=== PATIENT | male | born 1980 | race Two or more races ===

== ENCOUNTER 2024-10-25 17:46 | Inpatient (IN) | payer MEDICAID, OTHER ==
[~2024-10-25] VITALS: Ht 162.6 cm; Wt 67.8 kg
--- NOTE | 2024-10-25 18:02 | ED.PDOC ---
History of Present Illness HPI Comments 44-year-old male who denies any significant past medical history brought in by EMS complaining of generalized weakness and fatigue for the past 2 weeks. Patient states that he has become so weak that he is unable to ambulate. He also notes shortness of breath and palpitations with very minimal exertion, nausea, vomiting and inability to tolerate any p.o. food or liquids, associated with upper abdominal pain. He denies fever, diarrhea, constipation, urinary symptoms, headache, vision changes or focal weakness. Chief Complaint: Body Pain Time Seen by MD: 18:00 Reviewed Notes: Nurses Notes, Portfolio Director Notes, Medications, Allergies Allergies: Coded Allergies: NO KNOWN ALLERGIES (Unverified , 10/25/24) Information Source: Patient Mode of Arrival: EMS Severity: Moderate Timing: Weeks Duration: Since onset Prehospital treatment: None Past Medical History PAST MEDICAL HISTORY: Denies Surgical History (Other): prior Left elbow fracture-needed Sx Family History Family History: Reviewed,noncontributory to illness, Unknown Social History Smoker: Non-Smoker Alcohol: Denies ETOH Use Drugs: Denies Drug Use Lives In: Home Constitutional: reports: fatigue, weakness; denies: chills, diaphoresis, fever, malaise, sweats, others EENTM: denies: blurred vision, double vision, ear bleeding, ear discharge, ear drainage, ear pain, ear ringing, eye pain, eye redness, hearing loss, mouth pain, mouth swelling, nasal discharge, nose bleeding, nose congestion, nose pain, photophobia, tearing, throat pain, throat swelling, voice changes, others Respiratory: reports: shortness of breath; denies: cough, hemoptysis, orthopnea, SOB at rest, SOB with excertion, stridor, wheezing, others Cardiovascular: reports: palpitations; denies: chest pain, dizzy spells, di aphoresis, Dyspnea on exertion, edema, irregular heart beat, left arm pain, lightheadedness, PND, syncope, others Gastrointestinal: reports: abdominal pain, nausea, vomiting; denies: abdomen distended, blood streaked bowels, constipated, diarrhea, dysphagia, difficulty swallowing, hematemesis, melena, poor appetite, poor fluid intake, rectal bleeding, rectal pain, others Genitourinary: denies: burning, dysuria, flank pain, frequency, hematuria, incontinence, penile discharge, penile sore, pain, testicle pain, testicle swelling, urgency, others Neurological: denies: dizziness, fainting, headache, left sided numbness, left sided weakness, numbness, paresthesia, pre-existing deficit, right sided numbness, right sided weakness, seizure, speech problems, tingling, tremors, weakness, others Musculoskeletal: denies: back pain, gout, joint pain, joint swelling, muscle pain, muscle stiffness, neck pain, others Integumetry: denies: bruises, change in color, change in hair/nails, dryness, laceration, lesions, lumps, rash, wounds, others Allergic/Immunocompromised: denies: Difficulty Healing, Frequent Infections, Hives, Itching, others Hematologic/Lymphatic: denies: anemia, blood clots, easy bleeding, easy bruising, swollen glands, others Endocrine: denies: excessive hunger, excessive sweating, excessive thirst, excessive urination, flushing, intolerance to cold, intolerance to heat, unexplained weight gain, unexplained weight loss, others Psychiatric: denies: anxiety, bipolar disorder, depression, hopeless, panic dis order, schizophrenia, sleepless, suicidal, others All Other Systems: Reviewed and Negative Physical Exam General Appearance: Cachectic, No Apparent Distress, Other (Chronically ill- appearing) HEENT: Pale Conjuntivae (L), Pale Conjuntivae (R), Other (Dry mucous membranes) Neck: Full Range of Motion, Normal Inspection Respiratory: Lungs Clear, No Accessory Muscle Use, No Respiratory Distress, Normal Breath Sounds Cardiovascular: No Edema, No JVD, Tachycardia Breast Exam: Deferred Gastrointestinal: Epigastric, LUQ, RUQ, Soft, Tenderness Genitalia: Deferred Pelvic: Deferred Rectal: Deferred Extremities: Normal inspection, Normal range of motion, Non-tender, No pedal edema Musculoskeletal : Apperance: Normal Neurologic: Alert (Oriented x4), Normal Affect, Normal Mood, Other (Moves all extremities with adequate strength and tone. No gross focal deficit.) Cerebellar Function: NOT DONE Reflexes: NOT DONE Skin: Dry, Jaundice, Pallor, Warm Lymphatic: NOT DONE Was a procedure done? Was a procedure done?: No EKG EKG : Comments Sinus tach, rate 109, normal intervals, normal axis, normal QRS, nonspecific T changes. Differential Dx Considerations may include: Anemia, arrhythmia, asthma/COPD, CHF, pneumonia, enteritis gastritis, pancreatitis, diverticular disease, colitis, ulcer disease, electrolyte imbalance, dehydration, sepsis, among others X-Ray, Labs, Meds, VS Vital Signs Date Time Temp Pulse Resp B/P (MAP) Pulse Ox O2 Delivery O2 Flow Rate FiO2 10/25/24 20:06 10/25/24 20:00 107 10/25/24 19:30 Room Air* 0 21 10/25/24 19:16 109 23 107/65 10/25/24 18:46 112 22 108/66 10/25/24 18:44 109 10/25/24 18:17 Room Air* 0 21 10/25/24 18:17 111 16 108/66 (80) 95 10/25/24 17:50 109 10/25/24 17:50 98.5 84 16 132/66 (88) 99 98.5 Lab Test 10/25/24 20:05 10/25/24 19:03 Range/Units Troponin I High Sensitivity 3 L 3 L </=54 ng/L White Blood Count 9.9 4.4-10.8 10^3/uL Red Blood Count 2.90 L 4.5-5.90 10^6/uL Hemoglobin 9.4 L 13.5-17.5 g/dL Hematocrit 27.4 L 41.0-53.0 % Mean Corpuscular Volume 94.6 80.0-100.0 fL Mean Corpuscular Hemoglobin 32.4 H 28.0-32.0 pg Mean Corpuscular Hemoglobin Concent 34.2 32.0-36.0 g/dL Red Cell Distribution Width 14.7 H 11.8-14.3 % Platelet Count 135 L 140-450 10^3/uL Mean Platelet Volume 10.5 6.9-10.8 fL Neutrophils (%) (Auto) 37.0-80.0 % Lymphocytes (%) (Auto) 10.0-50.0 % Monocytes (%) (Auto) 0.0-12.0 % Basophils (%) (Auto) 0.0-2.0 % Neutrophils # (Auto) 1.6-8.6 10 ^3/uL Lymphocytes # (Auto) 0.4-5.4 10 ^3/uL Monocytes # (Auto) 0-1.3 10 ^3/uL Differential Total Cells Counted 100.0 100 Neutrophils % (Manual) 65 37.0-80.0 Band Neutrophils % (Manual) 30 Lymphocytes % (Manual) 4 L 10.0-50.0 Monocytes % (Manual) 1 0-12 Eosinophils % (Manual) 0 0-7 Basophils % (Manual) 0 0.0-2.0 Metamyelocytes % (manual) 0 Myelocytes % (Manual) 0 Promyelocytes % (Manual) 0 Blast Cells % (Manual) 0 Reactive Lymphocytes 0 Platelet Estimate Decreased Sodium Level 131 L 136-145 mmol/L Potassium Level 3.7 3.5-5.1 mmol/L Chloride Level 97 L 98-107 mmol/L Carbon Dioxide Level 24 20-31 mmol/L Anion Gap 10 5-15 Blood Urea Nitrogen 55 H 9-23 mg/dL Creatinine 0.50 L 0.700-1.30 mg/dL Glomerular Filtration Rate Calc 127 >90 mL/min BUN/Creatinine Ratio 110.0 H 10.0-20.0 Serum Glucose 72 L 74-106 mg/dL Lactic Acid Level 1.8 0.4-2.0 mmol/L Calcium Level 7.6 L 8.7-10.4 mg/dL Total Bilirubin 0.8 0.2-1.0 mg/dL Aspartate Amino Transferase (AST) 78 H 13-40 U/L Alanine Aminotransferase (ALT) 72 H 7-40 U/L Alkaline Phosphatase 129 H 46-116 U/L B-Type Natriuretic Peptide 74.53 0-100 pg/mL Total Protein 5.3 L 5.7-8.2 g/dL Albumin 2.5 L 3.2-4.8 g/dL Lipase 50 12-53 U/L Current Medications Medications (Trade) Dose Ordered Sig/Neisha Route Start Time Stop Time Status Last Admin Sodium Chloride 2,000 ml @ 1,000 mls/hr Q2H ONCE IV 10/25/24 18:00 10/25/24 19:59 DC 10/25/24 18:20 Ondansetron HCl (Zofran) 4 mg ONCE ONCE IV 10/25/24 18:00 10/25/24 18:03 DC 10/25/24 18:46 Morphine Sulfate 2 mg ONCE ONCE IV 10/25/24 18:00 10/25/24 18:03 DC 10/25/24 18:46 Pantoprazole Sodium (Protonix) 40 mg ONCE ONCE IV 10/25/24 18:00 10/25/24 18:03 DC 10/25/24 18:47 Piperacillin Sod/ Tazobactam Sod 100 ml @ 100 mls/hr ONCE ONCE IV 10/25/24 19:30 10/25/24 20:29 DC 10/25/24 20:35 PROCEDURE(s): ABPL - CT AB PEL WO CON-NO ORAL OR IV REASON: upper abd pain, n/v ORDER NUMBER(s): [id number], ACCESSION NUMBER(s): [id number] Exam: CT CT AB PEL WO CON-NO ORAL OR IV History: upper abd pain, n/v Comparison Study: None available at time of dictation. TECHNIQUE: Multidetector CT of the abdomen was performed from lung bases to pubic symphysis. Imaging was performed without IV contrast. Axial, coronal and sagittal multiplanar reformats were obtained from the axial data set by the technologist. Radiation Dose Information: CT Dose: CTDI volume is 5.17 mGy. Dose-length product is 258.5 mGy*cm FINDINGS: Evaluation of solid organs is limited due to lack of intravenous contrast use. Findings: Lung Bases: No acute or significant lung base finding. Normal heart size. No pleural or pericardial effusion. Liver: The liver is normal in size. No focal lesions. Gallbladder and Biliary Tree: Unremarkable Spleen: Unremarkable Pancreas: The pancreas is grossly normal in appearance. Adrenal Glands: Unremarkable Kidneys: Kidneys are grossly normal without calculi or hydronephrosis. Bladder: Grossly unremarkable for degree of distention. Bowel: The stomach is grossly normal in appearance. Pneumoperitoneum consistent with perforated viscus. Dilated small bowel may represent small-bowel obstruction. The appendix is not visualized; however, no secondary findings of acute appendicitis identified. Ascites: Scattered ascites in the abdomen and pelvis. Lymphadenopathy: No mesenteric, retroperitoneal or periportal lymphadenopathy. Abdominal Wall and Mesentery: Unremarkable. Vasculature: The visualized abdominal aorta is normal in size and caliber. Evaluation of abdominal and pelvic vessels is limited due to lack of intravenous contrast. Pelvic Organs: Unremarkable Musculoskeletal: No aggressive focal bony lesions, acute fractures or dislocation. Soft tissues: Unremarkable IMPRESSION: 1. Pneumoperitoneum consistent with perforated viscus. And scattered ascites. 2. Dilated small bowel consistent with small-bowel obstruction. CRITICAL FINDINGS: Critical Result: PERFORATED VISCUS. Findings discussed with YVETTE Shen at 10/25/2024 07:12 PM, and acknowledged receipt and understanding of the findings. .. 1. Radiation optimization: All CT scans at this facility use at least one of these dose optimization techniques: automated exposure control mA and/or kV adjustment per patient size (includes targeted exams where dose is matched to clinical indication) or iterative reconstruction. X-Ray, Labs, Meds, VS Comment 44-year-old male who reports no significant past medical history brought in by EMS complaining of generalized weakness, fatigue, dyspnea and palpitations on exertion, nausea, vomiting, inability to tolerate p.o. food or fluids, and upper abdominal pain for the past 2 weeks Vitals remarkable for heart rate 109 Exam remarkable for cachexia, pallor, jaundice, general appearance of chronic illness and dehydration as well as upper abdominal tenderness to palpation Rhythm strip independently interpreted by me: Sinus tach, rate 109, no ectopy. Chest x-ray independently interpreted by me: Cardiac silhouette normal size, no definite infiltrate or effusion, normal mediastinal width, grossly normal bony thorax, + free air under the right hemidiaphragm, no pneumothorax. CT abdomen and pelvis IMPRESSION: 1. Pneumoperitoneum consistent with perforated viscus. And scattered ascites. 2. Dilated small bowel consistent with small-bowel obstruction. CBC remarkable for hemoglobin 9.4, hematocrit 27.4, platelets 135, CMP remarkable for sodium 131, BUN 55, glucose 72, AST 78, ALT 72, alkaline phos 129, troponin and BNP negative, lipase and lactate normal Patient treated with the following in the ED: 2 L 0.9 normal saline IV bolus, morphine 4 mg IV, Zofran 4 mg IV, Protonix 40 mg IV, D50 50 mL IV, Zosyn 4.5 g IV, NG-tube to low intermittent suction was ordered On re-evaluation, patient states pain has improved. Vitals are stable. Dr. Schilling was consulted. He agreed with the ED plan and will see the patient in the morning. Plan is to admit the patient for IV hydration, antibiotics and surgical evaluation. Time of 1ST Reevaluation: 18:30 Reevaluation 1ST: Unchanged Patient Education/Counseling: Diagnosis, Treatment, Prognosis Family Education/Counseling: No Family Present Departure 1 Departure Time of Disposition: 20:05 Impression: Primary Impression: Perforated abdominal viscus Additional Impressions: Bowel obstruction Qualified Codes: K56.609 - Unspecified intestinal obstruction, unspecified as to partial versus complete obstruction Acute kidney injury Dehydration with hyponatremia Disposition: ADMITTED INPATIENT Admit to: [facility] Condition: Serious Critical Care Note Critical Care Time?: Yes (45 min-critical care time only) Critical care comment: Critical care time including multiple bedside re-evaluations, review of lab and imaging studies, and discussion of the case with the admitting and consulting providers. Patient is high risk for hemodynamic and/or metabolic decompensation. Stability Stability form required: No Heart Score Heart Score: Heart Score Response (Comments) Value History N/A 0 EKG N/A 0 Age N/A 0 Risk Factors N/A 0 Troponin N/A 0 Total 0 I personally scribed for YVETTE MARTINEZ MD ([email or web address]) on 10/25/24 at 18:02. Electronically submitted by Kraig Sweet ([email or web address]). I personally scribed for YVETTE MARTINEZ MD ([email or web address]) on 10/25/24 at 18:44. Electronically submitted by Kraig Sweet ([email or web address]). YVETTE MARTINEZ MD Oct 25, 2024 18:02
[2024-10-25] MEDS: SODIUM CHLORIDE 0.9% 2,000 ML IV ONE (18:20)
[2024-10-25] MEDS: MORPHINE SULFATE INJ 2 MG/ml SYRG IV ONE (18:46)
[2024-10-25] MEDS: ONDANSETRON HCL 4 MG/2 ML VIAL IV ONE (18:46)
[2024-10-25] MEDS: PANTOPRAZOLE 40 MG/10 ML VIAL INJ IV ONE (18:47)
--- NOTE | 2024-10-25 19:01 | ECG ---
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
--- NOTE | 2024-10-25 19:06 | DVH ---
INDICATION: sob gen weak TECHNIQUE: Frontal view of the chest. COMPARISON: None FINDINGS: Endotracheal tube 1 cm from the alise. Retract by 3 cm.. The heart and mediastinal contours are shadi ssly unremarkable. There is no evidence of pleural disease. Multifocal opacities The bony structu res of the chest are intact without fracture. IMPRESSION: 1. Retract endotracheal tube by [address] abdomen pelvis examination for findings below the diaphragm. 3. Multifocal opacities.
--- NOTE | 2024-10-25 19:19 | DVH ---
Exam: CT CT AB PEL WO CON-NO ORAL OR IV History: upper abd pain, n/v Comparison Study: None available at time of dictation. TECHNIQUE: Multidetector CT of the abdomen was performed from lung bases to pubic symphysis. Imaging was performed without IV contrast. Axial, coronal and sagittal multiplanar reformats were obtained fr om the axial data set by the technologist. Radiation Dose Information: CT Dose: CTDI volume is 5.17 mGy. Dose-length product is 258.5 mGy*cm FINDINGS: Evaluation of solid organs is limited due to lack of intravenous contrast use. Findings: Lung Bases: No acute or significant lung base finding. Normal heart size. No pleural or pericardial effusion. Liver: The liver is normal in size. No focal lesions. Gallbladder and Biliary Tree: Unremarkable Spleen: Unremarkable Pancreas: The pancreas is grossly normal in appearance. Adrenal Glands: Unremarkable Kidneys: Kidneys are grossly normal without calculi or hydronephrosis. Bladder: Grossly unremarkable for degree of distention. Bowel: The stomach is grossly normal in appearance. Pneumoperitoneum consistent with perforated viscu s. Dilated small bowel may represent small-bowel obstruction. The appendix is not visualized; howeve r, no secondary findings of acute appendicitis identified. Ascites: Scattered ascites in the abdomen and pelvis. Lymphadenopathy: No mesenteric, retroperitoneal or periportal lymphadenopathy. Abdominal Wall and Mesentery: Unremarkable. Vasculature: The visualized abdominal aorta is normal in size and caliber. Evaluation of abdominal a nd pelvic vessels is limited due to lack of intravenous contrast. Pelvic Organs: Unremarkable Musculoskeletal: No aggressive focal bony lesions, acute fractures or dislocation. Soft tissues: Unremarkable IMPRESSION: 1. Pneumoperitoneum consistent with perforated viscus. And scattered ascites. 2. Dilated small bowel consistent with small-bowel obstruction. CRITICAL FINDINGS: Critical Result: PERFORATED VISCUS. Findings discussed with YVETTE Shen at 10/25/2024 07:12 PM, and acknowledged receipt a nd understanding of the findings. .. 1. Radiation optimization: All CT scans at this facility use at least one of these dose optimization te chniques: automated exposure control mA and/or kV adjustment per patient size (includes targeted exa ms where dose is matched to clinical indication) or iterative reconstruction.
[2024-10-25 19:32] LABS: Hematocrit 27.4 % (41.0-53.0); Hemoglobin 9.4 g/dL (13.5-17.5); Mean Corpuscular Hemoglobin 32.4 pg (28.0-32.0); Mean Corpuscular Hgb Conc. 34.2 g/dL (32.0-36.0); Mean Corpuscular Volume 94.6 fL (80.0-100.0); Platelet Count (auto) 135 10^3/uL (140-450); Red Cell Distribution Width 14.7 % (11.8-14.3); White Blood Cell 9.9 10^3/uL (4.4-10.8)
[2024-10-25 19:49] LABS: Anion Gap 10 (5-15); Basophils % (manual) 0 (0.0-2.0); Blast Cells 0; Carbon Dioxide 24 mmol/L (20-31); Eosinophils % (manual) 0 (0-7); Lipase 50 U/L (12-53); Metamyelocytes % 0; Myelocytes % 0; Potassium 3.7 mmol/L (3.5-5.1); Promyelocytes % 0; Reactive Lymphocytes 0
[2024-10-25 19:50] LABS: Bilirubin, Total 0.8 mg/dL (0.2-1.0)
[2024-10-25 19:53] LABS: Alanine Aminotransferase 72 U/L (7-40); Albumin 2.5 g/dL (3.2-4.8); Alkaline Phosphatase 129 U/L (46-116); Aspartate Aminotransferase 78 U/L (13-40); Blood Urea Nitrogen 55 mg/dL (9-23); Calcium 7.6 mg/dL (8.7-10.4); Chloride 97 mmol/L (98-107); Glucose 72 mg/dL (74-106); Sodium 131 mmol/L (136-145); Total Protein 5.3 g/dL (5.7-8.2)
[2024-10-25] MEDS: PIPERACILLIN-TAZO 4.5GM 100 ML IV ONE (20:35)
[2024-10-25 20:52] LABS: Band Neutrophils % (manual) 30; Lymphocytes % (manual) 4 (10.0-50.0); Monocytes % (manual) 1 (0-12); Platelet Estimate Decreased
--- NOTE | 2024-10-25 21:50 | DVH ---
CHEST RADIOGRAPH Indication: sob, palpitations Technique: Single frontal view of the chest was obtained Comparison: XY CHEST PORTABLE on DOS: 10/25/24 FINDINGS: Lines and Tubes: None Lungs: No focal consolidation. Pleura: No effusion. Probable bowel gas under the diaphragms if pneumoperitoneum is of clinical jeremias rn recommend CT of the abdomen and pelvis. No pneumothorax. Cardiomediastinal contours: Unremarkable Bones: No acute osseous abnormality. IMPRESSION: 1. Probable bowel gas below the diaphragms. If pneumoperitoneum is of clinical concern recommend CT a bdomen pelvis.
[2024-10-25] MEDS ORDERED: NITROGLYCERIN 0.4 MG SL TAB SL PRN (22:15)
[2024-10-25] MEDS ORDERED: ONDANSETRON HCL 4 MG/2 ML VIAL IV PRN (22:15)
[2024-10-25] MEDS ORDERED: MORPHINE SULFATE INJ 2 MG/ml SYRG IV PRN (22:15)
--- NOTE | 2024-10-25 22:26 | DVHHP2 ---
History of Present Illness Reason for Visit: Generalized weakness History of Present Illness 44-year-old male presents for evaluation of generalized weakness. Patient endorses a two week history of increasing fatigue with associated upper abdominal pain, nausea and vomiting. He states being unable to keep any food or liquids down. No fever or chills. No other acute complaints reported. Past Medical History Denies Past Surgical History Elbow surgery Family History Noncontributory Smoke: No ALCOHOL: none Drugs: None Lives: with Family Review of Systems Review of Systems Review of systems are currently negative otherwise addressed in HPI. Allergies: Coded Allergies: NO KNOWN ALLERGIES (Unverified , 10/25/24) Exam Vital Signs Vital Signs Date Time Temp Pulse Resp B/P (MAP) Pulse Ox O2 Delivery O2 Flow Rate FiO2 10/25/24 20:06 10/25/24 19:30 Room Air* 0 21 10/25/24 19:16 23 107/65 10/25/24 18:17 95 10/25/24 17:50 98.5 98.5 Exam Gen: 44-year-old male in mild distress, cachectic Skin: Warm, dry, normal color and texture, no rash. HEENT: Normocephalic atraumatic, mucous membranes moist and pink. Neck: Cervical and supraclavicular nodes normal without enlargement, trachea is midline, thyroid gland is normal without masses. Pulmonary: Clear to auscultation and percussion bilaterally. Cardiac: Regular rate and rhythm. No murmur Abdomen: Soft, diffuse tenderness, nondistended, bowel sounds present all 4 quadrants, no guarding, no rigidity, no organomegaly. Extremities: No cyanosis, clubbing, no edema Neuro: Cranial nerves II through XII grossly intact, normal affect and speech, no focal motor deficits. Labs/Xrays ORDERING PHYSICIAN: YVETTE MARTINEZ MD PROCEDURE(s): ABPL - CT AB PEL WO CON-NO ORAL OR IV REASON: upper abd pain, n/v ORDER NUMBER(s): [id number], ACCESSION NUMBER(s): [id number] Exam: CT CT AB PEL WO CON-NO ORAL OR IV History: upper abd pain, n/v Comparison Study: None available at time of dictation. TECHNIQUE: Multidetector CT of the abdomen was performed from lung bases to pubic symphysis. Imaging was performed without IV contrast. Axial, coronal and sagittal multiplanar reformats were obtained from the axial data set by the technologist. Radiation Dose Information: CT Dose: CTDI volume is 5.17 mGy. Dose-length product is 258.5 mGy*cm FINDINGS: Evaluation of solid organs is limited due to lack of intravenous contrast use. Findings: Lung Bases: No acute or significant lung base finding. Normal heart size. No pleural or pericardial effusion. Liver: The liver is normal in size. No focal lesions. Gallbladder and Biliary Tree: Unremarkable Spleen: Unremarkable Pancreas: The pancreas is grossly normal in appearance. Adrenal Glands: Unremarkable Kidneys: Kidneys are grossly normal without calculi or hydronephrosis. Bladder: Grossly unremarkable for degree of distention. Bowel: The stomach is grossly normal in appearance. Pneumoperitoneum consistent with perforated viscus. Dilated small bowel may represent small-bowel obstruction. The appendix is not visualized; however, no secondary findings of acute appendicitis identified. Ascites: Scattered ascites in the abdomen and pelvis. Lymphadenopathy: No mesenteric, retroperitoneal or periportal lymphadenopathy. Abdominal Wall and Mesentery: Unremarkable. Vasculature: The visualized abdominal aorta is normal in size and caliber. Evaluation of abdominal and pelvic vessels is limited due to lack of intravenous contrast. Pelvic Organs: Unremarkable Musculoskeletal: No aggressive focal bony lesions, acute fractures or dislocation. Soft tissues: Unremarkable IMPRESSION: 1. Pneumoperitoneum consistent with perforated viscus. And scattered ascites. 2. Dilated small bowel consistent with small-bowel obstruction. CRITICAL FINDINGS: Critical Result: PERFORATED VISCUS. Findings discussed with YVETTE Shen at 10/25/2024 07:12 PM, and acknowledged receipt and understanding of the findings. .. 1. Radiation optimization: All CT scans at this facility use at least one of these dose optimization techniques: automated exposure control mA and/or kV adjus tment per patient size (includes targeted exams where dose is matched to clinical indication) or iterative reconstruction. RING PHYSICIAN: YVETTE MARTINEZ MD PROCEDURE(s): CXRP - CHEST PORTABLE REASON: sob, palpitations ORDER NUMBER(s): [id number], ACCESSION NUMBER(s): [id number] CHEST RADIOGRAPH Indication: sob, palpitations Technique: Single frontal view of the chest was obtained Comparison: XY CHEST PORTABLE on DOS: 10/25/24 FINDINGS: Lines and Tubes: None Lungs: No focal consolidation. Pleura: No effusion. Probable bowel gas under the diaphragms if pneumoperitoneum is of clinical concern recommend CT of the abdomen and pelvis. No pneumothorax. Cardiomediastinal contours: Unremarkable Bones: No acute osseous abnormality. IMPRESSION: 1. Probable bowel gas below the diaphragms. If pneumoperitoneum is of clinical concern recommend CT abdomen pelvis. Labs Test 10/25/24 20:05 10/25/24 19:03 Range/Units Troponin I High Sensitivity 3 L </=54 ng/L White Blood Count 9.9 4.4-10.8 10^3/uL Red Blood Count 2.90 L 4.5-5.90 10^6/uL Hemoglobin 9.4 L 13.5-17.5 g/dL Hematocrit 27.4 L 41.0-53.0 % Mean Corpuscular Volume 94.6 80.0-100.0 fL Mean Corpuscular Hemoglobin 32.4 H 28.0-32.0 pg Mean Corpuscular Hemoglobin Concent 34.2 32.0-36.0 g/dL Red Cell Distribution Width 14.7 H 11.8-14.3 % Platelet Count 135 L 140-450 10^3/uL Mean Platelet Volume 10.5 6.9-10.8 fL Neutrophils (%) (Auto) 37.0-80.0 % Lymphocytes (%) (Auto) 10.0-50.0 % Monocytes (%) (Auto) 0.0-12.0 % Basophils (%) (Auto) 0.0-2.0 % Neutrophils # (Auto) 1.6-8.6 10 ^3/uL Lymphocytes # (Auto) 0.4-5.4 10 ^3/uL Monocytes # (Auto) 0-1.3 10 ^3/uL Differential Total Cells Counted 100.0 100 Neutrophils % (Manual) 65 37.0-80.0 Band Neutrophils % (Manual) 30 Lymphocytes % (Manual) 4 L 10.0-50.0 Monocytes % (Manual) 1 0-12 Eosinophils % (Manual) 0 0-7 Basophils % (Manual) 0 0.0-2.0 Metamyelocytes % (manual) 0 Myelocytes % (Manual) 0 Promyelocytes % (Manual) 0 Blast Cells % (Manual) 0 Reactive Lymphocytes 0 Platelet Estimate Decreased Sodium Level 131 L 136-145 mmol/L Potassium Level 3.7 3.5-5.1 mmol/L Chloride Level 97 L 98-107 mmol/L Carbon Dioxide Level 24 20-31 mmol/L Anion Gap 10 5-15 Blood Urea Nitrogen 55 H 9-23 mg/dL Creatinine 0.50 L 0.700-1.30 mg/dL Glomerular Filtration Rate Calc 127 >90 mL/min BUN/Creatinine Ratio 110.0 H 10.0-20.0 Serum Glucose 72 L 74-106 mg/dL Lactic Acid Level 1.8 0.4-2.0 mmol/L Calcium Level 7.6 L 8.7-10.4 mg/dL Total Bilirubin 0.8 0.2-1.0 mg/dL Aspartate Amino Transferase (AST) 78 H 13-40 U/L Alanine Aminotransferase (ALT) 72 H 7-40 U/L Alkaline Phosphatase 129 H 46-116 U/L B-Type Natriuretic Peptide 74.53 0-100 pg/mL Total Protein 5.3 L 5.7-8.2 g/dL Albumin 2.5 L 3.2-4.8 g/dL Lipase 50 12-53 U/L Assessment/Plan Assessment/Plan Assessment Perforated abdominal viscus Small-bowel obstruction Cachexia Severe protein malnutrition with associated hypoalbuminemia Plan Admit the patient to telemetry to the hospitalist Surgical team, Dr. Schilling contacted by ER provider and was advised to admit the patient and he would consult on the patient tomorrow morning. Zosyn Maintenance IV fluids Pain management NPO Continue treatment per orders. Plan discussed with: Patient Date of Service: Oct 25, 2024 Billing Provider: GUANAKITO GROSS Common Visit Codes: [id number] INP/OBS CARE (HIGH) GUANAKITO GROSS Oct 25, 2024 22:26
[2024-10-25] MEDS: DEXTROSE (50%) 50ML SYRG IV ONE (22:46)
[2024-10-25] MEDS: SODIUM CHLORIDE 0.9% 1,000 ML IV ONE (23:00)
[2024-10-25 23:01] LABS: INR 1.12 (0.9-1.15); Partial Thromboplastin Time 33.6 SEC (24.5-34.5); Prothrombin Time 11.7 sec (9.3-11.8)
[2024-10-26] VITALS (37 sets, daily range): BP systolic 99–146; BP diastolic 50–76; PULSE 70–133; RESP 14–25; TEMP 98.2–98.3; O2SAT 94–100
--- NOTE | 2024-10-26 02:33 | DVH ---
CHEST RADIOGRAPH Indication: NG TUBE PLACEMENT Technique: Single frontal view of the chest was obtained COMPARISON: XY CHEST PORTABLE on DOS: 10/25/24, XY CHEST PORTABLE on DOS: 10/25/24 FINDINGS: Lines and Tubes: Enteric catheter tip within the left upper quadrant inferior to the diaphragm, presu mably within the gastric lumen. Lungs: Clear Pleura: No effusion. No pneumothorax. Cardiomediastinal contours: Unremarkable Bones: Unremarkable IMPRESSION: 1. No acute disease. 2. Interval placement of enteric catheter.
[2024-10-26 04:31] LABS: Urine Bacteria None Seen /hpf (None Seen)
[2024-10-26 04:49] LABS: Urine Blood Negative /uL (Negative); Urine Clarity Clear (Clear); Urine Color Yellow (Yellow); Urine Protein, UAD TRACE (Negative); Urine Specific Gravity 1.027 (1.001-1.035); Urine Squamous Epithelial Cell None Seen /hpf (<5); Urine Urobilinogen Normal (Negative); Urine WBC 1 /HPF (0-3)
[2024-10-26] MEDS: PIPERACILLIN-TAZOB 3.375GM 100 ML IV SCH (05:00)
[2024-10-26 06:08] LABS: Alkaline Phosphatase 108 U/L (46-116); Anion Gap 10 (5-15); BUN/Creatinine Ratio 88.6 (10.0-20.0); Carbon Dioxide 20 mmol/L (20-31); Chloride 104 mmol/L (98-107); Glucose 78 mg/dL (74-106); Potassium 3.6 mmol/L (3.5-5.1)
[2024-10-26 06:09] LABS: Bilirubin, Total 0.8 mg/dL (0.2-1.0)
[2024-10-26 06:14] LABS: Alanine Aminotransferase 64 U/L (7-40); Albumin 2.6 g/dL (3.2-4.8); Aspartate Aminotransferase 60 U/L (13-40); Blood Urea Nitrogen 39 mg/dL (9-23); Calcium 7.5 mg/dL (8.7-10.4); Sodium 134 mmol/L (136-145); Total Protein 5.1 g/dL (5.7-8.2)
[2024-10-26] MEDS: MORPHINE SULFATE INJ 2 MG/ml SYRG IV PRN ×2 (06:36→17:37)
[2024-10-26] MEDS: PANTOPRAZOLE 40 MG/10 ML VIAL INJ IV SCH (08:33)
--- NOTE | 2024-10-26 09:27 | DVH ---
Exam: XY SMALL BOWEL SERIES-W GASTROGRA, XY UGI WITH GASTROGRAFIN History: R/O PERF Comparison: None Findings: The sack cleaner image of the abdomen shows uniform distribution of air throughout the bowel witho ut obstruction. Free intraperitoneal air. There is leakage of contrast upon injection into the stomac h into the right peritoneal space. Findings concerning for perforation. Surgical consultation recom mended. Impression: Free intraperitoneal air. There is leakage of contrast upon injection into the stomach into the right peritoneal space. Findings concerning for perforation. Surgical consultation recommended.
--- NOTE | 2024-10-26 09:27 | DVH ---
Exam: XY SMALL BOWEL SERIES-W GASTROGRA, XY UGI WITH GASTROGRAFIN History: R/O PERF Comparison: None Findings: The scouts image of the abdomen shows uniform distribution of air throughout the bowel witho ut obstruction. Free intraperitoneal air. There is leakage of contrast upon injection into the stomac h into the right peritoneal space. Findings concerning for perforation. Surgical consultation recom mended. Impression: Free intraperitoneal air. There is leakage of contrast upon injection into the stomach into the right peritoneal space. Findings concerning for perforation. Surgical consultation recommended.
--- NOTE | 2024-10-26 10:20 | DVHINCON2 ---
Date of service: Oct 26, 2024 Family History: Patient reports no known family medical history. Allergies: Coded Allergies: NO KNOWN ALLERGIES (Unverified , 10/25/24) Home Meds No Active Prescriptions or Reported Meds Current Medications Current Medications Medications (Trade) Dose Ordered Sig/Neisha Route PRN Reason Start Time Stop Time Status Last Admin Pantoprazole Sodium (Protonix) 40 mg DAILY IV 10/26/24 10:00 10/26/24 08:33 Piperacillin Sod/ Tazobactam Sod 100 ml @ 25 mls/hr Q8H IV 10/26/24 05:00 10/26/24 05:00 Ondansetron HCl (Zofran) 4 mg Q4HP PRN IV NAUSEA / VOMITING 10/25/24 22:15 Morphine Sulfate 2 mg Q4HPRN PRN IV SEVERE PAIN (7-10 PAIN SCALE) 10/25/24 22:15 10/26/24 06:36 Nitroglycerin (Ntrostat Sublingual) 0.4 mg Q5MINP PRN SL FOR CHEST PAIN 10/25/24 22:15 Morphine Sulfate 2 mg Q30M PRN IV FOR CHEST PAIN 10/25/24 22:15 Vital Signs Vital Signs Date Time Temp Pulse Resp B/P (MAP) Pulse Ox O2 Delivery O2 Flow Rate FiO2 10/26/24 08:31 98.2 116 18 146/73 (97) 96 98.2 10/26/24 02:37 Nasal Cannula* 2 28 Labs/Diagnostic Data Labs Test 10/26/24 05:19 10/26/24 04:00 10/26/24 02:52 10/25/24 22:27 Range/Units Sodium Level 134 L 136-145 mmol/L Potassium Level 3.6 3.5-5.1 mmol/L Chloride Level 104 98-107 mmol/L Carbon Dioxide Level 20 20-31 mmol/L Anion Gap 10 5-15 Blood Urea Nitrogen 39 #H 9-23 mg/dL Creatinine 0.44 L 0.700-1.30 mg/dL Glomerular Filtration Rate Calc 132 >90 mL/min BUN/Creatinine Ratio 88.6 H 10.0-20.0 Serum Glucose 78 74-106 mg/dL Calcium Level 7.5 L 8.7-10.4 mg/dL Total Bilirubin 0.8 0.2-1.0 mg/dL Aspartate Amino Transferase (AST) 60 H 13-40 U/L Alanine Aminotransferase (ALT) 64 H 7-40 U/L Alkaline Phosphatase 108 46-116 U/L Total Protein 5.1 L 5.7-8.2 g/dL Albumin 2.6 L 3.2-4.8 g/dL Urine Color Yellow Yellow Urine Clarity Clear Clear Urine pH 6.0 5.0-9.0 Urine Specific [place] 1.027 1.001-1.035 Urine Protein Trace H Negative Urine Ketones Negative Negative Urine Blood Negative Negative /uL Urine Nitrite Negative Negative Urine Bilirubin Negative Negative Urine Urobilinogen Normal Negative mg/dL Urine Leukocyte Esterase Negative Negative /uL Urine RBC 2 0 - 3 /hpf Urine Microscopic WBC 1 0-3 /HPF Urine Squamous Epithelial Cells None seen <5 /hpf Urine Bacteria None seen None Seen /hpf Urine Glucose Normal Normal mg/dL Troponin I High Sensitivity 3 L </=54 ng/L Prothrombin Time 11.7 9.3-11.8 sec Prothrombin Time INR 1.12 0.9-1.15 Activated Partial Thromboplast Time 33.6 24.5-34.5 SEC Test 10/25/24 19:03 Range/Units Differential Total Cells Counted 100.0 100 Neutrophils % (Manual) 65 37.0-80.0 Band Neutrophils % (Manual) 30 Lymphocytes % (Manual) 4 L 10.0-50.0 Monocytes % (Manual) 1 0-12 Eosinophils % (Manual) 0 0-7 Basophils % (Manual) 0 0.0-2.0 Metamyelocytes % (manual) 0 Myelocytes % (Manual) 0 Promyelocytes % (Manual) 0 Blast Cells % (Manual) 0 Reactive Lymphocytes 0 Platelet Estimate Decreased Lactic Acid Level 1.8 0.4-2.0 mmol/L B-Type Natriuretic Peptide 74.53 0-100 pg/mL Lipase 50 12-53 U/L Assessment 44 year old male lost 30 lbs of body weight in the last month, no abdominal pain, claims he has used no alcohol in 3 years, abdomen soft, non distended, non tender. X ray with free air,l due to absence of pain i wanted to r/o a sealed perforation which in the cachectic patient would possibly obviate a needless opration, UGI X ray with gastrografin shows a persistent leak from the stomach, will proceed with exploratory operation, risks and complications explained in detail.; Plan discussed with: Patient CHRIST HUDDLESTON MD Oct 26, 2024 10:20
[2024-10-26] MEDS ORDERED: PROPOFOL 10 MG/ML 20 ML IV ONE (12:15)
[2024-10-26] MEDS ORDERED: KETOROLAC TROMETH 30 MG/ML 1ML VIAL ONE (12:15)
[2024-10-26] MEDS ORDERED: ONDANSETRON HCL 4 MG/2 ML VIAL ONE (12:15)
[2024-10-26] MEDS ORDERED: DexAMETHasone SOD PHOS 10MG/1ML VIAL INJ ONE ×2 (12:15)
[2024-10-26] MEDS ORDERED: EPINEPHrine HCL 1 MG/1 ML AMP ONE (12:15)
[2024-10-26] MEDS ORDERED: SUGAMMADEX 200mg/2ml Vial (100MG/ML) IV ONE (12:15)
[2024-10-26] MEDS ORDERED: ROCURONIUM 10MG/ML 10ML VIAL IV ONE (12:15)
[2024-10-26] MEDS ORDERED: GLYCOPYRROLATE 0.2 MG/ML 1ML VIAL ONE (12:15)
[2024-10-26] MEDS ORDERED: KETAMINE 50mg/ML 1ml syringe ONE (12:18)
[2024-10-26] MEDS ORDERED: fentaNYL CITRATE 100 MCG/2 ML VL ONE (12:18)
[2024-10-26] MEDS ORDERED: ESMOLOL HCL 10 ML IV ONE (13:20)
--- NOTE | 2024-10-26 14:38 | DVHOP ---
DATE OF SURGERY: 10/26/2024 PREOPERATIVE DIAGNOSIS: Pneumoperitoneum. POSTOPERATIVE DIAGNOSES: * Pneumoperitoneum. * Obliteration of abdominal cavity by adhesions and inflammation. * Perforated gastric ulcer. SURGEON: Acosta Schilling MD MANGANESE WHEELER: Carmine Waller. ANESTHESIA: General endotracheal. ANESTHESIOLOGIST: Ran Winchester. PROCEDURES: Exploratory laparotomy, lysis of adhesions, repair of perforated ulcer. DESCRIPTION OF PROCEDURE: Under adequate anesthesia with the patient's skin was prepped and draped, the patient's abdominal incision was made in the midline of the upper abdomen. Entry into the peritoneal cavity revealed purulent material in several different locations. Cultures and sensitivities were submitted. The abdominal cavity was essentially obliterated by adhesions. It was impossible to find any cleavage points between loops of bowel, stomach, colon, mesentery, and the anterior abdominal wall. Eventually, we were able to free up enough of the viscera from the anterior abdominal wall to be able to irrigate the abdomen. Subsequently, we discovered a perforation in the proximal stomach just proximal to the pylorus. This was repaired with two layers of sutures, the inner layer 2-0 Monocryl and the outer layer 3-0 Prolene sutures. There was no omentum that was left in order to place a patch on to the repair. A 10 mm [place] drain was inserted and exteriorized through a separate incision, secured with a 3-0 nylon suture. Subsequently, the abdomen was thoroughly irrigated. Irrigant was aspirated. Hemostasis was meticulously assured and found to be complete. At the termination of the procedure, there was no evidence of ongoing bleeding. The abdomen was then closed using #1 double-stranded PDS suture and Monocryl sutures, Dermabond glue, and Steri-Strips for approximation of the skin and subcutaneous tissues. The patient remained hemodynamically stable throughout the procedure and left the operating room following an accurate needle and sponge counts. His brother, Erasmo, was thoroughly informed by phone. Acosta Schilling MD PF/JOAQUIN TID: [id number] RECEIPT: [id number]
[2024-10-26] MEDS ORDERED: hydrALAZINE HCL 20 MG/ML VL IV PRN (14:45)
[2024-10-26] MEDS ORDERED: ONDANSETRON HCL 4 MG/2 ML VIAL IV PRN (14:45)
[2024-10-26] MEDS ORDERED: ePHEDrine SULFATE 50 MG/ML AMP IV PRN (14:45)
[2024-10-26] MEDS ORDERED: HYDROmorphone HCL 2 MG/ML VL/or syr IV PRN (14:45)
[2024-10-26] MEDS ORDERED: FLUMAZENIL 0.1 MG/ML INJ 10ML MDV IV PRN (14:45)
[2024-10-26] MEDS ORDERED: fentaNYL CITRATE 100 MCG/2 ML VL IV PRN (14:45)
[2024-10-26] MEDS ORDERED: NALOXONE HCL 0.4 MG/ML VIAL IV PRN (14:45)
[2024-10-26] MEDS: metroNIDAZOLE 500MG/100ML 100 ML IV SCH (17:16)
[2024-10-26] MEDS: ceFAZolin 1GM/50ML 50 ML IV SCH (17:16)
[2024-10-26] MEDS: PANTOPRAZOLE 40mg/50ML NS AE 50 ML IV SCH (17:16)
[2024-10-26] MEDS: D5W/SOD CHL 0.45%/KCL 20MEQ 1,000 ML IV SCH (17:25)
[2024-10-26] MEDS: BUPIVACAINE 0.25% INJ 50ML VIAL ONE (17:55)
[2024-10-26] MEDS: LIDOCAINE HCL 2 %PF INJ 10ML AMP IJ ONE (17:55)
[2024-10-26] MEDS: ceFAZolin 2 GM/D5W50ml 50 ML IV ONE (17:55)
[2024-10-26] MEDS: GASTROGRAFIN 120 ML SOL ONE (17:55)
[2024-10-26] MEDS: ACETAMINOPHEN IV 100 ML IV ONE (17:56)
[2024-10-26] MEDS: ACETAMINOPHEN IV 1000 MG/100ML (10MG/ML) IV ONE (17:56)
[2024-10-26 19:03] LABS: White Blood Cell 8.9 10^3/uL (4.4-10.8)
[2024-10-26 19:06] LABS: Hematocrit 19.9 % (41.0-53.0); Mean Corpuscular Hemoglobin 32.3 pg (28.0-32.0); Mean Corpuscular Hgb Conc. 34.1 g/dL (32.0-36.0); Mean Corpuscular Volume 94.8 fL (80.0-100.0); Platelet Count (auto) 96 10^3/uL (140-450); Red Blood Cells 2.09 10^6/uL (4.5-5.90); Red Cell Distribution Width 14.7 % (11.8-14.3)
[2024-10-26 19:10] LABS: Hemoglobin 6.8 g/dL (13.5-17.5)
[2024-10-26 19:11] LABS: Basophils % (manual) 0 (0.0-2.0); Blast Cells 0; Eosinophils % (manual) 0 (0-7); Myelocytes % 0; Promyelocytes % 0; Reactive Lymphocytes 0
[2024-10-26 19:45] LABS: Anisocytosis Slight; Band Neutrophils % (manual) 12; Large Platelets FEW; Lymphocytes % (manual) 2 (10.0-50.0); Macrocytosis Slight; Metamyelocytes % 6; Monocytes % (manual) 2 (0-12); Platelet Estimate Decrea; Polychromasia Slight
--- NOTE | 2024-10-26 23:26 | DVHINCON2 ---
Date of service: Oct 26, 2024 Referring Physician Abel Jones NP Reason for Consultation Acute hypoxic respiratory failure History of Present Illness A 44-year-old male who denies any significant past medical history presented to ED via EMS on 10/25/24 for evaluation of generalized weakness and fatigue x2 weeks. He also notes shortness of breath and palpitations with very minimal exertion, nausea, vomiting and inability to tolerate any p.o. food or liquids, associated with upper abdominal pain. No fever or chills. He denies fever, diarrhea, constipation, urinary symptoms, headache or other acute complaints. Patient was admitted for further care and pulmonary consultation is requested for evaluation and management of acute hypoxic respiratory failure. Review of Systems: 14-point review of systems negative unless otherwise noted above. Past Medical History: Denies Past Surgical History: Left elbow fracture and surgery Medications: Reviewed. Allergies: No known drug allergies. Family History: No family history of premature CAD. No family history of lung disorders. Social History: Nonsmoker. No alcohol or illicit drug use. Family History: Patient reports no known family medical history. Allergies: Coded Allergies: NO KNOWN ALLERGIES (Unverified , 10/25/24) Home Meds No Active Prescriptions or Reported Meds Current Medications Current Medications Medications (Trade) Dose Ordered Sig/Neisha Route PRN Reason Start Time Stop Time Status Last Admin Pantoprazole Sodium (Protonix) 40 mg DAILY IV 10/26/24 10:00 10/26/24 14:53 DC 10/26/24 08:33 Piperacillin Sod/ Tazobactam Sod 100 ml @ 25 mls/hr Q8H IV 10/26/24 05:00 10/26/24 21:21 Potassium Chloride/Dextrose/ Sod Cl 1,000 ml @ 120 mls/hr Q8H20M IV 10/26/24 14:15 10/26/24 17:25 Cefazolin Sodium 50 ml @ 100 mls/hr Q8HR IV 10/26/24 14:57 10/26/24 22:00 Metronidazole 100 ml @ 100 mls/hr Q8HR IV 10/26/24 14:53 10/26/24 22:00 Pantoprazole Sodium 50 ml @ 10 mls/hr Q5H IV 10/26/24 14:15 10/26/24 21:14 Morphine Sulfate 1 mg Q3HP PRN IV SEVERE PAIN (7-10 PAIN SCALE) 10/26/24 14:15 10/26/24 21:11 Ondansetron HCl (Zofran) 4 mg Q4HPRN PRN IV NAUSEA / VOMITING 10/26/24 14:15 Ondansetron HCl (Zofran) 4 mg ONCE PRN IV NAUSEA / VOMITING 10/26/24 14:45 10/26/24 14:51 DC Naloxone HCl (Narcan) 0.4 mg Q10M PRN IV NARCOTIC REVERSAL 10/26/24 14:45 10/26/24 15:06 DC Flumazenil (Romazicon Injection) 0.2 mg ONCE PRN IV BENZODIAZEPINE REVERSAL 10/26/24 14:45 10/26/24 14:51 DC Hydralazine HCl (Apresoline Injection) 5 mg Q10M PRN IV SBP>160 10/26/24 14:45 10/26/24 15:36 DC Ephedrine Sulfate (ePHEDrine SULFATE) 10 mg Q10M PRN IV SBP LESS THAN 90 10/26/24 14:45 10/26/24 15:26 DC Fentanyl Citrate 25 mcg Q1HP PRN IV BREAKTHROUGH PAIN (7-10) 10/26/24 14:45 10/26/24 14:51 DC Hydromorphone HCl (Dilaudid Injection) 0.5 mg Q10M PRN IV SEVERE PAIN (7-10 PAIN SCALE) 10/26/24 14:45 10/26/24 15:26 DC Vital Signs Vital Signs Date Time Temp Pulse Resp B/P (MAP) Pulse Ox O2 Delivery O2 Flow Rate FiO2 10/26/24 22:30 116 16 106/65 (79) 99 10/26/24 22:00 98.3 98.3 10/26/24 20:00 Nasal Cannula* 2 28 Physical Exam Gen.: Patient lying in bed in no apparent distress. On supplemental oxygen. Head: Normocephalic, atraumatic. Eyes: EOMI/PERRLA. Ears: Normal hearing. Normal anatomy. Neck/trachea: Trachea midline, supple. Nose: Normal external anatomy. Mouth: Moist mucous membranes. Chest: Decreased air entry bilaterally. No wheezing or rhonchi. Cardiovascular: Positive S1, positive S2. Regular rate and rhythm. Abdomen: Positive bowel sounds in all 4 quadrants. Soft, non-tender, non- distended. : Deferred. Rectal: Deferred. Skin: Warm, dry. Intact. Extremities: 2+ radial pulses bilaterally. No lower extremity edema. Neuro: Awake, alert, oriented x3. No gross motor or sensory deficits. Cranial nerves II through XII intact. Gait not assessed. Labs/Diagnostic Data Labs Test 10/26/24 18:40 10/26/24 05:19 10/26/24 04:00 10/26/24 02:52 Range/Units White Blood Count 8.9 4.4-10.8 10^3/uL Red Blood Count 2.09 L 4.5-5.90 10^6/uL Hemoglobin 6.8 #*L 13.5-17.5 g/dL Hematocrit 19.9 #L 41.0-53.0 % Mean Corpuscular Volume 94.8 80.0-100.0 fL Mean Corpuscular Hemoglobin 32.3 H 28.0-32.0 pg Mean Corpuscular Hemoglobin Concent 34.1 32.0-36.0 g/dL Red Cell Distribution Width 14.7 H 11.8-14.3 % Platelet Count 96 L 140-450 10^3/uL Mean Platelet Volume 10.0 6.9-10.8 fL Neutrophils (%) (Auto) 37.0-80.0 % Lymphocytes (%) (Auto) 10.0-50.0 % Monocytes (%) (Auto) 0.0-12.0 % Basophils (%) (Auto) 0.0-2.0 % Neutrophils # (Auto) 1.6-8.6 10 ^3/uL Lymphocytes # (Auto) 0.4-5.4 10 ^3/uL Monocytes # (Auto) 0-1.3 10 ^3/uL Differential Total Cells Counted 100.0 100 Neutrophils % (Manual) 78 37.0-80.0 Band Neutrophils % (Manual) 12 Lymphocytes % (Manual) 2 L 10.0-50.0 Monocytes % (Manual) 2 0-12 Eosinophils % (Manual) 0 0-7 Basophils % (Manual) 0 0.0-2.0 Metamyelocytes % (manual) 6 Myelocytes % (Manual) 0 Promyelocytes % (Manual) 0 Blast Cells % (Manual) 0 Reactive Lymphocytes 0 Platelet Estimate Decrea Large Platelets Few Polychromasia Slight Anisocytosis (manual) Slight Microcytosis Slight Macrocytosis Slight Sodium Level 134 L 136-145 mmol/L Potassium Level 3.6 3.5-5.1 mmol/L Chloride Level 104 98-107 mmol/L Carbon Dioxide Level 20 20-31 mmol/L Anion Gap 10 5-15 Blood Urea Nitrogen 39 #H 9-23 mg/dL Creatinine 0.44 L 0.700-1.30 mg/dL Glomerular Filtration Rate Calc 132 >90 mL/min BUN/Creatinine Ratio 88.6 H 10.0-20.0 Serum Glucose 78 74-106 mg/dL Calcium Level 7.5 L 8.7-10.4 mg/dL Total Bilirubin 0.8 0.2-1.0 mg/dL Aspartate Amino Transferase (AST) 60 H 13-40 U/L Alanine Aminotransferase (ALT) 64 H 7-40 U/L Alkaline Phosphatase 108 46-116 U/L Total Protein 5.1 L 5.7-8.2 g/dL Albumin 2.6 L 3.2-4.8 g/dL Urine Color Yellow Yellow Urine Clarity Clear Clear Urine pH 6.0 5.0-9.0 Urine Specific [place] 1.027 1.001-1.035 Urine Protein Trace H Negative Urine Ketones Negative Negative Urine Blood Negative Negative /uL Urine Nitrite Negative Negative Urine Bilirubin Negative Negative Urine Urobilinogen Normal Negative mg/dL Urine Leukocyte Esterase Negative Negative /uL Urine RBC 2 0 - 3 /hpf Urine Microscopic WBC 1 0-3 /HPF Urine Squamous Epithelial Cells None seen <5 /hpf Urine Bacteria None seen None Seen /hpf Urine Glucose Normal Normal mg/dL Troponin I High Sensitivity 3 L </=54 ng/L Test 10/25/24 22:27 10/25/24 19:03 Range/Units Prothrombin Time 11.7 9.3-11.8 sec Prothrombin Time INR 1.12 0.9-1.15 Activated Partial Thromboplast Time 33.6 24.5-34.5 SEC Lactic Acid Level 1.8 0.4-2.0 mmol/L B-Type Natriuretic Peptide 74.53 0-100 pg/mL Lipase 50 12-53 U/L Microbiology Date/Time Source Procedure Growth Status 10/25/24 19:03 Blood Blood Culture - Preliminary NO GROWTH AFTER 24 HOURS OF INCUBATION. Resulted Assessment Impression: Acute hypoxic respiratory failure Dependence on supplemental oxygen GI hemorrhage/perforated abdominal viscus Small bowel obstructoin Cachexia, BMI 18.4 Plan: Supplemental oxygen 2 LPM NC Titrate to keep O2 sats above 92%. Taper O2 as tolerated. NGT S/p surgery Continue antibiotics Protonix drip Monitor hemoglobin GI recs appreciated. Monitor renal function. Monitor electrolytes. Supplement as necessary. Monitor ins and outs. GI/DVT prophylaxis. Prognosis: Poor given patient's multiple co-morbidities. Rest of plan per hospitalist and other consultants. Thank you, TRE Jones, for allowing me to participate in this patient's care. Further recommendations will depend on the patient's clinical course. Please do not hesitate to contact me if you have any questions or concerns. This medical document was created using an electronic medical record system with [employer] computerized dictation system. Although these documentations are being carefully reviewed, there may still be some phonetic and typographical changes. The errors are purely typographical, due to imperfection on the software program, and do not reflect any compromise in the patient's medical care. Plan discussed with: Patient, Other (VIVIAN Carroll/TRE Jones/) BJ ROONEY MD Oct 26, 2024 23:26
[2024-10-27] VITALS (107 sets, daily range): BP systolic 100–156; BP diastolic 52–76; PULSE 94–117; RESP 13–22; TEMP 97.6–98.3; O2SAT 97–100
[2024-10-27] MEDS: ONDANSETRON HCL 4 MG/2 ML VIAL IV PRN (08:05)
[2024-10-27] MEDS ORDERED: TPN PER PHARMACY 0 ML IV SCH (08:45)
[2024-10-27 09:12] LABS: Hematocrit 28.3 % (41.0-53.0); Hemoglobin 9.8 g/dL (13.5-17.5); Mean Corpuscular Hemoglobin 32.4 pg (28.0-32.0); Mean Corpuscular Hgb Conc. 34.6 g/dL (32.0-36.0); Mean Corpuscular Volume 93.7 fL (80.0-100.0); Platelet Count (auto) 75 10^3/uL (140-450); Red Blood Cells 3.02 10^6/uL (4.5-5.90); Red Cell Distribution Width 14.8 % (11.8-14.3); White Blood Cell 5.4 10^3/uL (4.4-10.8)
[2024-10-27 09:20] LABS: Basophils % (manual) 0 (0.0-2.0); Blast Cells 0; Eosinophils % (manual) 0 (0-7); Metamyelocytes % 0; Myelocytes % 0; Promyelocytes % 0; Reactive Lymphocytes 0
[2024-10-27 09:32] LABS: Alanine Aminotransferase 57 U/L (7-40); Albumin 2.1 g/dL (3.2-4.8); Alkaline Phosphatase 75 U/L (46-116); Anion Gap 11 (5-15); Aspartate Aminotransferase 73 U/L (13-40); BUN/Creatinine Ratio 45.8 (10.0-20.0); Bilirubin, Total 0.5 mg/dL (0.2-1.0); Blood Urea Nitrogen 65 mg/dL (9-23); Calcium 7.1 mg/dL (8.7-10.4); Carbon Dioxide 19 mmol/L (20-31); Chloride 107 mmol/L (98-107); Glucose 145 mg/dL (74-106); Potassium 4.6 mmol/L (3.5-5.1); Sodium 137 mmol/L (136-145); Total Protein 4.2 g/dL (5.7-8.2)
[2024-10-27] MEDS ORDERED: DEXTROSE (50%) 50ML SYRG IV SCH (09:45)
[2024-10-27 10:11] LABS: Phosphorus 5.9 mg/dL (2.4-5.1)
[2024-10-27 10:16] LABS: Anisocytosis Slight; Band Neutrophils % (manual) 13; Lymphocytes % (manual) 4 (10.0-50.0); Monocytes % (manual) 3 (0-12)
[2024-10-27 10:17] LABS: Platelet Estimate Decreased
--- NOTE | 2024-10-27 10:19 | DVHPN2 ---
Progress Note Date Seen: Oct 27, 2024 Medical Necessity Reason Pt with a Central, PICC or Fol: Yes Objective vital signs Vital Sign Date Time Temp Pulse Resp B/P (MAP) Pulse Ox O2 Delivery O2 Flow Rate FiO2 10/27/24 07:15 101 17 117/69 (85) 98 10/27/24 05:00 98.3 98.3 10/26/24 20:00 Nasal Cannula* 2 28 Total Intake and Output 10/26/24 10/26/24 10/27/24 15:00 23:00 07:00 Intake Total 50 ml 980 ml 1525 ml Output Total 315 ml 235 ml 265 ml Balance -265 ml 745 ml 1260 ml medications Current Medications Medications Dose Ordered Sig/Neisha Route Start Time Stop Time Status Last Admin Dose Admin Piperacillin Sod/ Tazobactam Sod 100 ml @ 25 mls/hr Q8H IV 10/26/24 05:00 10/27/24 05:12 25 MLS/HR Nitroglycerin 0.4 mg Q5MINP PRN SL 10/25/24 22:15 Potassium Chloride/Dextrose/ Sod Cl 1,000 ml @ 120 mls/hr Q8H20M IV 10/26/24 14:15 10/26/24 17:25 120 MLS/HR Cefazolin Sodium 50 ml @ 100 mls/hr Q8HR IV 10/26/24 14:57 10/27/24 05:39 100 MLS/HR Metronidazole 100 ml @ 100 mls/hr Q8HR IV 10/26/24 14:53 10/27/24 06:01 100 MLS/HR Pantoprazole Sodium 50 ml @ 10 mls/hr Q5H IV 10/26/24 14:15 10/27/24 05:47 10 MLS/HR Morphine Sulfate 1 mg Q3HP PRN IV 10/26/24 14:15 10/27/24 05:28 1 MG Ondansetron HCl 4 mg Q4HPRN PRN IV 10/26/24 14:15 10/27/24 08:05 4 MG Amino Acids 0 ml @ 0 mls/hr PER PHARMACY IV 10/27/24 08:45 Diagnostic Test (Pha) 1 strip Q6HR 10/27/24 12:00 Insulin Human Regular FOLLOW SLIDING SCALE Q6HR SC 10/27/24 12:00 Dextrose 50 ml UD IV 10/27/24 09:45 laboratory and microbiology Laboratory Tests 10/27/24 08:54 Test 10/27/24 08:54 Range/Units Serum Glucose 145 H 74-106 mg/dL Problem List/Assessment/Plan Problem List/Assessment/Plan 10/27/24 STATES THAT HE FEELS MUCH BETTER, ABDOMEN APPROPRIATELY TENDER, WOUND CLEAN AND WELL APPROXIMATED, DRAINAGE SERO SANGUINEOUS VIA ALLISON DRAIN, OK TO SEND TO TELEMETRY Plan discussed with: Patient, Other CHRIST HUDDLESTON MD Oct 27, 2024 10:19
--- NOTE | 2024-10-27 10:31 | DVHPN2 ---
Reviewed: Care Plan, H&P, Labs, Medications, Previous Orders Changes from previous H/P or p: No Changes General: Per HPI Objective Vitals Vital Signs Date Time Temp Pulse Resp B/P (MAP) Pulse Ox O2 Delivery O2 Flow Rate FiO2 10/27/24 07:15 101 17 117/69 (85) 98 10/27/24 05:00 98.3 98.3 10/26/24 20:00 Nasal Cannula* 2 28 Intake/Output Intake and Output 10/27/24 07:00 Intake Total 2555 ml Output Total 815 ml Balance 1740 ml IV Total 1755 ml Blood Product 650 ml Other 150 ml Output Urine Total 225 ml Gastric Drainage Total 250 ml Drainage Total 340 ml General Appearance: Alert, Oriented X3, Cooperative, No acute distress HEENT: Atraumatic Cardiovascular: Regular rate, Normal S1, Normal S2 Abdomen: Normal bowel sounds, Soft Medications Current Medications Medications Dose Ordered Sig/Neisha Route Start Time Stop Time Status Last Admin Dose Admin Piperacillin Sod/ Tazobactam Sod 100 ml @ 25 mls/hr Q8H IV 10/26/24 05:00 10/27/24 05:12 25 MLS/HR Nitroglycerin 0.4 mg Q5MINP PRN SL 10/25/24 22:15 Potassium Chloride/Dextrose/ Sod Cl 1,000 ml @ 120 mls/hr Q8H20M IV 10/26/24 14:15 10/26/24 17:25 120 MLS/HR Cefazolin Sodium 50 ml @ 100 mls/hr Q8HR IV 10/26/24 14:57 10/27/24 05:39 100 MLS/HR Metronidazole 100 ml @ 100 mls/hr Q8HR IV 10/26/24 14:53 10/27/24 06:01 100 MLS/HR Pantoprazole Sodium 50 ml @ 10 mls/hr Q5H IV 10/26/24 14:15 10/27/24 05:47 10 MLS/HR Morphine Sulfate 1 mg Q3HP PRN IV 10/26/24 14:15 10/27/24 05:28 1 MG Ondansetron HCl 4 mg Q4HPRN PRN IV 10/26/24 14:15 10/27/24 08:05 4 MG Amino Acids 0 ml @ 0 mls/hr PER PHARMACY IV 10/27/24 08:45 Diagnostic Test (Pha) 1 strip Q6HR 10/27/24 12:00 Insulin Human Regular FOLLOW SLIDING SCALE Q6HR SC 10/27/24 12:00 Dextrose 50 ml UD IV 10/27/24 09:45 Laboratory Results Laboratory Tests 10/27/24 08:54 Chemistry Test 10/27/24 08:54 Albumin 2.1 g/dL (3.2-4.8) L Calcium Level 7.1 mg/dL (8.7-10.4) L Magnesium Level 2.0 mg/dL (1.6-2.6) Phosphorus Level 5.9 mg/dL (2.4-5.1) H Total Protein 4.2 g/dL (5.7-8.2) L Lipid panel Test 10/27/24 08:54 Triglycerides Level 46 mg/dL (< 150) LFT Test 10/27/24 08:54 Alanine Aminotransferase (ALT) 57 U/L (7-40) H Alkaline Phosphatase 75 U/L (46-116) Aspartate Amino Transferase (AST) 73 U/L (13-40) H Total Bilirubin 0.5 mg/dL (0.2-1.0) Urinalysis Test 10/26/24 04:00 Urine Color Yellow (Yellow) Urine Clarity Clear (Clear) Urine pH 6.0 (5.0-9.0) Urine Specific [place] 1.027 (1.001-1.035) Urine Protein Trace (Negative) H Urine Ketones Negative (Negative) Urine Blood Negative /uL (Negative) Urine Nitrite Negative (Negative) Urine Bilirubin Negative (Negative) Urine Urobilinogen Normal mg/dL (Negative) Urine Leukocyte Esterase Negative /uL (Negative) Urine RBC 2 /hpf (0 - 3) Urine Microscopic WBC 1 /HPF (0-3) Urine Squamous Epithelial Cells None seen /hpf (<5) Urine Bacteria None seen /hpf (None Seen) Urine Glucose Normal mg/dL (Normal) Microbiology Microbiology Date/Time Source Procedure Growth Status 10/25/24 19:03 Blood Blood Culture - Preliminary NO GROWTH AFTER 24 HOURS OF INCUBATION. Resulted Labs and/or images reviewed: Labs reviewed by me, Image(s) reviewed by me Assessment/Plan Assessment/Plan Perforated abdominal viscus Small-bowel obstruction Cachexia Severe protein malnutrition with associated hypoalbuminemia 10/26/2024: pt to undergo surgery by Dr Laws today 10/27/2024: continue with current tx. supportive management. Gen Surg to make further recommendation per clinical course time: >35 minutes of critical care time Plan discussed with: Other ([place]) Date of Service: Oct 26, 2024 Billing Provider: RADHA FOLEY DO Common Visit Codes: [id number] CARE 30-74 MIN RADHA FOLEY DO Oct 27, 2024 10:31
[2024-10-27] MEDS: InsuLIN REG 1unit/0.01ml Soln (100units/ml) SC SCH (12:00)
[2024-10-27] MEDS: ACCU-CHEK COMFORT CURVE STRIP VI SCH (12:16)
--- NOTE | 2024-10-27 13:01 | DVH ---
CLINICAL INFORMATION: 44 years old, Male; coarse lung sounds. TECHNIQUE: Single AP portable chest radiograph was obtained. COMPARISON: XY CHEST XRAY 1 VIEW on DOS: 10/26/24, XY CHEST PORTABLE on DOS: 10/25/24, XY CHEST PORTABL E on DOS: 10/25/24 FINDINGS: Mild bilateral perihilar interstitial opacities, appear increased compared to the prior exam. No foca l consolidation. No pneumothorax or pleural effusion visualized. Small portions of the lung apices ar e excluded from the [id number] of the exam. Enteric tube reaches the stomach extending level of th e gastric antrum. Additional catheter tubing overlying the upper abdomen, partially visualized. IMPRESSION: Bilateral perihilar interstitial opacities are nonspecific, may be infectious or inflammatory in natu re. Appear increased compared to the prior exam. Correlate with clinical findings.
[2024-10-27] MEDS: LIDOCAINE 1% (LOCAL ANESTH.) PF 5ml SDV ID ONE (14:08)
[2024-10-27] MEDS: FUROSEMIDE 40 MG/4 ML VIAL IV ONE (15:14)
[2024-10-27] MEDS: TPN PER PHARMACY IV NR (20:51)
[2024-10-27] MEDS: MICAFUNGIN SODIUM 100 MG in SODIUM CHL 0.9% 100 ML IV ONE (21:30)
[2024-10-27] MEDS: SODIUM CHLOR 0.9% PF (SALINE LOCK) 10ML VIAL/SYR IV SCH (22:11)
--- NOTE | 2024-10-27 23:47 | DVHPN2 ---
Progress Note - Dictate Date Seen: Oct 27, 2024 Medical Necessity Reason Pt with a Central, PICC or Fol: Yes The following are medically ne: Persaud Catheter Reason for persaud catheter: Strict I&O Subjective Patient seen and examined at bedside. Remains on supplemental oxygen Overnight events reviewed. vital signs Vital Sign Date Time Temp Pulse Resp B/P (MAP) Pulse Ox O2 Delivery O2 Flow Rate FiO2 10/27/24 23:30 100 17 124/56 (78) 98 10/27/24 20:00 98.3 98.3 10/27/24 20:00 Nasal Cannula* 1 24 Total Intake and Output 10/26/24 10/26/24 10/27/24 14:59 22:59 06:59 Intake Total 50 ml 675 ml 1575 ml Output Total 315 ml 235 ml 265 ml Balance -265 ml 440 ml 1310 ml medications Current Medications Medications Dose Ordered Sig/Neisha Route Start Time Stop Time Status Last Admin Dose Admin Piperacillin Sod/ Tazobactam Sod 100 ml @ 25 mls/hr Q8H IV 10/26/24 05:00 10/27/24 21:00 25 MLS/HR Nitroglycerin 0.4 mg Q5MINP PRN SL 10/25/24 22:15 Cefazolin Sodium 50 ml @ 100 mls/hr Q8HR IV 10/26/24 14:57 10/27/24 22:11 100 MLS/HR Metronidazole 100 ml @ 100 mls/hr Q8HR IV 10/26/24 14:53 10/27/24 21:32 100 MLS/HR Pantoprazole Sodium 50 ml @ 10 mls/hr Q5H IV 10/26/24 14:15 10/27/24 20:15 10 MLS/HR Morphine Sulfate 1 mg Q3HP PRN IV 10/26/24 14:15 10/27/24 18:42 1 MG Ondansetron HCl 4 mg Q4HPRN PRN IV 10/26/24 14:15 10/27/24 20:03 4 MG Amino Acids 0 ml @ 0 mls/hr PER PHARMACY IV 10/27/24 08:45 Diagnostic Test (Pha) 1 strip Q6HR 10/27/24 12:00 10/27/24 18:00 1 STRIP Insulin Human Regular FOLLOW SLIDING SCALE Q6HR SC 10/27/24 12:00 Dextrose 50 ml UD IV 4/20/25 09:45 Fat Emulsion Intravenous 50 ml/ Sodium Acetate 60 meq/Calcium Gluconate 4.65 meq/Magnesium Sulfate 8 meq/ Multivitamins 10 ml/Chromium/ Copper/Manganese/ Zinc 1 ml/Amino Acids/Dextrose/ Purified Water 1,253 ml @ 52 mls/hr Q24H6M IV 10/27/24 22:00 10/28/24 21:59 10/27/24 20:51 52 MLS/HR Sodium Chloride 10 ml QSHIFT@10,22 IV 10/27/24 22:00 10/27/24 22:11 10 ML Micafungin Sodium 100 mg/Sodium Chloride 100 ml @ 100 mls/hr Q24H IV 10/28/24 21:00 objective Gen.: Patient lying in bed in no apparent distress. On supplemental oxygen. Head: Normocephalic, atraumatic. Eyes: EOMI/PERRLA. Ears: Normal hearing. Normal anatomy. Neck/trachea: Trachea midline, supple. Nose: Normal external anatomy. Mouth: Moist mucous membranes. Chest: Decreased air entry bilaterally. No wheezing or rhonchi. Cardiovascular: Positive S1, positive S2. Regular rate and rhythm. Abdomen: Positive bowel sounds in all 4 quadrants. Soft, non-tender, non- distended. : Deferred. Rectal: Deferred. Skin: Warm, dry. Intact. Extremities: 2+ radial pulses bilaterally. No lower extremity edema. Neuro: Awake, alert, oriented x3. No gross motor or sensory deficits. Cranial nerves II through XII intact. Gait not assessed. laboratory and microbiology Laboratory Tests 10/27/24 08:54 Test 10/27/24 08:54 Range/Units Serum Glucose 145 H 74-106 mg/dL Assessment/Plan Impression: Acute hypoxic respiratory failure Dependence on supplemental oxygen GI hemorrhage/perforated abdominal viscus Small bowel obstructoin Cachexia, BMI 18.4 Events: Remains on supplemental oxygen, 2 LPM NC Taper O2 as tolerated Continue bronchodilators Continue antibiotics Blood cultures grew yeast - started Micafungin Incentive spirometry Pain control Avoid oversedation s/p 2 units PRBC Monitor hemoglobin Monitor ALLISON output Patient is stable from the pulmonary standpoint for downgrade to tele. Labs and imaging reviewed. Rest of plan as noted below. Plan: Supplemental oxygen Titrate to keep O2 sats above 92%. NGT S/p surgery Continue antibiotics Protonix drip Monitor hemoglobin GI recs appreciated. Monitor renal function. Monitor electrolytes. Supplement as necessary. Monitor ins and outs. GI/DVT prophylaxis. Prognosis: Poor given patient's multiple co-morbidities. Rest of plan per hospitalist and other consultants. Thank you, TRE Jones, for allowing me to participate in this patient's care. Further recommendations will depend on the patient's clinical course. Please do not hesitate to contact me if you have any questions or concerns. This medical document was created using an electronic medical record system with [employer] dictation system. Although these documentations are being carefully reviewed, there may still be some phonetic and typographical changes. The errors are purely typographical, due to imperfection on the software program, and do not reflect any compromise in the patient's medical care. Plan discussed with: Patient, Other (VIVIAN Santos) BJ ROONEY MD Oct 27, 2024 23:46
[2024-10-28] VITALS (17 sets, daily range): BP systolic 123–157; BP diastolic 56–86; PULSE 93–111; RESP 12–21; TEMP 97.3–99.1; O2SAT 97–100
[2024-10-28 07:15] LABS: Alanine Aminotransferase 38 U/L (7-40); Alkaline Phosphatase 74 U/L (46-116); Anion Gap 10 (5-15); BUN/Creatinine Ratio 53.4 (10.0-20.0); Magnesium 2.2 mg/dL (1.6-2.6); Potassium 3.9 mmol/L (3.5-5.1); Sodium 139 mmol/L (136-145)
[2024-10-28 07:16] LABS: Bilirubin, Total 0.4 mg/dL (0.2-1.0)
[2024-10-28 07:31] LABS: Albumin 2.3 g/dL (3.2-4.8); Aspartate Aminotransferase 84 U/L (13-40); Blood Urea Nitrogen 87 mg/dL (9-23); Calcium 7.2 mg/dL (8.7-10.4); Carbon Dioxide 19 mmol/L (20-31); Chloride 110 mmol/L (98-107); Glucose 149 mg/dL (74-106); Phosphorus 5.2 mg/dL (2.4-5.1); Total Protein 4.7 g/dL (5.7-8.2)
--- NOTE | 2024-10-28 07:48 | DVHPN2 ---
Reviewed: Care Plan, H&P, Labs, Medications, Previous Orders Changes from previous H/P or p: No Changes General: Per HPI Objective Vitals Vital Signs Date Time Temp Pulse Resp B/P (MAP) Pulse Ox O2 Delivery O2 Flow Rate FiO2 10/28/24 05:00 97.3 97 18 148/62 (90) 99 97.3 10/27/24 20:00 Nasal Cannula* 1 24 Intake/Output Intake and Output 10/28/24 07:00 Intake Total 1302 ml Output Total 1155 ml Balance 147 ml Intake Oral 0 ml IV Total 1272 ml Other 30 ml Output Urine Total 755 ml Gastric Drainage Total 300 ml Drainage Total 100 ml General Appearance: Alert, Oriented X3, Cooperative, No acute distress HEENT: Atraumatic Cardiovascular: Regular rate, Normal S1, Normal S2 Abdomen: Normal bowel sounds, Soft Medications Current Medications Medications Dose Ordered Sig/Neisha Route Start Time Stop Time Status Last Admin Dose Admin Piperacillin Sod/ Tazobactam Sod 100 ml @ 25 mls/hr Q8H IV 10/26/24 05:00 10/28/24 04:31 25 MLS/HR Nitroglycerin 0.4 mg Q5MINP PRN SL 10/25/24 22:15 Cefazolin Sodium 50 ml @ 100 mls/hr Q8HR IV 10/26/24 14:57 10/28/24 06:18 100 MLS/HR Metronidazole 100 ml @ 100 mls/hr Q8HR IV 10/26/24 14:53 10/28/24 07:37 100 MLS/HR Pantoprazole Sodium 50 ml @ 10 mls/hr Q5H IV 10/26/24 14:15 10/28/24 06:26 10 MLS/HR Morphine Sulfate 1 mg Q3HP PRN IV 10/26/24 14:15 10/28/24 04:30 1 MG Ondansetron HCl 4 mg Q4HPRN PRN IV 10/26/24 14:15 10/27/24 20:03 4 MG Amino Acids 0 ml @ 0 mls/hr PER PHARMACY IV 10/27/24 08:45 Diagnostic Test (Pha) 1 strip Q6HR 10/27/24 12:00 10/28/24 06:15 1 STRIP Insulin Human Regular FOLLOW SLIDING SCALE Q6HR SC 10/27/24 12:00 10/28/24 06:15 2 UNITS Dextrose 50 ml UD IV 10/27/24 09:45 Fat Emulsion Intravenous 50 ml/ Sodium Acetate 60 meq/Calcium Gluconate 4.65 meq/Magnesium Sulfate 8 meq/ Multivitamins 10 ml/Chromium/ Copper/Manganese/ Zinc 1 ml/Amino Acids/Dextrose/ Purified Water 1,253 ml @ 52 mls/hr Q24H6M IV 10/27/24 22:00 10/28/24 21:59 10/27/24 20:51 52 MLS/HR Sodium Chloride 10 ml QSHIFT@10,22 IV 10/27/24 22:00 10/27/24 22:11 10 ML Micafungin Sodium 100 mg/Sodium Chloride 100 ml @ 100 mls/hr Q24H IV 10/28/24 21:00 Laboratory Results Laboratory Tests 10/27/24 08:54 10/28/24 06:33 Chemistry Test 10/27/24 08:54 10/28/24 06:33 Albumin 2.1 g/dL (3.2-4.8) L 2.3 g/dL (3.2-4.8) L Calcium Level 7.1 mg/dL (8.7-10.4) L 7.2 mg/dL (8.7-10.4) L Magnesium Level 2.0 mg/dL (1.6-2.6) 2.2 mg/dL (1.6-2.6) Phosphorus Level 5.9 mg/dL (2.4-5.1) H 5.2 mg/dL (2.4-5.1) H Total Protein 4.2 g/dL (5.7-8.2) L 4.7 g/dL (5.7-8.2) L Lipid panel Test 10/27/24 08:54 Triglycerides Level 46 mg/dL (< 150) LFT Test 10/27/24 08:54 10/28/24 06:33 Alanine Aminotransferase (ALT) 57 U/L (7-40) H 38 U/L (7-40) Alkaline Phosphatase 75 U/L (46-116) 74 U/L (46-116) Aspartate Amino Transferase (AST) 73 U/L (13-40) H 84 U/L (13-40) H Total Bilirubin 0.5 mg/dL (0.2-1.0) 0.4 mg/dL (0.2-1.0) Urinalysis Test 10/26/24 04:00 Urine Color Yellow (Yellow) Urine Clarity Clear (Clear) Urine pH 6.0 (5.0-9.0) Urine Specific [place] 1.027 (1.001-1.035) Urine Protein Trace (Negative) H Urine Ketones Negative (Negative) Urine Blood Negative /uL (Negative) Urine Nitrite Negative (Negative) Urine Bilirubin Negative (Negative) Urine Urobilinogen Normal mg/dL (Negative) Urine Leukocyte Esterase Negative /uL (Negative) Urine RBC 2 /hpf (0 - 3) Urine Microscopic WBC 1 /HPF (0-3) Urine Squamous Epithelial Cells None seen /hpf (<5) Urine Bacteria None seen /hpf (None Seen) Urine Glucose Normal mg/dL (Normal) Microbiology Microbiology Date/Time Source Procedure Growth Status 10/26/24 13:25 Peritoneal Fluid Gram Stain Pending Resulted 10/26/24 13:25 Peritoneal Fluid Anaerobic Culture Pending Resulted 10/26/24 13:25 Peritoneal Fluid Aerobic Culture - Preliminary Resulted 10/26/24 04:00 Voided Urine Urine Culture - Preliminary Resulted 10/25/24 19:03 Blood Blood Culture - Preliminary NO GROWTH AFTER 48 HOURS OF INCUBATION. Resulted Assessment/Plan Assessment/Plan Perforated abdominal viscus Small-bowel obstruction Cachexia Severe protein malnutrition with associated hypoalbuminemia 10/26/2024: pt to undergo surgery by Dr Laws today 10/27/2024: continue with current tx. supportive management. Gen Surg to make further recommendation per clinical course time: >35 minutes of critical care time Plan discussed with: Patient Date of Service: Oct 27, 2024 Billing Provider: RADHA FOLEY DO Common Visit Codes: [id number] INP/OBS CARE(HIGH) RADHA FOLEY DO Oct 28, 2024 07:48
--- NOTE | 2024-10-28 12:08 | DVHPN2 ---
Progress Note Date Seen: Oct 28, 2024 Medical Necessity Reason Pt with a Central, PICC or Fol: Yes The following are medically ne: Persaud Catheter Reason for persaud catheter: Strict I&O Objective vital signs Vital Sign Date Time Temp Pulse Resp B/P (MAP) Pulse Ox O2 Delivery O2 Flow Rate FiO2 10/28/24 09:00 98.6 104 19 123/72 (89) 100 98.6 10/28/24 08:00 Nasal Cannula* 2 28 Total Intake and Output 10/27/24 10/27/24 10/28/24 15:00 23:00 07:00 Intake Total 465 ml 596 ml 241 ml Output Total 700 ml 495 ml Balance 465 ml -104 ml -254 ml medications Current Medications Medications Dose Ordered Sig/Neisha Route Start Time Stop Time Status Last Admin Dose Admin Piperacillin Sod/ Tazobactam Sod 100 ml @ 25 mls/hr Q8H IV 10/26/24 05:00 10/28/24 04:31 25 MLS/HR Nitroglycerin 0.4 mg Q5MINP PRN SL 10/25/24 22:15 Cefazolin Sodium 50 ml @ 100 mls/hr Q8HR IV 10/26/24 14:57 10/28/24 06:18 100 MLS/HR Metronidazole 100 ml @ 100 mls/hr Q8HR IV 10/26/24 14:53 10/28/24 07:37 100 MLS/HR Pantoprazole Sodium 50 ml @ 10 mls/hr Q5H IV 10/26/24 14:15 10/28/24 10:49 10 MLS/HR Morphine Sulfate 1 mg Q3HP PRN IV 10/26/24 14:15 10/28/24 04:30 1 MG Ondansetron HCl 4 mg Q4HPRN PRN IV 10/26/24 14:15 10/27/24 20:03 4 MG Amino Acids 0 ml @ 0 mls/hr PER PHARMACY IV 10/27/24 08:45 Diagnostic Test (Pha) 1 strip Q6HR 10/27/24 12:00 10/28/24 06:15 1 STRIP Insulin Human Regular FOLLOW SLIDING SCALE Q6HR SC 10/27/24 12:00 10/28/24 06:15 2 UNITS Dextrose 50 ml UD IV 10/27/24 09:45 Fat Emulsion Intravenous 50 ml/ Sodium Acetate 60 meq/Calcium Gluconate 4.65 meq/Magnesium Sulfate 8 meq/ Multivitamins 10 ml/Chromium/ Copper/Manganese/ Zinc 1 ml/Amino Acids/Dextrose/ Purified Water 1,253 ml @ 52 mls/hr Q24H6M IV 10/27/24 22:00 10/28/24 21:59 10/27/24 20:51 52 MLS/HR Sodium Chloride 10 ml QSHIFT@10,22 IV 10/27/24 22:00 10/28/24 10:50 10 ML Micafungin Sodium 100 mg/Sodium Chloride 100 ml @ 100 mls/hr Q24H IV 10/28/24 21:00 Fat Emulsion Intravenous 100 ml/Sodium Acetate 20 meq/Potassium Acetate 60 meq/ Calcium Gluconate 4.65 meq/ Magnesium Sulfate 4 meq/ Multivitamins 10 ml/Chromium/ Copper/Manganese/ Zinc 1 ml/Amino Acids/Dextrose/ Purified Water 1,562 ml @ 65 mls/hr Q24H2M IV 10/28/24 22:00 10/29/24 21:59 laboratory and microbiology Laboratory Tests 10/28/24 06:33 10/27/24 08:54 Test 10/28/24 06:33 Range/Units Serum Glucose 149 H 74-106 mg/dL Problem List/Assessment/Plan Problem List/Assessment/Plan 10/27/24 STATES THAT HE FEELS MUCH BETTER, ABDOMEN APPROPRIATELY TENDER, WOUND CLEAN AND WELL APPROXIMATED, DRAINAGE SERO SANGUINEOUS VIA ALLISON DRAIN, OK TO SEND TO TELEMETRY 10/28/24 FEELS WEEK, ABDOMEN SOCT NON DISTENDED, APPROPRIATELY TENDER, WOUND CLEAN AND WELL APPROXIMATED,. NO CHANGES Plan discussed with: Patient CHRIST HUDDLESTON MD Oct 28, 2024 12:08
[2024-10-28 13:33] LABS: Creatinine, Urine 32.03 mg/dL (30.0-125.0)
[2024-10-28 13:45] LABS: Urine Amorphous Crystal FEW /hpf (None Seen); Urine Bacteria FEW /hpf (None Seen); Urine Blood 3+ /uL (Negative); Urine Color Yellow (Yellow); Urine Mucus FEW (None Seen); Urine Protein, UAD 1+ (Negative); Urine Specific Gravity 1.023 (1.001-1.035); Urine Squamous Epithelial Cell FEW /hpf (<5); Urine Urobilinogen Normal (Negative); Urine WBC 5 /HPF (0-3); Urine pH 5.5 (5.0-9.0)
[2024-10-28 13:46] LABS: Urine Clarity Cloudy (Clear)
--- NOTE | 2024-10-28 14:43 | DVHPN2 ---
Subjective Patient continues to report having severe abdominal pain Reviewed: Care Plan, H&P, Labs, Medications, Previous Orders Changes from previous H/P or p: No Changes General: Per HPI Objective Vitals Vital Signs Date Time Temp Pulse Resp B/P (MAP) Pulse Ox O2 Delivery O2 Flow Rate FiO2 10/28/24 13:00 97.5 104 16 135/80 (98) 99 97.5 10/28/24 08:00 Nasal Cannula* 2 28 Intake/Output Intake and Output 10/28/24 07:00 Intake Total 1302 ml Output Total 1195 ml Balance 107 ml Intake Oral 0 ml IV Total 1272 ml Other 30 ml Output Urine Total 755 ml Gastric Drainage Total 300 ml Drainage Total 140 ml General Appearance: Alert, Oriented X3, Cooperative, No acute distress HEENT: Atraumatic, PERRLA Cardiovascular: Regular rate, Normal S1, Normal S2 Abdomen: Other (Hypoactive bowel sounds. ALLISON with serosanguineous drainage) Neuro: Normal speech Skin: Dry, Intact, Wounds (See nurse notes and pictures) Psych/Mental Status: Mental status NL, Mood NL Medications Current Medications Medications Dose Ordered Sig/Neisha Route Start Time Stop Time Status Last Admin Dose Admin Piperacillin Sod/ Tazobactam Sod 100 ml @ 25 mls/hr Q8H IV 10/26/24 05:00 10/28/24 12:40 25 MLS/HR Nitroglycerin 0.4 mg Q5MINP PRN SL 10/25/24 22:15 Metronidazole 100 ml @ 100 mls/hr Q8HR IV 10/26/24 14:53 10/28/24 12:44 100 MLS/HR Morphine Sulfate 1 mg Q3HP PRN IV 10/26/24 14:15 10/28/24 04:30 1 MG Ondansetron HCl 4 mg Q4HPRN PRN IV 10/26/24 14:15 10/27/24 20:03 4 MG Amino Acids 0 ml @ 0 mls/hr PER PHARMACY IV 10/27/24 08:45 Diagnostic Test (Pha) 1 strip Q6HR 10/27/24 12:00 10/28/24 12:15 1 STRIP Insulin Human Regular FOLLOW SLIDING SCALE Q6HR SC 10/27/24 12:00 10/28/24 06:15 2 UNITS Dextrose 50 ml UD IV 10/27/24 09:45 Fat Emulsion Intravenous 50 ml/ Sodium Acetate 60 meq/Calcium Gluconate 4.65 meq/Magnesium Sulfate 8 meq/ Multivitamins 10 ml/Chromium/ Copper/Manganese/ Zinc 1 ml/Amino Acids/Dextrose/ Purified Water 1,253 ml @ 52 mls/hr Q24H6M IV 10/27/24 22:00 10/28/24 21:59 10/27/24 20:51 52 MLS/HR Sodium Chloride 10 ml QSHIFT@10,22 IV 10/27/24 22:00 10/28/24 10:50 10 ML Micafungin Sodium 100 mg/Sodium Chloride 100 ml @ 100 mls/hr Q24H IV 10/28/24 21:00 Fat Emulsion Intravenous 100 ml/Sodium Acetate 20 meq/Potassium Acetate 60 meq/ Calcium Gluconate 4.65 meq/ Magnesium Sulfate 4 meq/ Multivitamins 10 ml/Chromium/ Copper/Manganese/ Zinc 1 ml/Amino Acids/Dextrose/ Purified Water 1,562 ml @ 65 mls/hr Q24H2M IV 10/28/24 22:00 10/29/24 21:59 Laboratory Results Laboratory Tests 10/27/24 08:54 10/28/24 06:33 Chemistry Test 10/28/24 06:33 Albumin 2.3 g/dL (3.2-4.8) L Calcium Level 7.2 mg/dL (8.7-10.4) L Magnesium Level 2.2 mg/dL (1.6-2.6) Phosphorus Level 5.2 mg/dL (2.4-5.1) H Total Protein 4.7 g/dL (5.7-8.2) L LFT Test 10/28/24 06:33 Alanine Aminotransferase (ALT) 38 U/L (7-40) Alkaline Phosphatase 74 U/L (46-116) Aspartate Amino Transferase (AST) 84 U/L (13-40) H Total Bilirubin 0.4 mg/dL (0.2-1.0) Urinalysis Test 10/28/24 12:30 Urine Color Yellow (Yellow) Urine Clarity Cloudy (Clear) H Urine pH 5.5 (5.0-9.0) Urine Specific Nikolai 1.023 (1.001-1.035) Urine Protein 1+ (Negative) H Urine Ketones Negative (Negative) Urine Blood 3+ /uL (Negative) H Urine Nitrite Negative (Negative) Urine Bilirubin Negative (Negative) Urine Urobilinogen Normal mg/dL (Negative) Urine Leukocyte Esterase Negative /uL (Negative) Urine RBC 147 /hpf (0 - 3) Urine Microscopic WBC 5 /HPF (0-3) H Urine Squamous Epithelial Cells Few /hpf (<5) Urine Amorphous Crystals Few /hpf (None Seen) Urine Bacteria Few /hpf (None Seen) H Urine Mucus Few (None Seen) Urine Creatinine 32.03 mg/dL (30.0-125.0) Urine Sodium 13 mmol/L (40-220) L Urine Glucose Normal mg/dL (Normal) Microbiology Microbiology Date/Time Source Procedure Growth Status 10/26/24 13:25 Peritoneal Fluid Gram Stain - Final Resulted 10/26/24 13:25 Peritoneal Fluid Anaerobic Culture - Preliminary Resulted 10/26/24 13:25 Peritoneal Fluid Aerobic Culture - Preliminary Resulted 10/26/24 04:00 Voided Urine Urine Culture - Final Complete 10/25/24 19:03 Blood Blood Culture - Preliminary NO GROWTH AFTER 48 HOURS OF INCUBATION. Resulted Labs and/or images reviewed: Labs reviewed by me, Image(s) reviewed by me Assessment/Plan Assessment/Plan Impression: -sepsis , yeast in the blood -perforated gastric ulcer, status post exploratory laparotomy with repair of ulcer, lysis of adhesions -pneumoperitoneum with multiple gastric adhesions and abscess -acute kidney injury, vasomotor nephropathy -cachexia -postop anemia Plan: -continue TPN -stop Protonix drip, switched to Protonix 40 mg IV b.i.d. -stop Ancef given redundant coverage with Zosyn. Continue Flagyl. Continue micafungin -pain management -incentive spirometer q.1 hour while awake -SCDs -out of bed as tolerated -PT consultation -repeat labs in a.m. Total time spent with patient discussing and formulating plan of care: 35 minutes. This medical document was created using an electronic medical record system with [employer] dictation system. Although this document has been carefully reviewed, there may still be some phonetic and typographical errors. These areas are purely typographical due to imperfections of the software programs, and do not reflect any compromise in the patient's medical care. 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
[2024-10-28] MEDS: SOD CHL 0.45% 1,000 ML IV ONE (15:51)
[2024-10-28] MEDS: MICAFUNGIN SODIUM 100 MG in SODIUM CHL 0.9% 100 ML IV SCH (19:57)
[2024-10-28] MEDS: PANTOPRAZOLE 40 MG/10 ML VIAL INJ IV SCH (21:47)
[2024-10-28] MEDS: TPN PER PHARMACY IV NR (21:49)
[2024-10-29] VITALS (7 sets, daily range): BP systolic 120–143; BP diastolic 82–88; PULSE 110–125; RESP 18–21; TEMP 98.1–99.1; O2SAT 94–99
[2024-10-29 07:17] LABS: Hemoglobin 9.7 g/dL (13.5-17.5)
[2024-10-29 07:23] LABS: Hematocrit 27.4 % (41.0-53.0); Mean Corpuscular Hgb Conc. 35.5 g/dL (32.0-36.0); Mean Corpuscular Volume 93.2 fL (80.0-100.0); Platelet Count (auto) 45 10^3/uL (140-450); Red Blood Cells 2.94 10^6/uL (4.5-5.90); Red Cell Distribution Width 15.1 % (11.8-14.3); White Blood Cell 4.5 10^3/uL (4.4-10.8)
[2024-10-29 07:29] LABS: Basophils % (manual) 0 (0.0-2.0); Blast Cells 0; Eosinophils % (manual) 0 (0-7); Metamyelocytes % 0; Myelocytes % 0; Promyelocytes % 0; Reactive Lymphocytes 0
[2024-10-29 07:30] LABS: Alanine Aminotransferase 33 U/L (7-40); Alkaline Phosphatase 70 U/L (46-116); Anion Gap 11 (5-15); BUN/Creatinine Ratio 72.5 (10.0-20.0); Magnesium 2.1 mg/dL (1.6-2.6); Sodium 143 mmol/L (136-145)
[2024-10-29 07:32] LABS: Albumin 2.2 g/dL (3.2-4.8); Aspartate Aminotransferase 80 U/L (13-40); Bilirubin, Total 0.4 mg/dL (0.2-1.0); Blood Urea Nitrogen 74 mg/dL (9-23); Calcium 7.7 mg/dL (8.7-10.4); Carbon Dioxide 19 mmol/L (20-31); Chloride 113 mmol/L (98-107); Glucose 173 mg/dL (74-106); Total Protein 4.7 g/dL (5.7-8.2)
[2024-10-29 07:33] LABS: Phosphorus 2.3 mg/dL (2.4-5.1)
[2024-10-29 08:07] LABS: Band Neutrophils % (manual) 6; Lymphocytes % (manual) 6 (10.0-50.0); Monocytes % (manual) 4 (0-12); Platelet Estimate Decreased
[2024-10-29 08:08] LABS: Anisocytosis Slight
--- NOTE | 2024-10-29 08:36 | DVHPN2 ---
Progress Note Date Seen: Oct 29, 2024 Medical Necessity Reason Pt with a Central, PICC or Fol: Yes The following are medically ne: Persaud Catheter Reason for persaud catheter: Strict I&O Objective vital signs Vital Sign Date Time Temp Pulse Resp B/P (MAP) Pulse Ox O2 Delivery O2 Flow Rate FiO2 10/29/24 05:00 99.1 117 19 143/83 (103) 94 99.1 10/28/24 20:00 Room Air* 0 21 Total Intake and Output 10/28/24 10/28/24 10/29/24 15:00 23:00 07:00 Intake Total 250 ml 323 ml 1560 ml Output Total 1855 ml 1690 ml Balance 250 ml -1532 ml -130 ml medications Current Medications Medications Dose Ordered Sig/Neisha Route Start Time Stop Time Status Last Admin Dose Admin Piperacillin Sod/ Tazobactam Sod 100 ml @ 25 mls/hr Q8H IV 10/26/24 05:00 10/29/24 04:58 25 MLS/HR Nitroglycerin 0.4 mg Q5MINP PRN SL 10/25/24 22:15 Metronidazole 100 ml @ 100 mls/hr Q8HR IV 10/26/24 14:53 10/29/24 04:58 100 MLS/HR Morphine Sulfate 1 mg Q3HP PRN IV 10/26/24 14:15 10/28/24 23:55 1 MG Ondansetron HCl 4 mg Q4HPRN PRN IV 10/26/24 14:15 10/27/24 20:03 4 MG Amino Acids 0 ml @ 0 mls/hr PER PHARMACY IV 10/27/24 08:45 Diagnostic Test (Pha) 1 strip Q6HR 10/27/24 12:00 10/29/24 05:15 1 STRIP Insulin Human Regular FOLLOW SLIDING SCALE Q6HR SC 10/27/24 12:00 10/28/24 17:28 4 UNITS Dextrose 50 ml UD IV 10/27/24 09:45 Sodium Chloride 10 ml QSHIFT@10,22 IV 10/27/24 22:00 10/28/24 21:48 10 ML Micafungin Sodium 100 mg/Sodium Chloride 100 ml @ 100 mls/hr Q24H IV 10/28/24 21:00 10/28/24 19:57 100 MLS/HR Fat Emulsion Intravenous 100 ml/Sodium Acetate 20 meq/Potassium Acetate 60 meq/ Calcium Gluconate 4.65 meq/ Magnesium Sulfate 4 meq/ Multivitamins 10 ml/Chromium/ Copper/Manganese/ Zinc 1 ml/Amino Acids/Dextrose/ Purified Water 1,562 ml @ 65 mls/hr Q24H2M IV 10/28/24 22:00 10/29/24 21:59 10/28/24 21:49 65 MLS/HR Pantoprazole Sodium 40 mg BID IV 10/28/24 22:00 10/28/24 21:47 40 MG laboratory and microbiology Laboratory Tests 10/29/24 06:10 Test 10/29/24 06:10 Range/Units Serum Glucose 173 H 74-106 mg/dL Problem List/Assessment/Plan Problem List/Assessment/Plan 10/27/24 STATES THAT HE FEELS MUCH BETTER, ABDOMEN APPROPRIATELY TENDER, WOUND CLEAN AND WELL APPROXIMATED, DRAINAGE SERO SANGUINEOUS VIA ALLISON DRAIN, OK TO SEND TO TELEMETRY 10/28/24 FEELS WEEK, ABDOMEN SOCT NON DISTENDED, APPROPRIATELY TENDER, WOUND CLEAN AND WELL APPROXIMATED,. NO CHANGES 10/29/24 PASSING FLATUS, NO bm, WOUND CLEAN AND WELL APPROXIMATED, DRAINAGE SERO SANGUINEOUS, UGI PENDING Plan discussed with: Patient Dietary Evaluation Review Comments: 1) Conitnue TPN to provide at least 75% estimated needs 2) Advance diet as medically feasible 3) Continue current plan of care Expected Outcomes/Goals: GI symptoms to improve To meet >75% estimated needs Fu 2-3 days CHRIST HUDDLESTON MD Oct 29, 2024 08:36
[2024-10-29] MEDS: POTASSIUM PHOSPHATE 44 MEQ in D5W 5% 250 ML IV ONE (13:55)
--- NOTE | 2024-10-29 15:03 | DVHPN2 ---
Subjective Patient continues to report having severe abdominal pain Reviewed: Care Plan, H&P, Labs, Medications, Previous Orders Changes from previous H/P or p: No Changes General: Per HPI Objective Vitals Vital Signs Date Time Temp Pulse Resp B/P (MAP) Pulse Ox O2 Delivery O2 Flow Rate FiO2 10/29/24 13:00 98.1 117 21 121/87 (98) 98 98.1 10/29/24 08:00 Nasal Cannula* 2 28 Intake/Output Intake and Output 10/29/24 07:00 Intake Total 2133 ml Output Total 3545 ml Balance -1412 ml IV Total 2133 ml Output Urine Total 2450 ml Gastric Drainage Total 750 ml Drainage Total 345 ml General Appearance: Alert, Oriented X3, Cooperative, No acute distress HEENT: Atraumatic, PERRLA Cardiovascular: Regular rate, Normal S1, Normal S2 Abdomen: Other (Hypoactive bowel sounds. ALLISON with serosanguineous drainage) Neuro: Normal speech Skin: Dry, Intact, Wounds (See nurse notes and pictures) Psych/Mental Status: Mental status NL, Mood NL Medications Current Medications Medications Dose Ordered Sig/Neisha Route Start Time Stop Time Status Last Admin Dose Admin Piperacillin Sod/ Tazobactam Sod 100 ml @ 25 mls/hr Q8H IV 10/26/24 05:00 10/29/24 13:54 25 MLS/HR Nitroglycerin 0.4 mg Q5MINP PRN SL 10/25/24 22:15 Metronidazole 100 ml @ 100 mls/hr Q8HR IV 10/26/24 14:53 10/29/24 13:54 100 MLS/HR Morphine Sulfate 1 mg Q3HP PRN IV 10/26/24 14:15 10/28/24 23:55 1 MG Ondansetron HCl 4 mg Q4HPRN PRN IV 10/26/24 14:15 10/27/24 20:03 4 MG Amino Acids 0 ml @ 0 mls/hr PER PHARMACY IV 10/27/24 08:45 Diagnostic Test (Pha) 1 strip Q6HR 10/27/24 12:00 10/29/24 11:59 1 STRIP Insulin Human Regular FOLLOW SLIDING SCALE Q6HR SC 10/27/24 12:00 10/29/24 12:00 4 UNITS Dextrose 50 ml UD IV 10/27/24 09:45 Sodium Chloride 10 ml QSHIFT@10,22 IV 10/27/24 22:00 10/29/24 10:14 10 ML Micafungin Sodium 100 mg/Sodium Chloride 100 ml @ 100 mls/hr Q24H IV 10/28/24 21:00 10/28/24 19:57 100 MLS/HR Fat Emulsion Intravenous 100 ml/Sodium Acetate 20 meq/Potassium Acetate 60 meq/ Calcium Gluconate 4.65 meq/ Magnesium Sulfate 4 meq/ Multivitamins 10 ml/Chromium/ Copper/Manganese/ Zinc 1 ml/Amino Acids/Dextrose/ Purified Water 1,562 ml @ 65 mls/hr Q24H2M IV 10/28/24 22:00 10/29/24 21:59 10/28/24 21:49 65 MLS/HR Pantoprazole Sodium 40 mg BID IV 10/28/24 22:00 10/29/24 10:14 40 MG Fat Emulsion Intravenous 200 ml/Sodium Acetate 40 meq/Sodium Phosphate 20 meq/ Potassium Acetate 80 meq/Calcium Gluconate 2.3 meq/ Magnesium Sulfate 8 meq/ Multivitamins 10 ml/Chromium/ Copper/Manganese/ Zinc 1 ml/Amino Acids/Dextrose/ Purified Water 1,682.9462 ml @ 70 mls/hr Q24H3M IV 10/29/24 22:00 10/30/24 21:59 Laboratory Results Laboratory Tests 10/29/24 06:10 Chemistry Test 10/29/24 06:10 Albumin 2.2 g/dL (3.2-4.8) L Calcium Level 7.7 mg/dL (8.7-10.4) L Magnesium Level 2.1 mg/dL (1.6-2.6) Phosphorus Level 2.3 mg/dL (2.4-5.1) L Total Protein 4.7 g/dL (5.7-8.2) L LFT Test 10/29/24 06:10 Alanine Aminotransferase (ALT) 33 U/L (7-40) Alkaline Phosphatase 70 U/L (46-116) Aspartate Amino Transferase (AST) 80 U/L (13-40) H Total Bilirubin 0.4 mg/dL (0.2-1.0) Urinalysis Test 10/28/24 12:30 Urine Color Yellow (Yellow) Urine Clarity Cloudy (Clear) H Urine pH 5.5 (5.0-9.0) Urine Specific Tiona 1.023 (1.001-1.035) Urine Protein 1+ (Negative) H Urine Ketones Negative (Negative) Urine Blood 3+ /uL (Negative) H Urine Nitrite Negative (Negative) Urine Bilirubin Negative (Negative) Urine Urobilinogen Normal mg/dL (Negative) Urine Leukocyte Esterase Negative /uL (Negative) Urine RBC 147 /hpf (0 - 3) Urine Microscopic WBC 5 /HPF (0-3) H Urine Squamous Epithelial Cells Few /hpf (<5) Urine Amorphous Crystals Few /hpf (None Seen) Urine Bacteria Few /hpf (None Seen) H Urine Mucus Few (None Seen) Urine Creatinine 32.03 mg/dL (30.0-125.0) Urine Sodium 13 mmol/L (40-220) L Urine Glucose Normal mg/dL (Normal) Microbiology Microbiology Date/Time Source Procedure Growth Status 10/27/24 20:35 Nose MRSA Screen - Final Complete 10/26/24 13:25 Peritoneal Fluid Gram Stain - Final Resulted 10/26/24 13:25 Peritoneal Fluid Anaerobic Culture - Preliminary Resulted 10/26/24 13:25 Aerobic Culture - Preliminary Klebsiella pneumoniae Resulted 10/26/24 04:00 Voided Urine Urine Culture - Final Complete 10/25/24 19:03 Blood Blood Culture - Preliminary NO GROWTH AFTER 72 HOURS OF INCUBATION. Resulted Labs and/or images reviewed: Image(s) reviewed by me Assessment/Plan Assessment/Plan Impression: -sepsis , yeast in the blood -perforated gastric ulcer, status post exploratory laparotomy with repair of ulcer, lysis of adhesions -pneumoperitoneum with multiple gastric adhesions and abscess -acute kidney injury, vasomotor nephropathy -cachexia -postop anemia Plan: -continue TPN -instructed patient to attempt to get out of bed with physical therapy. Upper GI series with contrast is still pending. Continue current antibiotic therapy with Flagyl, micafungin, Zosyn -PPI -pain management -incentive spirometer q.1 hour while awake -SCDs -out of bed as tolerated -PT consultation -repeat labs in a.m. Total time spent with patient discussing and formulating plan of care: 35 minutes. This medical document was created using an electronic medical record system with [employer] dictation system. Although this document has been carefully reviewed, there may still be some phonetic and typographical errors. These areas are purely typographical due to imperfections of the software programs, and do not reflect any compromise in the patient's medical care. Plan discussed with: Patient, Other (RN) Date of Service: Oct 29, 2024 Billing Provider: IRMA WAITE NP Common Visit Codes: [id number] INP/OBS CARE(HIGH) IRMA WAITE NP Oct 29, 2024 15:03
[2024-10-29] MEDS: TPN PER PHARMACY IV NR (21:52)
[2024-10-30] VITALS (101 sets, daily range): BP systolic 82–124; BP diastolic 49–90; PULSE 68–153; RESP 15–31; TEMP 98–99.1; O2SAT 90–100
[2024-10-30] MEDS: MIDAZOLAM DRIP 50 mg/50mL 50 ML IV ONE (03:16)
[2024-10-30 03:42] LABS: Hemoglobin 9.1 g/dL (13.5-17.5); Mean Corpuscular Hgb Conc. 32.7 g/dL (32.0-36.0)
[2024-10-30 03:43] LABS: Hematocrit 27.8 % (41.0-53.0); Mean Corpuscular Hemoglobin 32.1 pg (28.0-32.0); Mean Corpuscular Volume 97.9 fL (80.0-100.0); Platelet Count (auto) 49 10^3/uL (140-450); Red Blood Cells 2.84 10^6/uL (4.5-5.90); Red Cell Distribution Width 15.9 % (11.8-14.3); White Blood Cell 6.7 10^3/uL (4.4-10.8)
[2024-10-30 03:54] LABS: Basophils % (manual) 0 (0.0-2.0); Blast Cells 0; Eosinophils % (manual) 0 (0-7); Promyelocytes % 0; Reactive Lymphocytes 0
[2024-10-30 03:59] LABS: INR 1.48 (0.9-1.15); Prothrombin Time 15.1 sec (9.3-11.8)
[2024-10-30] MEDS: NOREPINEPHRINE 8 MG/250ML KIT 250 ML IV ONE (04:02)
--- NOTE | 2024-10-30 04:03 | DVHNC2 ---
Intubation Indication: Respiratory Insufficiency, Altered Mental Status, Airway Protection Prep: Preoxygenation Intubation Approach: Orotracheal Informed consent obtained: No Risks/benefits/alt described: No UTO Consent code blue Date of Service: Oct 30, 2024 Billing Provider: GUANAKITO GROSS Common Visit Codes: PROCEDURE ONLY Procedure Codes: [id number] GUANAKITO GROSS Oct 30, 2024 04:03
--- NOTE | 2024-10-30 04:12 | DVH ---
INDICATION: intubation TECHNIQUE: Single AP portable chest radiograph was obtained. COMPARISON: XY CHEST PORTABLE on DOS: 10/27/24, XY CHEST XRAY 1 VIEW on DOS: 10/26/24, XY CHEST PORTABL E on DOS: 10/25/24, XY CHEST PORTABLE on DOS: 10/25/24, XY CHEST PORTABLE on DOS: 10/27/24 FINDINGS: Mild bilateral perihilar interstitial opacities, appear increased compared to the prior exam. No foca l consolidation. No pneumothorax or pleural effusion visualized. Endotracheal tube 5 cm of the alise . Right PICC tip in the SVC.. Enteric tube reaches the stomach extending level of the gastric antrum. Additional catheter tubing overlying the upper abdomen, partially visualized. IMPRESSION: Bilateral perihilar interstitial opacities are nonspecific, may be infectious or inflammatory in natu re. Appear increased compared to the prior exam. Correlate with clinical findings.
[2024-10-30 04:16] LABS: Alanine Aminotransferase 142 U/L (7-40); Albumin 1.9 g/dL (3.2-4.8); Alkaline Phosphatase 68 U/L (46-116); Anion Gap 19 (5-15); Aspartate Aminotransferase 547 U/L (13-40); Bilirubin, Total 0.4 mg/dL (0.2-1.0); Blood Urea Nitrogen 63 mg/dL (9-23); Calcium 7.6 mg/dL (8.7-10.4); Carbon Dioxide 16 mmol/L (20-31); Chloride 115 mmol/L (98-107); Glucose 211 mg/dL (74-106); Potassium 3.9 mmol/L (3.5-5.1); Sodium 150 mmol/L (136-145); Total Protein 4.1 g/dL (5.7-8.2)
[2024-10-30 04:17] LABS: Lactic Acid w/Reflex 11.9 mmol/L (0.4-2.0)
[2024-10-30 04:27] LABS: Base Excess -8.5 mmol/L (-2.0-3.0)
[2024-10-30] MEDS ORDERED: SODIUM CHLORIDE 0.9% 1,000 ML IV SCH (04:30)
[2024-10-30] MEDS: MIDAZOLAM DRIP 50 mg/50mL 50 ML IV SCH (04:33)
[2024-10-30] MEDS: NOREPINEPHRINE 8 MG/250ML KIT 250 ML IV SCH (04:33)
--- NOTE | 2024-10-30 04:37 | RESUS ---
FARIDA ZHAO ASSESSSMENT History of Events History of Events: 44-year-old male who denies any significant past medical history brought in by EMS on 10/25 complaining of generalized weakness and fatigue for the past 2 weeks. Patient states that he has become so weak that he is unable to ambulate. He also notes shortness of breath and palpitations with very minimal exertion, nausea, vomiting and inability to tolerate any p.o. food or liquids, associated with upper abdominal pain. He denies fever, diarrhea, constipation, urinary symptoms, headache, vision changes or focal weakness. Ct abdomen confirmed a ruptured viscus. pt underwent an exploratory laprascopy on 10/26, then transfered to ICU. pt was downgraded and transfered to telemetry on 10/28. Tonight pt pulled ngt a little it was readjusted by RN. At 0303 pt was noted asystole on monitor, he was found pulseless, farida zhao called. Initial Information Date: Oct 30, 2024 Time: 03:04 [place] of Arrest: [place] Witnessed: No CPR started initial time: 03:04 CPR started by whom: Hospital Staff Pre-Hospital Care: ACLS Type of arrest: Cardiac, Respiratory, Adult, Unwitnessed Spontaneous Respirations: No Pulse Present: No Monitoring: ECG, Pulse Oximetry, Apnea, Telemetry Crash Cart Opened and Supplies: Yes Airway Ventilation Breathing at Onset: Apneic O2 Sat by Pulse Oximetry: 0 Oxygen Delivery Method: Ambu-Bag Intubation Size: 7.5 cuffed Intubated by: RENATO TOLEDO Intubation Attempts: 1 Intubated orally: Yes Intubated Nasaly: No Tube secured at: 22 Cricoid pressure done: No CO2 indicator used: Yes Confirmation: Auscultation, Exhaled CO2, Chest X-ray Suctioning (Oral/Tracheal): Yes Circulation Circulation : Time: 03:04 Pulse Rate (adult): 0 Blood Pressure Systolic: 0 Blood Pressure Diastolic: 0 Temperature (Fahrenheit): 98 Procedure - IV Procedure - IV : IV Side: Right IV Location: Upper Arm Anterior IV Catheter Type: PICC Line Comment PREVIOUSLY PLACED Medications & Response Medications and Responses : Medication Time: 03:04 ADULT Medications Given ADULT: Epinephrine 1 mg, Sodium Bacarbinate 50 meq Route of Administration: IV Heart Rate: 0 EKG Rhythm: Asystole Blood Pressure Systolic: 0 Blood Pressure Diastolic: 0 O2 Sat by Pulse Oximetry: 0 EKG Rhythm: Asystole Comment PULSE CHECK AT 0307 ROSC Pacing Pacer Pads Applied and Pacing: Yes Procedure - NG/OG Tube Procedure - NG/OG Tube : Type of gastric tube placed: OG Gastric Tube Location: Oral Gastric Tube Suction Type/Desc: Low, Continuous Gastric Content Description: Dark Red NG Tube Patency/Placement: Patent NG/OG tube inserted by: RENATO TOLEDO Procedure - Echavarria Catheter Urinary Catheter Type/Location: Uretheral (Echavarria) Urinary Catheter Size: 16 Comment: PREVIOUSLY PLACED Nurses Notes [place] Coma Scale Eye Opening: None (1) [place] Coma Scale Verbal: None (1) Sofie Coma Scale Motor: None (1) Glascow Total: 3 Pupil Reaction: Non Reactive Bedside Blood Glucose: 170 EKG Rhythm: Sinus Tachycardia Time Code Ended Time Code Ended: 03:07 Post Arrest Status: Ventilated Outcome of code: Successful Code Team Present: RENATO TOLEDO, JESSY SPENCE RN HS, JAMAR JEWELSMITH, SYD RN, ANDIE RN, RAISA CIRCUIT DESIGN ENGINEER, VISHAL RN, MARIBEL RT, ZABRINA RT. Post Resuscitation Neurologica Pupil Size: 4 ROSC Time of ROSC: 03:07 Pt Meets Criteria for Therapeu: No Therapeutic Hyperthermia Start: No JESSY ALEGRIA Oct 30, 2024 04:37
[2024-10-30 05:02] LABS: Band Neutrophils % (manual) 6; Large Platelets FEW; Lymphocytes % (manual) 24 (10.0-50.0); Metamyelocytes % 1; Monocytes % (manual) 3 (0-12); Myelocytes % 1
[2024-10-30] MEDS: SODIUM CHLORIDE 0.9% 1,000 ML IV ONE ×2 (05:02→05:42)
[2024-10-30 05:03] LABS: Platelet Estimate Decreased
[2024-10-30] MEDS ORDERED: VANCOMYCIN PER PHARMACY 0 MG IV SCH (05:15)
[2024-10-30] MEDS: VANCOMYCIN 1GM/200ML PM 200 ML IV ONE (05:42)
[2024-10-30 05:50] LABS: Magnesium 2.4 mg/dL (1.6-2.6)
[2024-10-30 06:00] LABS: Phosphorus 8.3 mg/dL (2.4-5.1)
[2024-10-30] MEDS: ALBUTEROL SULF 2.5 MG/0.5ML(0.5%) NEB SOLN NEB SCH (06:23)
[2024-10-30] MEDS: VASOPRESSIN 20 UNITS in SODIUM CHL 0.9% 99 ML IV SCH (08:30)
[2024-10-30] MEDS: PHENYLEPHRINE IV 250 ML IV SCH (08:30)
--- NOTE | 2024-10-30 08:39 | DVHPN2 ---
Subjective Patient continues to report having severe abdominal pain Reviewed: Care Plan, H&P, Labs, Medications, Previous Orders Changes from previous H/P or p: No Changes General: Per HPI Objective Vitals Vital Signs Date Time Temp Pulse Resp B/P (MAP) Pulse Ox O2 Delivery O2 Flow Rate FiO2 10/30/24 08:07 97/68 10/30/24 06:45 127 28 100 10/30/24 06:39 Mechanical Ventilator+ 80 80 10/30/24 04:37 208.4 10/29/24 20:00 2 Intake/Output Intake and Output 10/30/24 06:59 Intake Total 1214.75 ml Output Total 1060 ml Balance 154.75 ml Intake Oral 0 ml IV Total 1214.75 ml Output Urine Total 750 ml Drainage Total 310 ml General Appearance: Alert, Oriented X3, Cooperative, No acute distress HEENT: Atraumatic, PERRLA Cardiovascular: Regular rate, Normal S1, Normal S2 Abdomen: Other (Hypoactive bowel sounds. ALLISON with serosanguineous drainage) Neuro: Normal speech Skin: Dry, Intact, Wounds (See nurse notes and pictures) Psych/Mental Status: Mental status NL, Mood NL Medications Current Medications Medications Dose Ordered Sig/Neisha Route Start Time Stop Time Status Last Admin Dose Admin Nitroglycerin 0.4 mg Q5MINP PRN SL 10/25/24 22:15 Morphine Sulfate 1 mg Q3HP PRN IV 10/26/24 14:15 10/28/24 23:55 1 MG Ondansetron HCl 4 mg Q4HPRN PRN IV 10/26/24 14:15 10/27/24 20:03 4 MG Amino Acids 0 ml @ 0 mls/hr PER PHARMACY IV 10/27/24 08:45 Diagnostic Test (Pha) 1 strip Q6HR 10/27/24 12:00 10/30/24 06:26 1 STRIP Insulin Human Regular FOLLOW SLIDING SCALE Q6HR SC 10/27/24 12:00 10/30/24 06:26 4 UNITS Dextrose 50 ml UD IV 10/27/24 09:45 Sodium Chloride 10 ml QSHIFT@10,22 IV 10/27/24 22:00 10/29/24 21:49 10 ML Micafungin Sodium 100 mg/Sodium Chloride 100 ml @ 100 mls/hr Q24H IV 10/28/24 21:00 10/29/24 20:21 100 MLS/HR Pantoprazole Sodium 40 mg BID IV 10/28/24 22:00 10/29/24 21:49 40 MG Fat Emulsion Intravenous 200 ml/Sodium Acetate 40 meq/Sodium Phosphate 20 meq/ Potassium Acetate 80 meq/Calcium Gluconate 2.3 meq/ Magnesium Sulfate 8 meq/ Multivitamins 10 ml/Chromium/ Copper/Manganese/ Zinc 1 ml/Amino Acids/Dextrose/ Purified Water 1,682.9462 ml @ 70 mls/hr Q24H3M IV 10/29/24 22:00 10/30/24 21:59 10/29/24 21:52 70 MLS/HR Norepinephrine Bitartrate 250 ml @ 3.75 mls/hr Q24H IV 10/30/24 04:15 10/30/24 04:33 3.75 MLS/HR Midazolam HCl 50 ml @ 1 mls/hr Q24H IV 10/30/24 04:15 10/30/24 08:07 10 MLS/HR Albuterol 2.5 mg Q6HR NEB 10/30/24 06:00 10/30/24 06:23 2.5 MG Vancomycin HCl 0 ml @ 0 mls/hr UD IV 10/30/24 05:15 UNV Fentanyl Citrate 250 ml @ 2.5 mls/hr Q24H IV 10/30/24 08:30 UNV Vasopressin 20 units/Sodium Chloride 100 ml @ 9 mls/hr Q11H7M IV 10/30/24 08:30 UNV Lactated Ringer's 1,000 ml @ 75 mls/hr [id number] IV 10/30/24 08:30 UNV Levalbuterol HCl 0.625 mg Q6HR NEB 10/30/24 12:00 UNV Ipratropium [place] 0.5 mg Q6HR NEB 10/30/24 12:00 UNV Acetylcysteine 100 mg Q6HR NEB 10/30/24 12:00 UNV Meropenem 50 ml @ 17 mls/hr Q8HR IV 10/30/24 14:00 UNV Phenylephrine HCl 250 ml @ 30 mls/hr Q8H20M IV 10/30/24 08:30 UNV Laboratory Results Laboratory Tests 10/30/24 03:12 Chemistry Test 10/30/24 03:12 Albumin 1.9 g/dL (3.2-4.8) L Calcium Level 7.6 mg/dL (8.7-10.4) L Magnesium Level 2.4 mg/dL (1.6-2.6) Phosphorus Level 8.3 mg/dL (2.4-5.1) H Total Protein 4.1 g/dL (5.7-8.2) L Coagulation Test 10/30/24 03:12 Prothrombin Time 15.1 sec (9.3-11.8) H Prothrombin Time INR 1.48 (0.9-1.15) H LFT Test 10/30/24 03:12 Alanine Aminotransferase (ALT) 142 U/L (7-40) H Alkaline Phosphatase 68 U/L (46-116) Aspartate Amino Transferase (AST) 547 U/L (13-40) H Total Bilirubin 0.4 mg/dL (0.2-1.0) Urinalysis Test 10/28/24 12:30 Urine Color Yellow (Yellow) Urine Clarity Cloudy (Clear) H Urine pH 5.5 (5.0-9.0) Urine Specific [place] 1.023 (1.001-1.035) Urine Protein 1+ (Negative) H Urine Ketones Negative (Negative) Urine Blood 3+ /uL (Negative) H Urine Nitrite Negative (Negative) Urine Bilirubin Negative (Negative) Urine Urobilinogen Normal mg/dL (Negative) Urine Leukocyte Esterase Negative /uL (Negative) Urine RBC 147 /hpf (0 - 3) Urine Microscopic WBC 5 /HPF (0-3) H Urine Squamous Epithelial Cells Few /hpf (<5) Urine Amorphous Crystals Few /hpf (None Seen) Urine Bacteria Few /hpf (None Seen) H Urine Mucus Few (None Seen) Urine Creatinine 32.03 mg/dL (30.0-125.0) Urine Sodium 13 mmol/L (40-220) L Urine Glucose Normal mg/dL (Normal) Blood Gas Results Test 10/30/24 04:16 Arterial Blood pH 7.297 (7.350-7.450) FiO2 % 100.0 Microbiology Microbiology Date/Time Source Procedure Growth Status 10/29/24 06:10 Blood Blood Culture - Preliminary NO GROWTH AFTER 24 HOURS OF INCUBATION. Resulted 10/27/24 20:35 Nose MRSA Screen - Final Complete 10/26/24 13:25 Peritoneal Fluid Gram Stain - Final Resulted 10/26/24 13:25 Peritoneal Fluid Anaerobic Culture - Preliminary Resulted 10/26/24 13:25 Aerobic Culture - Preliminary Klebsiella pneumoniae Resulted 10/26/24 04:00 Voided Urine Urine Culture - Final Complete Labs and/or images reviewed: Labs reviewed by me, Image(s) reviewed by me Assessment/Plan Assessment/Plan Impression: -sepsis , yeast in the blood -perforated gastric ulcer, status post exploratory laparotomy with repair of ulcer, lysis of adhesions -pneumoperitoneum with multiple gastric adhesions and abscess -acute kidney injury, vasomotor nephropathy -cachexia -postop anemia Plan: -Events: Patient had cardiac arrest, ? etiology being aspiration PNA. Severe Lactic acidosis. -Continue vent settings -LR bolus with continuous volume replete -CT abdomen and pelvis with IV and oral contrast -IV abx: Micafungin, Meropenem -PPI -Cont sedation: Versed, Fent -repeat labs, XRAY, ABG, in a.m. Critical Care time spent with patient discussing and formulating plan of care: 40 minutes. This medical document was created using an electronic medical record system with [email or web address] dictation system. Although this document has been carefully reviewed, there may still be some phonetic and typographical errors. These areas are purely typographical due to imperfections of the software programs, and do not reflect any compromise in the patient's medical care. Plan discussed with: Patient, Other (RN) My Orders Orders - IRMA WAITE LAYOUT DESIGNER Procedure Category Date Status Time Fentanyl Drip PHA 10/30/24 Logged 2500mcg/250mlns 08:30 Sodium Chl 0.9% PHA 10/30/24 Logged (So... W/Vasopressin 08:30 Lactated Ringer's PHA 10/30/24 Logged 08:30 Lactated Ringer's PHA 10/30/24 Logged 08:30 Basic Metabolic Panel LAB 10/31/24 Verified 04:00 Complete Blood Count LAB 10/31/24 Verified 04:00 Levalbuterol Hcl PHA 10/30/24 Logged (Xopenex Medneb) 12:00 Ipratropium Medneb PHA 10/30/24 Logged (Atrovent Medneb) 12:00 Acetylcysteine PHA 10/30/24 Logged Inhalation 10% 12:[address] Ct [address]vis W CT 10/30/24 Logged Con-Oral & Iv 08:20 Meropenem 1gm Ivpb PHA 10/30/24 Logged (Merrem 1gm/ Ns) 14:00 Phenylephrine Iv PHA 10/30/24 Logged (Phenylephrine/Ns) 08:30 Chest Portable XY 10/31/24 Transmitted 04:00 Abg W/ Co-Ox RT 10/31/24 Transmitted 04:00 Date of Service: Oct 30, 2024 Billing Provider: IRMA WAITE LAYOUT DESIGNER Common Visit Codes: [id number] CARE 30-74 MIN IRMA WAITE NP Oct 30, 2024 08:39
[2024-10-30] MEDS ORDERED: metroNIDAZOLE 500MG/100ML 100 ML IV SCH (09:00)
[2024-10-30] MEDS: GASTROGRAFIN 30 ML SOL ONE (09:07)
[2024-10-30] MEDS: fentaNYL Drip 2500mCg/250mlNS 250 ML IV SCH (09:15)
[2024-10-30] MEDS: LACTATED RINGER'S 1,000 ML IV ONE (09:15)
[2024-10-30] MEDS: SODIUM BICARB 8.4% 50Meq/50ml SYR INJ ONE (09:22)
[2024-10-30] MEDS: SODIUM BICARB 8.4% 50Meq/50ml SYR Vial IV ONE (09:35)
[2024-10-30] MEDS: LACTATED RINGER'S 1,000 ML IV SCH (09:48)
[2024-10-30] MEDS: IPRATROPIUM BROM 0.5 MG/2.5ML INH SOL NEB SCH (11:24)
[2024-10-30] MEDS: LEVALBUTEROL HCL 1.25 MG/3 ML NEB NEB SCH (11:24)
[2024-10-30] MEDS: ACETYLCYSTEINE 10 %(100MG/ML) SOL 4ML NEB SCH (11:24)
[2024-10-30 12:08] LABS: Base Excess -5.3 mmol/L (-2.0-3.0)
[2024-10-30 12:10] LABS: Base Excess -1.9 mmol/L (-2.0-3.0)
[2024-10-30] MEDS ORDERED: ATROPINE SULF 1 MG/10ml SYR IV ONE (13:28)
[2024-10-30] MEDS: MEROPENEM 1GM IVPB 50 ML IV SCH (13:47)
[2024-10-30] MEDS: IOHEXOL 300 MG/ML 100ML BOTTLE IJ ONE ×2 (15:09→15:12)
[2024-10-30] MEDS: VANCOMYCIN 750MG KIT 100 ML IV SCH (17:41)
--- NOTE | 2024-10-30 18:36 | DVH ---
CLINICAL HISTORY: S/p ex lap with gastric perf. s/p cpr TECHNIQUE: CT of the abdomen and pelvis was performed with intravenous contrast. Oral contrast admini stered, 100 mL Omnipaque 300 IV contrast used. This exam was performed according to our departmental dose optimization program. Up-to-date CT equipment and radiation dose reduction techniques are utiliz ed as appropriate. CTDIVol: 5.89 mGy DLP: 306.67 mGy-cm WID: COMPARISON: CT abdomen and pelvis from 10/25/2024 FINDINGS: Lower Thorax: Normal-sized heart. Small bilateral pleural effusions. Dependent consolidations of the bilateral lower lobes as well as patchy nodular and consolidative opacities in the in the right lower lobe Liver and Biliary system: Cholelithiasis. Tiny hypodensity in segment 2 of the liver which are too sm all to characterize. Major portal veins are patent. Normal size liver. Spleen: Unremarkable. 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 Pancreas and Retroperitoneum: Unremarkable. Aorta and Major Vessels: Aortoiliac vessels are patent and normal caliber containing mild calcified a therosclerotic plaque. Bowel, Mesentery and Peritoneal space: There is contrast within the small and large bowel. There is a gastric tube terminating in the 1st portion of the duodenum. There are mildly distended and normal c aliber small bowel loops. The large bowel is normal caliber. There is extraluminal contrast within t he abdomen as well as mild free intraperitoneal air. There is a midline approach drain which terminat es in the left anterior abdomen. There is a multiple multiloculated fluid collections in the abdomen and pelvis. A desk representative collection in the anterior left upper abdomen measures 2.1 x 6.6 cm on s eries 2, image 23. Multiple additional fluid collections are seen within the pelvis. Mild ascites. Pelvis: Echavarria catheter decompresses the urinary bladder. No grossly enlarged pelvic lymph nodes. Abdominal wall and Osseous Structures: There is body wall edema. There is no destructive osseous lesi on. IMPRESSION: 1. Development of moderate dependent consolidations in the bilateral lower lobes as well as patchy mi xed airspace opacities in the right lower lobe likely a combination of atelectasis and pneumonia, whi ch may be on the basis of aspiration. 2. Interval placement of midline abdominal drain with the tip terminating in the anterior left upper abdomen. 3. Persistent free intraperitoneal air as well as extraluminal oral contrast in the abdomen compatibl e with perforated viscus. 4. Multiple loculated fluid collections in the abdomen and pelvis which could reflect multifocal absc esses. 5. Mild ascites, body wall edema, and small bilateral pleural effusions. 6. Cholelithiasis. 7. Mildly dilated small bowel loops as well as intervening normal caliber small bowel loops which cou ld be related to ileus or multifocal small-bowel obstructions.
[2024-10-30] MEDS: TPN PER PHARMACY IV NR (22:17)
[2024-10-31] VITALS (105 sets, daily range): BP systolic 99–130; BP diastolic 60–82; PULSE 111–132; RESP 17–37; TEMP 98.2–99.1; O2SAT 97–100
--- NOTE | 2024-10-31 06:00 | DVH ---
EXAM: XR Chest, 1 View CLINICAL INDICATION: aspiration pna TECHNIQUE: Frontal view of the chest. COMPARISON: XY CHEST PORTABLE on DOS: 10/30/24, XY CHEST PORTABLE on DOS: 10/27/24, XY CHEST XRAY 1 V IEW on DOS: 10/26/24, XY CHEST PORTABLE on DOS: 10/25/24, XY CHEST PORTABLE on DOS: 10/25/24 FINDINGS: LUNGS AND PLEURAL SPACES: Increasing interstitial and patchy airspace disease of both lungs. No co nsolidation. No pneumothorax. HEART: Unremarkable. No cardiomegaly. MEDIASTINUM: Unremarkable. Normal mediastinal contour. BONES/JOINTS: Unremarkable. No acute fracture. TUBES, LINES AND DEVICES: Right peripherally inserted central catheter (PICC) tip in the superior v mele cava. The endotracheal tube (ETT) is in satisfactory position. Enteric tube tip cannot be seen but is below the diaphragm. OTHER FINDINGS: . . . IMPRESSION: Increasing interstitial and patchy airspace disease of both lungs.
[2024-10-31 07:05] LABS: Base Excess -1.5 mmol/L (-2.0-3.0)
[2024-10-31 07:18] LABS: Hemoglobin 9.5 g/dL (13.5-17.5)
[2024-10-31 07:22] LABS: Hematocrit 27.8 % (41.0-53.0); Mean Corpuscular Hemoglobin 32.5 pg (28.0-32.0); Mean Corpuscular Volume 95.6 fL (80.0-100.0); Platelet Count (auto) 54 10^3/uL (140-450); Red Blood Cells 2.91 10^6/uL (4.5-5.90); Red Cell Distribution Width 15.8 % (11.8-14.3); White Blood Cell 9.5 10^3/uL (4.4-10.8)
[2024-10-31 07:37] LABS: Alkaline Phosphatase 69 U/L (46-116); Anion Gap 7 (5-15); BUN/Creatinine Ratio 60.4 (10.0-20.0); Carbon Dioxide 26 mmol/L (20-31); Magnesium 1.9 mg/dL (1.6-2.6); Potassium 3.8 mmol/L (3.5-5.1)
[2024-10-31 07:38] LABS: Bilirubin, Total 0.3 mg/dL (0.2-1.0); Phosphorus 2.8 mg/dL (2.4-5.1)
[2024-10-31 07:39] LABS: Basophils % (manual) 0 (0.0-2.0); Blast Cells 0; Eosinophils % (manual) 0 (0-7); Metamyelocytes % 0; Myelocytes % 0; Promyelocytes % 0; Reactive Lymphocytes 0
[2024-10-31 07:43] LABS: Alanine Aminotransferase 77 U/L (7-40); Albumin 1.9 g/dL (3.2-4.8); Aspartate Aminotransferase 91 U/L (13-40); Blood Urea Nitrogen 64 mg/dL (9-23); Calcium 7.4 mg/dL (8.7-10.4); Chloride 114 mmol/L (98-107); Glucose 137 mg/dL (74-106); Sodium 147 mmol/L (136-145); Total Protein 4.1 g/dL (5.7-8.2)
--- NOTE | 2024-10-31 08:40 | ECG ---
[facility] Test Date: 2024-10-30 Test Time: 03:44:17 Pat Name: LUH KERN Department: icu Room: [address] [place] [address] A Gender: M [employer] Supervisor: jessica : 1980 Requested By: GUANAKITO GROSS Order Number: [id number] Reading MD: Frank Castaneda Measurements Intervals [place] Rate: 112 P: 75 IN: 106 QRS: 79 QRSD: 86 T: 259 QT: 317 QTc: 433 Interpretive Statements Sinus tachycardia Borderline repolarization abnormality Electronically Signed On 11-03-2024 19:57:31 PDT by Frank Castaneda Please click the below link to view image of tracing.
[2024-10-31 09:16] LABS: Band Neutrophils % (manual) 8; Lymphocytes % (manual) 5 (10.0-50.0); Monocytes % (manual) 3 (0-12); Platelet Estimate Decreased
--- NOTE | 2024-10-31 09:51 | DVHPN2 ---
Subjective Patient continues to report having severe abdominal pain Reviewed: Care Plan, H&P, Labs, Medications, Previous Orders Changes from previous H/P or p: No Changes General: Per HPI Objective Vitals Vital Signs Date Time Temp Pulse Resp B/P (MAP) Pulse Ox O2 Delivery O2 Flow Rate FiO2 10/31/24 09:00 132 18 124/72 (89) 98 30 10/31/24 04:00 98.4 98.4 10/30/24 20:00 Mechanical Ventilator+ 10/29/24 20:00 2 Intake/Output Intake and Output 10/31/24 07:00 Intake Total 4293.0 ml Output Total 1150 ml Balance 3143.0 ml Intake Oral 1300 ml IV Total 2993.0 ml Output Urine Total 800 ml Gastric Drainage Total 100 ml Other 250 ml General Appearance: Alert, Oriented X3, Cooperative, No acute distress HEENT: Atraumatic, PERRLA Cardiovascular: Regular rate, Normal S1, Normal S2 Abdomen: Other (Hypoactive bowel sounds. ALLISON with serosanguineous drainage) Neuro: Normal speech Skin: Dry, Intact, Wounds (See nurse notes and pictures) Psych/Mental Status: Mental status NL, Mood NL Medications Current Medications Medications Dose Ordered Sig/Neisha Route Start Time Stop Time Status Last Admin Dose Admin Nitroglycerin 0.4 mg Q5MINP PRN SL 10/25/24 22:15 Morphine Sulfate 1 mg Q3HP PRN IV 10/26/24 14:15 10/28/24 23:55 1 MG Ondansetron HCl 4 mg Q4HPRN PRN IV 10/26/24 14:15 10/27/24 20:03 4 MG Amino Acids 0 ml @ 0 mls/hr PER PHARMACY IV 10/27/24 08:45 Diagnostic Test (Pha) 1 strip Q6HR 10/27/24 12:00 10/31/24 06:07 1 STRIP Insulin Human Regular FOLLOW SLIDING SCALE Q6HR SC 10/27/24 12:00 10/31/24 06:09 2 UNITS Dextrose 50 ml UD IV 10/27/24 09:45 Sodium Chloride 10 ml QSHIFT@10,22 IV 10/27/24 22:00 10/31/24 08:30 10 ML Micafungin Sodium 100 mg/Sodium Chloride 100 ml @ 100 mls/hr Q24H IV 10/28/24 21:00 10/30/24 21:12 100 MLS/HR Pantoprazole Sodium 40 mg BID IV 10/28/24 22:00 10/31/24 08:29 40 MG Norepinephrine Bitartrate 250 ml @ 3.75 mls/hr Q24H IV 10/30/24 04:15 10/30/24 04:33 3.75 MLS/HR Midazolam HCl 50 ml @ 1 mls/hr Q24H IV 10/30/24 04:15 10/31/24 08:29 12 MLS/HR Vancomycin HCl 0 ml @ 0 mls/hr UD IV 10/30/24 05:15 Fentanyl Citrate 250 ml @ 2.5 mls/hr Q24H IV 10/30/24 08:30 10/31/24 00:46 15 MLS/HR Vasopressin 20 units/Sodium Chloride 100 ml @ 9 mls/hr Q11H7M IV 10/30/24 08:30 Lactated Ringer's 1,000 ml @ 75 mls/hr [id number] IV 10/30/24 08:30 10/30/24 22:15 75 MLS/HR Levalbuterol HCl 0.625 mg Q6HR NEB 10/30/24 12:00 10/31/24 05:53 0.625 MG Ipratropium [place] 0.5 mg Q6HR NEB 10/30/24 12:00 10/31/24 05:53 0.5 MG Acetylcysteine 100 mg Q6HR NEB 10/30/24 12:00 10/31/24 05:53 100 MG Meropenem 50 ml @ 17 mls/hr Q8HR IV 10/30/24 14:00 10/31/24 06:06 17 MLS/HR Phenylephrine HCl 250 ml @ 30 mls/hr Q8H20M IV 10/30/24 08:30 Fat Emulsion Intravenous 200 ml/Potassium Acetate 40 meq/ Calcium Gluconate 2.3 meq/Magnesium Sulfate 4 meq/ Multivitamins 10 ml/Chromium/ Copper/Manganese/ Zinc 1 ml/Amino Acids/Dextrose 1,236.9462 ml @ 52 mls/hr [id number] IV 10/30/24 22:00 10/31/24 21:59 10/30/24 22:17 52 MLS/HR Vancomycin HCl 100 ml @ 100 mls/hr Q8H IV 10/30/24 15:00 10/30/24 23:08 100 MLS/HR Micafungin Sodium 100 mg/Sodium Chloride 100 ml @ 100 mls/hr DAILY IV 10/31/24 10:00 Laboratory Results Laboratory Tests 10/31/24 07:00 Chemistry Test 10/31/24 07:00 Albumin 1.9 g/dL (3.2-4.8) L Calcium Level 7.4 mg/dL (8.7-10.4) L Magnesium Level 1.9 mg/dL (1.6-2.6) Phosphorus Level 2.8 mg/dL (2.4-5.1) Total Protein 4.1 g/dL (5.7-8.2) L LFT Test 10/31/24 07:00 Alanine Aminotransferase (ALT) 77 U/L (7-40) H Alkaline Phosphatase 69 U/L (46-116) Aspartate Amino Transferase (AST) 91 U/L (13-40) H Total Bilirubin 0.3 mg/dL (0.2-1.0) Urinalysis Test 10/28/24 12:30 Urine Color Yellow (Yellow) Urine Clarity Cloudy (Clear) H Urine pH 5.5 (5.0-9.0) Urine Specific [place] 1.023 (1.001-1.035) Urine Protein 1+ (Negative) H Urine Ketones Negative (Negative) Urine Blood 3+ /uL (Negative) H Urine Nitrite Negative (Negative) Urine Bilirubin Negative (Negative) Urine Urobilinogen Normal mg/dL (Negative) Urine Leukocyte Esterase Negative /uL (Negative) Urine RBC 147 /hpf (0 - 3) Urine Microscopic WBC 5 /HPF (0-3) H Urine Squamous Epithelial Cells Few /hpf (<5) Urine Amorphous Crystals Few /hpf (None Seen) Urine Bacteria Few /hpf (None Seen) H Urine Mucus Few (None Seen) Urine Creatinine 32.03 mg/dL (30.0-125.0) Urine Sodium 13 mmol/L (40-220) L Urine Glucose Normal mg/dL (Normal) Blood Gas Results Test 10/30/24 12:00 10/31/24 06:49 Arterial Blood pH 7.382 (7.350-7.450) 7.351 (7.350-7.450) FiO2 % 50.0 30.0 Microbiology Microbiology Date/Time Source Procedure Growth Status 10/30/24 03:25 Trachea Gram Stain - Final Resulted 10/30/24 03:25 Trachea Respiratory Culture Pending Resulted 10/29/24 06:10 Blood Blood Culture - Preliminary NO GROWTH AFTER 48 HOURS OF INCUBATION. Resulted 10/26/24 13:25 Peritoneal Fluid Gram Stain - Final Complete 10/26/24 13:25 Anaerobic Culture - Final Bacteroides fragilis Prevotella melaninogenica Complete 10/26/24 13:25 Aerobic Culture - Final Pseudomonas aeruginosa Klebsiella pneumoniae Streptococcus Group F Complete 10/26/24 04:00 Voided Urine Urine Culture - Final Complete Labs and/or images reviewed: Labs reviewed by me, Image(s) reviewed by me Assessment/Plan Assessment/Plan Impression: -sepsis , yeast in the blood -perforated gastric ulcer, status post exploratory laparotomy with repair of ulcer, lysis of adhesions -pneumoperitoneum with multiple gastric adhesions and abscess -acute kidney injury, vasomotor nephropathy -cachexia -postop anemia Plan: -Events: No events overnight. CT angiogram with IV and oral contrast reveals some extravasation, abscess noted in the abdominal cavity. Defer to surgical recommendations for this. Patient continues to be tachycardic. Repeat IV volume resuscitation. -Continue vent settings -Continue LR with LR bolus 1 L. -PUD, DVT prophylaxis -IV abx: Micafungin, Meropenem, vancomycin -PPI -Cont sedation: Versed, Fent -repeat labs, chest x-ray, ABG daily Critical Care time spent with patient discussing and formulating plan of care: 40 minutes. This medical document was created using an electronic medical record system with [employer] dictation system. Although this document has been carefully reviewed, there may still be some phonetic and typographical errors. These areas are purely typographical due to imperfections of the software programs, and do not reflect any compromise in the patient's medical care. Plan discussed with: Patient, Other (RN) My Orders Orders - IRMA WAITE NP Procedure Category Date Status Time Abg W/ Co-Ox RT 10/30/24 Logged 12:00 Micafungin Sodium PHA 10/31/24 In Process (Mycamine) 10:00 Comprehensive LAB 11/01/24 Verified Metabolic Panel 05:00 Comprehensive LAB 11/02/24 Verified Metabolic Panel 05:00 Comprehensive LAB 11/03/24 Verified Metabolic Panel 05:00 Complete Blood Count LAB 11/01/24 Verified 05:00 Complete Blood Count LAB 11/02/24 Verified 05:00 Complete Blood Count LAB 11/03/24 Verified 05:00 Chest Portable XY 11/01/24 Logged 05:00 Chest Portable XY 11/02/24 Logged 05:00 Chest Portable XY 11/03/24 Logged 05:00 Abg W/ Co-Ox RT 11/01/24 Logged 04:00 Date of Service: Oct 31, 2024 Billing Provider: IRMA WAITE NP Common Visit Codes: [id number] CARE 30-74 MIN IRMA WAITE NP Oct 31, 2024 09:51
[2024-10-31] MEDS: MICAFUNGIN SODIUM 100 MG in SODIUM CHL 0.9% 100 ML IV SCH (10:22)
--- NOTE | 2024-10-31 14:27 | DVHPN2 ---
Progress Note Date Seen: Oct 31, 2024 Medical Necessity Reason Pt with a Central, PICC or Fol: Yes The following are medically ne: Persaud Catheter Reason for persaud catheter: Strict I&O Objective vital signs Vital Sign Date Time Temp Pulse Resp B/P (MAP) Pulse Ox O2 Delivery O2 Flow Rate FiO2 10/31/24 13:31 111 18 116/67 (83) 100 30 10/31/24 11:00 99.0 99.0 10/31/24 08:00 Mechanical Ventilator+ 10/29/24 20:00 2 Total Intake and Output 10/30/24 10/30/24 10/31/24 15:00 23:00 07:00 Intake Total 1333.0 ml 2121 ml 839 ml Output Total 1000 ml 150 ml Balance 1333.0 ml 1121 ml 689 ml medications Current Medications Medications Dose Ordered Sig/Neisha Route Start Time Stop Time Status Last Admin Dose Admin Nitroglycerin 0.4 mg Q5MINP PRN SL 10/25/24 22:15 Morphine Sulfate 1 mg Q3HP PRN IV 10/26/24 14:15 10/28/24 23:55 1 MG Ondansetron HCl 4 mg Q4HPRN PRN IV 10/26/24 14:15 10/27/24 20:03 4 MG Amino Acids 0 ml @ 0 mls/hr PER PHARMACY IV 10/27/24 08:45 Diagnostic Test (Pha) 1 strip Q6HR 10/27/24 12:00 10/31/24 11:43 1 STRIP Insulin Human Regular FOLLOW SLIDING SCALE Q6HR SC 10/27/24 12:00 10/31/24 06:09 2 UNITS Dextrose 50 ml UD IV 10/27/24 09:45 Sodium Chloride 10 ml QSHIFT@10,22 IV 10/27/24 22:00 10/31/24 08:30 10 ML Pantoprazole Sodium 40 mg BID IV 10/28/24 22:00 10/31/24 08:29 40 MG Norepinephrine Bitartrate 250 ml @ 3.75 mls/hr Q24H IV 10/30/24 04:15 10/30/24 04:33 3.75 MLS/HR Midazolam HCl 50 ml @ 1 mls/hr Q24H IV 10/30/24 04:15 10/31/24 11:45 12 MLS/HR Vancomycin HCl 0 ml @ 0 mls/hr UD IV 10/30/24 05:15 Fentanyl Citrate 250 ml @ 2.5 mls/hr Q24H IV 10/30/24 08:30 10/31/24 00:46 15 MLS/HR Vasopressin 20 units/Sodium Chloride 100 ml @ 9 mls/hr Q11H7M IV 10/30/24 08:30 Lactated Ringer's 1,000 ml @ 75 mls/hr [id number] IV 10/30/24 08:30 10/31/24 13:14 75 MLS/HR Levalbuterol HCl 0.625 mg Q6HR NEB 10/30/24 12:00 10/31/24 11:30 0.625 MG Ipratropium [place] 0.5 mg Q6HR NEB 10/30/24 12:00 10/31/24 11:30 0.5 MG Acetylcysteine 100 mg Q6HR NEB 10/30/24 12:00 10/31/24 11:30 100 MG Meropenem 50 ml @ 17 mls/hr Q8HR IV 10/30/24 14:00 10/31/24 06:06 17 MLS/HR Phenylephrine HCl 250 ml @ 30 mls/hr Q8H20M IV 10/30/24 08:30 Fat Emulsion Intravenous 200 ml/Potassium Acetate 40 meq/ Calcium Gluconate 2.3 meq/Magnesium Sulfate 4 meq/ Multivitamins 10 ml/Chromium/ Copper/Manganese/ Zinc 1 ml/Amino Acids/Dextrose 1,236.9462 ml @ 52 mls/hr [id number] IV 10/30/24 22:00 10/31/24 21:59 10/30/24 22:17 52 MLS/HR Micafungin Sodium 100 mg/Sodium Chloride 100 ml @ 100 mls/hr DAILY IV 10/31/24 10:00 10/31/24 10:22 100 MLS/HR Fat Emulsion Intravenous 200 ml/Potassium Acetate 20 meq/ Potassium Phosphate 22 meq/ Calcium Gluconate 2.3 meq/Magnesium Sulfate 8 meq/ Multivitamins 10 ml/Chromium/ Copper/Manganese/ Zinc 1 ml/Amino Acids/Dextrose 1,232.9462 ml @ 51 mls/hr [id number] IV 10/31/24 22:00 11/01/24 21:59 laboratory and microbiology Laboratory Tests 10/31/24 07:00 Test 10/31/24 07:00 Range/Units Serum Glucose 137 H 74-106 mg/dL Problem List/Assessment/Plan Problem List/Assessment/Plan 10/27/24 STATES THAT HE FEELS MUCH BETTER, ABDOMEN APPROPRIATELY TENDER, WOUND CLEAN AND WELL APPROXIMATED, DRAINAGE SERO SANGUINEOUS VIA ALLISON DRAIN, OK TO SEND TO TELEMETRY 10/28/24 FEELS WEEK, ABDOMEN SOCT NON DISTENDED, APPROPRIATELY TENDER, WOUND CLEAN AND WELL APPROXIMATED,. NO CHANGES 10/29/24 PASSING FLATUS, NO bm, WOUND CLEAN AND WELL APPROXIMATED, DRAINAGE SERO SANGUINEOUS, UGI PENDING INTUBATED SEDATED, ABDOMEN NOT DISTENDED CT SCAN REVEALS FINDINGS PRESENT BEFORE HIS OPERQAWTION FRO PERFOATED GASTFRIC ULCER. HE WAS DOING VERY WELL TILL THE NIGHT HE WAS FOUND PULSELESS IN BED, DOES NOT NEED ANOTHER OPERATION Plan discussed with: Other Dietary Evaluation Review Comments: 1) Conitnue TPN to provide at least 75% estimated needs 2) Advance diet as medically feasible 3) Continue current plan of care Expected Outcomes/Goals: GI symptoms to improve To meet >75% estimated needs Fu 2-3 days CHRIST HUDDLESTON MD Oct 31, 2024 14:27
[2024-10-31] MEDS: LACTATED RINGER'S 1,000 ML IV ONE (16:39)
[2024-10-31] MEDS: TPN PER PHARMACY IV NR (21:37)
[2024-11-01] VITALS (107 sets, daily range): BP systolic 117–137; BP diastolic 67–78; PULSE 107–129; RESP 15–26; TEMP 97.8–98.2; O2SAT 97–100
[2024-11-01 03:57] LABS: Hematocrit 24.4 % (41.0-53.0); Hemoglobin 8.2 g/dL (13.5-17.5); Mean Corpuscular Hemoglobin 33.6 pg (28.0-32.0); Mean Corpuscular Hgb Conc. 33.7 g/dL (32.0-36.0); Mean Corpuscular Volume 99.5 fL (80.0-100.0); Platelet Count (auto) 70 10^3/uL (140-450); Red Blood Cells 2.45 10^6/uL (4.5-5.90); Red Cell Distribution Width 17.1 % (11.8-14.3)
[2024-11-01 04:01] LABS: Basophils % (manual) 0 (0.0-2.0); Blast Cells 0; Eosinophils % (manual) 0 (0-7); Myelocytes % 0; Promyelocytes % 0; Reactive Lymphocytes 0
[2024-11-01 05:29] LABS: Band Neutrophils % (manual) 4; Lymphocytes % (manual) 4 (10.0-50.0); Metamyelocytes % 2; Monocytes % (manual) 3 (0-12); Platelet Estimate Decreased
--- NOTE | 2024-11-01 05:49 | DVH ---
EXAM: XR Chest, 1 View CLINICAL INDICATION: pna TECHNIQUE: Frontal view of the chest. COMPARISON: XY CHEST PORTABLE on DOS: 10/31/24, XY CHEST PORTABLE on DOS: 10/30/24, XY CHEST PORTABLE on DOS: 10/27/24, XY CHEST XRAY 1 VIEW on DOS: 10/26/24, XY CHEST PORTABLE on DOS: 10/25/24 FINDINGS: LUNGS AND PLEURAL SPACES: Interstitial and patchy airspace disease. No consolidation. No pneumoth orax. HEART: Unremarkable. No cardiomegaly. MEDIASTINUM: Unremarkable. Normal mediastinal contour. BONES/JOINTS: Unremarkable. No acute fracture. TUBES, LINES AND DEVICES: The endotracheal tube (ETT) is in satisfactory position. Enteric tube ti p cannot be seen but is below the diaphragm. Right peripherally inserted central catheter (PICC) tip in the superior vena cava. OTHER FINDINGS: . . IMPRESSION: Interstitial and patchy airspace disease.
[2024-11-01 06:39] LABS: Alkaline Phosphatase 76 U/L (46-116); Anion Gap 6 (5-15); BUN/Creatinine Ratio 56.7 (10.0-20.0); Carbon Dioxide 26 mmol/L (20-31); Magnesium 1.9 mg/dL (1.6-2.6); Potassium 4.3 mmol/L (3.5-5.1); Sodium 145 mmol/L (136-145)
[2024-11-01 06:47] LABS: Base Excess -1.3 mmol/L (-2.0-3.0)
[2024-11-01 06:47] LABS: Alanine Aminotransferase 54 U/L (7-40); Aspartate Aminotransferase 61 U/L (13-40); Bilirubin, Total 0.3 mg/dL (0.2-1.0); Blood Urea Nitrogen 72 mg/dL (9-23); Calcium 7.4 mg/dL (8.7-10.4); Chloride 113 mmol/L (98-107); Glucose 175 mg/dL (74-106); Total Protein 4.1 g/dL (5.7-8.2)
[2024-11-01 06:48] LABS: Albumin 1.9 g/dL (3.2-4.8)
--- NOTE | 2024-11-01 09:02 | DVHPN2 ---
Subjective Patient was intubated and sedated Reviewed: Care Plan, H&P, Labs, Medications, Previous Orders Changes from previous H/P or p: No Changes General: Per HPI Objective Vitals Vital Signs Date Time Temp Pulse Resp B/P (MAP) Pulse Ox O2 Delivery O2 Flow Rate FiO2 11/01/24 08:07 119 18 137/74 (95) 99 30 11/01/24 04:00 98.2 98.2 10/31/24 20:00 Mechanical Ventilator+ Intake/Output Intake and Output 11/01/24 07:00 Intake Total 4802 ml Output Total 2320 ml Balance 2482 ml IV Total 4802 ml Output Urine Total 1250 ml Gastric Drainage Total 100 ml Other 970 ml General Appearance: moderate distress HEENT: Atraumatic, PERRLA Cardiovascular: Normal S1, Normal S2, Other (Patient was tachycardic) Abdomen: Other (ALLISON drain with copious amount of bilious green secretions. Absent bowel sounds) Neuro: Other (Unable to assess) Skin: Dry, Intact, Wounds (See nurse notes and pictures) Psych/Mental Status: Other (Unable to assess) Medications Current Medications Medications Dose Ordered Sig/Neisha Route Start Time Stop Time Status Last Admin Dose Admin Nitroglycerin 0.4 mg Q5MINP PRN SL 10/25/24 22:15 Morphine Sulfate 1 mg Q3HP PRN IV 10/26/24 14:15 10/28/24 23:55 1 MG Ondansetron HCl 4 mg Q4HPRN PRN IV 10/26/24 14:15 10/27/24 20:03 4 MG Amino Acids 0 ml @ 0 mls/hr PER PHARMACY IV 10/27/24 08:45 Diagnostic Test (Pha) 1 strip Q6HR 10/27/24 12:00 11/01/24 05:49 1 STRIP Insulin Human Regular FOLLOW SLIDING SCALE Q6HR SC 10/27/24 12:00 10/31/24 06:09 2 UNITS Dextrose 50 ml UD IV 10/27/24 09:45 Sodium Chloride 10 ml QSHIFT@10,22 IV 10/27/24 22:00 11/01/24 08:33 10 ML Pantoprazole Sodium 40 mg BID IV 10/28/24 22:00 11/01/24 08:32 40 MG Norepinephrine Bitartrate 250 ml @ 3.75 mls/hr Q24H IV 10/30/24 04:15 10/30/24 04:33 3.75 MLS/HR Midazolam HCl 50 ml @ 1 mls/hr Q24H IV 10/30/24 04:15 11/01/24 05:53 10 MLS/HR Vancomycin HCl 0 ml @ 0 mls/hr UD IV 10/30/24 05:15 Fentanyl Citrate 250 ml @ 2.5 mls/hr Q24H IV 10/30/24 08:30 11/01/24 08:32 15 MLS/HR Vasopressin 20 units/Sodium Chloride 100 ml @ 9 mls/hr Q11H7M IV 10/30/24 08:30 Lactated Ringer's 1,000 ml @ 75 mls/hr [id number] IV 10/30/24 08:30 10/31/24 13:14 75 MLS/HR Levalbuterol HCl 0.625 mg Q6HR NEB 10/30/24 12:00 11/01/24 06:25 0.625 MG Ipratropium [place] 0.5 mg Q6HR NEB 10/30/24 12:00 11/01/24 06:26 0.5 MG Acetylcysteine 100 mg Q6HR NEB 10/30/24 12:00 11/01/24 06:26 100 MG Meropenem 50 ml @ 17 mls/hr Q8HR IV 10/30/24 14:00 11/01/24 05:47 17 MLS/HR Phenylephrine HCl 250 ml @ 30 mls/hr Q8H20M IV 10/30/24 08:30 Micafungin Sodium 100 mg/Sodium Chloride 100 ml @ 100 mls/hr DAILY IV 10/31/24 10:00 11/01/24 08:32 100 MLS/HR Fat Emulsion Intravenous 200 ml/Potassium Acetate 20 meq/ Potassium Phosphate 22 meq/ Calcium Gluconate 2.3 meq/Magnesium Sulfate 8 meq/ Multivitamins 10 ml/Chromium/ Copper/Manganese/ Zinc 1 ml/Amino Acids/Dextrose 1,232.9462 ml @ 51 mls/hr [id number] IV 10/31/24 22:00 11/01/24 21:59 10/31/24 21:37 51 MLS/HR Laboratory Results Laboratory Tests 11/01/24 03:06 11/01/24 04:41 Chemistry Test 11/01/24 04:41 Albumin 1.9 g/dL (3.2-4.8) L Calcium Level 7.4 mg/dL (8.7-10.4) L Magnesium Level 1.9 mg/dL (1.6-2.6) Phosphorus Level 3.0 mg/dL (2.4-5.1) Total Protein 4.1 g/dL (5.7-8.2) L LFT Test 11/01/24 04:41 Alanine Aminotransferase (ALT) 54 U/L (7-40) H Alkaline Phosphatase 76 U/L (46-116) Aspartate Amino Transferase (AST) 61 U/L (13-40) H Total Bilirubin 0.3 mg/dL (0.2-1.0) Urinalysis Test 10/28/24 12:30 Urine Color Yellow (Yellow) Urine Clarity Cloudy (Clear) H Urine pH 5.5 (5.0-9.0) Urine Specific [place] 1.023 (1.001-1.035) Urine Protein 1+ (Negative) H Urine Ketones Negative (Negative) Urine Blood 3+ /uL (Negative) H Urine Nitrite Negative (Negative) Urine Bilirubin Negative (Negative) Urine Urobilinogen Normal mg/dL (Negative) Urine Leukocyte Esterase Negative /uL (Negative) Urine RBC 147 /hpf (0 - 3) Urine Microscopic WBC 5 /HPF (0-3) H Urine Squamous Epithelial Cells Few /hpf (<5) Urine Amorphous Crystals Few /hpf (None Seen) Urine Bacteria Few /hpf (None Seen) H Urine Mucus Few (None Seen) Urine Creatinine 32.03 mg/dL (30.0-125.0) Urine Sodium 13 mmol/L (40-220) L Urine Glucose Normal mg/dL (Normal) Blood Gas Results Test 11/01/24 06:42 Arterial Blood pH 7.305 (7.350-7.450) FiO2 % 30.0 Microbiology Microbiology Date/Time Source Procedure Growth Status 10/30/24 03:25 Trachea Gram Stain - Final Resulted 10/30/24 03:25 Trachea Respiratory Culture - Preliminary Resulted 10/29/24 06:10 Blood Blood Culture - Preliminary NO GROWTH AFTER 72 HOURS OF INCUBATION. Resulted 10/26/24 13:25 Peritoneal Fluid Gram Stain - Final Complete 10/26/24 13:25 Anaerobic Culture - Final Bacteroides fragilis Prevotella melaninogenica Complete 10/26/24 13:25 Aerobic Culture - Final Pseudomonas aeruginosa Klebsiella pneumoniae Streptococcus Group F Complete 10/26/24 04:00 Voided Urine Urine Culture - Final Complete Labs and/or images reviewed: Labs reviewed by me, Image(s) reviewed by me Assessment/Plan Assessment/Plan Impression: -sepsis , yeast in the blood -perforated gastric ulcer, status post exploratory laparotomy with repair of ulcer, lysis of adhesions -pneumoperitoneum with multiple gastric adhesions and abscess -acute kidney injury, vasomotor nephropathy -cachexia -postop anemia Plan: -Events: No events overnight. Continues to be tachycardic. Copious amounts of ALLISON drainage. NG drainage decreasing. Off vasopressors. -change vent settings: A.c., rate 20, tidal volume 450, peep of five, FiO2 continue at 30%. -continue volume replete with LR -PUD, DVT prophylaxis -IV abx: Micafungin, Meropenem, vancomycin -PPI -Cont sedation: Versed, Fent -repeat labs, chest x-ray, ABG daily -long discussion made with the patient's brother yesterday as well as patient was son. All questions answered. Critical Care time spent with patient discussing and formulating plan of care: 90 minutes. This medical document was created using an electronic medical record system with Calpian dictation system. Although this document has been carefully reviewed, there may still be some phonetic and typographical errors. These areas are purely typographical due to imperfections of the software programs, and do not reflect any compromise in the patient's medical care. Plan discussed with: Patient, Son, Other (RN, Brother) My Orders Orders - IRMA WAITE PAD [employer]ACH[employer]ER Procedure Category Date Status Time Micafungin Sodium PHA 10/31/24 In Process (Mycamine) 10:00 Comprehensive LAB 11/02/24 Verified Metabolic Panel 05:00 Comprehensive LAB 11/03/24 Verified Metabolic Panel 05:00 Complete Blood Count LAB 11/02/24 Verified 05:00 Complete Blood Count LAB 11/03/24 Verified 05:00 Chest Portable XY 11/01/24 Resulted 05:00 Chest Portable XY 11/02/24 Logged 05:00 Chest Portable XY 11/03/24 Logged 05:00 Abg W/ Co-Ox RT 11/01/24 Logged 04:00 Cover Wound With Foam EILEEN 10/31/24 In Process Dressing 14:03 Ventilator Orders RT 11/01/24 Transmitted 08:23 Date of Service: Nov 01, 2024 Billing Provider: IRMA WAITE NP Common Visit Codes: [id number] CARE 30-74 MIN, [id number] CARE-EACH +30MIN IRMA WAITE NP Nov 01, 2024 09:02
--- NOTE | 2024-11-01 11:08 | DVHPN2 ---
Progress Note Date Seen: Nov 01, 2024 Medical Necessity Reason Pt with a Central, PICC or Fol: Yes The following are medically ne: Persaud Catheter Reason for persaud catheter: Strict I&O Objective vital signs Vital Sign Date Time Temp Pulse Resp B/P (MAP) Pulse Ox O2 Delivery O2 Flow Rate FiO2 11/01/24 10:00 30 11/01/24 10:00 115 20 131/72 (91) 100 11/01/24 08:00 Mechanical Ventilator+ 11/01/24 04:00 98.2 98.2 Total Intake and Output 10/31/24 10/31/24 11/01/24 15:00 23:00 07:00 Intake Total 1922 ml 1790 ml 1258 ml Output Total 1120 ml 1200 ml Balance 1922 ml 670 ml 58 ml medications Current Medications Medications Dose Ordered Sig/Neisha Route Start Time Stop Time Status Last Admin Dose Admin Nitroglycerin 0.4 mg Q5MINP PRN SL 10/25/24 22:15 Morphine Sulfate 1 mg Q3HP PRN IV 10/26/24 14:15 10/28/24 23:55 1 MG Ondansetron HCl 4 mg Q4HPRN PRN IV 10/26/24 14:15 10/27/24 20:03 4 MG Amino Acids 0 ml @ 0 mls/hr PER PHARMACY IV 10/27/24 08:45 Diagnostic Test (Pha) 1 strip Q6HR 10/27/24 12:00 11/01/24 05:49 1 STRIP Insulin Human Regular FOLLOW SLIDING SCALE Q6HR SC 10/27/24 12:00 10/31/24 06:09 2 UNITS Dextrose 50 ml UD IV 10/27/24 09:45 Sodium Chloride 10 ml QSHIFT@10,22 IV 10/27/24 22:00 11/01/24 08:33 10 ML Pantoprazole Sodium 40 mg BID IV 10/28/24 22:00 11/01/24 08:32 40 MG Norepinephrine Bitartrate 250 ml @ 3.75 mls/hr Q24H IV 10/30/24 04:15 10/30/24 04:33 3.75 MLS/HR Midazolam HCl 50 ml @ 1 mls/hr Q24H IV 10/30/24 04:15 11/01/24 05:53 10 MLS/HR Vancomycin HCl 0 ml @ 0 mls/hr UD IV 10/30/24 05:15 Fentanyl Citrate 250 ml @ 2.5 mls/hr Q24H IV 10/30/24 08:30 11/01/24 08:32 15 MLS/HR Vasopressin 20 units/Sodium Chloride 100 ml @ 9 mls/hr Q11H7M IV 10/30/24 08:30 Lactated Ringer's 1,000 ml @ 75 mls/hr [id number] IV 10/30/24 08:30 10/31/24 13:14 75 MLS/HR Levalbuterol HCl 0.625 mg Q6HR NEB 10/30/24 12:00 11/01/24 06:25 0.625 MG Ipratropium [place] 0.5 mg Q6HR NEB 10/30/24 12:00 11/01/24 06:26 0.5 MG Acetylcysteine 100 mg Q6HR NEB 10/30/24 12:00 11/01/24 06:26 100 MG Meropenem 50 ml @ 17 mls/hr Q8HR IV 10/30/24 14:00 11/01/24 05:47 17 MLS/HR Phenylephrine HCl 250 ml @ 30 mls/hr Q8H20M IV 10/30/24 08:30 Micafungin Sodium 100 mg/Sodium Chloride 100 ml @ 100 mls/hr DAILY IV 10/31/24 10:00 11/01/24 08:32 100 MLS/HR Fat Emulsion Intravenous 200 ml/Potassium Acetate 20 meq/ Potassium Phosphate 22 meq/ Calcium Gluconate 2.3 meq/Magnesium Sulfate 8 meq/ Multivitamins 10 ml/Chromium/ Copper/Manganese/ Zinc 1 ml/Amino Acids/Dextrose 1,232.9462 ml @ 51 mls/hr [id number] IV 10/31/24 22:00 11/01/24 21:59 10/31/24 21:37 51 MLS/HR Fat Emulsion Intravenous 250 ml/Potassium Acetate 10 meq/ Calcium Gluconate 2.3 meq/Magnesium Sulfate 8 meq/ Multivitamins 10 ml/Chromium/ Copper/Manganese/ Zinc 1 ml/Amino Acids/Dextrose 1,272.9462 ml @ 53 mls/hr Q24H2M IV 11/01/24 22:00 11/02/24 21:59 laboratory and microbiology Laboratory Tests 11/01/24 04:41 11/01/24 03:06 Test 11/01/24 04:41 Range/Units Serum Glucose 175 H 74-106 mg/dL Problem List/Assessment/Plan Problem List/Assessment/Plan 10/27/24 STATES THAT HE FEELS MUCH BETTER, ABDOMEN APPROPRIATELY TENDER, WOUND CLEAN AND WELL APPROXIMATED, DRAINAGE SERO SANGUINEOUS VIA ALLISON DRAIN, OK TO SEND TO TELEMETRY 10/28/24 FEELS WEEK, ABDOMEN SOCT NON DISTENDED, APPROPRIATELY TENDER, WOUND CLEAN AND WELL APPROXIMATED,. NO CHANGES 10/29/24 PASSING FLATUS, NO bm, WOUND CLEAN AND WELL APPROXIMATED, DRAINAGE SERO SANGUINEOUS, UGI PENDING INTUBATED SEDATED, ABDOMEN NOT DISTENDED CT SCAN REVEALS FINDINGS PRESENT BEFORE HIS OPERQAWTION FRO PERFOATED GASTFRIC ULCER. HE WAS DOING VERY WELL TILL THE NIGHT HE WAS FOUND PULSELESS IN BED, DOES NOT NEED ANOTHER OPERATION 11/01/24 CONTINUES INTUBATED AND SEDATED, WOUND CLEAN AND WELL APPROXIMATED, DRAINAGE SERO SANGUINEOUS, LABS REVIEWED Plan discussed with: Other Dietary Evaluation Review Comments: 1) Conitnue TPN to provide at least 75% estimated needs 2) Advance diet as medically feasible 3) Continue current plan of care Expected Outcomes/Goals: GI symptoms to improve To meet >75% estimated needs Fu 2-3 days CHRIST HUDDLESTON MD Nov 01, 2024 11:08
[2024-11-01] MEDS: VANCOMYCIN 750MG KIT 100 ML IV SCH (17:30)
[2024-11-01] MEDS: FAT EMULSION IV NR (22:16)
[2024-11-01] MEDS: CALCIUM GLUC IV NR (22:16)
[2024-11-01] MEDS: [UNRECOGNIZED DRUG - OTHER] IV NR (22:16)
[2024-11-01] MEDS: POTASSIUM ACETATE IV NR (22:16)
[2024-11-02] VITALS (110 sets, daily range): BP systolic 99–148; BP diastolic 62–86; PULSE 61–128; RESP 17–22; TEMP 97.5–98.5; O2SAT 98–100
[2024-11-02 04:09] LABS: Hemoglobin 7.6 g/dL (13.5-17.5)
[2024-11-02 04:15] LABS: Hematocrit 22.4 % (41.0-53.0); Mean Corpuscular Hemoglobin 32.3 pg (28.0-32.0); Mean Corpuscular Hgb Conc. 33.8 g/dL (32.0-36.0); Mean Corpuscular Volume 95.7 fL (80.0-100.0); Platelet Count (auto) 90 10^3/uL (140-450); Red Blood Cells 2.34 10^6/uL (4.5-5.90); Red Cell Distribution Width 15.6 % (11.8-14.3); White Blood Cell 7.4 10^3/uL (4.4-10.8)
[2024-11-02 04:33] LABS: Alkaline Phosphatase 99 U/L (46-116); Anion Gap 7 (5-15); BUN/Creatinine Ratio 53.9 (10.0-20.0); Carbon Dioxide 25 mmol/L (20-31); Potassium 4.4 mmol/L (3.5-5.1); Sodium 143 mmol/L (136-145)
[2024-11-02 04:34] LABS: Bilirubin, Total 0.3 mg/dL (0.2-1.0); Phosphorus 2.7 mg/dL (2.4-5.1)
[2024-11-02 04:44] LABS: Basophils % (manual) 0 (0.0-2.0); Blast Cells 0; Eosinophils % (manual) 0 (0-7); Myelocytes % 0; Promyelocytes % 0; Reactive Lymphocytes 0
[2024-11-02 04:55] LABS: Alanine Aminotransferase 40 U/L (7-40); Albumin 1.9 g/dL (3.2-4.8); Aspartate Aminotransferase 57 U/L (13-40); Blood Urea Nitrogen 76 mg/dL (9-23); Calcium 7.6 mg/dL (8.7-10.4); Chloride 111 mmol/L (98-107); Glucose 134 mg/dL (74-106); Total Protein 4.3 g/dL (5.7-8.2)
--- NOTE | 2024-11-02 05:57 | DVH ---
CHEST RADIOGRAPH Indication: pna Technique: Single frontal view of the chest was obtained COMPARISON: XY CHEST PORTABLE on DOS: 11/01/24, XY CHEST PORTABLE on DOS: 10/31/24, XY CHEST PORTABLE o n DOS: 10/30/24, XY CHEST PORTABLE on DOS: 10/27/24, XY CHEST XRAY 1 VIEW on DOS: 10/26/24 FINDINGS: Lines and Tubes: Unchanged. Lungs: Stable appearing patchy multifocal bibasilar pulmonary airspace disease and small left pleural effusion. No pneumothorax. Cardiomediastinal contours: Unremarkable Bones: Unremarkable IMPRESSION: 1. Stable appearing patchy multifocal bibasilar pulmonary airspace disease and small left pleural eff usion. 2. Lines and tubes unchanged.
[2024-11-02 06:28] LABS: Band Neutrophils % (manual) 3; Lymphocytes % (manual) 4 (10.0-50.0); Metamyelocytes % 2; Monocytes % (manual) 4 (0-12); Platelet Estimate Decreased; Smudge Cells 3 /100 WBC
[2024-11-02 07:38] LABS: Base Excess -2.8 mmol/L (-2.0-3.0)
--- NOTE | 2024-11-02 10:04 | DVHPN2 ---
Progress Note - Dictate Date Seen: Nov 02, 2024 Medical Necessity Reason Pt with a Central, PICC or Fol: Yes The following are medically ne: Persaud Catheter Reason for persaud catheter: Strict I&O vital signs Vital Sign Date Time Temp Pulse Resp B/P (MAP) Pulse Ox O2 Delivery O2 Flow Rate FiO2 11/02/24 09:45 112 20 131/77 (95) 100 11/02/24 09:39 30 11/02/24 08:00 Mechanical Ventilator+ 11/02/24 04:00 98.5 98.5 Total Intake and Output 11/01/24 11/01/24 11/02/24 15:00 23:00 07:00 Intake Total 1327 ml 1293.8 ml 1241 ml Output Total 960 ml 1020 ml Balance 1327 ml 333.8 ml 221 ml medications Current Medications Medications Dose Ordered Sig/Neisha Route Start Time Stop Time Status Last Admin Dose Admin Nitroglycerin 0.4 mg Q5MINP PRN SL 10/25/24 22:15 Morphine Sulfate 1 mg Q3HP PRN IV 10/26/24 14:15 10/28/24 23:55 1 MG Ondansetron HCl 4 mg Q4HPRN PRN IV 10/26/24 14:15 10/27/24 20:03 4 MG Amino Acids 0 ml @ 0 mls/hr PER PHARMACY IV 10/27/24 08:45 Diagnostic Test (Pha) 1 strip Q6HR 10/27/24 12:00 11/02/24 05:46 1 STRIP Insulin Human Regular FOLLOW SLIDING SCALE Q6HR SC 10/27/24 12:00 10/31/24 06:09 2 UNITS Dextrose 50 ml UD IV 10/27/24 09:45 Sodium Chloride 10 ml QSHIFT@10,22 IV 10/27/24 22:00 11/02/24 09:13 10 ML Pantoprazole Sodium 40 mg BID IV 10/28/24 22:00 11/02/24 09:13 40 MG Norepinephrine Bitartrate 250 ml @ 3.75 mls/hr Q24H IV 10/30/24 04:15 10/30/24 04:33 3.75 MLS/HR Midazolam HCl 50 ml @ 1 mls/hr Q24H IV 10/30/24 04:15 11/02/24 06:43 10 MLS/HR Vancomycin HCl 0 ml @ 0 mls/hr UD IV 10/30/24 05:15 Fentanyl Citrate 250 ml @ 2.5 mls/hr Q24H IV 10/30/24 08:30 11/02/24 02:07 15 MLS/HR Vasopressin 20 units/Sodium Chloride 100 ml @ 9 mls/hr Q11H7M IV 10/30/24 08:30 Lactated Ringer's 1,000 ml @ 75 mls/hr [id number] IV 10/30/24 08:30 11/02/24 02:02 75 MLS/HR Levalbuterol HCl 0.625 mg Q6HR NEB 10/30/24 12:00 11/02/24 06:15 0.625 MG Ipratropium [place] 0.5 mg Q6HR NEB 10/30/24 12:00 11/02/24 06:15 0.5 MG Acetylcysteine 100 mg Q6HR NEB 10/30/24 12:00 11/02/24 06:16 100 MG Meropenem 50 ml @ 17 mls/hr Q8HR IV 10/30/24 14:00 11/02/24 05:47 17 MLS/HR Phenylephrine HCl 250 ml @ 30 mls/hr Q8H20M IV 10/30/24 08:30 Micafungin Sodium 100 mg/Sodium Chloride 100 ml @ 100 mls/hr DAILY IV 10/31/24 10:00 11/02/24 09:13 100 MLS/HR Fat Emulsion Intravenous 250 ml/Potassium Acetate 10 meq/ Calcium Gluconate 2.3 meq/Magnesium Sulfate 8 meq/ Multivitamins 10 ml/Chromium/ Copper/Manganese/ Zinc 1 ml/Amino Acids/Dextrose 1,272.9462 ml @ 53 mls/hr Q24H2M IV 11/01/24 22:00 11/02/24 21:59 11/01/24 22:16 53 MLS/HR Vancomycin HCl 100 ml @ 100 mls/hr Q24H IV 11/01/24 16:00 11/01/24 17:30 100 MLS/HR laboratory and microbiology Laboratory Tests 11/02/24 03:10 Test 11/02/24 03:10 Range/Units Serum Glucose 134 H 74-106 mg/dL Assessment/Plan automatic bandsaw tender rounds 44 yo male intubated for perforated bowel peritonitis s/p ex lap ALLISON-drains in place minimal sedation no responses on iv abx off pressors CXR and CTA reviewed labs reviewed plan continue supportive care can not be weaned off the vent at this point abx bronchodilators post-op care nutrition dvt proph prognosis very poor Dietary Evaluation Review Comments: 1) Conitnue TPN to provide at least 75% estimated needs 2) Advance diet as medically feasible 3) Continue current plan of care Expected Outcomes/Goals: GI symptoms to improve To meet >75% estimated needs Fu 2-3 days Plan discussed with: Other (rn) DREA BECERRIL MD Nov 02, 2024 10:04
--- NOTE | 2024-11-02 13:44 | DVHPN2 ---
Subjective Intubated and sedated Reviewed: Care Plan, H&P, Labs, Medications, Previous Orders, Radiology, Other (Consultations) Changes from previous H/P or p: No Changes Objective Vitals Vital Signs Date Time Temp Pulse Resp B/P (MAP) Pulse Ox O2 Delivery O2 Flow Rate FiO2 11/02/24 12:15 105 18 125/80 (95) 100 11/02/24 12:00 30 11/02/24 12:00 Mechanical Ventilator+ 11/02/24 04:00 98.5 98.5 Intake/Output Intake and Output 11/02/24 07:00 Intake Total 3861.8 ml Output Total 1980 ml Balance 1881.8 ml IV Total 3861.8 ml Output Urine Total 950 ml Gastric Drainage Total 20 ml Other 1010 ml General Appearance: Other (Intubated and sedated) HEENT: Atraumatic Lungs: Other (Mechanical ventilation sounds) Cardiovascular: Normal S1, Normal S2, Other (Tachycardia) Abdomen: Other (ALLISON drain with biliary green fluid; no bowel sounds) Genitourinary: Other (Echavarria's) Neuro: Other (Intubated and sedated) Skin: Wounds (See nurse notes and pictures) Psych/Mental Status: Other (Intubated and sedated) Medications Current Medications Medications Dose Ordered Sig/Neisha Route Start Time Stop Time Status Last Admin Dose Admin Nitroglycerin 0.4 mg Q5MINP PRN SL 10/25/24 22:15 Morphine Sulfate 1 mg Q3HP PRN IV 10/26/24 14:15 10/28/24 23:55 1 MG Ondansetron HCl 4 mg Q4HPRN PRN IV 10/26/24 14:15 10/27/24 20:03 4 MG Amino Acids 0 ml @ 0 mls/hr PER PHARMACY IV 10/27/24 08:45 Diagnostic Test (Pha) 1 strip Q6HR 10/27/24 12:00 11/02/24 11:12 1 STRIP Insulin Human Regular FOLLOW SLIDING SCALE Q6HR SC 10/27/24 12:00 10/31/24 06:09 2 UNITS Dextrose 50 ml UD IV 10/27/24 09:45 Sodium Chloride 10 ml QSHIFT@10,22 IV 10/27/24 22:00 11/02/24 09:13 10 ML Pantoprazole Sodium 40 mg BID IV 10/28/24 22:00 11/02/24 09:13 40 MG Norepinephrine Bitartrate 250 ml @ 3.75 mls/hr Q24H IV 10/30/24 04:15 10/30/24 04:33 3.75 MLS/HR Midazolam HCl 50 ml @ 1 mls/hr Q24H IV 10/30/24 04:15 11/02/24 11:09 10 MLS/HR Vancomycin HCl 0 ml @ 0 mls/hr UD IV 10/30/24 05:15 Fentanyl Citrate 250 ml @ 2.5 mls/hr Q24H IV 10/30/24 08:30 11/02/24 02:07 15 MLS/HR Vasopressin 20 units/Sodium Chloride 100 ml @ 9 mls/hr Q11H7M IV 10/30/24 08:30 Lactated Ringer's 1,000 ml @ 75 mls/hr [id number] IV 10/30/24 08:30 11/02/24 02:02 75 MLS/HR Levalbuterol HCl 0.625 mg Q6HR NEB 10/30/24 12:00 11/02/24 11:49 0.625 MG Ipratropium [place] 0.5 mg Q6HR NEB 10/30/24 12:00 11/02/24 11:49 0.5 MG Acetylcysteine 100 mg Q6HR NEB 10/30/24 12:00 11/02/24 11:50 100 MG Meropenem 50 ml @ 17 mls/hr Q8HR IV 10/30/24 14:00 11/02/24 13:04 17 MLS/HR Phenylephrine HCl 250 ml @ 30 mls/hr Q8H20M IV 10/30/24 08:30 Micafungin Sodium 100 mg/Sodium Chloride 100 ml @ 100 mls/hr DAILY IV 10/31/24 10:00 11/02/24 09:13 100 MLS/HR Fat Emulsion Intravenous 250 ml/Potassium Acetate 10 meq/ Calcium Gluconate 2.3 meq/Magnesium Sulfate 8 meq/ Multivitamins 10 ml/Chromium/ Copper/Manganese/ Zinc 1 ml/Amino Acids/Dextrose 1,272.9462 ml @ 53 mls/hr Q24H2M IV 11/01/24 22:00 11/02/24 21:59 11/01/24 22:16 53 MLS/HR Vancomycin HCl 100 ml @ 100 mls/hr Q24H IV 11/01/24 16:00 11/01/24 17:30 100 MLS/HR Fat Emulsion Intravenous 250 ml/Potassium Phosphate 8.8 meq/ Calcium Gluconate 2.3 meq/Magnesium Sulfate 8 meq/ Multivitamins 10 ml/Chromium/ Copper/Manganese/ Zinc 1 ml/Amino Acids/Dextrose 1,269.9462 ml @ 53 mls/hr [id number] IV 11/02/24 22:00 11/03/24 21:59 Laboratory Results Laboratory Tests 11/02/24 03:10 Chemistry Test 11/02/24 03:10 Albumin 1.9 g/dL (3.2-4.8) L Calcium Level 7.6 mg/dL (8.7-10.4) L Magnesium Level 2.0 mg/dL (1.6-2.6) Phosphorus Level 2.7 mg/dL (2.4-5.1) Total Protein 4.3 g/dL (5.7-8.2) L LFT Test 11/02/24 03:10 Alanine Aminotransferase (ALT) 40 U/L (7-40) Alkaline Phosphatase 99 U/L (46-116) Aspartate Amino Transferase (AST) 57 U/L (13-40) H Total Bilirubin 0.3 mg/dL (0.2-1.0) Urinalysis Test 10/28/24 12:30 Urine Color Yellow (Yellow) Urine Clarity Cloudy (Clear) H Urine pH 5.5 (5.0-9.0) Urine Specific [place] 1.023 (1.001-1.035) Urine Protein 1+ (Negative) H Urine Ketones Negative (Negative) Urine Blood 3+ /uL (Negative) H Urine Nitrite Negative (Negative) Urine Bilirubin Negative (Negative) Urine Urobilinogen Normal mg/dL (Negative) Urine Leukocyte Esterase Negative /uL (Negative) Urine RBC 147 /hpf (0 - 3) Urine Microscopic WBC 5 /HPF (0-3) H Urine Squamous Epithelial Cells Few /hpf (<5) Urine Amorphous Crystals Few /hpf (None Seen) Urine Bacteria Few /hpf (None Seen) H Urine Mucus Few (None Seen) Urine Creatinine 32.03 mg/dL (30.0-125.0) Urine Sodium 13 mmol/L (40-220) L Urine Glucose Normal mg/dL (Normal) Blood Gas Results Test 11/02/24 07:24 Arterial Blood pH 7.312 (7.350-7.450) FiO2 % 30.0 Microbiology Microbiology Date/Time Source Procedure Growth Status 10/30/24 03:25 Trachea Gram Stain - Final Resulted 10/30/24 03:25 Respiratory Culture - Preliminary Providencia rettgeri Escherichia coli Presumptive Blanca albicans Resulted 10/29/24 06:10 Blood Blood Culture - Preliminary NO GROWTH AFTER 72 HOURS OF INCUBATION. Resulted 10/26/24 13:25 Peritoneal Fluid Gram Stain - Final Complete 10/26/24 13:25 Anaerobic Culture - Final Bacteroides fragilis Prevotella melaninogenica Complete 10/26/24 13:25 Aerobic Culture - Final Pseudomonas aeruginosa Klebsiella pneumoniae Streptococcus Group F Complete 10/26/24 04:00 Voided Urine Urine Culture - Final Complete Labs and/or images reviewed: Labs reviewed by me, Image(s) reviewed by me Assessment/Plan Assessment/Plan Covering: Acute metabolic/toxic encephalopathy Acute hypoxic respiratory failure due to multi-organism pneumonia Septic shock due to multi-organism pneumonia/abdominal infection/abdominal abscesses Status post cardiac arrest; asystolic Pneumoperitoneum status post exploratory laparotomy with closure of perforated antral gastric perforation with concern for possible leak from repair site Acute blood loss anemia most likely due to intraoperative blood loss MARIA FERNANDA; most likely vasomotor nephropathy in the setting of septic shock Elevated LFTs in the setting of septic shock Thrombocytopenia in the setting of septic shock Severe malnutrition Reviewed lab work including ABGs Reviewed cultures including surgical as sputum cultures Continue mechanical ventilation for oxygen therapy Continue sedation as indicated Continue IV pressors as indicated Continue IV antibiotics Avoid hepatotoxic and nephrotoxic agents Continue TPN Pulmonology, and surgery are following Telemetry Continue close monitoring Critical care time of 110 minutes Late Entry. This medical document was created using an electronic medical record system with computerized dictation system. Although this document has been carefully reviewed, there might still be some phonetic and typographical errors. These areas are purely typographical due to imperfections of the software programs, and do not reflect any compromise in the patient's medical care. Plan discussed with: Other (Nurse) Date of Service: Nov 02, 2024 Billing Provider: JENN BUTLER MD Common Visit Codes: [id number] CARE 30-74 MIN (110 minutes), [id number] CARE-EACH +30MIN JENN BUTLER MD Nov 02, 2024 13:43
[2024-11-02] MEDS: TPN PER PHARMACY IV NR (22:13)
[2024-11-03] VITALS (107 sets, daily range): BP systolic 121–155; BP diastolic 73–85; PULSE 96–113; RESP 13–26; TEMP 97.6–98.6; O2SAT 98–100
[2024-11-03 04:13] LABS: Hemoglobin 7.1 g/dL (13.5-17.5); Red Blood Cells 2.21 10^6/uL (4.5-5.90)
[2024-11-03 04:15] LABS: Mean Corpuscular Hemoglobin 32.3 pg (28.0-32.0); Mean Corpuscular Volume 95.1 fL (80.0-100.0); Platelet Count (auto) 89 10^3/uL (140-450); Red Cell Distribution Width 15.4 % (11.8-14.3); White Blood Cell 6.8 10^3/uL (4.4-10.8)
[2024-11-03 04:21] LABS: Basophils % (manual) 0 (0.0-2.0); Blast Cells 0; Eosinophils % (manual) 0 (0-7); Myelocytes % 0; Promyelocytes % 0; Reactive Lymphocytes 0
[2024-11-03 04:32] LABS: Magnesium 2.1 mg/dL (1.6-2.6)
[2024-11-03 04:35] LABS: Phosphorus 2.3 mg/dL (2.4-5.1)
[2024-11-03 04:36] LABS: Alanine Aminotransferase 35 U/L (7-40); Alkaline Phosphatase 107 U/L (46-116); Anion Gap 5 (5-15); BUN/Creatinine Ratio 52.2 (10.0-20.0); Carbon Dioxide 25 mmol/L (20-31); Potassium 4.4 mmol/L (3.5-5.1); Sodium 141 mmol/L (136-145)
[2024-11-03 04:37] LABS: Bilirubin, Total 0.3 mg/dL (0.2-1.0)
[2024-11-03 04:42] LABS: Albumin 1.9 g/dL (3.2-4.8); Aspartate Aminotransferase 57 U/L (13-40); Calcium 7.5 mg/dL (8.7-10.4); Chloride 111 mmol/L (98-107); Glucose 110 mg/dL (74-106); Total Protein 4.3 g/dL (5.7-8.2)
[2024-11-03 04:44] LABS: Blood Urea Nitrogen 82 mg/dL (9-23)
[2024-11-03 05:14] LABS: Band Neutrophils % (manual) 6; Lymphocytes % (manual) 5 (10.0-50.0); Metamyelocytes % 1; Monocytes % (manual) 2 (0-12); Platelet Estimate Decreased; Smudge Cells 5 /100 WBC
--- NOTE | 2024-11-03 05:42 | DVH ---
CHEST RADIOGRAPH Indication: pna Technique: Single frontal view of the chest was obtained COMPARISON: XY CHEST PORTABLE on DOS: 11/02/24, XY CHEST PORTABLE on DOS: 11/01/24, XY CHEST PORTABLE o n DOS: 10/31/24, XY CHEST PORTABLE on DOS: 10/30/24, XY CHEST PORTABLE on DOS: 10/27/24 FINDINGS: Lines and Tubes: Unchanged. Lungs: Stable appearing patchy multifocal bilateral pulmonary airspace disease and left pleural effus ion. No pneumothorax. Cardiomediastinal contours: Unremarkable Bones: Unremarkable IMPRESSION: 1. Stable patchy multifocal bilateral pulmonary airspace disease and left pleural effusion. 2. Lines and tubes unchanged.
[2024-11-03 07:43] LABS: Base Excess -1.4 mmol/L (-2.0-3.0)
--- NOTE | 2024-11-03 09:21 | DVHPN2 ---
Progress Note - Dictate Date Seen: Nov 03, 2024 Medical Necessity Reason Pt with a Central, PICC or Fol: Yes The following are medically ne: Persaud Catheter Reason for persaud catheter: Strict I&O vital signs Vital Sign Date Time Temp Pulse Resp B/P (MAP) Pulse Ox O2 Delivery O2 Flow Rate FiO2 11/03/24 08:02 124/76 11/03/24 08:01 101 20 100 30 11/03/24 08:00 Mechanical Ventilator+ 11/03/24 04:00 98.5 98.5 Total Intake and Output 11/02/24 11/02/24 11/03/24 15:00 23:00 07:00 Intake Total 1391 ml 1403 ml 1121 ml Output Total 915 ml 1090 ml Balance 1391 ml 488 ml 31 ml medications Current Medications Medications Dose Ordered Sig/Neisha Route Start Time Stop Time Status Last Admin Dose Admin Nitroglycerin 0.4 mg Q5MINP PRN SL 10/25/24 22:15 Morphine Sulfate 1 mg Q3HP PRN IV 10/26/24 14:15 10/28/24 23:55 1 MG Ondansetron HCl 4 mg Q4HPRN PRN IV 10/26/24 14:15 10/27/24 20:03 4 MG Amino Acids 0 ml @ 0 mls/hr PER PHARMACY IV 10/27/24 08:45 Diagnostic Test (Pha) 1 strip Q6HR 10/27/24 12:00 11/03/24 05:58 1 STRIP Insulin Human Regular FOLLOW SLIDING SCALE Q6HR SC 10/27/24 12:00 10/31/24 06:09 2 UNITS Dextrose 50 ml UD IV 10/27/24 09:45 Sodium Chloride 10 ml QSHIFT@10,22 IV 10/27/24 22:00 11/02/24 22:13 10 ML Pantoprazole Sodium 40 mg BID IV 10/28/24 22:00 11/02/24 22:07 40 MG Norepinephrine Bitartrate 250 ml @ 3.75 mls/hr Q24H IV 10/30/24 04:15 10/30/24 04:33 3.75 MLS/HR Midazolam HCl 50 ml @ 1 mls/hr Q24H IV 10/30/24 04:15 11/03/24 08:00 17 MLS/HR Vancomycin HCl 0 ml @ 0 mls/hr UD IV 10/30/24 05:15 Fentanyl Citrate 250 ml @ 2.5 mls/hr Q24H IV 10/30/24 08:30 11/03/24 08:02 15 MLS/HR Vasopressin 20 units/Sodium Chloride 100 ml @ 9 mls/hr Q11H7M IV 10/30/24 08:30 Lactated Ringer's 1,000 ml @ 75 mls/hr [id number] IV 10/30/24 08:30 11/03/24 05:05 75 MLS/HR Levalbuterol HCl 0.625 mg Q6HR NEB 10/30/24 12:00 11/03/24 06:37 0.625 MG Ipratropium [place] 0.5 mg Q6HR NEB 10/30/24 12:00 11/03/24 06:37 0.5 MG Acetylcysteine 100 mg Q6HR NEB 10/30/24 12:00 11/03/24 06:37 100 MG Meropenem 50 ml @ 17 mls/hr Q8HR IV 10/30/24 14:00 11/03/24 06:04 17 MLS/HR Phenylephrine HCl 250 ml @ 30 mls/hr Q8H20M IV 10/30/24 08:30 Micafungin Sodium 100 mg/Sodium Chloride 100 ml @ 100 mls/hr DAILY IV 10/31/24 10:00 11/02/24 09:13 100 MLS/HR Vancomycin HCl 100 ml @ 100 mls/hr Q24H IV 11/01/24 16:00 11/02/24 15:46 100 MLS/HR Fat Emulsion Intravenous 250 ml/Potassium Phosphate 8.8 meq/ Calcium Gluconate 2.3 meq/Magnesium Sulfate 8 meq/ Multivitamins 10 ml/Chromium/ Copper/Manganese/ Zinc 1 ml/Amino Acids/Dextrose 1,269.9462 ml @ 53 mls/hr [id number] IV 11/02/24 22:00 11/03/24 21:59 11/02/24 22:13 53 MLS/HR laboratory and microbiology Laboratory Tests 11/03/24 03:00 Test 11/03/24 03:00 Range/Units Serum Glucose 110 H 74-106 mg/dL Assessment/Plan program management specialist rounds 44 yo male intubated for perforated bowel peritonitis events s/p ex lap ALLISON-drains in place minimal sedation no responses on iv abx off pressors imaging CXR and CTA reviewed labs reviewed plan continue supportive care can not be weaned off the vent at this point may require trache/LTAC placement abx bronchodilators post-op care nutrition dvt proph prognosis very poor Dietary Evaluation Review Comments: 1) Conitnue TPN to provide at least 75% estimated needs 2) Advance diet as medically feasible 3) Continue current plan of care Expected Outcomes/Goals: GI symptoms to improve To meet >75% estimated needs Fu 2-3 days Plan discussed with: Other (rn) DREA BECERRIL MD Nov 03, 2024 09:21
--- NOTE | 2024-11-03 11:24 | DVHPN2 ---
Progress Note - Dictate Date Seen: Nov 03, 2024 Medical Necessity Reason Pt with a Central, PICC or Fol: Yes The following are medically ne: Persaud Catheter Reason for persaud catheter: Strict I&O Subjective covering for Dr. Schilling. E: high output in ALLISON. per RN, over 200 mL bilious output from ALLISON vital signs Vital Sign Date Time Temp Pulse Resp B/P (MAP) Pulse Ox O2 Delivery O2 Flow Rate FiO2 11/03/24 10:00 20 100 Mechanical Ventilator+ 30 30 11/03/24 10:00 102 11/03/24 09:59 130/76 (94) 11/03/24 08:00 97.6 97.6 Total Intake and Output 11/02/24 11/02/24 11/03/24 15:00 23:00 07:00 Intake Total 1391 ml 1403 ml 1274 ml Output Total 915 ml 1090 ml Balance 1391 ml 488 ml 184 ml medications Current Medications Medications Dose Ordered Sig/Neisha Route Start Time Stop Time Status Last Admin Dose Admin Nitroglycerin 0.4 mg Q5MINP PRN SL 10/25/24 22:15 Morphine Sulfate 1 mg Q3HP PRN IV 10/26/24 14:15 10/28/24 23:55 1 MG Ondansetron HCl 4 mg Q4HPRN PRN IV 10/26/24 14:15 10/27/24 20:03 4 MG Amino Acids 0 ml @ 0 mls/hr PER PHARMACY IV 10/27/24 08:45 Diagnostic Test (Pha) 1 strip Q6HR 10/27/24 12:00 11/03/24 05:58 1 STRIP Insulin Human Regular FOLLOW SLIDING SCALE Q6HR SC 10/27/24 12:00 10/31/24 06:09 2 UNITS Dextrose 50 ml UD IV 10/27/24 09:45 Sodium Chloride 10 ml QSHIFT@10,22 IV 10/27/24 22:00 11/03/24 10:00 10 ML Pantoprazole Sodium 40 mg BID IV 10/28/24 22:00 11/03/24 10:44 40 MG Norepinephrine Bitartrate 250 ml @ 3.75 mls/hr Q24H IV 10/30/24 04:15 10/30/24 04:33 3.75 MLS/HR Midazolam HCl 50 ml @ 1 mls/hr Q24H IV 10/30/24 04:15 11/03/24 08:00 10 MLS/HR Vancomycin HCl 0 ml @ 0 mls/hr UD IV 10/30/24 05:15 Fentanyl Citrate 250 ml @ 2.5 mls/hr Q24H IV 10/30/24 08:30 11/03/24 08:02 15 MLS/HR Vasopressin 20 units/Sodium Chloride 100 ml @ 9 mls/hr Q11H7M IV 10/30/24 08:30 Lactated Ringer's 1,000 ml @ 75 mls/hr [id number] IV 10/30/24 08:30 11/03/24 05:05 75 MLS/HR Levalbuterol HCl 0.625 mg Q6HR NEB 10/30/24 12:00 11/03/24 06:37 0.625 MG Ipratropium [place] 0.5 mg Q6HR NEB 10/30/24 12:00 11/03/24 06:37 0.5 MG Acetylcysteine 100 mg Q6HR NEB 10/30/24 12:00 11/03/24 06:37 100 MG Meropenem 50 ml @ 17 mls/hr Q8HR IV 10/30/24 14:00 11/03/24 06:04 17 MLS/HR Phenylephrine HCl 250 ml @ 30 mls/hr Q8H20M IV 10/30/24 08:30 Micafungin Sodium 100 mg/Sodium Chloride 100 ml @ 100 mls/hr DAILY IV 10/31/24 10:00 11/03/24 10:44 100 MLS/HR Vancomycin HCl 100 ml @ 100 mls/hr Q24H IV 11/01/24 16:00 11/02/24 15:46 100 MLS/HR Fat Emulsion Intravenous 250 ml/Potassium Phosphate 8.8 meq/ Calcium Gluconate 2.3 meq/Magnesium Sulfate 8 meq/ Multivitamins 10 ml/Chromium/ Copper/Manganese/ Zinc 1 ml/Amino Acids/Dextrose 1,269.9462 ml @ 53 mls/hr [id number] IV 11/02/24 22:00 11/03/24 21:59 11/02/24 22:13 53 MLS/HR Fat Emulsion Intravenous 200 ml/Calcium Gluconate 2.3 meq/ Magnesium Sulfate 4 meq/ Multivitamins 10 ml/Chromium/ Copper/Manganese/ Zinc 1 ml/Amino Acids/Dextrose 1,216.9462 ml @ 50 mls/hr [id number] IV 11/03/24 22:00 11/04/24 21:59 objective GEN: intubated. obtunded. ABD: surgical dressing clean. ALLISON with >200 mL bilious output. NGT min. last CT abd/pelvis from 10/30 showed: 1. Development of moderate dependent consolidations in the bilateral lower lobes as well as patchy mixed airspace opacities in the right lower lobe likely a combination of atelectasis and pneumonia, which may be on the basis of aspiration. 2. Interval placement of midline abdominal drain with the tip terminating in the anterior left upper abdomen. 3. Persistent free intraperitoneal air as well as extraluminal oral contrast in the abdomen compatible with perforated viscus. 4. Multiple loculated fluid collections in the abdomen and pelvis which could reflect multifocal abscesses. 5. Mild ascites, body wall edema, and small bilateral pleural effusions. 6. Cholelithiasis. 7. Mildly dilated small bowel loops as well as intervening normal caliber small bowel loops which could be related to ileus or multifocal small-bowel obstructions. laboratory and microbiology Laboratory Tests 11/03/24 03:00 Test 11/03/24 03:00 Range/Units Serum Glucose 110 H 74-106 mg/dL Assessment/Plan A: 1. s/p ex lap with closure of perforated antral gastric perforation POD #8 with concern for possible leak from repair site 2. poss multiple abdominal abscesses 3. PNA 4. resp failure 5. thrombocytopenia P: 1. repeat CT abd/pelvis to confirm abscesses. if yes then get IR consult for possible percutaneous drainage. 2. also last CT still had contrast within abdomen so may make it difficult to see if there is a new leak if oral contrast is used here. if no more contrast is seen on CT, perform UGI with gastrografin to see if there is a persistent leak. Dietary Evaluation Review Comments: 1) Conitnue TPN to provide at least 75% estimated needs 2) Advance diet as medically feasible 3) Continue current plan of care Expected Outcomes/Goals: GI symptoms to improve To meet >75% estimated needs Fu 2-3 days Plan discussed with: Other SPENSER SAUCEDA MD Nov 03, 2024 11:24
[2024-11-03] MEDS: SODIUM PHOSPHATES 20 MEQ in SODIUM CHL 0.9% 100 ML IV ONE (11:54)
--- NOTE | 2024-11-03 14:37 | DVH ---
Exam: CT CT AB PEL WO CON-NO ORAL OR IV History: abdominal abscess. poss leak Comparison Study: CT CT AB PEL WO CON-NO ORAL OR IV on DOS: 10/30/24 Technique: Multidetector spiral CT of the abdomen was performed from lung bases to pubic symphysis. I maging was performed without IV contrast. Axial, coronal and sagittal multiplanar reformats were obta ined from the axial data set by the technologist. Radiation Dose : 1. Abdomen/Pelvis: CTDIvol 7.88 mGy, DLP 434.97 mGy*cm. Findings: Evaluation of solid organs is limited due to lack of intravenous contrast use. Lung Bases: Similar small myeb-whjeizi-ilvw-right pleural effusions with adjacent atelectasis / conso lidation. Worsening nodular consolidations in the zktqu-cwozgvw-mvjc-left lung bases. Liver: Unremarkable Gallbladder and Biliary Tree: Cholelithiasis. No biliary ductal dilatation. Spleen: Unremarkable Pancreas: Not well visualized. Adrenal Glands: Not visualized. Kidneys: No hydronephrosis. The ureters are not well visualized due to diffuse mesenteric edema. Bladder: Bladder is decompressed with a Echavarria catheter and cannot be adequately assessed. Bowel: Not well evaluated due to moderate ascites and diffuse mesenteric edema obscuring the bowel. Contrast is noted within multiple bowel loops. Decreased caliber of the small bowel when compared to prior. Enteric tube again seen terminating in the proximal duodenum. Peritoneum and Retroperitoneum: Moderate ascites and diffuse mesenteric edema. Redemonstration of a fluid collection along the right hemiabdomen that appears increased in size when compared to prior, m easuring approximately 4.9 x 3.2 by 17.9 cm. This fluid collection contains contrast material. There is a midline abdominal drain which traverses this collection and terminates in the left upper quadran t. Previously noted additional multiloculated fluid collections in the abdomen and pelvis are not wel l delineated due to lack of intravenous contrast. Resolution of pneumoperitoneum. Lymphadenopathy: No lymphadenopathy. Abdominal Wall: Diffuse anasarca. Vasculature: The visualized abdominal aorta is normal in size and caliber. There is atherosclerotic calcification of the aorta and its branches. Evaluation of abdominal and pelvic vessels is limited du e to lack of intravenous contrast. Pelvic Organs: Unremarkable Musculoskeletal: No acute osseous abnormality. IMPRESSION: 1. Limited evaluation due to lack of intravenous contrast and diffuse mesenteric edema / ascites. 2. Increased size of a fluid collection/abscess along the right hemiabdomen associated with a shaka ing midline abdominal drain, measuring up to 17.9 cm. This fluid collection contains contrast materia l, concerning for communication with bowel. No other definite evidence of extraluminal contrast. 3. Improved caliber of the small bowel when compared to prior. 4. Resolution of pneumoperitoneum. 5. Similar moderate ascites and diffuse mesenteric edema. 6. Similar small frly-cmepssy-wadh-right pleural effusions with adjacent atelectasis / consolidation. Worsening nodular consolidations in the sgmlb-snlqcav-fpwu-left lung bases concerning for pneumonia. Radiation optimization: All CT scans at this facility use at least one of these dose optimization candelaria hniques: automated exposure control mA and/or kV adjustment per patient size (includes targeted exam s where dose is matched to clinical indication) or iterative reconstruction.
[2024-11-03] MEDS: MEROPENEM 1GM IVPB 50 ML IV SCH (17:34)
--- NOTE | 2024-11-03 20:53 | DVHPN2 ---
Subjective Intubated and sedated Reviewed: Care Plan, H&P, Labs, Medications, Previous Orders, Radiology, Other (Consultations) Changes from previous H/P or p: No Changes Objective Vitals Vital Signs Date Time Temp Pulse Resp B/P (MAP) Pulse Ox O2 Delivery O2 Flow Rate FiO2 11/03/24 20:00 105 26 155/81 (105) 100 30 11/03/24 18:00 Mechanical Ventilator+ 11/03/24 16:00 97.8 97.8 Intake/Output Intake and Output 11/03/24 07:00 Intake Total 4068 ml Output Total 2005 ml Balance 2063 ml IV Total 4068 ml Output Urine Total 950 ml Gastric Drainage Total 80 ml Other 975 ml General Appearance: Other (Intubated and sedated) HEENT: Atraumatic Lungs: Other (Mechanical ventilation sounds) Cardiovascular: Normal S1, Normal S2, Other (Tachycardia) Abdomen: Other (ALLISON drain with biliary green fluid; no bowel sounds) Genitourinary: Other (Echavarria's) Neuro: Other (Intubated and sedated) Skin: Wounds (See nurse notes and pictures) Psych/Mental Status: Other (Intubated and sedated) Medications Current Medications Medications Dose Ordered Sig/Neisha Route Start Time Stop Time Status Last Admin Dose Admin Nitroglycerin 0.4 mg Q5MINP PRN SL 10/25/24 22:15 Morphine Sulfate 1 mg Q3HP PRN IV 10/26/24 14:15 10/28/24 23:55 1 MG Ondansetron HCl 4 mg Q4HPRN PRN IV 10/26/24 14:15 10/27/24 20:03 4 MG Amino Acids 0 ml @ 0 mls/hr PER PHARMACY IV 10/27/24 08:45 Diagnostic Test (Pha) 1 strip Q6HR 10/27/24 12:00 11/03/24 17:34 1 STRIP Insulin Human Regular FOLLOW SLIDING SCALE Q6HR SC 10/27/24 12:00 10/31/24 06:09 2 UNITS Dextrose 50 ml UD IV 10/27/24 09:45 Sodium Chloride 10 ml QSHIFT@10,22 IV 10/27/24 22:00 11/03/24 10:00 10 ML Pantoprazole Sodium 40 mg BID IV 10/28/24 22:00 11/03/24 10:44 40 MG Norepinephrine Bitartrate 250 ml @ 3.75 mls/hr Q24H IV 10/30/24 04:15 10/30/24 04:33 3.75 MLS/HR Midazolam HCl 50 ml @ 1 mls/hr Q24H IV 10/30/24 04:15 11/03/24 17:34 10 MLS/HR Vancomycin HCl 0 ml @ 0 mls/hr UD IV 10/30/24 05:15 Fentanyl Citrate 250 ml @ 2.5 mls/hr Q24H IV 10/30/24 08:30 11/03/24 08:02 15 MLS/HR Vasopressin 20 units/Sodium Chloride 100 ml @ 9 mls/hr Q11H7M IV 10/30/24 08:30 Lactated Ringer's 1,000 ml @ 75 mls/hr [id number] IV 10/30/24 08:30 11/03/24 05:05 75 MLS/HR Levalbuterol HCl 0.625 mg Q6HR NEB 10/30/24 12:00 11/03/24 18:23 0.625 MG Ipratropium [place] 0.5 mg Q6HR NEB 10/30/24 12:00 11/03/24 18:23 0.5 MG Acetylcysteine 100 mg Q6HR NEB 10/30/24 12:00 11/03/24 18:24 100 MG Phenylephrine HCl 250 ml @ 30 mls/hr Q8H20M IV 10/30/24 08:30 Micafungin Sodium 100 mg/Sodium Chloride 100 ml @ 100 mls/hr DAILY IV 10/31/24 10:00 11/03/24 10:44 100 MLS/HR Vancomycin HCl 100 ml @ 100 mls/hr Q24H IV 11/01/24 16:00 11/03/24 16:27 100 MLS/HR Fat Emulsion Intravenous 250 ml/Potassium Phosphate 8.8 meq/ Calcium Gluconate 2.3 meq/Magnesium Sulfate 8 meq/ Multivitamins 10 ml/Chromium/ Copper/Manganese/ Zinc 1 ml/Amino Acids/Dextrose 1,269.9462 ml @ 53 mls/hr [id number] IV 11/02/24 22:00 11/03/24 21:59 11/02/24 22:13 53 MLS/HR Fat Emulsion Intravenous 200 ml/Calcium Gluconate 2.3 meq/ Magnesium Sulfate 4 meq/ Multivitamins 10 ml/Chromium/ Copper/Manganese/ Zinc 1 ml/Amino Acids/Dextrose 1,216.9462 ml @ 50 mls/hr [id number] IV 11/03/24 22:00 11/04/24 21:59 Meropenem 50 ml @ 17 mls/hr Q12H IV 11/03/24 18:00 11/03/24 17:34 17 MLS/HR Laboratory Results Laboratory Tests 11/03/24 03:00 Chemistry Test 11/03/24 03:00 Albumin 1.9 g/dL (3.2-4.8) L Calcium Level 7.5 mg/dL (8.7-10.4) L Magnesium Level 2.1 mg/dL (1.6-2.6) Phosphorus Level 2.3 mg/dL (2.4-5.1) L Total Protein 4.3 g/dL (5.7-8.2) L Lipid panel Test 11/03/24 03:00 Triglycerides Level 119 mg/dL (< 150) LFT Test 11/03/24 03:00 Alanine Aminotransferase (ALT) 35 U/L (7-40) Alkaline Phosphatase 107 U/L (46-116) Aspartate Amino Transferase (AST) 57 U/L (13-40) H Total Bilirubin 0.3 mg/dL (0.2-1.0) Urinalysis Test 10/28/24 12:30 Urine Color Yellow (Yellow) Urine Clarity Cloudy (Clear) H Urine pH 5.5 (5.0-9.0) Urine Specific [place] 1.023 (1.001-1.035) Urine Protein 1+ (Negative) H Urine Ketones Negative (Negative) Urine Blood 3+ /uL (Negative) H Urine Nitrite Negative (Negative) Urine Bilirubin Negative (Negative) Urine Urobilinogen Normal mg/dL (Negative) Urine Leukocyte Esterase Negative /uL (Negative) Urine RBC 147 /hpf (0 - 3) Urine Microscopic WBC 5 /HPF (0-3) H Urine Squamous Epithelial Cells Few /hpf (<5) Urine Amorphous Crystals Few /hpf (None Seen) Urine Bacteria Few /hpf (None Seen) H Urine Mucus Few (None Seen) Urine Creatinine 32.03 mg/dL (30.0-125.0) Urine Sodium 13 mmol/L (40-220) L Urine Glucose Normal mg/dL (Normal) Blood Gas Results Test 11/03/24 07:25 Arterial Blood pH 7.428 (7.350-7.450) FiO2 % 30.0 Microbiology Microbiology Date/Time Source Procedure Growth Status 10/30/24 03:25 Trachea Gram Stain - Final Resulted 10/30/24 03:25 Respiratory Culture - Preliminary Providencia rettgeri Escherichia coli Presumptive [place] albicans Resulted 10/29/24 06:10 Blood Blood Culture - Final NO GROWTH AFTER 5 DAYS OF INCUBATION. Complete 10/26/24 13:25 Peritoneal Fluid Gram Stain - Final Complete 10/26/24 13:25 Anaerobic Culture - Final Bacteroides fragilis Prevotella melaninogenica Complete 10/26/24 13:25 Aerobic Culture - Final Pseudomonas aeruginosa Klebsiella pneumoniae Streptococcus Group F Complete 10/26/24 04:00 Voided Urine Urine Culture - Final Complete Labs and/or images reviewed: Labs reviewed by me, Image(s) reviewed by me Assessment/Plan Assessment/Plan Covering: Acute metabolic/toxic encephalopathy Acute hypoxic respiratory failure due to multi-organism pneumonia Septic shock due to multi-organism pneumonia/abdominal infection/abdominal abscesses Status post cardiac arrest; asystolic Pneumoperitoneum status post exploratory laparotomy with closure of perforated antral gastric perforation with concern for possible leak from repair site Acute blood loss anemia most likely due to intraoperative blood loss MARIA FERNANDA; most likely vasomotor nephropathy in the setting of septic shock Elevated LFTs in the setting of septic shock Thrombocytopenia in the setting of septic shock Severe malnutrition Reviewed lab work including ABGs Reviewed cultures including surgical as sputum cultures Continue mechanical ventilation for oxygen therapy Continue sedation as indicated Continue IV pressors as indicated Continue IV antibiotics Avoid hepatotoxic and nephrotoxic agents Continue TPN Pulmonology, and surgery are following Telemetry Continue close monitoring Critical care time of 50 minutes This medical document was created using an electronic medical record system with computerized dictation system. Although this document has been carefully reviewed, there might still be some phonetic and typographical errors. These areas are purely typographical due to imperfections of the software programs, and do not reflect any compromise in the patient's medical care. Plan discussed with: Other (Nurse) My Orders Orders - JENN BUTLER MD Procedure Category Date Status Time Chest Xray 1 View XY 11/04/24 Logged 04:00 Abg W/ Co-Ox RT 4/28/25 Logged 06:00 Date of Service: Nov 03, 2024 Billing Provider: JENN BUTLER MD Common Visit Codes: [id number] CARE 30-74 MIN (50 minutes) JENN BUTLER MD Nov 03, 2024 20:53
[2024-11-03] MEDS: TPN PER PHARMACY IV NR (22:12)
[2024-11-04] VITALS (108 sets, daily range): BP systolic 85–159; BP diastolic 74–94; PULSE 94–111; RESP 15–26; TEMP 97.6–98.7; O2SAT 99–100
--- NOTE | 2024-11-04 03:32 | DVH ---
CHEST RADIOGRAPH Indication: Intubated. Thank You! Technique: Single frontal view of the chest was obtained COMPARISON: XY CHEST PORTABLE on DOS: 11/03/24, XY CHEST PORTABLE on DOS: 11/02/24, XY CHEST PORTABLE o n DOS: 11/01/24, XY CHEST PORTABLE on DOS: 10/31/24, XY CHEST PORTABLE on DOS: 10/30/24 FINDINGS: Lines and Tubes: Unchanged. Lungs: Stable appearing patchy multifocal bilateral pulmonary airspace disease and left pleural effus ion. No pneumothorax. Cardiomediastinal contours: Unremarkable Bones: Unremarkable IMPRESSION: 1. Stable patchy multifocal bilateral pulmonary airspace disease and left pleural effusion. 2. Lines and tubes unchanged.
[2024-11-04 03:53] LABS: Lymphocytes # (auto) 0.2 10 ^3/uL (0.4-5.4); Neutrophils # (auto) 6.5 10 ^3/uL (1.6-8.6); Nucleated Red Blood Cells % 0.1 %; Platelet Count (auto) 89 10^3/uL (140-450)
[2024-11-04 03:57] LABS: Basophils # (auto) 0.1 10 ^3/uL (0-0.2); Basophils % (auto) 0.9 % (0.0-2.0); Eosinophils # (auto) 0.1 10 ^3/uL (0-0.8); Eosinophils % (auto) 0.9 % (0.0-7.0); Lymphocytes % (auto) 2.9 % (10.0-50.0); Mean Corpuscular Hemoglobin 32.3 pg (28.0-32.0); Mean Corpuscular Volume 94.9 fL (80.0-100.0); Monocytes # (auto) 0.2 10 ^3/uL (0-1.3); Monocytes % (auto) 3.1 % (0.0-12.0); Neutrophils % (auto) 92.2 % (37.0-80.0); Red Blood Cells 2.11 10^6/uL (4.5-5.90); Red Cell Distribution Width 15.4 % (11.8-14.3); White Blood Cell 7.1 10^3/uL (4.4-10.8)
[2024-11-04 04:03] LABS: Hemoglobin 6.8 g/dL (13.5-17.5)
[2024-11-04 04:13] LABS: Alanine Aminotransferase 34 U/L (7-40); Anion Gap 8 (5-15); BUN/Creatinine Ratio 52.7 (10.0-20.0); Carbon Dioxide 22 mmol/L (20-31); Magnesium 2.2 mg/dL (1.6-2.6); Phosphorus 3.2 mg/dL (2.4-5.1); Sodium 140 mmol/L (136-145)
[2024-11-04 04:14] LABS: Bilirubin, Total 0.4 mg/dL (0.2-1.0)
[2024-11-04 04:23] LABS: Chloride 110 mmol/L (98-107); Glucose 128 mg/dL (74-106)
[2024-11-04 04:24] LABS: Albumin 1.8 g/dL (3.2-4.8); Alkaline Phosphatase 121 U/L (46-116); Aspartate Aminotransferase 63 U/L (13-40); Blood Urea Nitrogen 87 mg/dL (9-23); Calcium 7.6 mg/dL (8.7-10.4); Total Protein 4.3 g/dL (5.7-8.2)
[2024-11-04 07:38] LABS: Base Excess -2.6 mmol/L (-2.0-3.0)
--- NOTE | 2024-11-04 10:14 | DVHPN2 ---
Subjective Date Seen: Nov 04, 2024 Post op day Post op day: 7 Objective Vitals Vital Sign Date Time Temp Pulse Resp B/P (MAP) Pulse Ox O2 Delivery O2 Flow Rate FiO2 11/04/24 09:56 97 22 128/81 (97) 100 30 11/04/24 08:35 97.6 97.6 11/04/24 08:00 Mechanical Ventilator+ Total Intake and Output 11/03/24 11/03/24 11/04/24 15:00 23:00 07:00 Intake Total 1309 ml 1225 ml 1144 ml Output Total 1460 ml 1255 ml Balance 1309 ml -235 ml -111 ml Medications Current Medications Medications Dose Ordered Sig/Neisha Route Start Time Stop Time Status Last Admin Dose Admin Nitroglycerin 0.4 mg Q5MINP PRN SL 10/25/24 22:15 Morphine Sulfate 1 mg Q3HP PRN IV 10/26/24 14:15 10/28/24 23:55 1 MG Ondansetron HCl 4 mg Q4HPRN PRN IV 10/26/24 14:15 10/27/24 20:03 4 MG Amino Acids 0 ml @ 0 mls/hr PER PHARMACY IV 10/27/24 08:45 Diagnostic Test (Pha) 1 strip Q6HR 10/27/24 12:00 11/04/24 05:55 1 STRIP Insulin Human Regular FOLLOW SLIDING SCALE Q6HR SC 10/27/24 12:00 10/31/24 06:09 2 UNITS Dextrose 50 ml UD IV 10/27/24 09:45 Sodium Chloride 10 ml QSHIFT@10,22 IV 10/27/24 22:00 11/03/24 22:00 10 ML Pantoprazole Sodium 40 mg BID IV 10/28/24 22:00 11/03/24 22:17 40 MG Norepinephrine Bitartrate 250 ml @ 3.75 mls/hr Q24H IV 10/30/24 04:15 10/30/24 04:33 3.75 MLS/HR Midazolam HCl 50 ml @ 1 mls/hr Q24H IV 10/30/24 04:15 11/04/24 08:27 9 MLS/HR Vancomycin HCl 0 ml @ 0 mls/hr UD IV 10/30/24 05:15 Fentanyl Citrate 250 ml @ 2.5 mls/hr Q24H IV 10/30/24 08:30 11/04/24 00:19 15 MLS/HR Vasopressin 20 units/Sodium Chloride 100 ml @ 9 mls/hr Q11H7M IV 10/30/24 08:30 Lactated Ringer's 1,000 ml @ 75 mls/hr [id number] IV 10/30/24 08:30 11/03/24 19:10 75 MLS/HR Levalbuterol HCl 0.625 mg Q6HR NEB 10/30/24 12:00 11/04/24 06:16 0.625 MG Ipratropium [place] 0.5 mg Q6HR NEB 10/30/24 12:00 11/04/24 06:16 0.5 MG Acetylcysteine 100 mg Q6HR NEB 10/30/24 12:00 11/04/24 06:16 100 MG Phenylephrine HCl 250 ml @ 30 mls/hr Q8H20M IV 10/30/24 08:30 Micafungin Sodium 100 mg/Sodium Chloride 100 ml @ 100 mls/hr DAILY IV 10/31/24 10:00 11/03/24 10:44 100 MLS/HR Vancomycin HCl 100 ml @ 100 mls/hr Q24H IV 11/01/24 16:00 11/03/24 16:27 100 MLS/HR Fat Emulsion Intravenous 200 ml/Calcium Gluconate 2.3 meq/ Magnesium Sulfate 4 meq/ Multivitamins 10 ml/Chromium/ Copper/Manganese/ Zinc 1 ml/Amino Acids/Dextrose 1,216.9462 ml @ 50 mls/hr [id number] IV 11/03/24 22:00 11/04/24 21:59 11/03/24 22:12 50 MLS/HR Meropenem 50 ml @ 17 mls/hr Q12H IV 11/03/24 18:00 11/04/24 05:49 17 MLS/HR General: Other (sedated , intubated) Labs and Microbiology Laboratory Tests 11/04/24 03:23 Test 11/04/24 03:23 Range/Units Serum Glucose 128 H 74-106 mg/dL Ass/Plan Labs and/or images reviewed: Labs reviewed by me, Image(s) reviewed by me Problem List 10/27/24 STATES THAT HE FEELS MUCH BETTER, ABDOMEN APPROPRIATELY TENDER, WOUND CLEAN AND WELL APPROXIMATED, DRAINAGE SERO SANGUINEOUS VIA JOSEPH DRAIN, OK TO SEND TO TELEMETRY 10/28/24 FEELS WEEK, ABDOMEN SOCT NON DISTENDED, APPROPRIATELY TENDER, WOUND CLEAN AND WELL APPROXIMATED,. NO CHANGES 10/29/24 PASSING FLATUS, NO bm, WOUND CLEAN AND WELL APPROXIMATED, DRAINAGE SERO SANGUINEOUS, UGI PENDING INTUBATED SEDATED, ABDOMEN NOT DISTENDED CT SCAN REVEALS FINDINGS PRESENT BEFORE HIS OPERQAWTION FRO PERFOATED GASTFRIC ULCER. HE WAS DOING VERY WELL TILL THE NIGHT HE WAS FOUND PULSELESS IN BED, DOES NOT NEED ANOTHER OPERATION 11/01/24 CONTINUES INTUBATED AND SEDATED, WOUND CLEAN AND WELL APPROXIMATED, DRAINAGE SERO SANGUINEOUS, LABS REVIEWED Assessment/Plan patient intubated , sedated, Joseph drain bilious output, abdomen slightly distended labs, notes reviewed Plan: empty JOSEPH drain every 2 hours continue current treatmetn Dr. Schilling agrees with plan Prognosis: Poor Plan discussed with Dr. Schilling Visit Coding Surgery Date of Service if different f: Nov 04, 2024 Billing Provider: CHRIST SCHILLING MD Surgery Visit Codes: [id number] INP/OBS CARE(HIGH) AZRA RUST NP Nov 04, 2024 10:14
[2024-11-04 13:15] LABS: Hematocrit 24.5 % (41.0-53.0); Hemoglobin 8.8 g/dL (13.5-17.5)
[2024-11-04 20:04] LABS: Hemoglobin 8.7 g/dL (13.5-17.5)
--- NOTE | 2024-11-04 20:34 | DVHPN2 ---
Assessment/Plan Assessment/Plan ICU note covering seen today during rounds, bloody secretion from oral cavity, scant mucus w/o blood in ETT. Tongue swollen. Received PRBC, abdomen soft. CT reviewed, contrast in bowel. On TPN. add gauze between molar, if no improvement in swelling, might exchange ETT over bougie to smaller size physical exam sedated intubated on mechanical vent PERRLA swlen tongue, bloody secretion from oral cavity mechanical breath sounds s1 s2 RRR abdomen soft no LE edema labs ekg imaging reviewed assessment and plan Acute metabolic/toxic encephalopathy Acute hypoxic respiratory failure due to multi-organism pneumonia Septic shock due to multi-organism pneumonia/abdominal infection/abdominal abscesses Status post cardiac arrest; asystolic Pneumoperitoneum status post exploratory laparotomy with closure of perforated antral gastric perforation with concern for possible leak from repair site Acute blood loss anemia most likely due to intraoperative blood loss MARIA FERNANDA; most likely vasomotor nephropathy in the setting of septic shock Elevated LFTs in the setting of septic shock Thrombocytopenia in the setting of septic shock Severe malnutrition c/w mechanical vent c/w sedation, RAAS goal -3 hold CPAP transfuse to Hb >7 bite block c/w TPN trend CBC, plt c/w abx surg rec appreciated diet tpn dvt ppx hold iso bleeding gi ppx protonix full code condition critical prognosis poor critical care time 60 minutes Plan discussed with: Other Date of Service: Nov 04, 2024 Billing Provider: GARY VIVAS MD Common Visit Codes: [id number] CARE 30-74 MIN GARY VIVAS MD Nov 04, 2024 20:34
[2024-11-04] MEDS: TPN PER PHARMACY IV NR (22:03)
[2024-11-05] VITALS (105 sets, daily range): BP systolic 125–149; BP diastolic 75–90; PULSE 94–119; RESP 16–24; TEMP 97.5–98.8; O2SAT 99–100
[2024-11-05 03:49] LABS: Basophils # (auto) 0 10 ^3/uL (0-0.2); Lymphocytes # (auto) 0.3 10 ^3/uL (0.4-5.4)
[2024-11-05 03:53] LABS: Basophils % (auto) 0.4 % (0.0-2.0); Eosinophils # (auto) 0.1 10 ^3/uL (0-0.8); Eosinophils % (auto) 0.8 % (0.0-7.0); Hematocrit 22.9 % (41.0-53.0); Hemoglobin 7.8 g/dL (13.5-17.5); Lymphocytes % (auto) 3.8 % (10.0-50.0); Mean Corpuscular Hemoglobin 32.3 pg (28.0-32.0); Mean Corpuscular Hgb Conc. 34.1 g/dL (32.0-36.0); Mean Corpuscular Volume 94.8 fL (80.0-100.0); Monocytes # (auto) 0.4 10 ^3/uL (0-1.3); Monocytes % (auto) 4.9 % (0.0-12.0); Neutrophils # (auto) 6.7 10 ^3/uL (1.6-8.6); Neutrophils % (auto) 90.1 % (37.0-80.0); Platelet Count (auto) 81 10^3/uL (140-450); Red Blood Cells 2.42 10^6/uL (4.5-5.90); Red Cell Distribution Width 14.6 % (11.8-14.3); White Blood Cell 7.4 10^3/uL (4.4-10.8)
[2024-11-05 04:01] LABS: Alanine Aminotransferase 32 U/L (7-40); Anion Gap 7 (5-15); BUN/Creatinine Ratio 53.8 (10.0-20.0); Carbon Dioxide 22 mmol/L (20-31); Magnesium 2.1 mg/dL (1.6-2.6); Potassium 3.8 mmol/L (3.5-5.1); Sodium 139 mmol/L (136-145)
[2024-11-05 04:02] LABS: Bilirubin, Total 0.5 mg/dL (0.2-1.0)
[2024-11-05 04:14] LABS: Chloride 110 mmol/L (98-107); Glucose 129 mg/dL (74-106)
[2024-11-05 04:15] LABS: Albumin 1.8 g/dL (3.2-4.8); Alkaline Phosphatase 134 U/L (46-116); Aspartate Aminotransferase 60 U/L (13-40); Blood Urea Nitrogen 91 mg/dL (9-23); Calcium 7.6 mg/dL (8.7-10.4); Total Protein 4.3 g/dL (5.7-8.2)
--- NOTE | 2024-11-05 04:45 | DVH ---
CHEST RADIOGRAPH Indication: INTUBATED Technique: Single frontal view of the chest was obtained Comparison: XY CHEST XRAY 1 VIEW on DOS: 11/04/24, XY CHEST PORTABLE on DOS: 11/03/24, XY CHEST PORTABL E on DOS: 11/02/24 FINDINGS: Lines and Tubes: Right PICC and right central venous catheter terminates in the superior vena cava. T he enteric tube courses below the left hemidiaphragm and the tip extends outside the field of view. T he endotracheal tube terminates 4.7 cm above the alise. Lungs: Patchy bilateral airspace disease, unchanged. Pleura: Left pleural effusion. No pneumothorax. Cardiomediastinal contours: Unremarkable Bones: No acute osseous abnormality. IMPRESSION: 1. Appropriate position of the support lines and tubes. 2. Multifocal airspace disease and left pleural effusion similar to prior study.
[2024-11-05 07:23] LABS: Base Excess -4.2 mmol/L (-2.0-3.0)
--- NOTE | 2024-11-05 11:20 | DVHPN2 ---
Progress Note Date Seen: Nov 05, 2024 Medical Necessity Reason Pt with a Central, PICC or Fol: Yes The following are medically ne: Persaud Catheter Reason for persaud catheter: Strict I&O Objective vital signs Vital Sign Date Time Temp Pulse Resp B/P (MAP) Pulse Ox O2 Delivery O2 Flow Rate FiO2 11/05/24 09:47 141/82 11/05/24 09:45 102 17 100 11/05/24 09:36 30 11/05/24 08:00 Mechanical Ventilator+ 11/05/24 08:00 98.3 98.3 Total Intake and Output 11/04/24 11/04/24 11/05/24 15:00 23:00 07:00 Intake Total 2382 ml 994 ml 1220 ml Output Total 940 ml 535 ml Balance 2382 ml 54 ml 685 ml medications Current Medications Medications Dose Ordered Sig/Neisha Route Start Time Stop Time Status Last Admin Dose Admin Nitroglycerin 0.4 mg Q5MINP PRN SL 10/25/24 22:15 Ondansetron HCl 4 mg Q4HPRN PRN IV 10/26/24 14:15 10/27/24 20:03 4 MG Amino Acids 0 ml @ 0 mls/hr PER PHARMACY IV 10/27/24 08:45 Diagnostic Test (Pha) 1 strip Q6HR 10/27/24 12:00 11/05/24 06:00 1 STRIP Insulin Human Regular FOLLOW SLIDING SCALE Q6HR SC 10/27/24 12:00 10/31/24 06:09 2 UNITS Dextrose 50 ml UD IV 10/27/24 09:45 Sodium Chloride 10 ml QSHIFT@10,22 IV 10/27/24 22:00 11/05/24 09:44 10 ML Pantoprazole Sodium 40 mg BID IV 10/28/24 22:00 11/05/24 09:29 40 MG Norepinephrine Bitartrate 250 ml @ 3.75 mls/hr Q24H IV 10/30/24 04:15 10/30/24 04:33 3.75 MLS/HR Midazolam HCl 50 ml @ 1 mls/hr Q24H IV 10/30/24 04:15 11/05/24 05:55 7 MLS/HR Vancomycin HCl 0 ml @ 0 mls/hr UD IV 10/30/24 05:15 Fentanyl Citrate 250 ml @ 2.5 mls/hr Q24H IV 10/30/24 08:30 11/05/24 09:47 20 MLS/HR Vasopressin 20 units/Sodium Chloride 100 ml @ 9 mls/hr Q11H7M IV 10/30/24 08:30 Lactated Ringer's 1,000 ml @ 75 mls/hr [id number] IV 10/30/24 08:30 11/05/24 07:29 75 MLS/HR Levalbuterol HCl 0.625 mg Q6HR NEB 10/30/24 12:00 11/05/24 11:12 0.625 MG Ipratropium [place] 0.5 mg Q6HR NEB 10/30/24 12:00 11/05/24 11:12 0.5 MG Acetylcysteine 100 mg Q6HR NEB 10/30/24 12:00 11/05/24 11:12 100 MG Phenylephrine HCl 250 ml @ 30 mls/hr Q8H20M IV 10/30/24 08:30 Micafungin Sodium 100 mg/Sodium Chloride 100 ml @ 100 mls/hr DAILY IV 10/31/24 10:00 11/05/24 09:29 100 MLS/HR Meropenem 50 ml @ 17 mls/hr Q12H IV 11/03/24 18:00 11/05/24 05:55 17 MLS/HR Fat Emulsion Intravenous 200 ml/Potassium Acetate 10 meq/ Calcium Gluconate 2.3 meq/Magnesium Sulfate 4 meq/ Multivitamins 10 ml/Chromium/ Copper/Manganese/ Zinc 1 ml/Amino Acids/Dextrose 1,271.9462 ml @ 53 mls/hr Q24H IV 11/04/24 22:00 11/05/24 21:59 11/04/24 22:03 53 MLS/HR laboratory and microbiology Laboratory Tests 11/05/24 03:10 Test 11/05/24 03:10 Range/Units Serum Glucose 129 H 74-106 mg/dL Problem List/Assessment/Plan Problem List/Assessment/Plan 10/27/24 STATES THAT HE FEELS MUCH BETTER, ABDOMEN APPROPRIATELY TENDER, WOUND CLEAN AND WELL APPROXIMATED, DRAINAGE SERO SANGUINEOUS VIA MOISES DRAIN, OK TO SEND TO TELEMETRY 10/28/24 FEELS WEEK, ABDOMEN SOCT NON DISTENDED, APPROPRIATELY TENDER, WOUND CLEAN AND WELL APPROXIMATED,. NO CHANGES 10/29/24 PASSING FLATUS, NO bm, WOUND CLEAN AND WELL APPROXIMATED, DRAINAGE SERO SANGUINEOUS, UGI PENDING INTUBATED SEDATED, ABDOMEN NOT DISTENDED CT SCAN REVEALS FINDINGS PRESENT BEFORE HIS OPERQAWTION FRO PERFOATED GASTFRIC ULCER. HE WAS DOING VERY WELL TILL THE NIGHT HE WAS FOUND PULSELESS IN BED, DOES NOT NEED ANOTHER OPERATION 11/01/24 CONTINUES INTUBATED AND SEDATED, WOUND CLEAN AND WELL APPROXIMATED, DRAINAGE SERO SANGUINEOUS, LABS REVIEWED 11/05/24 abdomen non distended, moises drainage bilious, needs to be emptied more frequently, wbc normal, anemia persists, remains intubated and sedated Plan discussed with: Other Dietary Evaluation Review Comments: 1) Conitnue TPN to provide at least 75% estimated needs 2) Advance diet as medically feasible 3) Continue current plan of care Expected Outcomes/Goals: GI symptoms to improve To meet >75% estimated needs Fu 2-3 days CHRIST HUDDLESTON MD Nov 05, 2024 11:20
[2024-11-05] MEDS: FUROSEMIDE 40 MG/4 ML VIAL IV ONE (11:30)
--- NOTE | 2024-11-05 11:32 | DVHPN2 ---
Assessment/Plan Assessment/Plan ICU note covering seen today during rounds, still have bloody secretion, improving. tongue swelling improved as well. ALLISON and NG bilous no blood, ETT line no blood. will hold ETT exchange. no BM physical exam sedated intubated on mechanical vent PERRLA swlen tongue, bloody secretion from oral cavity mechanical breath sounds s1 s2 RRR abdomen soft no LE edema labs ekg imaging reviewed assessment and plan Acute metabolic/toxic encephalopathy Acute hypoxic respiratory failure due to multi-organism pneumonia Septic shock due to multi-organism pneumonia/abdominal infection/abdominal abscesses Status post cardiac arrest; asystolic Pneumoperitoneum status post exploratory laparotomy with closure of perforated antral gastric perforation with concern for possible leak from repair site Acute blood loss anemia most likely due to intraoperative blood loss MARIA FERNANDA; most likely vasomotor nephropathy in the setting of septic shock Elevated LFTs in the setting of septic shock Thrombocytopenia in the setting of septic shock Severe malnutrition candidemia c/w mechanical vent c/w sedation, RAAS goal -3 hold CPAP transfuse to Hb >7 bite block c/w TPN trend CBC, plt c/w vanc jay and micafungin surg rec appreciated diet tpn dvt ppx hold iso bleeding gi ppx protonix full code condition critical prognosis poor critical care time 40 minutes Plan discussed with: Other My Orders Orders - GARY VIVAS MD Procedure Category Date Status Time Complete Blood Count LAB 11/06/24 Verified 04:00 Comprehensive LAB 11/06/24 Verified Metabolic Panel 04:00 Magnesium LAB 11/06/24 Verified 04:00 Phosphorus LAB 11/06/24 Verified 04:00 PTPTT LAB 11/06/24 Verified 04:00 Triglycerides LAB 11/06/24 Verified 04:00 Furosemide Injection PHA 11/05/24 Verified (Lasix Injection) 11:30 Date of Service: Nov 05, 2024 Billing Provider: GARY VIVAS MD Common Visit Codes: [id number] CARE 30-74 MIN GARY VIVAS MD Nov 05, 2024 11:32
[2024-11-05] MEDS: TPN PER PHARMACY IV NR (22:05)
[2024-11-06] VITALS (99 sets, daily range): BP systolic 127–157; BP diastolic 74–92; PULSE 102–122; RESP 15–23; TEMP 98.6–99.3; O2SAT 98–100
[2024-11-06 03:55] LABS: Eosinophils # (auto) 0.1 10 ^3/uL (0-0.8); Eosinophils % (auto) 0.9 % (0.0-7.0); Mean Corpuscular Volume 94.5 fL (80.0-100.0); Monocytes # (auto) 0.3 10 ^3/uL (0-1.3); Platelet Count (auto) 86 10^3/uL (140-450)
[2024-11-06 03:58] LABS: Basophils # (auto) 0 10 ^3/uL (0-0.2); Basophils % (auto) 0.3 % (0.0-2.0); Hematocrit 23.1 % (41.0-53.0); Hemoglobin 7.9 g/dL (13.5-17.5); Lymphocytes # (auto) 0.3 10 ^3/uL (0.4-5.4); Lymphocytes % (auto) 4.8 % (10.0-50.0); Mean Corpuscular Hemoglobin 32.2 pg (28.0-32.0); Mean Corpuscular Hgb Conc. 34.1 g/dL (32.0-36.0); Monocytes % (auto) 4.4 % (0.0-12.0); Neutrophils # (auto) 6.2 10 ^3/uL (1.6-8.6); Neutrophils % (auto) 89.6 % (37.0-80.0); Nucleated Red Blood Cells % 0.2 %; Red Blood Cells 2.45 10^6/uL (4.5-5.90); Red Cell Distribution Width 14.6 % (11.8-14.3); White Blood Cell 6.9 10^3/uL (4.4-10.8)
--- NOTE | 2024-11-06 04:01 | DVH ---
CHEST RADIOGRAPH Indication: intubated Technique: Single frontal view of the chest was obtained Comparison: XY CHEST PORTABLE on DOS: 11/05/24, XY CHEST XRAY 1 VIEW on DOS: 11/04/24, XY CHEST PORTABL E on DOS: 11/03/24 IMPRESSION: Heart appears normal in size. Endotracheal tube tip approximately 4 cm from the alise. Right PICC line tip in the region of the superior vena cava. Enteric tube tip in the region of the stomach. Bilateral patchy airspace opacities and small left pleural effusion appears stable. No pneumothorax.
[2024-11-06 04:09] LABS: Alanine Aminotransferase 34 U/L (7-40); Anion Gap 8 (5-15); BUN/Creatinine Ratio 54.2 (10.0-20.0); Carbon Dioxide 21 mmol/L (20-31); INR 1.09 (0.9-1.15); Magnesium 2.1 mg/dL (1.6-2.6); Potassium 3.6 mmol/L (3.5-5.1); Prothrombin Time 11.5 sec (9.3-11.8); Sodium 140 mmol/L (136-145)
[2024-11-06 04:10] LABS: Bilirubin, Total 0.6 mg/dL (0.2-1.0); Phosphorus 2.9 mg/dL (2.4-5.1)
[2024-11-06 04:18] LABS: Chloride 111 mmol/L (98-107); Glucose 134 mg/dL (74-106)
[2024-11-06 04:19] LABS: Albumin 1.9 g/dL (3.2-4.8); Alkaline Phosphatase 153 U/L (46-116); Aspartate Aminotransferase 61 U/L (13-40); Blood Urea Nitrogen 96 mg/dL (9-23); Calcium 7.7 mg/dL (8.7-10.4); Total Protein 4.6 g/dL (5.7-8.2)
[2024-11-06 05:01] LABS: Triglycerides 122 mg/dL (< 150)
[2024-11-06 07:56] LABS: Base Excess -4.6 mmol/L (-2.0-3.0)
--- NOTE | 2024-11-06 10:16 | DVHNC2 ---
Intubation Indication: Respiratory Insufficiency Prep: Preoxygenation Pretreated with: Sedation Intubation Approach: Orotracheal UTO Consent yes Notes Tube exchange done over a bougie under vision with glidescope ETT 6.5mm, fixed at 23cm at the lip tube passing through the vocal cords seen positive color change on calorimetric capnograph condensation in the tube seen B/L air entry positive Date of Service: Nov 06, 2024 Billing Provider: GARY VIVAS MD Common Visit Codes: PROCEDURE ONLY Procedure Codes: [id number] MARIA LUISA CH RESIDENT Nov 06, 2024 10:16 GARY VIVAS MD November 08, 2024 19:16
--- NOTE | 2024-11-06 10:30 | DVH ---
EXAM: XY CHEST XRAY 1 VIEW HISTORY: ET Tube Exchange COMPARISON: XY CHEST PORTABLE on DOS: 11/06/24, XY CHEST PORTABLE on DOS: 11/05/24, XY CHEST XRAY 1 VIE W on DOS: 11/04/24, XY CHEST PORTABLE on DOS: 11/03/24, XY CHEST PORTABLE on DOS: 11/02/24 TECHNIQUE: Portable AP view of the chest was performed. FINDINGS: Endotracheal tube is identified with its tip 4.3 cm above the alise. OG tube and right upper extremi ty PICC line are re-identified. There are infiltrates throughout both lungs, greatest in the lung bas es, stable. Probable small bilateral pleural effusions. No pneumothorax. The central pulmonary arter ies may be ectatic. The heart is not enlarged. IMPRESSSION: 1. Mechanical ventilation with tubes and lines as above. 2. Bilateral pulmonary infiltrates and small pleural effusions which may be due to CHF and/or pneumon ia.
--- NOTE | 2024-11-06 14:20 | DVHPN2 ---
Assessment/Plan Assessment/Plan ICU note covering seen today during rounds, s/p tube exchange under bougie and glidescope, seen source of oral bleeding, continues to bleed after suction, copious clots noticed. tongue swelling improved after exchange physical exam sedated intubated on mechanical vent PERRLA swlen tongue, bloody secretion from oral cavity mechanical breath sounds s1 s2 RRR abdomen soft no LE edema labs ekg imaging reviewed assessment and plan Acute metabolic/toxic encephalopathy Acute hypoxic respiratory failure due to multi-organism pneumonia Septic shock due to multi-organism pneumonia/abdominal infection/abdominal abscesses Status post cardiac arrest; asystolic Pneumoperitoneum status post exploratory laparotomy with closure of perforated antral gastric perforation with concern for possible leak from repair site Acute blood loss anemia most likely due to intraoperative blood loss MARIA FERNANDA; most likely vasomotor nephropathy in the setting of septic shock Elevated LFTs in the setting of septic shock Thrombocytopenia in the setting of septic shock Severe malnutrition candidemia and on TPN c/w mechanical vent c/w sedation, RAAS goal -3 hold CPAP transfuse to Hb >7 bite block c/w TPN trend CBC, plt c/w vanc jay and micafungin surg rec appreciated diet tpn dvt ppx hold iso bleeding gi ppx protonix full code condition critical prognosis poor critical care time 40 minutes Plan discussed with: Other My Orders Orders - GARY VIVAS MD Procedure Category Date Status Time Chest Xray 1 View XY 11/06/24 Resulted 09:52 Date of Service: Nov 06, 2024 Billing Provider: GARY VIVAS MD Common Visit Codes: [id number] CARE 30-74 MIN GARY VIVAS MD Nov 06, 2024 14:20
[2024-11-06] MEDS: SODIUM CHLORIDE 0.9% 1,000 ML IV ONE (16:55)
[2024-11-06] MEDS: METHYLNALTREXONE BROMIDE 12 MG/0.6 ML VIAL SC ONE (16:58)
[2024-11-06] MEDS: IOHEXOL 300 MG/ML 100ML BOTTLE IJ ONE (21:28)
[2024-11-06] MEDS: TPN PER PHARMACY IV NR (22:24)
--- NOTE | 2024-11-06 23:54 | DVH ---
CT NECK WITH CONTRAST SOFT INDICATION: swelling r/o abscess : 44 old Male swelling r/o abscess EXAM DATE: 11/06/2024 09:25 PM COMPARISON: None RADIATION DOSE: CTDIvol: 12.23 mGy, DLP: 354.6 mGy*cm PROCEDURE: Using the CT scanner, contiguous axial images were obtained from the great vessels to abov e the orbits following intravenous administration of 100 mL omnipaque 350 none wasted. Coronal and s agittal reformatted images were then generated. All CT scans at this medical facility are performed using dose modulation techniques as appropriate t o a performed exam including the following: Automated exposure control was utilized; adjustment of th e MA and/or KV according to patient size; and use of iterative reconstruction technique. FINDINGS: Patient has a nasogastric tube and endotracheal tubes in place. The spiculated nodule seen in the posterior right upper lobe measuring 2 cm in size. There is a left pleural effusion. Cervical spine is unremarkable. Bilateral carotids are unremarkable. See evidence for definite abscess. Subcutaneous soft tissues appear to be indurated IMPRESSION: 1. No focal fluid collections suggesting abscess.There is a left basilar Effusion and there is a spiculated nodule in the right upper lobe. Follow-up CT examination of the est in 3 months is suggested.
[2024-11-07] VITALS (107 sets, daily range): BP systolic 127–154; BP diastolic 72–87; PULSE 95–118; RESP 17–28; TEMP 97.3–98.8; O2SAT 99–100
[2024-11-07 04:12] LABS: Basophils # (auto) 0 10 ^3/uL (0-0.2); Eosinophils # (auto) 0.1 10 ^3/uL (0-0.8); Lymphocytes # (auto) 0.3 10 ^3/uL (0.4-5.4); Monocytes # (auto) 0.4 10 ^3/uL (0-1.3); White Blood Cell 6.5 10^3/uL (4.4-10.8)
[2024-11-07 04:15] LABS: Basophils % (auto) 0.3 % (0.0-2.0); Eosinophils % (auto) 1.7 % (0.0-7.0); Hematocrit 22.1 % (41.0-53.0); Hemoglobin 7.5 g/dL (13.5-17.5); Mean Corpuscular Hemoglobin 31.9 pg (28.0-32.0); Mean Corpuscular Hgb Conc. 34.1 g/dL (32.0-36.0); Mean Corpuscular Volume 93.7 fL (80.0-100.0); Monocytes % (auto) 6.9 % (0.0-12.0); Neutrophils # (auto) 5.6 10 ^3/uL (1.6-8.6); Neutrophils % (auto) 86.1 % (37.0-80.0); Nucleated Red Blood Cells % 0.1 %; Platelet Count (auto) 92 10^3/uL (140-450); Red Blood Cells 2.36 10^6/uL (4.5-5.90); Red Cell Distribution Width 14.8 % (11.8-14.3)
[2024-11-07 04:37] LABS: Alanine Aminotransferase 32 U/L (7-40); Anion Gap 9 (5-15); BUN/Creatinine Ratio 56.9 (10.0-20.0); Carbon Dioxide 21 mmol/L (20-31); Magnesium 2.2 mg/dL (1.6-2.6); Potassium 3.8 mmol/L (3.5-5.1); Sodium 141 mmol/L (136-145)
[2024-11-07 04:38] LABS: Phosphorus 2.7 mg/dL (2.4-5.1)
[2024-11-07 04:39] LABS: Bilirubin, Total 0.7 mg/dL (0.2-1.0)
[2024-11-07 04:53] LABS: Chloride 111 mmol/L (98-107); Glucose 125 mg/dL (74-106)
[2024-11-07 04:54] LABS: Alkaline Phosphatase 150 U/L (46-116); Aspartate Aminotransferase 52 U/L (13-40); Calcium 7.6 mg/dL (8.7-10.4); Total Protein 4.4 g/dL (5.7-8.2)
[2024-11-07 04:55] LABS: Albumin 1.8 g/dL (3.2-4.8); Blood Urea Nitrogen 99 mg/dL (9-23)
--- NOTE | 2024-11-07 05:54 | DVH ---
EXAM: XR Chest, 1 View CLINICAL INDICATION: etett position TECHNIQUE: Frontal view of the chest. COMPARISON: XY CHEST XRAY 1 VIEW on DOS: 11/06/24, XY CHEST PORTABLE on DOS: 11/06/24, XY CHEST AILYN BLE on DOS: 11/05/24, XY CHEST XRAY 1 VIEW on DOS: 11/04/24, XY CHEST PORTABLE on DOS: 11/03/24 FINDINGS: LUNGS AND PLEURAL SPACES: Bibasilar atelectasis or pneumonia. No pneumothorax. HEART: Unremarkable. No cardiomegaly. MEDIASTINUM: Unremarkable. Normal mediastinal contour. BONES/JOINTS: Unremarkable. No acute fracture. TUBES, LINES AND DEVICES: Right peripherally inserted central catheter (PICC) tip in the superior v mele cava. The endotracheal tube (ETT) is in satisfactory position. Enteric tube tip in the stomach. OTHER FINDINGS: . . . IMPRESSION: Bibasilar atelectasis or pneumonia.
[2024-11-07 07:01] LABS: Base Excess -3.9 mmol/L (-2.0-3.0)
--- NOTE | 2024-11-07 12:45 | DVHPN2 ---
Progress Note Date Seen: November 07, 2024 Medical Necessity Reason Pt with a Central, PICC or Fol: Yes The following are medically ne: Persaud Catheter Reason for persaud catheter: Strict I&O Objective vital signs Vital Sign Date Time Temp Pulse Resp B/P (MAP) Pulse Ox O2 Delivery O2 Flow Rate FiO2 11/07/24 11:51 108 20 138/80 (99) 100 30 11/07/24 06:00 Mechanical Ventilator+ 11/07/24 04:00 98.4 98.4 Total Intake and Output 11/06/24 11/06/24 11/07/24 15:00 23:00 07:00 Intake Total 712 ml 490 ml 663 ml Output Total 2620 ml 1445 ml Balance 712 ml -2130 ml -782 ml medications Current Medications Medications Dose Ordered Sig/Neisha Route Start Time Stop Time Status Last Admin Dose Admin Amino Acids 0 ml @ 0 mls/hr PER PHARMACY IV 10/27/24 08:45 Diagnostic Test (Pha) 1 strip Q6HR 10/27/24 12:00 11/07/24 12:37 1 STRIP Insulin Human Regular FOLLOW SLIDING SCALE Q6HR SC 10/27/24 12:00 11/06/24 18:59 2 UNITS Dextrose 50 ml UD IV 10/27/24 09:45 Sodium Chloride 10 ml QSHIFT@10,22 IV 10/27/24 22:00 11/07/24 09:30 10 ML Pantoprazole Sodium 40 mg BID IV 10/28/24 22:00 11/07/24 09:30 40 MG Norepinephrine Bitartrate 250 ml @ 3.75 mls/hr Q24H IV 10/30/24 04:15 10/30/24 04:33 3.75 MLS/HR Midazolam HCl 50 ml @ 1 mls/hr Q24H IV 10/30/24 04:15 11/07/24 07:36 6 MLS/HR Vancomycin HCl 0 ml @ 0 mls/hr UD IV 10/30/24 05:15 Fentanyl Citrate 250 ml @ 2.5 mls/hr Q24H IV 10/30/24 08:30 11/07/24 09:35 20 MLS/HR Levalbuterol HCl 0.625 mg Q6HR NEB 10/30/24 12:00 11/07/24 11:50 0.625 MG Ipratropium [place] 0.5 mg Q6HR NEB 10/30/24 12:00 11/07/24 11:50 0.5 MG Acetylcysteine 100 mg Q6HR NEB 10/30/24 12:00 11/07/24 11:50 100 MG Micafungin Sodium 100 mg/Sodium Chloride 100 ml @ 100 mls/hr DAILY IV 10/31/24 10:00 11/07/24 09:31 100 MLS/HR Meropenem 50 ml @ 17 mls/hr Q12H IV 11/03/24 18:00 11/07/24 06:24 17 MLS/HR Fat Emulsion Intravenous 200 ml/Sodium Acetate 40 meq/Potassium Acetate 80 meq/ Calcium Gluconate 1.65 meq/ Magnesium Sulfate 6 meq/ Multivitamins 10 ml/Chromium/ Copper/Manganese/ Zinc 1 ml/Amino Acids/Dextrose 1,526.0483 ml @ 63 mls/hr [id number] IV 11/06/24 22:00 11/07/24 21:59 11/06/24 22:24 63 MLS/HR Furosemide 40 mg DAILY IV 11/08/24 10:00 Fat Emulsion Intravenous 200 ml/Sodium Acetate 50 meq/Potassium Acetate 80 meq/ Calcium Gluconate 1.65 meq/ Magnesium Sulfate 4 meq/ Multivitamins 10 ml/Chromium/ Copper/Manganese/ Zinc 1 ml/Amino Acids/Dextrose 1,530.5483 ml @ 63 mls/hr [id number] IV 11/07/24 22:00 11/08/24 21:59 laboratory and microbiology Laboratory Tests 11/07/24 03:30 Test 11/07/24 03:30 Range/Units Serum Glucose 125 H 74-106 mg/dL Problem List/Assessment/Plan Problem List/Assessment/Plan 10/27/24 STATES THAT HE FEELS MUCH BETTER, ABDOMEN APPROPRIATELY TENDER, WOUND CLEAN AND WELL APPROXIMATED, DRAINAGE SERO SANGUINEOUS VIA MOISES DRAIN, OK TO SEND TO TELEMETRY 10/28/24 FEELS WEEK, ABDOMEN SOCT NON DISTENDED, APPROPRIATELY TENDER, WOUND CLEAN AND WELL APPROXIMATED,. NO CHANGES 10/29/24 PASSING FLATUS, NO bm, WOUND CLEAN AND WELL APPROXIMATED, DRAINAGE SERO SANGUINEOUS, UGI PENDING INTUBATED SEDATED, ABDOMEN NOT DISTENDED CT SCAN REVEALS FINDINGS PRESENT BEFORE HIS OPERQAWTION FRO PERFOATED GASTFRIC ULCER. HE WAS DOING VERY WELL TILL THE NIGHT HE WAS FOUND PULSELESS IN BED, DOES NOT NEED ANOTHER OPERATION 11/01/24 CONTINUES INTUBATED AND SEDATED, WOUND CLEAN AND WELL APPROXIMATED, DRAINAGE SERO SANGUINEOUS, LABS REVIEWED 11/05/24 abdomen non distended, moises drainage bilious, needs to be emptied more frequently, wbc normal, anemia persists, remains intubated and sedated 11/07/24 clinically essentially unchanged except the MOISES drain which now appears infected. Abdomen non distended, will have nurses irrigate the drain Plan discussed with: Other Dietary Evaluation Review Comments: 1) Conitnue TPN to provide at least 75% estimated needs 2) Advance diet as medically feasible 3) Continue current plan of care Expected Outcomes/Goals: GI symptoms to improve To meet >75% estimated needs Fu 2-3 days CHRIST HUDDLESTON MD November 07, 2024 12:45
--- NOTE | 2024-11-07 14:01 | DVHPN2 ---
Assessment/Plan Assessment/Plan ICU note covering seen today during rounds, purulent fluid from moises drain, given methylnaltrexone. id consult, considering delining and reculture. still on TPN, no pressors. diuresis. put on SCD. improvement on oral bleeding after tube exchange. h/h stable physical exam sedated intubated on mechanical vent PERRLA swlen tongue, bloody secretion from oral cavity imrpoved mechanical breath sounds s1 s2 RRR abdomen soft b/l LE edema UE edema labs ekg imaging reviewed assessment and plan Acute metabolic/toxic encephalopathy Acute hypoxic respiratory failure due to multi-organism pneumonia Septic shock due to multi-organism pneumonia/abdominal infection/abdominal abscesses Status post cardiac arrest; asystolic Pneumoperitoneum status post exploratory laparotomy with closure of perforated antral gastric perforation with concern for possible leak from repair site Acute blood loss anemia most likely due to intraoperative blood loss MARIA FERNANDA; most likely vasomotor nephropathy in the setting of septic shock Elevated LFTs in the setting of septic shock Thrombocytopenia in the setting of septic shock Severe malnutrition candidemia and on TPN c/w mechanical vent c/w sedation, RAAS goal -3 hold CPAP transfuse to Hb >7 bite block c/w TPN trend CBC, plt c/w jay and micafungin add dapto surg rec appreciated diuresis diet tpn dvt ppx hold iso bleeding gi ppx protonix full code condition critical prognosis poor critical care time 40 minutes Plan discussed with: Other My Orders Orders - GARY VIVAS MD Procedure Category Date Status Time Neck With Contrast CT 11/06/24 Resulted Soft 14:20 Communication Order ORDERS 11/06/24 Transmitted 20:59 Chest Portable XY 11/07/24 Resulted 04:00 Furosemide Injection PHA 11/08/24 In Process (Lasix Injection) 10:00 Date of Service: November 07, 2024 Billing Provider: GARY VIVAS MD Common Visit Codes: [id number] CARE 30-74 MIN GARY VIVAS MD November 07, 2024 14:01
[2024-11-07] MEDS: SODIUM CHL 0.9% IV SCH (16:28)
[2024-11-07] MEDS: DAPTOMYCIN IV SCH (16:28)
[2024-11-07] MEDS: TPN PER PHARMACY IV NR (21:35)
[2024-11-08] VITALS (111 sets, daily range): BP systolic 122–164; BP diastolic 71–90; PULSE 97–126; RESP 16–29; TEMP 98–99; O2SAT 99–100
[2024-11-08 04:09] LABS: Basophils # (auto) 0 10 ^3/uL (0-0.2); Eosinophils # (auto) 0.1 10 ^3/uL (0-0.8); Hematocrit 19.2 % (41.0-53.0); Lymphocytes # (auto) 0.3 10 ^3/uL (0.4-5.4); Mean Corpuscular Hgb Conc. 34.4 g/dL (32.0-36.0); Monocytes # (auto) 0.5 10 ^3/uL (0-1.3); Nucleated Red Blood Cells % 0.2 %; Platelet Count (auto) 113 10^3/uL (140-450)
[2024-11-08 04:11] LABS: Basophils % (auto) 0.4 % (0.0-2.0); Eosinophils % (auto) 2.1 % (0.0-7.0); Lymphocytes % (auto) 5.1 % (10.0-50.0); Mean Corpuscular Hemoglobin 32.2 pg (28.0-32.0); Mean Corpuscular Volume 93.4 fL (80.0-100.0); Monocytes % (auto) 8.3 % (0.0-12.0); Neutrophils # (auto) 4.8 10 ^3/uL (1.6-8.6); Neutrophils % (auto) 84.1 % (37.0-80.0); Red Blood Cells 2.05 10^6/uL (4.5-5.90); Red Cell Distribution Width 14.5 % (11.8-14.3); White Blood Cell 5.7 10^3/uL (4.4-10.8)
[2024-11-08 04:15] LABS: Hemoglobin 6.6 g/dL (13.5-17.5)
[2024-11-08 04:40] LABS: Alanine Aminotransferase 38 U/L (7-40); Anion Gap 8 (5-15); BUN/Creatinine Ratio 58.1 (10.0-20.0); Carbon Dioxide 24 mmol/L (20-31); Magnesium 2.2 mg/dL (1.6-2.6); Potassium 4.6 mmol/L (3.5-5.1); Sodium 141 mmol/L (136-145)
[2024-11-08 04:41] LABS: Bilirubin, Total 0.7 mg/dL (0.2-1.0)
[2024-11-08 04:43] LABS: Albumin 1.9 g/dL (3.2-4.8); Alkaline Phosphatase 170 U/L (46-116); Aspartate Aminotransferase 66 U/L (13-40); Calcium 7.7 mg/dL (8.7-10.4); Chloride 109 mmol/L (98-107); Glucose 142 mg/dL (74-106); Total Protein 4.6 g/dL (5.7-8.2)
[2024-11-08 04:44] LABS: Blood Urea Nitrogen 104 mg/dL (9-23)
--- NOTE | 2024-11-08 05:05 | DVH ---
CHEST RADIOGRAPH Indication: acute resp failure Technique: Single frontal view of the chest was obtained Comparison: XY CHEST PORTABLE on DOS: 11/07/24 FINDINGS: Lines and Tubes: Endotracheal tube terminates 6.3 cm above the alise. The enteric tube courses below the left hemidiaphragm and the tip extends outside the field of view. Right PICC terminates in the s uperior vena cava. Lungs: Bibasilar opacities. Pleura: No effusion. No pneumothorax. Cardiomediastinal contours: Unremarkable Bones: No acute osseous abnormality. IMPRESSION: 1. Support tubes in appropriate position. 2. Bibasilar opacities which may reflect atelectasis or pneumonia.
[2024-11-08 07:32] LABS: Base Excess -3.6 mmol/L (-2.0-3.0)
[2024-11-08] MEDS: FUROSEMIDE 40 MG/4 ML VIAL IV SCH (07:39)
--- NOTE | 2024-11-08 10:08 | DVHPN2 ---
Subjective Date Seen: November 08, 2024 Post op day Post op day: 10 Objective Vitals Vital Sign Date Time Temp Pulse Resp B/P (MAP) Pulse Ox O2 Delivery O2 Flow Rate FiO2 11/08/24 10:00 20 100 Mechanical Ventilator+ 30 30 11/08/24 10:00 104 11/08/24 10:00 148/79 (102) 11/08/24 08:47 98.5 98.5 Total Intake and Output 11/07/24 11/07/24 11/08/24 15:00 23:00 07:00 Intake Total 805 ml 944.5 ml 749.0 ml Output Total 700 ml 715 ml Balance 805 ml 244.5 ml 34.0 ml Medications Current Medications Medications Dose Ordered Sig/Neisha Route Start Time Stop Time Status Last Admin Dose Admin Amino Acids 0 ml @ 0 mls/hr PER PHARMACY IV 10/27/24 08:45 Diagnostic Test (Pha) 1 strip Q6HR 10/27/24 12:00 11/08/24 06:14 1 STRIP Insulin Human Regular FOLLOW SLIDING SCALE Q6HR SC 10/27/24 12:00 11/07/24 17:59 2 UNITS Dextrose 50 ml UD IV 10/27/24 09:45 Sodium Chloride 10 ml QSHIFT@10,22 IV 10/27/24 22:00 11/08/24 07:39 10 ML Pantoprazole Sodium 40 mg BID IV 10/28/24 22:00 11/08/24 07:39 40 MG Norepinephrine Bitartrate 250 ml @ 3.75 mls/hr Q24H IV 10/30/24 04:15 10/30/24 04:33 3.75 MLS/HR Midazolam HCl 50 ml @ 1 mls/hr Q24H IV 10/30/24 04:15 11/08/24 07:31 6 MLS/HR Fentanyl Citrate 250 ml @ 2.5 mls/hr Q24H IV 10/30/24 08:30 11/08/24 07:27 22.5 MLS/HR Levalbuterol HCl 0.625 mg Q6HR NEB 10/30/24 12:00 11/08/24 06:45 0.625 MG Ipratropium [place] 0.5 mg Q6HR NEB 10/30/24 12:00 11/08/24 06:45 0.5 MG Acetylcysteine 100 mg Q6HR NEB 10/30/24 12:00 11/08/24 06:45 100 MG Micafungin Sodium 100 mg/Sodium Chloride 100 ml @ 100 mls/hr DAILY IV 10/31/24 10:00 11/08/24 07:50 100 MLS/HR Meropenem 50 ml @ 17 mls/hr Q12H IV 11/03/24 18:00 11/08/24 06:05 17 MLS/HR Fat Emulsion Intravenous 200 ml/Sodium Acetate 50 meq/Potassium Acetate 80 meq/ Calcium Gluconate 1.65 meq/ Magnesium Sulfate 4 meq/ Multivitamins 10 ml/Chromium/ Copper/Manganese/ Zinc 1 ml/Amino Acids/Dextrose 1,530.5483 ml @ 63 mls/hr [id number] IV 11/07/24 22:00 11/08/24 21:59 11/07/24 21:35 63 MLS/HR Daptomycin 360 mg/ Sodium Chloride 50 ml @ 100 mls/hr DAILY IV 11/07/24 15:00 11/08/24 07:40 100 MLS/HR Furosemide 80 mg DAILY IV 11/08/24 10:00 UNV General: Other (sedated , intubated) Labs and Microbiology Laboratory Tests 11/08/24 03:38 Test 11/08/24 03:38 Range/Units Serum Glucose 142 H 74-106 mg/dL Ass/Plan Labs and/or images reviewed: Labs reviewed by me, Image(s) reviewed by me Problem List 10/27/24 STATES THAT HE FEELS MUCH BETTER, ABDOMEN APPROPRIATELY TENDER, WOUND CLEAN AND WELL APPROXIMATED, DRAINAGE SERO SANGUINEOUS VIA JOSEPH DRAIN, OK TO SEND TO TELEMETRY 10/28/24 FEELS WEEK, ABDOMEN SOCT NON DISTENDED, APPROPRIATELY TENDER, WOUND CLEAN AND WELL APPROXIMATED,. NO CHANGES 10/29/24 PASSING FLATUS, NO bm, WOUND CLEAN AND WELL APPROXIMATED, DRAINAGE SERO SANGUINEOUS, UGI PENDING INTUBATED SEDATED, ABDOMEN NOT DISTENDED CT SCAN REVEALS FINDINGS PRESENT BEFORE HIS OPERQAWTION FRO PERFOATED GASTFRIC ULCER. HE WAS DOING VERY WELL TILL THE NIGHT HE WAS FOUND PULSELESS IN BED, DOES NOT NEED ANOTHER OPERATION 11/01/24 CONTINUES INTUBATED AND SEDATED, WOUND CLEAN AND WELL APPROXIMATED, DRAINAGE SERO SANGUINEOUS, LABS REVIEWED 11/05/24 abdomen non distended, joseph drainage bilious, needs to be emptied more frequently, wbc normal, anemia persists, remains intubated and sedated 11/07/24 clinically essentially unchanged except the JOSEPH drain which now appears infected. Abdomen non distended, will have nurses irrigate the drain Assessment/Plan patient intubated , sedated, Joseph drain bilious output, abdomen slightly distended labs, notes reviewed Plan: empty JOSEPH drain every 2 hours continue current treatment Dr. Schilling agrees with plan 11/08/24 s/p cholecystectomy patient intubated , sedated JOSEPH drain more clear today , bilious output abdomen soft , non distended labs and notes reviewed , discussed with dr. Schilling Plan; continue current treatment Prognosis: Excellent, Poor Plan discussed with dr. Schilling Visit Coding Surgery Date of Service if different f: November 08, 2024 Billing Provider: CHRIST SCHILLING MD Surgery Visit Codes: [id number] INP/OBS CARE(HIGH) AZRA RUST NP November 08, 2024 10:08
--- NOTE | 2024-11-08 11:10 | DVH ---
Procedure: XY ABDOMEN 2 VIEW Exam Date: 11/08/2024 09:35 AM History: ileus Comparison Study: None Technique: AP of the chest AP upright of the abdomen AP supine of the abdomen FINDINGS: No focal evidence of airspace disease. The cardiomediastinal silhouette is within normal limits. No acute osseous lesions. Nasogastric tube tip in the stomach. Obi drain overlying the upper abdomen. Contrast seen in the colon. Nonobstructive bowel gas pattern noted. There is no evidence for pneumoperitoneum. No abnorma l calcifications noted. IMPRESSION: Non-specific gas-filled loops of bowel. END IMPRESSION:
[2024-11-08] MEDS: FUROSEMIDE 40 MG/4 ML VIAL IV ONE (11:35)
[2024-11-08 12:13] LABS: Hematocrit 22.3 % (41.0-53.0); Hemoglobin 7.7 g/dL (13.5-17.5)
[2024-11-08] MEDS: fentaNYL Drip 2500mCg/250mlNS 250 ML IV SCH (14:45)
--- NOTE | 2024-11-08 15:01 | DVHCONRES ---
Date Seen: November 08, 2024 Resident Creating Document: CHATO MCNULTY RESIDENT Referring Physician ab leger Reason for Consultation BUN elevation History of Present Illness 44-year-old male patient with no significant past medical history who was brought to the emergency department on October 25 with a chief complaint of generalized weakness and fatigue for the past 2 weeks. Per chart review, on admission patient reported progressively worsening weakness that made him unable to ambulate,, associated with upper abdominal pain, shortness of breaths and palpitations on minimal exertion, nausea vomiting and inability to tolerate food or liquids. CT abdomen confirmed pneumoperitoneum consistent with perforated viscus (gastric ulcer) and scattered ascites and dilated small bowel consistent with small-bowel obstruction. and patient underwent exploratory laparotomy on October 26 and then transferred to the ICU. Patient was downgraded to telemetry on October 28 and had an episode of asystole on October 30 at 3:03 a.m., time code ended at 3:07 a.m. patient was transferred to the ICU. Nephrology was consulted this morning due to BUN elevation. Patient was noted to have hemoglobin level 6.6 this morning for which the patient received 2 PRBC. Abdominal x-ray showed matias drain overlying the upper abdomen, contrast seen in the colon, nonobstructive bowel gas pattern noted, no evidence for pneumoperitoneum. We are going to follow-up on BMP tomorrow in the morning, as BUN elevation could be multifactorial due to current sepsis, TPN and possible acute blood loss. Family History: Patient reports no known family medical history. Allergies: Coded Allergies: NO KNOWN ALLERGIES (Unverified , 10/25/24) Home Meds No Active Prescriptions or Reported Meds Current Medications Current Medications Medications (Trade) Dose Ordered Sig/Neisha Route PRN Reason Start Time Stop Time Status Last Admin Furosemide (Lasix Injection) 40 mg DAILY IV 11/08/24 10:00 11/08/24 09:33 DC 11/08/24 07:39 Fat Emulsion Intravenous 200 ml/Sodium Acetate 50 meq/Potassium Acetate 80 meq/ Calcium Gluconate 1.65 meq/ Magnesium Sulfate 4 meq/ Multivitamins 10 ml/Chromium/ Copper/Manganese/ Zinc 1 ml/Amino Acids/Dextrose 1,530.5483 ml @ 63 mls/hr [id number] IV 11/07/24 22:00 11/08/24 21:59 11/07/24 21:35 Daptomycin 360 mg/ Sodium Chloride 50 ml @ 100 mls/hr DAILY IV 11/07/24 15:00 11/08/24 07:40 Furosemide (Lasix Injection) 80 mg DAILY IV 11/09/24 10:00 Fat Emulsion Intravenous 200 ml/Sodium Acetate 40 meq/Sodium Phosphate 10 meq/ Calcium Gluconate 1.65 meq/ Magnesium Sulfate 4 meq/ Multivitamins 10 ml/Chromium/ Copper/Manganese/ Zinc 1 ml/Amino Acids/Dextrose 1,388.0483 ml @ 58 mls/hr [id number] IV 11/08/24 22:00 11/09/24 21:59 Review of Systems Unable to obtain as patient is sedated under mechanical ventilation Vital Signs Vital Signs Date Time Temp Pulse Resp B/P (MAP) Pulse Ox O2 Delivery O2 Flow Rate FiO2 11/08/24 12:33 102 22 152/83 (106) 100 30 11/08/24 10:00 Mechanical Ventilator+ 11/08/24 08:47 98.5 98.5 Physical Exam Examination General Appearance: Patient is intubated and sedated, swollen tongue Respiratory: Mechanical breath sounds Cardiovascular: Regular rate, Normal S1, Normal S2 Abdominal: Abdomen is soft nondistended, wounds clean and well approximated, no changes Extremities: Bilateral lower extremity edema, bilateral upper extremity edema Labs/Diagnostic Data Labs Test 11/08/24 11:59 11/08/24 11:45 11/08/24 07:08 11/08/24 03:38 Range/Units Hemoglobin 7.7 #L 13.5-17.5 g/dL Hematocrit 22.3 #L 41.0-53.0 % POC Glucose 127 H 70-106 mg/dl Blood Gas Specimen Type Arterial Blood Gas Sample Site Right radial Blood Gas Patient Temperature 37.0 Arterial Blood Date Drawn [id number] Arterial Blood pH 7.384 7.350-7.450 Arterial Blood Partial Pressure CO2 36.1 35.0-48.0 mmHg Arterial Blood Partial Pressure O2 124.7 H 83.0-108.0 mmHg Arterial Blood HCO3 21.1 21.0-28.0 mmol/L Arterial Blood Oxygen Saturation 97.5 94.0-98.0 % Arterial Blood Base Excess -3.6 L -2.0-3.0 mmol/L Arterial Blood Oxyhemoglobin 97.1 94.0-98.0 % Arterial Blood Carboxyhemoglobin 0.3 L 0.5-1.5 % Arterial Blood Methemoglobin 0.1 0.0-1.5 % Yunior Test Modified Blood Gas Total Hemoglobin 6.80 *L 13.5-17.5 g/dL Blood Gas Set Respiration Rate 16.0 Blood Gas Modality Vent - ac FiO2 % 30.0 Blood Gas Tidal Volume 450.0 Blood Gas PEEP or CPAP 5.0 Blood Gas Critical Value Read Back yes Blood Gas Notified Whom harriet narayanan md Blood Gas Notified Time [id number] Blood Gas Notified By scarlet mo White Blood Count 5.7 4.4-10.8 10^3/uL Red Blood Count 2.05 L 4.5-5.90 10^6/uL Mean Corpuscular Volume 93.4 80.0-100.0 fL Mean Corpuscular Hemoglobin 32.2 H 28.0-32.0 pg Mean Corpuscular Hemoglobin Concent 34.4 32.0-36.0 g/dL Red Cell Distribution Width 14.5 H 11.8-14.3 % Platelet Count 113 L 140-450 10^3/uL Mean Platelet Volume 8.8 6.9-10.8 fL Neutrophils (%) (Auto) 84.1 H 37.0-80.0 % Lymphocytes (%) (Auto) 5.1 L 10.0-50.0 % Monocytes (%) (Auto) 8.3 0.0-12.0 % Eosinophils (%) (Auto) 2.1 0.0-7.0 % Basophils (%) (Auto) 0.4 0.0-2.0 % Neutrophils # (Auto) 4.8 1.6-8.6 10 ^3/uL Lymphocytes # (Auto) 0.3 L 0.4-5.4 10 ^3/uL Monocytes # (Auto) 0.5 0-1.3 10 ^3/uL Eosinophils # (Auto) 0.1 0-0.8 10 ^3/uL Basophils # (Auto) 0 0-0.2 10 ^3/uL Nucleated Red Blood Cells 0.2 % Sodium Level 141 136-145 mmol/L Potassium Level 4.6 3.5-5.1 mmol/L Chloride Level 109 H 98-107 mmol/L Carbon Dioxide Level 24 20-31 mmol/L Anion Gap 8 5-15 Blood Urea Nitrogen 104 *H 9-23 mg/dL Creatinine 1.79 H 0.700-1.30 mg/dL Glomerular Filtration Rate Calc 47 >90 mL/min BUN/Creatinine Ratio 58.1 H 10.0-20.0 Serum Glucose 142 H 74-106 mg/dL Calcium Level 7.7 L 8.7-10.4 mg/dL Phosphorus Level 2.0 L 2.4-5.1 mg/dL Magnesium Level 2.2 1.6-2.6 mg/dL Total Bilirubin 0.7 0.2-1.0 mg/dL Aspartate Amino Transferase (AST) 66 H 13-40 U/L Alanine Aminotransferase (ALT) 38 7-40 U/L Alkaline Phosphatase 170 H 46-116 U/L Total Protein 4.6 L 5.7-8.2 g/dL Albumin 1.9 L 3.2-4.8 g/dL Triglycerides Level 143 < 150 mg/dL Test 11/07/24 06:48 11/07/24 03:30 11/06/24 03:14 11/04/24 14:58 Range/Units Blood Gas Spontaneous Rate 24 Blood Gas Inspiratory Pressure 21.0 Bl Gas Inspiratory/Expiratory Ratio 1:2.7 Specimen Drawn By elianee rt Lactic Acid Level 0.9 0.4-2.0 mmol/L Random Vancomycin Level 16.9 H 5-10 ug/mL Prothrombin Time 11.5 9.3-11.8 sec Prothrombin Time INR 1.09 0.9-1.15 Activated Partial Thromboplast Time 38.0 H 24.5-34.5 SEC Vancomycin Level Trough 29.6 H 5-10 ug/mL Test 11/03/24 03:00 10/30/24 08:27 10/30/24 03:12 10/29/24 06:10 Range/Units Differential Total Cells Counted 100.0 100 Neutrophils % (Manual) 86 H 37.0-80.0 Band Neutrophils % (Manual) 6 Lymphocytes % (Manual) 5 L 10.0-50.0 Monocytes % (Manual) 2 0-12 Eosinophils % (Manual) 0 0-7 Basophils % (Manual) 0 0.0-2.0 Metamyelocytes % (manual) 1 Myelocytes % (Manual) 0 Promyelocytes % (Manual) 0 Blast Cells % (Manual) 0 Reactive Lymphocytes 0 Smudge Cells 5 /100 WBC Platelet Estimate Decreased Miscellaneous Referred Test (Rm Tmp Sent to [facility] Large Platelets Few Anisocytosis (manual) Slight Test 10/28/24 12:30 10/26/24 18:40 10/26/24 02:52 10/25/24 19:03 Range/Units Urine Color Yellow Yellow Urine Clarity Cloudy H Clear Urine pH 5.5 5.0-9.0 Urine Specific [place] 1.023 1.001-1.035 Urine Protein 1+ H Negative Urine Ketones Negative Negative Urine Blood 3+ H Negative /uL Urine Nitrite Negative Negative Urine Bilirubin Negative Negative Urine Urobilinogen Normal Negative mg/dL Urine Leukocyte Esterase Negative Negative /uL Urine RBC 147 0 - 3 /hpf Urine Microscopic WBC 5 H 0-3 /HPF Urine Squamous Epithelial Cells Few <5 /hpf Urine Amorphous Crystals Few None Seen /hpf Urine Bacteria Few H None Seen /hpf Urine Mucus Few None Seen Urine Creatinine 32.03 30.0-125.0 mg/dL Urine Sodium 13 L 40-220 mmol/L Urine Glucose Normal Normal mg/dL Polychromasia Slight Microcytosis Slight Macrocytosis Slight Troponin I High Sensitivity 3 L </=54 ng/L B-Type Natriuretic Peptide 74.53 0-100 pg/mL Lipase 50 12-53 U/L Microbiology Date/Time Source Procedure Growth Status 10/30/24 03:25 Trachea Gram Stain - Final Resulted 10/30/24 03:25 Respiratory Culture - Preliminary Providencia rettgeri Escherichia coli Presumptive Blanca albicans Resulted 10/29/24 06:10 Blood Blood Culture - Final NO GROWTH AFTER 5 DAYS OF INCUBATION. Complete 10/26/24 13:25 Peritoneal Fluid Gram Stain - Final Complete 10/26/24 13:25 Anaerobic Culture - Final Bacteroides fragilis Prevotella melaninogenica Complete 10/26/24 13:25 Aerobic Culture - Final Pseudomonas aeruginosa Klebsiella pneumoniae Streptococcus Group F Complete 10/26/24 04:00 Voided Urine Urine Culture - Final Complete Assessment Assessment: MARIA FERNANDA due to VMN secondary due to septic shock BUN elevation likely multifactorial due to sepsis/TPN/possible GI bleed/severe anemia status post transfusion Acute blood loss anemia most likely due to intraoperative blood loss Acute hypoxemic respiratory failure /pna Acute metabolic/toxic encephalopathy Transaminitis likely due to septic shock Candidemia Severe malnutrition Plan: ICU patient Treat underlying conditions and monitor CBC and CMP tomorrow in the morning Agree with the furosemide 80 mg daily , monitor potassium levels and replace as needed Strict I&Os Monitor electrolytes Daily weights H&H Case discussed with Dr. Kelley Code status: Full code Addendum Patient seen and examined, plan discussed with resident. Agree with above, we will follow closely Per hospitalist patient will need CT abdomen with IV contrast---we will closely monitor renal function after CT scan,, recommend adequate hydration before and after CT scan discussed with hospitalist Dr. Pierce Plan discussed with: Other (Primary care team) CHATO MCNULTY November 08, 2024 15:01 ISIDRO KELLEY MD November 08, 2024 16:09
--- NOTE | 2024-11-08 15:15 | DVHPN2 ---
Assessment/Plan Assessment/Plan ICU note covering seen today during rounds, moises drain slightly leaking, no blood. BUN likely frm blood loss + tpn. Hb drop s/p transfusion. abbasi scan tomorrow, hold fluid physical exam sedated intubated on mechanical vent PERRLA swlen tongue, bloody secretion from oral cavity imrpoved mechanical breath sounds s1 s2 RRR abdomen soft b/l LE edema UE edema labs ekg imaging reviewed assessment and plan Acute metabolic/toxic encephalopathy Acute hypoxic respiratory failure due to multi-organism pneumonia Septic shock due to multi-organism pneumonia/abdominal infection/abdominal abscesses Status post cardiac arrest; asystolic Pneumoperitoneum status post exploratory laparotomy with closure of perforated antral gastric perforation with concern for possible leak from repair site Acute blood loss anemia most likely due to intraoperative blood loss MARIA FERNANDA; most likely vasomotor nephropathy in the setting of septic shock Elevated LFTs in the setting of septic shock Thrombocytopenia in the setting of septic shock Severe malnutrition candidemia and on TPN c/w mechanical vent c/w sedation, RAAS goal -3 hold CPAP transfuse to Hb >7 bite block c/w TPN trend CBC, plt c/w jay and micafungin add dapto surg rec appreciated diuresis hold tomorrow abbasi scan diet tpn dvt ppx hold iso bleeding gi ppx protonix full code condition critical prognosis poor critical care time 40 minutes Plan discussed with: Other My Orders Orders - GARY VIVAS MD Procedure Category Date Status Time Chest Portable XY 11/08/24 Resulted 04:00 Type And Screen BBK 11/08/24 In Process 04:29 Abdomen 2 View XY 11/08/24 Resulted 09:34 Respiratory Misc. RT 11/08/24 Transmitted Order 10:30 Furosemide Injection PHA 11/09/24 In Process (Lasix Injection) 10:00 Fentanyl Drip PHA 11/08/24 Logged 2500mcg/250mlns 14:45 Date of Service: November 08, 2024 Billing Provider: GARY VIVAS MD Common Visit Codes: [id number] CARE 30-74 MIN GARY VIVAS MD November 08, 2024 15:15
[2024-11-08] MEDS: SODIUM PHOSPHATES 20 MEQ in SODIUM CHL 0.9% 100 ML IV ONE (15:18)
[2024-11-08] MEDS: TPN PER PHARMACY IV NR (22:22)
[2024-11-09] VITALS (114 sets, daily range): BP systolic 128–157; BP diastolic 72–90; PULSE 92–111; RESP 15–36; TEMP 97.6–99; O2SAT 96–100
[2024-11-09 03:59] LABS: Basophils # (auto) 0 10 ^3/uL (0-0.2); Eosinophils # (auto) 0.2 10 ^3/uL (0-0.8); Hemoglobin 7.5 g/dL (13.5-17.5); Lymphocytes # (auto) 0.4 10 ^3/uL (0.4-5.4); Mean Corpuscular Hemoglobin 31.9 pg (28.0-32.0); Neutrophils # (auto) 4.9 10 ^3/uL (1.6-8.6)
[2024-11-09 04:02] LABS: Basophils % (auto) 0.3 % (0.0-2.0); Eosinophils % (auto) 3.1 % (0.0-7.0); Hematocrit 21.8 % (41.0-53.0); Lymphocytes % (auto) 6.1 % (10.0-50.0); Mean Corpuscular Hgb Conc. 34.3 g/dL (32.0-36.0); Mean Corpuscular Volume 92.9 fL (80.0-100.0); Monocytes # (auto) 0.6 10 ^3/uL (0-1.3); Monocytes % (auto) 9.1 % (0.0-12.0); Neutrophils % (auto) 81.4 % (37.0-80.0); Platelet Count (auto) 133 10^3/uL (140-450); Red Blood Cells 2.35 10^6/uL (4.5-5.90); Red Cell Distribution Width 14.8 % (11.8-14.3)
[2024-11-09 04:26] LABS: Carbon Dioxide 24 mmol/L (20-31); Magnesium 2.1 mg/dL (1.6-2.6); Potassium 4.8 mmol/L (3.5-5.1)
[2024-11-09 04:27] LABS: Anion Gap 8 (5-15); BUN/Creatinine Ratio 55.9 (10.0-20.0); Bilirubin, Total 0.6 mg/dL (0.2-1.0); Phosphorus 2.9 mg/dL (2.4-5.1); Sodium 141 mmol/L (136-145)
[2024-11-09 04:28] LABS: Alanine Aminotransferase 42 U/L (7-40); Albumin 1.8 g/dL (3.2-4.8); Alkaline Phosphatase 174 U/L (46-116); Aspartate Aminotransferase 85 U/L (13-40); Calcium 7.6 mg/dL (8.7-10.4); Chloride 109 mmol/L (98-107); Glucose 161 mg/dL (74-106); Total Protein 4.5 g/dL (5.7-8.2)
[2024-11-09 04:31] LABS: Blood Urea Nitrogen 105 mg/dL (9-23)
--- NOTE | 2024-11-09 06:08 | DVH ---
CHEST RADIOGRAPH Indication: intubated Technique: Single frontal view of the chest was obtained COMPARISON: XY CHEST PORTABLE on DOS: 11/08/24, XY CHEST PORTABLE on DOS: 11/07/24, XY CHEST XRAY 1 VIEW on DOS: 11/06/24, XY CHEST PORTABLE on DOS: 11/06/24, XY CHEST PORTABLE on DOS: 11/05/24 FINDINGS: Lines and Tubes: Lines and tubes unchanged. Lungs: Grossly stable appearing multifocal bilateral pulmonary airspace disease and infiltrate. There are small bilateral pleural effusions. No pneumothorax. Cardiomediastinal contours: Unremarkable Bones: Unremarkable IMPRESSION: 1. Stable appearing multifocal bilateral pulmonary airspace disease. 2. Small bilateral pleural effusions. 3. Lines and tubes unchanged.
[2024-11-09] MEDS: DAPTOmycin 400 MG in SODIUM CHL 0.9% 50 ML IV SCH (08:16)
--- NOTE | 2024-11-09 09:28 | DVHPN2 ---
Progress Note Date Seen: November 09, 2024 Medical Necessity Reason Pt with a Central, PICC or Fol: Yes The following are medically ne: Persaud Catheter Reason for persaud catheter: Strict I&O Objective vital signs Vital Sign Date Time Temp Pulse Resp B/P (MAP) Pulse Ox O2 Delivery O2 Flow Rate FiO2 11/09/24 08:15 102 20 140/77 (98) 99 11/09/24 08:12 30 11/09/24 08:00 Mechanical Ventilator+ 11/09/24 08:00 99.0 99.0 Total Intake and Output 11/08/24 11/08/24 11/09/24 15:00 23:00 07:00 Intake Total 949.0 ml 851.25 ml 634.0 ml Output Total 1015 ml 780 ml Balance 949.0 ml -163.75 ml -146.0 ml medications Current Medications Medications Dose Ordered Sig/Neisha Route Start Time Stop Time Status Last Admin Dose Admin Amino Acids 0 ml @ 0 mls/hr PER PHARMACY IV 10/27/24 08:45 Diagnostic Test (Pha) 1 strip Q6HR 10/27/24 12:00 11/09/24 05:18 1 STRIP Insulin Human Regular FOLLOW SLIDING SCALE Q6HR SC 10/27/24 12:00 11/07/24 17:59 2 UNITS Dextrose 50 ml UD IV 10/27/24 09:45 Sodium Chloride 10 ml QSHIFT@10,22 IV 10/27/24 22:00 11/09/24 08:07 10 ML Pantoprazole Sodium 40 mg BID IV 10/28/24 22:00 11/09/24 08:07 40 MG Norepinephrine Bitartrate 250 ml @ 3.75 mls/hr Q24H IV 10/30/24 04:15 10/30/24 04:33 3.75 MLS/HR Midazolam HCl 50 ml @ 1 mls/hr Q24H IV 10/30/24 04:15 11/09/24 08:07 6 MLS/HR Levalbuterol HCl 0.625 mg Q6HR NEB 10/30/24 12:00 11/08/24 23:59 0.625 MG Ipratropium [place] 0.5 mg Q6HR NEB 10/30/24 12:00 11/09/24 06:26 0.5 MG Acetylcysteine 100 mg Q6HR NEB 10/30/24 12:00 11/09/24 06:26 100 MG Micafungin Sodium 100 mg/Sodium Chloride 100 ml @ 100 mls/hr DAILY IV 10/31/24 10:00 11/09/24 08:07 100 MLS/HR Meropenem 50 ml @ 17 mls/hr Q12H IV 11/03/24 18:00 11/09/24 05:19 17 MLS/HR Fat Emulsion Intravenous 200 ml/Sodium Acetate 40 meq/Sodium Phosphate 10 meq/ Calcium Gluconate 1.65 meq/ Magnesium Sulfate 4 meq/ Multivitamins 10 ml/Chromium/ Copper/Manganese/ Zinc 1 ml/Amino Acids/Dextrose 1,388.0483 ml @ 58 mls/hr [id number] IV 11/08/24 22:00 11/09/24 21:59 11/08/24 22:22 58 MLS/HR Fentanyl Citrate 250 ml @ 2.5 mls/hr Q24H IV 11/08/24 14:45 11/09/24 04:44 22.5 MLS/HR Daptomycin 400 mg/ Sodium Chloride 50 ml @ 100 mls/hr DAILY IV 11/09/24 10:00 11/09/24 08:16 100 MLS/HR laboratory and microbiology Laboratory Tests 11/09/24 03:25 Test 11/09/24 03:25 Range/Units Serum Glucose 161 H 74-106 mg/dL Problem List/Assessment/Plan Problem List/Assessment/Plan 10/27/24 STATES THAT HE FEELS MUCH BETTER, ABDOMEN APPROPRIATELY TENDER, WOUND CLEAN AND WELL APPROXIMATED, DRAINAGE SERO SANGUINEOUS VIA MOISES DRAIN, OK TO SEND TO TELEMETRY 10/28/24 FEELS WEEK, ABDOMEN SOCT NON DISTENDED, APPROPRIATELY TENDER, WOUND CLEAN AND WELL APPROXIMATED,. NO CHANGES 10/29/24 PASSING FLATUS, NO bm, WOUND CLEAN AND WELL APPROXIMATED, DRAINAGE SERO SANGUINEOUS, UGI PENDING INTUBATED SEDATED, ABDOMEN NOT DISTENDED CT SCAN REVEALS FINDINGS PRESENT BEFORE HIS OPERQAWTION FRO PERFOATED GASTFRIC ULCER. HE WAS DOING VERY WELL TILL THE NIGHT HE WAS FOUND PULSELESS IN BED, DOES NOT NEED ANOTHER OPERATION 11/01/24 CONTINUES INTUBATED AND SEDATED, WOUND CLEAN AND WELL APPROXIMATED, DRAINAGE SERO SANGUINEOUS, LABS REVIEWED 11/05/24 abdomen non distended, moises drainage bilious, needs to be emptied more frequently, wbc normal, anemia persists, remains intubated and sedated 11/07/24 clinically essentially unchanged except the MOISES drain which now appears infected. Abdomen non distended, will have nurses irrigate the drain 11/09/24 afebrile, normotensive, wbc nl, abdomen non distended, wound clean, MOISES drainage clearing, OK to try weaning off vent Plan discussed with: Other Dietary Evaluation Review Comments: 1) Conitnue TPN to provide at least 75% estimated needs 2) Advance diet as medically feasible 3) Continue current plan of care Expected Outcomes/Goals: GI symptoms to improve To meet >75% estimated needs Fu 2-3 days CHRIST HUDDLESTON MD November 09, 2024 09:28
[2024-11-09] MEDS ORDERED: FUROSEMIDE 100 MG/10ML VIAL IV SCH (10:00)
--- NOTE | 2024-11-09 12:31 | DVHPN2 ---
Reviewed: Care Plan, H&P, Labs, Medications, Previous Orders, Radiology, Other (Consultations) Changes from previous H/P or p: No Changes General: Per HPI Objective Vitals Vital Signs Date Time Temp Pulse Resp B/P (MAP) Pulse Ox O2 Delivery O2 Flow Rate FiO2 11/09/24 12:00 102 20 139/78 (98) 99 11/09/24 11:57 30 11/09/24 11:51 Mechanical Ventilator+ 11/09/24 11:45 98.5 98.5 Intake/Output Intake and Output 11/09/24 07:00 Intake Total 2434.25 ml Output Total 1795 ml Balance 639.25 ml Intake Oral 0 ml IV Total 2134.25 ml Blood Product 300 ml Output Urine Total 1250 ml Gastric Drainage Total 280 ml Drainage Total 140 ml Other 125 ml General Appearance: Other (Intubated and sedated) HEENT: Atraumatic Lungs: Other (Mechanical ventilation sounds) Cardiovascular: Normal S1, Normal S2, Other (Tachycardia) Abdomen: Other (ALLISON drain with biliary green fluid; no bowel sounds) Genitourinary: Other (Echavarria's) Neuro: Other (Intubated and sedated) Skin: Wounds (See nurse notes and pictures) Psych/Mental Status: Other (Intubated and sedated) Medications Current Medications Medications Dose Ordered Sig/Neisha Route Start Time Stop Time Status Last Admin Dose Admin Amino Acids 0 ml @ 0 mls/hr PER PHARMACY IV 10/27/24 08:45 Diagnostic Test (Pha) 1 strip Q6HR 10/27/24 12:00 11/09/24 11:44 1 STRIP Insulin Human Regular FOLLOW SLIDING SCALE Q6HR SC 10/27/24 12:00 11/07/24 17:59 2 UNITS Dextrose 50 ml UD IV 10/27/24 09:45 Sodium Chloride 10 ml QSHIFT@10,22 IV 10/27/24 22:00 11/09/24 08:07 10 ML Pantoprazole Sodium 40 mg BID IV 10/28/24 22:00 11/09/24 08:07 40 MG Norepinephrine Bitartrate 250 ml @ 3.75 mls/hr Q24H IV 10/30/24 04:15 10/30/24 04:33 3.75 MLS/HR Midazolam HCl 50 ml @ 1 mls/hr Q24H IV 10/30/24 04:15 11/09/24 08:07 6 MLS/HR Levalbuterol HCl 0.625 mg Q6HR NEB 10/30/24 12:00 11/09/24 11:56 0.625 MG Ipratropium [place] 0.5 mg Q6HR NEB 10/30/24 12:00 11/09/24 11:56 0.5 MG Acetylcysteine 100 mg Q6HR NEB 10/30/24 12:00 11/09/24 11:56 100 MG Micafungin Sodium 100 mg/Sodium Chloride 100 ml @ 100 mls/hr DAILY IV 10/31/24 10:00 11/09/24 08:07 100 MLS/HR Meropenem 50 ml @ 17 mls/hr Q12H IV 11/03/24 18:00 11/09/24 05:19 17 MLS/HR Fat Emulsion Intravenous 200 ml/Sodium Acetate 40 meq/Sodium Phosphate 10 meq/ Calcium Gluconate 1.65 meq/ Magnesium Sulfate 4 meq/ Multivitamins 10 ml/Chromium/ Copper/Manganese/ Zinc 1 ml/Amino Acids/Dextrose 1,388.0483 ml @ 58 mls/hr [id number] IV 11/08/24 22:00 11/09/24 21:59 11/08/24 22:22 58 MLS/HR Fentanyl Citrate 250 ml @ 2.5 mls/hr Q24H IV 11/08/24 14:45 11/09/24 04:44 22.5 MLS/HR Daptomycin 400 mg/ Sodium Chloride 50 ml @ 100 mls/hr DAILY IV 11/09/24 10:00 11/09/24 08:16 100 MLS/HR Laboratory Results Laboratory Tests 11/09/24 03:25 Chemistry Test 11/09/24 03:25 Albumin 1.8 g/dL (3.2-4.8) L Calcium Level 7.6 mg/dL (8.7-10.4) L Magnesium Level 2.1 mg/dL (1.6-2.6) Phosphorus Level 2.9 mg/dL (2.4-5.1) Total Protein 4.5 g/dL (5.7-8.2) L LFT Test 11/09/24 03:25 Alanine Aminotransferase (ALT) 42 U/L (7-40) H Alkaline Phosphatase 174 U/L (46-116) H Aspartate Amino Transferase (AST) 85 U/L (13-40) H Total Bilirubin 0.6 mg/dL (0.2-1.0) Urinalysis Test 10/28/24 12:30 Urine Color Yellow (Yellow) Urine Clarity Cloudy (Clear) H Urine pH 5.5 (5.0-9.0) Urine Specific [place] 1.023 (1.001-1.035) Urine Protein 1+ (Negative) H Urine Ketones Negative (Negative) Urine Blood 3+ /uL (Negative) H Urine Nitrite Negative (Negative) Urine Bilirubin Negative (Negative) Urine Urobilinogen Normal mg/dL (Negative) Urine Leukocyte Esterase Negative /uL (Negative) Urine RBC 147 /hpf (0 - 3) Urine Microscopic WBC 5 /HPF (0-3) H Urine Squamous Epithelial Cells Few /hpf (<5) Urine Amorphous Crystals Few /hpf (None Seen) Urine Bacteria Few /hpf (None Seen) H Urine Mucus Few (None Seen) Urine Creatinine 32.03 mg/dL (30.0-125.0) Urine Sodium 13 mmol/L (40-220) L Urine Glucose Normal mg/dL (Normal) Microbiology Microbiology Date/Time Source Procedure Growth Status 10/30/24 03:25 Trachea Gram Stain - Final Resulted 10/30/24 03:25 Respiratory Culture - Preliminary Providencia rettgeri Escherichia coli Presumptive Blanca albicans Resulted 10/29/24 06:10 Blood Blood Culture - Final NO GROWTH AFTER 5 DAYS OF INCUBATION. Complete 10/26/24 13:25 Peritoneal Fluid Gram Stain - Final Complete 10/26/24 13:25 Anaerobic Culture - Final Bacteroides fragilis Prevotella melaninogenica Complete 10/26/24 13:25 Aerobic Culture - Final Pseudomonas aeruginosa Klebsiella pneumoniae Streptococcus Group F Complete 10/26/24 04:00 Voided Urine Urine Culture - Final Complete Labs and/or images reviewed: Labs reviewed by me, Image(s) reviewed by me Assessment/Plan Assessment/Plan Perforated abdominal viscus Small-bowel obstruction Cachexia Severe protein malnutrition with associated hypoalbuminemia 10/26/2024: pt to undergo surgery by Dr Laws today 10/27/2024: continue with current tx. supportive management. Gen Surg to make further recommendation per clinical course time: >35 minutes of critical care time Plan discussed with: Other (nursing ) My Orders Orders - RADHA FOLEY DO Procedure Category Date Status Time Complete Blood Count LAB 11/10/24 Verified 04:00 Comprehensive LAB 11/10/24 Verified Metabolic Panel 04:00 Magnesium LAB 11/10/24 Verified 04:00 Chest Portable XY 11/10/24 Logged 04:00 Date of Service: November 09, 2024 Billing Provider: RADHA FOLEY DO Common Visit Codes: [id number] CARE 30-74 MIN RADHA FOLEY DO November 09, 2024 12:30
--- NOTE | 2024-11-09 13:05 | DVHPN2 ---
Progress Note - Dictate Date Seen: November 09, 2024 Medical Necessity Reason Pt with a Central, PICC or Fol: Yes The following are medically ne: Eprsaud Catheter Reason for persaud catheter: Strict I&O vital signs Vital Sign Date Time Temp Pulse Resp B/P (MAP) Pulse Ox O2 Delivery O2 Flow Rate FiO2 11/09/24 12:00 102 20 139/78 (98) 99 11/09/24 11:57 30 11/09/24 11:51 Mechanical Ventilator+ 11/09/24 11:45 98.5 98.5 Total Intake and Output 11/08/24 11/08/24 11/09/24 15:00 23:00 07:00 Intake Total 949.0 ml 851.25 ml 634.0 ml Output Total 1015 ml 780 ml Balance 949.0 ml -163.75 ml -146.0 ml medications Current Medications Medications Dose Ordered Sig/Neisha Route Start Time Stop Time Status Last Admin Dose Admin Amino Acids 0 ml @ 0 mls/hr PER PHARMACY IV 10/27/24 08:45 Diagnostic Test (Pha) 1 strip Q6HR 10/27/24 12:00 11/09/24 11:44 1 STRIP Insulin Human Regular FOLLOW SLIDING SCALE Q6HR SC 10/27/24 12:00 11/07/24 17:59 2 UNITS Dextrose 50 ml UD IV 10/27/24 09:45 Sodium Chloride 10 ml QSHIFT@10,22 IV 10/27/24 22:00 11/09/24 08:07 10 ML Pantoprazole Sodium 40 mg BID IV 10/28/24 22:00 11/09/24 08:07 40 MG Norepinephrine Bitartrate 250 ml @ 3.75 mls/hr Q24H IV 10/30/24 04:15 10/30/24 04:33 3.75 MLS/HR Midazolam HCl 50 ml @ 1 mls/hr Q24H IV 10/30/24 04:15 11/09/24 08:07 6 MLS/HR Levalbuterol HCl 0.625 mg Q6HR NEB 10/30/24 12:00 11/09/24 11:56 0.625 MG Ipratropium [place] 0.5 mg Q6HR NEB 10/30/24 12:00 11/09/24 11:56 0.5 MG Acetylcysteine 100 mg Q6HR NEB 10/30/24 12:00 11/09/24 11:56 100 MG Micafungin Sodium 100 mg/Sodium Chloride 100 ml @ 100 mls/hr DAILY IV 10/31/24 10:00 11/09/24 08:07 100 MLS/HR Meropenem 50 ml @ 17 mls/hr Q12H IV 11/03/24 18:00 11/09/24 05:19 17 MLS/HR Fat Emulsion Intravenous 200 ml/Sodium Acetate 40 meq/Sodium Phosphate 10 meq/ Calcium Gluconate 1.65 meq/ Magnesium Sulfate 4 meq/ Multivitamins 10 ml/Chromium/ Copper/Manganese/ Zinc 1 ml/Amino Acids/Dextrose 1,388.0483 ml @ 58 mls/hr [id number] IV 11/08/24 22:00 11/09/24 21:59 11/08/24 22:22 58 MLS/HR Fentanyl Citrate 250 ml @ 2.5 mls/hr Q24H IV 11/08/24 14:45 11/09/24 04:44 22.5 MLS/HR Daptomycin 400 mg/ Sodium Chloride 50 ml @ 100 mls/hr DAILY IV 11/09/24 10:00 11/09/24 08:16 100 MLS/HR Fat Emulsion Intravenous 200 ml/Sodium Acetate 50 meq/Calcium Gluconate 1.65 meq/Magnesium Sulfate 4 meq/ Multivitamins 10 ml/Chromium/ Copper/Manganese/ Zinc 1 ml/Amino Acids/Dextrose 1,340.5483 ml @ 56 mls/hr [id number] IV 11/09/24 22:00 11/10/24 21:59 laboratory and microbiology Laboratory Tests 11/09/24 03:25 Test 11/09/24 03:25 Range/Units Serum Glucose 161 H 74-106 mg/dL Assessment/Plan 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 intubated for perforated bowel peritonitis events on mechanical ventilation s/p intubation minimal secretions reported s/p ex lap ALLISON-drains in place abd non distended minimal sedation no responses on iv abx off pressors imaging CXR and CTA reviewed labs reviewed plan continue supportive care can not be weaned off the vent at this point may require trache/LTAC placement abx bronchodilators post-op care nutrition dvt proph prognosis very poor Dietary Evaluation Review Comments: 1) Conitnue TPN to provide at least 75% estimated needs 2) Advance diet as medically feasible 3) Continue current plan of care Expected Outcomes/Goals: GI symptoms to improve To meet >75% estimated needs Fu 2-3 days Plan discussed with: Other (Rn) DREA BECERRIL MD November 09, 2024 13:05
--- NOTE | 2024-11-09 15:32 | DVHPN2 ---
Progress Note Date Seen: November 09, 2024 Medical Necessity Reason Pt with a Central, PICC or Fol: Yes The following are medically ne: Persaud Catheter Reason for persaud catheter: Strict I&O Subjective Patient reports: Other (Remains intubated) Review of Systems: Deferred Objective vital signs Vital Sign Date Time Temp Pulse Resp B/P (MAP) Pulse Ox O2 Delivery O2 Flow Rate FiO2 11/09/24 15:15 104 18 137/78 (97) 100 11/09/24 14:28 Mechanical Ventilator+ 30 30 11/09/24 11:45 98.5 98.5 Total Intake and Output 11/08/24 11/08/24 11/09/24 15:00 23:00 07:00 Intake Total 949.0 ml 851.25 ml 634.0 ml Output Total 1015 ml 780 ml Balance 949.0 ml -163.75 ml -146.0 ml medications Current Medications Medications Dose Ordered Sig/Neisha Route Start Time Stop Time Status Last Admin Dose Admin Amino Acids 0 ml @ 0 mls/hr PER PHARMACY IV 10/27/24 08:45 Diagnostic Test (Pha) 1 strip Q6HR 10/27/24 12:00 11/09/24 11:44 1 STRIP Insulin Human Regular FOLLOW SLIDING SCALE Q6HR SC 10/27/24 12:00 11/07/24 17:59 2 UNITS Dextrose 50 ml UD IV 10/27/24 09:45 Sodium Chloride 10 ml QSHIFT@10,22 IV 10/27/24 22:00 11/09/24 08:07 10 ML Pantoprazole Sodium 40 mg BID IV 10/28/24 22:00 11/09/24 08:07 40 MG Norepinephrine Bitartrate 250 ml @ 3.75 mls/hr Q24H IV 10/30/24 04:15 10/30/24 04:33 3.75 MLS/HR Midazolam HCl 50 ml @ 1 mls/hr Q24H IV 10/30/24 04:15 11/09/24 08:07 6 MLS/HR Levalbuterol HCl 0.625 mg Q6HR NEB 10/30/24 12:00 11/09/24 11:56 0.625 MG Ipratropium [place] 0.5 mg Q6HR NEB 10/30/24 12:00 11/09/24 11:56 0.5 MG Acetylcysteine 100 mg Q6HR NEB 10/30/24 12:00 11/09/24 11:56 100 MG Micafungin Sodium 100 mg/Sodium Chloride 100 ml @ 100 mls/hr DAILY IV 10/31/24 10:00 11/09/24 08:07 100 MLS/HR Meropenem 50 ml @ 17 mls/hr Q12H IV 11/03/24 18:00 11/09/24 05:19 17 MLS/HR Fat Emulsion Intravenous 200 ml/Sodium Acetate 40 meq/Sodium Phosphate 10 meq/ Calcium Gluconate 1.65 meq/ Magnesium Sulfate 4 meq/ Multivitamins 10 ml/Chromium/ Copper/Manganese/ Zinc 1 ml/Amino Acids/Dextrose 1,388.0483 ml @ 58 mls/hr [id number] IV 11/08/24 22:00 11/09/24 21:59 11/08/24 22:22 58 MLS/HR Fentanyl Citrate 250 ml @ 2.5 mls/hr Q24H IV 11/08/24 14:45 11/09/24 14:07 25 MLS/HR Daptomycin 400 mg/ Sodium Chloride 50 ml @ 100 mls/hr DAILY IV 11/09/24 10:00 11/09/24 08:16 100 MLS/HR Fat Emulsion Intravenous 200 ml/Sodium Acetate 50 meq/Calcium Gluconate 1.65 meq/Magnesium Sulfate 4 meq/ Multivitamins 10 ml/Chromium/ Copper/Manganese/ Zinc 1 ml/Amino Acids/Dextrose 1,340.5483 ml @ 56 mls/hr [id number] IV 11/09/24 22:00 11/10/24 21:59 Examination: GENERAL:Abnormal, LUNGS:Abnormal, MSK:Abnormal (Positive edema all extremities), SKIN:Abnormal, NEURO:Abnormal laboratory and microbiology Laboratory Tests 11/09/24 03:25 Test 11/09/24 03:25 Range/Units Serum Glucose 161 H 74-106 mg/dL Microbiology Date/Time Source Procedure Growth Status 10/30/24 03:25 Trachea Gram Stain - Final Resulted 10/30/24 03:25 Respiratory Culture - Preliminary Providencia rettgeri Escherichia coli Presumptive [place] albicans Resulted 10/29/24 06:10 Blood Blood Culture - Final NO GROWTH AFTER 5 DAYS OF INCUBATION. Complete 10/26/24 13:25 Peritoneal Fluid Gram Stain - Final Complete 10/26/24 13:25 Anaerobic Culture - Final Bacteroides fragilis Prevotella melaninogenica Complete 10/26/24 13:25 Aerobic Culture - Final Pseudomonas aeruginosa Klebsiella pneumoniae Streptococcus Group F Complete 10/26/24 04:00 Voided Urine Urine Culture - Final Complete Problem List/Assessment/Plan Problem List/Assessment/Plan MARIA FERNANDA due to hemodynamic mediated etiology secondary due to septic shock BUN elevation likely multifactorial due to sepsis/TPN/possible GI bleed/severe anemia status post transfusion Acute blood loss anemia most likely due to intraoperative blood loss Acute hypoxemic respiratory failure /pna Acute metabolic/toxic encephalopathy Transaminitis likely due to septic shock Candidemia Severe malnutrition recs Continue diuretics We will follow closely Plan discussed with: Other Dietary Evaluation Review Comments: 1) Conitnue TPN to provide at least 75% estimated needs 2) Advance diet as medically feasible 3) Continue current plan of care Expected Outcomes/Goals: GI symptoms to improve To meet >75% estimated needs Fu 2-3 days ISIDRO KELLEY MD November 09, 2024 15:32
--- NOTE | 2024-11-09 17:26 | DVHINCON2 ---
Date of service: November 07, 2024 Family History: Patient reports no known family medical history. Allergies: Coded Allergies: NO KNOWN ALLERGIES (Unverified , 10/25/24) Home Meds No Active Prescriptions or Reported Meds Current Medications Current Medications Medications (Trade) Dose Ordered Sig/Neisha Route PRN Reason Start Time Stop Time Status Last Admin Furosemide (Lasix Injection) 80 mg DAILY IV 11/09/24 10:00 11/08/24 15:17 DC Fat Emulsion Intravenous 200 ml/Sodium Acetate 40 meq/Sodium Phosphate 10 meq/ Calcium Gluconate 1.65 meq/ Magnesium Sulfate 4 meq/ Multivitamins 10 ml/Chromium/ Copper/Manganese/ Zinc 1 ml/Amino Acids/Dextrose 1,388.0483 ml @ 58 mls/hr [id number] IV 11/08/24 22:00 11/09/24 21:59 11/08/24 22:22 Daptomycin 400 mg/ Sodium Chloride 50 ml @ 100 mls/hr DAILY IV 11/09/24 10:00 11/09/24 08:16 Fat Emulsion Intravenous 200 ml/Sodium Acetate 50 meq/Calcium Gluconate 1.65 meq/Magnesium Sulfate 4 meq/ Multivitamins 10 ml/Chromium/ Copper/Manganese/ Zinc 1 ml/Amino Acids/Dextrose 1,340.5483 ml @ 56 mls/hr [id number] IV 11/09/24 22:00 11/10/24 21:59 Vital Signs Vital Signs Date Time Temp Pulse Resp B/P (MAP) Pulse Ox O2 Delivery O2 Flow Rate FiO2 11/09/24 15:57 101 20 146/78 (100) 100 30 11/09/24 15:48 Mechanical Ventilator+ 11/09/24 11:45 98.5 98.5 Labs/Diagnostic Data Labs Test 11/09/24 16:11 11/09/24 03:25 11/08/24 07:08 11/08/24 03:38 Range/Units POC Glucose 118 H 70-106 mg/dl White Blood Count 6.0 4.4-10.8 10^3/uL Red Blood Count 2.35 L 4.5-5.90 10^6/uL Hemoglobin 7.5 L 13.5-17.5 g/dL Hematocrit 21.8 L 41.0-53.0 % Mean Corpuscular Volume 92.9 80.0-100.0 fL Mean Corpuscular Hemoglobin 31.9 28.0-32.0 pg Mean Corpuscular Hemoglobin Concent 34.3 32.0-36.0 g/dL Red Cell Distribution Width 14.8 H 11.8-14.3 % Platelet Count 133 L 140-450 10^3/uL Mean Platelet Volume 8.8 6.9-10.8 fL Neutrophils (%) (Auto) 81.4 H 37.0-80.0 % Lymphocytes (%) (Auto) 6.1 L 10.0-50.0 % Monocytes (%) (Auto) 9.1 0.0-12.0 % Eosinophils (%) (Auto) 3.1 0.0-7.0 % Basophils (%) (Auto) 0.3 0.0-2.0 % Neutrophils # (Auto) 4.9 1.6-8.6 10 ^3/uL Lymphocytes # (Auto) 0.4 0.4-5.4 10 ^3/uL Monocytes # (Auto) 0.6 0-1.3 10 ^3/uL Eosinophils # (Auto) 0.2 0-0.8 10 ^3/uL Basophils # (Auto) 0 0-0.2 10 ^3/uL Nucleated Red Blood Cells 0.0 % Sodium Level 141 136-145 mmol/L Potassium Level 4.8 3.5-5.1 mmol/L Chloride Level 109 H 98-107 mmol/L Carbon Dioxide Level 24 20-31 mmol/L Anion Gap 8 5-15 Blood Urea Nitrogen 105 *H 9-23 mg/dL Creatinine 1.88 H 0.700-1.30 mg/dL Glomerular Filtration Rate Calc 44 >90 mL/min BUN/Creatinine Ratio 55.9 H 10.0-20.0 Serum Glucose 161 H 74-106 mg/dL Calcium Level 7.6 L 8.7-10.4 mg/dL Phosphorus Level 2.9 2.4-5.1 mg/dL Magnesium Level 2.1 1.6-2.6 mg/dL Total Bilirubin 0.6 0.2-1.0 mg/dL Aspartate Amino Transferase (AST) 85 H 13-40 U/L Alanine Aminotransferase (ALT) 42 H 7-40 U/L Alkaline Phosphatase 174 H 46-116 U/L Total Protein 4.5 L 5.7-8.2 g/dL Albumin 1.8 L 3.2-4.8 g/dL Blood Gas Specimen Type Arterial Blood Gas Sample Site Right radial Blood Gas Patient Temperature 37.0 Arterial Blood Date Drawn [id number] Arterial Blood pH 7.384 7.350-7.450 Arterial Blood Partial Pressure CO2 36.1 35.0-48.0 mmHg Arterial Blood Partial Pressure O2 124.7 H 83.0-108.0 mmHg Arterial Blood HCO3 21.1 21.0-28.0 mmol/L Arterial Blood Oxygen Saturation 97.5 94.0-98.0 % Arterial Blood Base Excess -3.6 L -2.0-3.0 mmol/L Arterial Blood Oxyhemoglobin 97.1 94.0-98.0 % Arterial Blood Carboxyhemoglobin 0.3 L 0.5-1.5 % Arterial Blood Methemoglobin 0.1 0.0-1.5 % Yunior Test Modified Blood Gas Total Hemoglobin 6.80 *L 13.5-17.5 g/dL Blood Gas Set Respiration Rate 16.0 Blood Gas Modality Vent - ac FiO2 % 30.0 Blood Gas Tidal Volume 450.0 Blood Gas PEEP or CPAP 5.0 Blood Gas Critical Value Read Back yes Blood Gas Notified Whom harriet narayanan md Blood Gas Notified Time [id number] Blood Gas Notified By power generation turbine room operator don mo Triglycerides Level 143 < 150 mg/dL Test 11/07/24 06:48 11/07/24 03:30 11/06/24 03:14 11/04/24 14:58 Range/Units Blood Gas Spontaneous Rate 24 Blood Gas Inspiratory Pressure 21.0 Bl Gas Inspiratory/Expiratory Ratio 1:2.7 Specimen Drawn By lewis gonzalez Lactic Acid Level 0.9 0.4-2.0 mmol/L Random Vancomycin Level 16.9 H 5-10 ug/mL Prothrombin Time 11.5 9.3-11.8 sec Prothrombin Time INR 1.09 0.9-1.15 Activated Partial Thromboplast Time 38.0 H 24.5-34.5 SEC Vancomycin Level Trough 29.6 H 5-10 ug/mL Test 11/03/24 03:00 10/30/24 08:27 10/30/24 03:12 10/29/24 06:10 Range/Units Differential Total Cells Counted 100.0 100 Neutrophils % (Manual) 86 H 37.0-80.0 Band Neutrophils % (Manual) 6 Lymphocytes % (Manual) 5 L 10.0-50.0 Monocytes % (Manual) 2 0-12 Eosinophils % (Manual) 0 0-7 Basophils % (Manual) 0 0.0-2.0 Metamyelocytes % (manual) 1 Myelocytes % (Manual) 0 Promyelocytes % (Manual) 0 Blast Cells % (Manual) 0 Reactive Lymphocytes 0 Smudge Cells 5 /100 WBC Platelet Estimate Decreased Miscellaneous Referred Test (Rm Tmp Sent to [facility] Large Platelets Few Anisocytosis (manual) Slight Test 10/28/24 12:30 10/26/24 18:40 10/26/24 02:52 10/25/24 19:03 Range/Units Urine Color Yellow Yellow Urine Clarity Cloudy H Clear Urine pH 5.5 5.0-9.0 Urine Specific [place] 1.023 1.001-1.035 Urine Protein 1+ H Negative Urine Ketones Negative Negative Urine Blood 3+ H Negative /uL Urine Nitrite Negative Negative Urine Bilirubin Negative Negative Urine Urobilinogen Normal Negative mg/dL Urine Leukocyte Esterase Negative Negative /uL Urine RBC 147 0 - 3 /hpf Urine Microscopic WBC 5 H 0-3 /HPF Urine Squamous Epithelial Cells Few <5 /hpf Urine Amorphous Crystals Few None Seen /hpf Urine Bacteria Few H None Seen /hpf Urine Mucus Few None Seen Urine Creatinine 32.03 30.0-125.0 mg/dL Urine Sodium 13 L 40-220 mmol/L Urine Glucose Normal Normal mg/dL Polychromasia Slight Microcytosis Slight Macrocytosis Slight Troponin I High Sensitivity 3 L </=54 ng/L B-Type Natriuretic Peptide 74.53 0-100 pg/mL Lipase 50 12-53 U/L Microbiology Date/Time Source Procedure Growth Status 10/30/24 03:25 Trachea Gram Stain - Final Resulted 10/30/24 03:25 Respiratory Culture - Preliminary Providencia rettgeri Escherichia coli Presumptive Blanca albicans Resulted 10/29/24 06:10 Blood Blood Culture - Final NO GROWTH AFTER 5 DAYS OF INCUBATION. Complete 10/26/24 13:25 Peritoneal Fluid Gram Stain - Final Complete 10/26/24 13:25 Anaerobic Culture - Final Bacteroides fragilis Prevotella melaninogenica Complete 10/26/24 13:25 Aerobic Culture - Final Pseudomonas aeruginosa Klebsiella pneumoniae Streptococcus Group F Complete 10/26/24 04:00 Voided Urine Urine Culture - Final Complete Problems(with codes): (1) Abdominal abscess (2) Septic shock (3) Bowel obstruction (4) Dehydration with hyponatremia (5) Acute kidney injury (6) Perforated abdominal viscus Plan/Recommendation ID Problem List: -- Septic shock -- Cardiac arrest, post-resuscitation -- Perforated stomach, post-operative status -- Intra-abdominal abscess -- Fungemia (Blanca albicans) -- Pseudomonas infection -- Acute kidney injury -- Thrombocytopenia -- Anemia (likely secondary to blood loss) -- Pneumonia -- Small bowel obstruction Assessment This is a 44-year-old male with no significant past medical or family history who presented with increased fatigue, upper abdominal pain, nausea, vomiting, g eneralized weakness, and inability to tolerate oral intake. On admission, the patient was found to have a distended, tender abdomen and palpable cervical and supraclavicular lymphadenopathy. Vital signs revealed hypoxia and relative hypotension. CT abdomen/pelvis without contrast demonstrated pneumoperitoneum, scattered ascites, and dilated small bowel consistent with small bowel obstruction and visceral perforation. Emergent exploratory laparotomy on 10/26 revealed a perforated proximal stomach just proximal to the pylorus, extensive peritoneal contamination, and dense intra-abdominal adhesions. The perforation was repaired; multiple cultures were sent. Microbiology demonstrated bloodstream infection with Blanca albicans and intra- abdominal cultures positive for Bacteroides fragilis, Prevotella melaninogenica, Pseudomonas aeruginosa, Klebsiella species, Streptococcus Group F, Providencia species, and Escherichia coli; respiratory cultures also grew Blanca albicans following a code event with likely aspiration. Post-operatively, the patient has been treated with broad-spectrum antimicrobials. Hospital course has been notable for episodes of hypothermia (as low as 97.3F), initially requiring vasopressor support, and a code event with cardiac arrest and pulselessness for approximately three minutes on 10/30, after which the patient was resuscitated. The patient had an initial MARIA FERNANDA (peak creatinine 1.88 mg/dL), anemia (hemoglobin sarath 6.6-7.5 g/dL), thrombocytopenia (platelets as low as 113,000), and ongoing fluid overload with 3+ edema in the extremities. Repeat abdominal CT on 11/03 showed interval increase in size of right-sided int ra-abdominal abscess (measuring up to 17.9 cm), persistent moderate ascites, and evidence of bowel-abscess communication. There is also evidence of bilateral pleural effusions, right greater than left, and adjacent consolidations concerning for pneumonia; these findings have been improving on serial imaging. The patient is currently on meropenem, micafungin, and daptomycin with most recent blood cultures showing improvement. He remains on minimal ventilatory support, with an abdominal drain in place (noted green fluid output), and no new open wounds. Vancomycin therapy has been discontinued due to elevated troughs and absence of Gram-positive organisms on recent cultures. Plan: -- Discontinue daptomycin. Continue meropenem and micafungin for ongoing intra-abdominal and fungal infection coverage. -- Maintain a two-week course of micafungin from the resolution of intra- abdominal abscess. -- Monitor drain output and clinical signs of intra-abdominal infection. -- Serial CT abdomen/pelvis every 1-2 weeks to monitor abscess resolution. -- Continue pressure support only if mean arterial pressure <65 mmHg; currently minimal vasopressor support required. -- Maintain O? saturation above 94%; defer ventilator weaning to primary/pulmonology as tolerated. -- Monitor for ongoing bowel leak versus fistula development; consider surgical intervention if infection or abscess fails to resolve. -- Pneumonia: Covered by current antibiotics. If there is lack of radiographic improvement, may consider thoracentesis to evaluate pleural effusion for infection. -- Anemia: Monitor hemoglobin. Transfuse if clinically indicated. -- Thrombocytopenia: Monitor counts, transfuse if indicated for bleeding or procedures. -- MARIA FERNANDA: Monitor renal function. Adjust dosing as needed. -- Outpatient ophthalmology follow-up after discharge to assess for potential complications of fungemia. -- Blood cultures: Repeat as clinically indicated. Monitor for further clearance. -- Infectious Disease will continue to follow. -- Plan is subject to change pending new clinical information or diagnostic data. Updates may be added as an addendum. Isolation Precautions: Standard Assessment and plan was discussed with the patient as written above Plan is subject to change pending incorporation of new incoming informati on/diagnostics. Updates may be added as addendum at the bottom (OR TOP) of this note Thank you for interesting consult. ID will continue to follow. Please contact Infectious Disease for any questions or concerns. Sagar Ross M.D. [facility] Ph: ? History: The patient's chart and medications were reviewed in detail and the patient was seen and examined. History obtained from: patient Mr. Ziggy Martinez is a 44-year-old male with no known past medical or family history, who presented with several days of increased fatigue, upper abdominal pain, nausea, vomiting, generalized weakness, and inability to tolerate oral intake. He reportedly had no known chronic illnesses, was not taking any medications, and had no known allergies. On admission, he was noted to have a distended abdomen and palpable cervical and supraclavicular lymphadenopathy. Initial workup revealed small bowel obstruction and evidence of visceral perforation. Patient underwent emergent exploratory laparotomy (10/26), which demonstrated perforation of the proximal stomach with luis contamination and extensive intra-abdominal adhesions. Post-operatively, he developed bloodstream infection with Blanca albicans, as well as polymicrobial intra-abdominal infection (including Bacteroides, Prevotella, Pseudomonas, Klebsiella, Streptococcus Group F, Providencia, and E. coli). Hospital course complicated by cardiac arrest and subsequent resuscitation, persistent sepsis, pneumonia, MARIA FERNANDA, thrombocytopenia, and anemia. Review of Systems: A complete 10-system review of systems was completed and negative except as noted in the HPI or here. CONSTITUTIONAL: Endorses fatigue and generalized weakness. Denies fever or chills since surgery; previously hypothermic. HEENT: Not discussed. RESPIRATORY: Reports no shortness of breath at baseline. Chest imaging shows persistent pleural effusions and pneumonia. CARDIOVASCULAR: Denies chest pain or palpitations. Admitted for cardiac arrest event post-code. GASTROINTESTINAL: Endorses abdominal pain, nausea, vomiting, inability to tolerate oral intake. GENITOURINARY: Not discussed. MUSCULOSKELETAL: Reports generalized edema; 3+ in upper and lower extremities. SKIN: Denies open wounds. No rashes. NEUROLOGICAL: No focal neurological deficits since code event. PSYCHIATRIC: Not discussed. Past Medical History: No known significant past medical history. Past Surgical History: Exploratory laparotomy with primary repair of perforated proximal stomach (10/26). No other prior surgical history reported. Home Medications: No home medications. Allergies: No known drug allergies. Family History: No known family history. Social History: No history of tobacco, alcohol, or drug use discussed. No other social history detailed. Objective: Vital Signs on Arrival: Temp: 98.5 F (36.9 C) BP: 107/65 mmHg Pulse: Not specifically stated Respiratory Rate: 23 SpO?: 95% on room air Most Recent Vital Signs: Not specified in transcript. Admission Weight/BMI: Not provided. Physical Exam: General: NAD Neck: Supple. No masses. Palpable tender cervical and supraclavicular lymphadenopathy. HEENT: PERRL. Normal lids and conjunctiva. Moist mucous membranes. Oropharynx without lesions, exudates or excessive erythema. Normal appearance of the external aspects of the nose and ears. Heart: Regular rhythm, normal rate. No murmur. 3+ upper and lower extremity edema. Lungs: Normal respiratory effort. Clear to auscultation bilaterally. No wheezes. No crackles. Abdomen: Distended. Tender. Abdominal drain present with green fluid output. Msk: No digital cyanosis. Normal strength and tone in all 4 limbs Skin: Warm and dry, no rashes. No open wounds. 3+ edema in extremities. Neuro: Alert. No facial droop or slurred speech. Extra-ocular movements intact. Sensation intact to soft touch in all 4 limbs. Psych: Appropriate mood. Full affect. Oriented to person, place, time, and situation. Lines: Abdominal drain present. No other invasive lines specifically mentioned. Diagnostic Studies: Available diagnostic studies were reviewed personally. Significant relevant results and findings are outlined below or addressed in the Assessment and Plan above. Pertinent Imaging: CT Abdomen/Pelvis (on admission): Pneumoperitoneum consistent with visceral perforation Scattered ascites Dilated small bowel, small bowel obstruction CT Abdomen/Pelvis (11/03): Interval increase in right raji-abdominal abscess (up to 17.9 cm), associated with midline abdominal drain Fluid collection contains contrast, concerning for communication with bowel No definite extraluminal contrast Improved small bowel caliber compared to prior Resolution of previous pneumoperitoneum Moderate ascites Diffuse mesenteric edema Bilateral pleural effusions and adjacent consolidation (right > left), concerning for pneumonia Chest X-rays: Multiple bilateral pleural effusions Left basilar atelectasis and pneumonia Findings improving on serial imaging Microbiology: Initial blood cultures: Blanca albicans (fungemia) Intra-abdominal cultures: Bacteroides fragilis, Prevotella melaninogenica, Pseudomonas aeruginosa, Klebsiella species, Streptococcus Group F, Providencia species, Escherichia coli Respiratory cultures: Blanca albicans Repeat blood cultures: improving Laboratory Data: WBC: 6.5 x 10/?L Hemoglobin: 7.5 g/dL (sarath 6.6 g/dL) Platelets: 113,000/?L Sodium: 141 mmol/L BUN: 105 mg/dL Creatinine: 1.88 mg/dL (MARIA FERNANDA, peaked at 1.7 mg/dL) AST: 42 U/L ALT: 85 U/L Alk Phos: 174 U/L Total bilirubin: 0.6 mg/dL Glucose: 118 mg/dL Vancomycin trough: 29.6 (elevated, vancomycin discontinued) Plan discussed with: Patient SAGAR ROSS MD November 09, 2024 17:26
[2024-11-09] MEDS: TPN PER PHARMACY IV NR (22:34)
[2024-11-10] VITALS (111 sets, daily range): BP systolic 136–172; BP diastolic 72–88; PULSE 88–113; RESP 15–40; TEMP 98.1–98.9; O2SAT 99–100
[2024-11-10 03:40] LABS: Basophils # (auto) 0 10 ^3/uL (0-0.2); Basophils % (auto) 0.3 % (0.0-2.0); Eosinophils # (auto) 0.2 10 ^3/uL (0-0.8); Hemoglobin 7.5 g/dL (13.5-17.5); Lymphocytes # (auto) 0.4 10 ^3/uL (0.4-5.4); Mean Corpuscular Volume 93.6 fL (80.0-100.0); Monocytes # (auto) 0.5 10 ^3/uL (0-1.3); Platelet Count (auto) 157 10^3/uL (140-450)
[2024-11-10 03:42] LABS: Eosinophils % (auto) 2.9 % (0.0-7.0); Hematocrit 22.1 % (41.0-53.0); Lymphocytes % (auto) 6.9 % (10.0-50.0); Mean Corpuscular Hemoglobin 31.7 pg (28.0-32.0); Mean Corpuscular Hgb Conc. 33.9 g/dL (32.0-36.0); Monocytes % (auto) 8.1 % (0.0-12.0); Neutrophils # (auto) 5.2 10 ^3/uL (1.6-8.6); Neutrophils % (auto) 81.8 % (37.0-80.0); Red Blood Cells 2.36 10^6/uL (4.5-5.90); Red Cell Distribution Width 14.4 % (11.8-14.3); White Blood Cell 6.4 10^3/uL (4.4-10.8)
[2024-11-10 03:53] LABS: Alanine Aminotransferase 45 U/L (7-40); Albumin 1.9 g/dL (3.2-4.8); Alkaline Phosphatase 180 U/L (46-116); Anion Gap 8 (5-15); Aspartate Aminotransferase 90 U/L (13-40); BUN/Creatinine Ratio 55.7 (10.0-20.0); Bilirubin, Total 0.4 mg/dL (0.2-1.0); Calcium 7.9 mg/dL (8.7-10.4); Carbon Dioxide 24 mmol/L (20-31); Chloride 110 mmol/L (98-107); Glucose 150 mg/dL (74-106); Magnesium 2.1 mg/dL (1.6-2.6); Phosphorus 3.1 mg/dL (2.4-5.1); Potassium 4.3 mmol/L (3.5-5.1); Sodium 142 mmol/L (136-145); Total Protein 4.8 g/dL (5.7-8.2)
[2024-11-10 04:08] LABS: Blood Urea Nitrogen 103 mg/dL (9-23)
--- NOTE | 2024-11-10 05:27 | DVH ---
CHEST RADIOGRAPH Indication: RESP FAILURE Technique: Single frontal view of the chest was obtained COMPARISON: XY CHEST PORTABLE on DOS: 11/09/24, XY CHEST PORTABLE on DOS: 11/08/24, XY CHEST PORTABLE on DOS: 11/07/24, XY CHEST XRAY 1 VIEW on DOS: 11/06/24, XY CHEST PORTABLE on DOS: 11/06/24 FINDINGS: Lines and Tubes: Unchanged. Lungs: Progressive mild interval decrease in multifocal parenchymal opacity with progressive clearing of the lung bases. Pleura: No effusion. No pneumothorax. Cardiomediastinal contours: Unremarkable Bones: Unremarkable IMPRESSION: 1. Progressive mild interval decrease in multifocal parenchymal opacity, most notably within the lung bases. 2. Lines and tubes unchanged.
--- NOTE | 2024-11-10 07:31 | DVHPN2 ---
Subjective Date Seen: November 10, 2024 Post op day Post op day: 16 Patient reports: Other (Remains intubated) Objective Vitals Vital Sign Date Time Temp Pulse Resp B/P (MAP) Pulse Ox O2 Delivery O2 Flow Rate FiO2 11/10/24 07:00 92 20 156/86 (109) 100 11/10/24 06:20 30 11/10/24 06:00 Mechanical Ventilator+ 11/10/24 04:00 98.4 98.4 Total Intake and Output 11/09/24 11/09/24 11/10/24 15:00 23:00 07:00 Intake Total 897.5 ml 740.0 ml 727 ml Output Total 550 ml 845 ml Balance 897.5 ml 190.0 ml -118 ml Medications Current Medications Medications Dose Ordered Sig/Neisha Route Start Time Stop Time Status Last Admin Dose Admin Amino Acids 0 ml @ 0 mls/hr PER PHARMACY IV 10/27/24 08:45 Diagnostic Test (Pha) 1 strip Q6HR 10/27/24 12:00 11/10/24 05:49 1 STRIP Insulin Human Regular FOLLOW SLIDING SCALE Q6HR SC 10/27/24 12:00 11/07/24 17:59 2 UNITS Dextrose 50 ml UD IV 10/27/24 09:45 Sodium Chloride 10 ml QSHIFT@10,22 IV 10/27/24 22:00 11/09/24 22:32 10 ML Pantoprazole Sodium 40 mg BID IV 10/28/24 22:00 11/09/24 22:32 40 MG Norepinephrine Bitartrate 250 ml @ 3.75 mls/hr Q24H IV 10/30/24 04:15 10/30/24 04:33 3.75 MLS/HR Midazolam HCl 50 ml @ 1 mls/hr Q24H IV 10/30/24 04:15 11/09/24 08:07 6 MLS/HR Levalbuterol HCl 0.625 mg Q6HR NEB 10/30/24 12:00 11/10/24 06:20 0.625 MG Ipratropium Steger 0.5 mg Q6HR NEB 10/30/24 12:00 11/10/24 06:20 0.5 MG Acetylcysteine 100 mg Q6HR NEB 10/30/24 12:00 11/10/24 06:20 100 MG Micafungin Sodium 100 mg/Sodium Chloride 100 ml @ 100 mls/hr DAILY IV 10/31/24 10:00 11/09/24 08:07 100 MLS/HR Meropenem 50 ml @ 17 mls/hr Q12H IV 11/03/24 18:00 11/10/24 05:49 17 MLS/HR Fentanyl Citrate 250 ml @ 2.5 mls/hr Q24H IV 11/08/24 14:45 11/10/24 05:55 30 MLS/HR Fat Emulsion Intravenous 200 ml/Sodium Acetate 50 meq/Calcium Gluconate 1.65 meq/Magnesium Sulfate 4 meq/ Multivitamins 10 ml/Chromium/ Copper/Manganese/ Zinc 1 ml/Amino Acids/Dextrose 1,340.5483 ml @ 56 mls/hr [id number] IV 11/09/24 22:00 11/10/24 21:59 11/09/24 22:34 56 MLS/HR General: Other (sedated , intubated) Labs and Microbiology Laboratory Tests 11/10/24 03:08 Test 11/10/24 03:08 Range/Units Serum Glucose 150 H 74-106 mg/dL Ass/Plan Labs and/or images reviewed: Labs reviewed by me, Image(s) reviewed by me Problem List MARIA FERNANDA due to hemodynamic mediated etiology secondary due to septic shock BUN elevation likely multifactorial due to sepsis/TPN/possible GI bleed/severe anemia status post transfusion Acute blood loss anemia most likely due to intraoperative blood loss Acute hypoxemic respiratory failure /pna Acute metabolic/toxic encephalopathy Transaminitis likely due to septic shock Candidemia Severe malnutrition recs Continue diuretics We will follow closely Assessment/Plan patient intubated , sedated, Joseph drain bilious output, abdomen slightly distended labs, notes reviewed Plan: empty JOSEPH drain every 2 hours continue current treatment Dr. Schilling agrees with plan 11/08/24 s/p cholecystectomy patient intubated , sedated JOSEPH drain more clear today , bilious output abdomen soft , non distended labs and notes reviewed , discussed with dr. Schilling Plan: continue current treatment 11/10/24 s/p cholecystectomy patient intubated , sedated JOSEPH drain bilious output abdomen soft , non distended labs and notes reviewed , discussed with dr. Schilling Plan; continue current treatment Prognosis: Excellent, Poor Plan discussed with Dr. Schilling, Nurse Visit Coding Surgery Date of Service if different f: November 10, 2024 Billing Provider: CHRIST SCHILLING MD Surgery Visit Codes: [id number] INP/OBS CARE(HIGH) AZRA RUST NP November 10, 2024 07:31
[2024-11-10 08:10] LABS: Base Excess -1.6 mmol/L (-2.0-3.0)
[2024-11-10] MEDS: PROPOFOL 100 ML IV SCH (10:45)
[2024-11-10] MEDS: FUROSEMIDE 20 MG/2 ML VIAL IV ONE (12:07)
--- NOTE | 2024-11-10 12:53 | DVHPN2 ---
Progress Note - Dictate Date Seen: November 10, 2024 Medical Necessity Reason Pt with a Central, PICC or Fol: Yes The following are medically ne: Persaud Catheter Reason for persaud catheter: Strict I&O vital signs Vital Sign Date Time Temp Pulse Resp B/P (MAP) Pulse Ox O2 Delivery O2 Flow Rate FiO2 11/10/24 12:12 30 11/10/24 12:12 20 100 Mechanical Ventilator+ 11/10/24 12:07 149/83 11/10/24 12:00 98.9 94 98.9 Total Intake and Output 11/09/24 11/09/24 11/10/24 15:00 23:00 07:00 Intake Total 897.5 ml 740.0 ml 727 ml Output Total 550 ml 845 ml Balance 897.5 ml 190.0 ml -118 ml medications Current Medications Medications Dose Ordered Sig/Neisha Route Start Time Stop Time Status Last Admin Dose Admin Amino Acids 0 ml @ 0 mls/hr PER PHARMACY IV 10/27/24 08:45 Diagnostic Test (Pha) 1 strip Q6HR 10/27/24 12:00 11/10/24 12:07 1 STRIP Insulin Human Regular FOLLOW SLIDING SCALE Q6HR SC 10/27/24 12:00 11/10/24 12:07 2 UNITS Dextrose 50 ml UD IV 10/27/24 09:45 Sodium Chloride 10 ml QSHIFT@10,22 IV 10/27/24 22:00 11/10/24 07:55 10 ML Pantoprazole Sodium 40 mg BID IV 10/28/24 22:00 11/10/24 07:55 40 MG Norepinephrine Bitartrate 250 ml @ 3.75 mls/hr Q24H IV 10/30/24 04:15 10/30/24 04:33 3.75 MLS/HR Levalbuterol HCl 0.625 mg Q6HR NEB 10/30/24 12:00 11/10/24 11:47 0.625 MG Ipratropium [place] 0.5 mg Q6HR NEB 10/30/24 12:00 11/10/24 11:47 0.5 MG Acetylcysteine 100 mg Q6HR NEB 10/30/24 12:00 11/10/24 11:47 100 MG Micafungin Sodium 100 mg/Sodium Chloride 100 ml @ 100 mls/hr DAILY IV 10/31/24 10:00 11/10/24 07:56 100 MLS/HR Meropenem 50 ml @ 17 mls/hr Q12H IV 11/03/24 18:00 11/10/24 05:49 17 MLS/HR Fentanyl Citrate 250 ml @ 2.5 mls/hr Q24H IV 11/08/24 14:45 11/10/24 05:55 30 MLS/HR Fat Emulsion Intravenous 200 ml/Sodium Acetate 50 meq/Calcium Gluconate 1.65 meq/Magnesium Sulfate 4 meq/ Multivitamins 10 ml/Chromium/ Copper/Manganese/ Zinc 1 ml/Amino Acids/Dextrose 1,340.5483 ml @ 56 mls/hr [id number] IV 11/09/24 22:00 11/10/24 21:59 11/09/24 22:34 56 MLS/HR Fat Emulsion Intravenous 100 ml/Sodium Acetate 30 meq/Magnesium Sulfate 4 meq/ Multivitamins 10 ml/Chromium/ Copper/Manganese/ Zinc 1 ml/Amino Acids/Dextrose 1,227 ml @ 51 mls/hr Q24H4M IV 11/10/24 22:00 11/11/24 21:59 Hydralazine HCl 10 mg Q4HP PRN IV 11/10/24 10:45 Propofol 100 ml @ 1.818 mls/ hr Q24H IV 11/10/24 10:45 laboratory and microbiology Laboratory Tests 11/10/24 03:08 Test 11/10/24 03:08 Range/Units Serum Glucose 150 H 74-106 mg/dL Assessment/Plan 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 44 yo male intubated for perforated bowel peritonitis events on mechanical ventilation s/p intubation peep 5, FiO2 30% chronic sepsis s/p ex lap ALLISON-drains in place abd non distended on iv abx off pressors imaging CXR and CTA reviewed labs reviewed plan continue supportive care can not be weaned off the vent at this point may require trache/LTAC placement abx bronchodilators post-op care nutrition dvt proph prognosis very poor Dietary Evaluation Review Comments: 1) Conitnue TPN to provide at least 75% estimated needs 2) Advance diet as medically feasible 3) Continue current plan of care Expected Outcomes/Goals: GI symptoms to improve To meet >75% estimated needs Fu 2-3 days Plan discussed with: Other (Rn) DREA BECERRIL MD November 10, 2024 12:53
--- NOTE | 2024-11-10 16:31 | DVHPN2 ---
Progress Note Date Seen: November 10, 2024 Medical Necessity Reason Pt with a Central, PICC or Fol: Yes The following are medically ne: Persaud Catheter Reason for persaud catheter: Strict I&O Subjective Patient reports: Other (intubated) Review of Systems: Deferred Objective vital signs Vital Sign Date Time Temp Pulse Resp B/P (MAP) Pulse Ox O2 Delivery O2 Flow Rate FiO2 11/10/24 16:22 30 11/10/24 16:22 20 100 Mechanical Ventilator+ 11/10/24 16:15 105 160/80 (106) 11/10/24 16:00 98.2 98.2 Total Intake and Output 11/09/24 11/09/24 11/10/24 15:00 23:00 07:00 Intake Total 897.5 ml 740.0 ml 727 ml Output Total 550 ml 845 ml Balance 897.5 ml 190.0 ml -118 ml medications Current Medications Medications Dose Ordered Sig/Neisha Route Start Time Stop Time Status Last Admin Dose Admin Amino Acids 0 ml @ 0 mls/hr PER PHARMACY IV 10/27/24 08:45 Diagnostic Test (Pha) 1 strip Q6HR 10/27/24 12:00 11/10/24 12:07 1 STRIP Insulin Human Regular FOLLOW SLIDING SCALE Q6HR SC 10/27/24 12:00 11/10/24 12:07 2 UNITS Dextrose 50 ml UD IV 10/27/24 09:45 Sodium Chloride 10 ml QSHIFT@10,22 IV 10/27/24 22:00 11/10/24 07:55 10 ML Pantoprazole Sodium 40 mg BID IV 10/28/24 22:00 11/10/24 07:55 40 MG Norepinephrine Bitartrate 250 ml @ 3.75 mls/hr Q24H IV 10/30/24 04:15 10/30/24 04:33 3.75 MLS/HR Levalbuterol HCl 0.625 mg Q6HR NEB 10/30/24 12:00 11/10/24 11:47 0.625 MG Ipratropium [place] 0.5 mg Q6HR NEB 10/30/24 12:00 11/10/24 11:47 0.5 MG Acetylcysteine 100 mg Q6HR NEB 10/30/24 12:00 11/10/24 11:47 100 MG Micafungin Sodium 100 mg/Sodium Chloride 100 ml @ 100 mls/hr DAILY IV 10/31/24 10:00 11/10/24 07:56 100 MLS/HR Meropenem 50 ml @ 17 mls/hr Q12H IV 11/03/24 18:00 11/10/24 05:49 17 MLS/HR Fentanyl Citrate 250 ml @ 2.5 mls/hr Q24H IV 11/08/24 14:45 11/10/24 13:18 32.5 MLS/HR Fat Emulsion Intravenous 200 ml/Sodium Acetate 50 meq/Calcium Gluconate 1.65 meq/Magnesium Sulfate 4 meq/ Multivitamins 10 ml/Chromium/ Copper/Manganese/ Zinc 1 ml/Amino Acids/Dextrose 1,340.5483 ml @ 56 mls/hr [id number] IV 11/09/24 22:00 11/10/24 21:59 11/09/24 22:34 56 MLS/HR Fat Emulsion Intravenous 100 ml/Sodium Acetate 30 meq/Magnesium Sulfate 4 meq/ Multivitamins 10 ml/Chromium/ Copper/Manganese/ Zinc 1 ml/Amino Acids/Dextrose 1,227 ml @ 51 mls/hr Q24H4M IV 11/10/24 22:00 11/11/24 21:59 Hydralazine HCl 10 mg Q4HP PRN IV 11/10/24 10:45 Propofol 100 ml @ 1.818 mls/ hr Q24H IV 11/10/24 10:45 Examination: MSK:Abnormal (edema) laboratory and microbiology Laboratory Tests 11/10/24 03:08 Test 11/10/24 03:08 Range/Units Serum Glucose 150 H 74-106 mg/dL Microbiology Date/Time Source Procedure Growth Status 10/30/24 03:25 Trachea Gram Stain - Final Resulted 10/30/24 03:25 Respiratory Culture - Preliminary Providencia rettgeri Escherichia coli Presumptive Blanca albicans Resulted 10/29/24 06:10 Blood Blood Culture - Final NO GROWTH AFTER 5 DAYS OF INCUBATION. Complete 10/26/24 13:25 Peritoneal Fluid Gram Stain - Final Complete 10/26/24 13:25 Anaerobic Culture - Final Bacteroides fragilis Prevotella melaninogenica Complete 10/26/24 13:25 Aerobic Culture - Final Pseudomonas aeruginosa Klebsiella pneumoniae Streptococcus Group F Complete 10/26/24 04:00 Voided Urine Urine Culture - Final Complete Problem List/Assessment/Plan Problem List/Assessment/Plan MARIA FERNANDA due to hemodynamic mediated etiology secondary due to septic shock BUN elevation likely multifactorial due to sepsis/TPN/possible GI bleed/severe anemia status post transfusion Acute blood loss anemia most likely due to intraoperative blood loss Acute hypoxemic respiratory failure /pna Acute metabolic/toxic encephalopathy Transaminitis likely due to septic shock Candidemia Severe malnutrition recs Continue diuretics given edema We will follow closely Plan discussed with: Other Dietary Evaluation Review Comments: 1) Conitnue TPN to provide at least 75% estimated needs 2) Advance diet as medically feasible 3) Continue current plan of care Expected Outcomes/Goals: GI symptoms to improve To meet >75% estimated needs Fu 2-3 days ISIDRO KELLEY MD November 10, 2024 16:31
[2024-11-10] MEDS: FUROSEMIDE 40 MG/4 ML VIAL IV SCH (18:01)
[2024-11-10] MEDS: TPN PER PHARMACY IV NR (22:57)
[2024-11-11] VITALS (105 sets, daily range): BP systolic 135–239; BP diastolic 68–140; PULSE 87–125; RESP 8–30; TEMP 98.4–98.8; O2SAT 99–100
[2024-11-11 01:58] LABS: Basophils # (auto) 0.1 10 ^3/uL (0-0.2); Eosinophils # (auto) 0.2 10 ^3/uL (0-0.8); Hemoglobin 7.2 g/dL (13.5-17.5); Monocytes # (auto) 0.5 10 ^3/uL (0-1.3); Neutrophils # (auto) 5.1 10 ^3/uL (1.6-8.6); Nucleated Red Blood Cells % 0.1 %; Red Cell Distribution Width 16.8 % (11.8-14.3); White Blood Cell 6.3 10^3/uL (4.4-10.8)
[2024-11-11 02:00] LABS: Basophils % (auto) 1.4 % (0.0-2.0); Eosinophils % (auto) 3.4 % (0.0-7.0); Hematocrit 23.5 % (41.0-53.0); Lymphocytes # (auto) 0.4 10 ^3/uL (0.4-5.4); Mean Corpuscular Hemoglobin 33.6 pg (28.0-32.0); Mean Corpuscular Hgb Conc. 30.7 g/dL (32.0-36.0); Mean Corpuscular Volume 109.6 fL (80.0-100.0); Monocytes % (auto) 7.3 % (0.0-12.0); Neutrophils % (auto) 80.9 % (37.0-80.0); Platelet Count (auto) 163 10^3/uL (140-450); Red Blood Cells 2.15 10^6/uL (4.5-5.90)
[2024-11-11 04:18] LABS: Alanine Aminotransferase 59 U/L (7-40); Albumin 1.9 g/dL (3.2-4.8); Alkaline Phosphatase 195 U/L (46-116); Anion Gap 8 (5-15); Aspartate Aminotransferase 89 U/L (13-40); BUN/Creatinine Ratio 58.7 (10.0-20.0); Bilirubin, Total 0.4 mg/dL (0.2-1.0); Calcium 7.9 mg/dL (8.7-10.4); Carbon Dioxide 25 mmol/L (20-31); Chloride 109 mmol/L (98-107); Glucose 137 mg/dL (74-106); Phosphorus 3.1 mg/dL (2.4-5.1); Potassium 3.7 mmol/L (3.5-5.1); Sodium 142 mmol/L (136-145); Total Protein 4.9 g/dL (5.7-8.2)
[2024-11-11 04:19] LABS: Blood Urea Nitrogen 101 mg/dL (9-23)
--- NOTE | 2024-11-11 05:26 | DVH ---
EXAM: XR Chest, 1 View CLINICAL INDICATION: resp failure TECHNIQUE: Frontal view of the chest. COMPARISON: XY CHEST PORTABLE on DOS: 11/10/24, XY CHEST PORTABLE on DOS: 11/09/24, XY CHEST PORTABLE o n DOS: 11/08/24, XY CHEST PORTABLE on DOS: 11/07/24, XY CHEST XRAY 1 VIEW on DOS: 11/06/24 FINDINGS: LUNGS AND PLEURAL SPACES: Pulmonary congestion and edema. Pneumonia cannot be excluded. Bilateral pleural effusions. No pneumothorax. HEART: Unremarkable. No cardiomegaly. MEDIASTINUM: Unremarkable. Normal mediastinal contour. BONES/JOINTS: Unremarkable. No acute fracture. TUBES, LINES AND DEVICES: The endotracheal tube (ETT) is in satisfactory position. Enteric tube ti p cannot be seen but is below the diaphragm. OTHER FINDINGS: . . . . IMPRESSION: 1. Pulmonary congestion and edema. Pneumonia cannot be excluded. 2. Bilateral pleural effusions.
[2024-11-11] MEDS: hydrALAZINE HCL 20 MG/ML VL IV PRN (06:56)
[2024-11-11 07:38] LABS: Base Excess -1.3 mmol/L (-2.0-3.0)
--- NOTE | 2024-11-11 10:39 | DVHPN2 ---
Subjective Patient was intubated and sedated Reviewed: Care Plan, H&P, Labs, Medications, Previous Orders, Radiology, Other (Consultations) Changes from previous H/P or p: No Changes General: Per HPI Objective Vitals Vital Signs Date Time Temp Pulse Resp B/P (MAP) Pulse Ox O2 Delivery O2 Flow Rate FiO2 11/11/24 09:49 125 22 182/93 (122) 100 30 11/11/24 08:00 Mechanical Ventilator+ 11/11/24 04:00 98.4 98.4 Intake/Output Intake and Output 11/11/24 07:00 Intake Total 2269.317 ml Output Total 2025 ml Balance 244.317 ml Intake Oral 0 ml IV Total 2269.317 ml Output Urine Total 1800 ml Stool Total 0 ml Gastric Drainage Total 25 ml Drainage Total 200 ml General Appearance: Other (Intubated and sedated) HEENT: Atraumatic Lungs: Other (Mechanical ventilation sounds) Cardiovascular: Normal S1, Normal S2, Other (Tachycardia) Abdomen: Other (ALLISON drain with biliary green fluid; no bowel sounds) Genitourinary: Other (Echavarria's) Neuro: Other (Intubated and sedated) Skin: Wounds (See nurse notes and pictures) Psych/Mental Status: Other (Intubated and sedated) Medications Current Medications Medications Dose Ordered Sig/Neisha Route Start Time Stop Time Status Last Admin Dose Admin Amino Acids 0 ml @ 0 mls/hr PER PHARMACY IV 10/27/24 08:45 Diagnostic Test (Pha) 1 strip Q6HR 10/27/24 12:00 11/11/24 06:56 1 STRIP Insulin Human Regular FOLLOW SLIDING SCALE Q6HR SC 10/27/24 12:00 11/10/24 12:07 2 UNITS Dextrose 50 ml UD IV 10/27/24 09:45 Sodium Chloride 10 ml QSHIFT@10,22 IV 10/27/24 22:00 11/10/24 23:00 10 ML Pantoprazole Sodium 40 mg BID IV 10/28/24 22:00 11/10/24 22:55 40 MG Norepinephrine Bitartrate 250 ml @ 3.75 mls/hr Q24H IV 10/30/24 04:15 10/30/24 04:33 3.75 MLS/HR Levalbuterol HCl 0.625 mg Q6HR NEB 10/30/24 12:00 11/11/24 06:36 0.625 MG Ipratropium [place] 0.5 mg Q6HR NEB 10/30/24 12:00 11/11/24 06:36 0.5 MG Acetylcysteine 100 mg Q6HR NEB 10/30/24 12:00 11/11/24 06:37 100 MG Micafungin Sodium 100 mg/Sodium Chloride 100 ml @ 100 mls/hr DAILY IV 10/31/24 10:00 11/10/24 07:56 100 MLS/HR Meropenem 50 ml @ 17 mls/hr Q12H IV 11/03/24 18:00 11/11/24 06:56 17 MLS/HR Fentanyl Citrate 250 ml @ 2.5 mls/hr Q24H IV 11/08/24 14:45 11/11/24 03:16 22.5 MLS/HR Fat Emulsion Intravenous 100 ml/Sodium Acetate 30 meq/Magnesium Sulfate 4 meq/ Multivitamins 10 ml/Chromium/ Copper/Manganese/ Zinc 1 ml/Amino Acids/Dextrose 1,227 ml @ 51 mls/hr Q24H4M IV 11/10/24 22:00 11/11/24 21:59 11/10/24 22:57 51 MLS/HR Hydralazine HCl 10 mg Q4HP PRN IV 11/10/24 10:45 11/11/24 06:56 10 MG Propofol 100 ml @ 1.818 mls/ hr Q24H IV 11/10/24 10:45 11/10/24 16:47 1.818 MLS/HR Furosemide 40 mg BIDD IV 11/10/24 18:00 11/11/24 06:55 40 MG Laboratory Results Laboratory Tests 11/11/24 01:50 11/11/24 03:26 Chemistry Test 11/11/24 03:26 Albumin 1.9 g/dL (3.2-4.8) L Calcium Level 7.9 mg/dL (8.7-10.4) L Magnesium Level 2.0 mg/dL (1.6-2.6) Phosphorus Level 3.1 mg/dL (2.4-5.1) Total Protein 4.9 g/dL (5.7-8.2) L LFT Test 11/11/24 03:26 Alanine Aminotransferase (ALT) 59 U/L (7-40) H Alkaline Phosphatase 195 U/L (46-116) H Aspartate Amino Transferase (AST) 89 U/L (13-40) H Total Bilirubin 0.4 mg/dL (0.2-1.0) Urinalysis Test 10/28/24 12:30 Urine Color Yellow (Yellow) Urine Clarity Cloudy (Clear) H Urine pH 5.5 (5.0-9.0) Urine Specific [place] 1.023 (1.001-1.035) Urine Protein 1+ (Negative) H Urine Ketones Negative (Negative) Urine Blood 3+ /uL (Negative) H Urine Nitrite Negative (Negative) Urine Bilirubin Negative (Negative) Urine Urobilinogen Normal mg/dL (Negative) Urine Leukocyte Esterase Negative /uL (Negative) Urine RBC 147 /hpf (0 - 3) Urine Microscopic WBC 5 /HPF (0-3) H Urine Squamous Epithelial Cells Few /hpf (<5) Urine Amorphous Crystals Few /hpf (None Seen) Urine Bacteria Few /hpf (None Seen) H Urine Mucus Few (None Seen) Urine Creatinine 32.03 mg/dL (30.0-125.0) Urine Sodium 13 mmol/L (40-220) L Urine Glucose Normal mg/dL (Normal) Blood Gas Results Test 11/11/24 07:28 Arterial Blood pH 7.439 (7.350-7.450) FiO2 % 30.0 Microbiology Microbiology Date/Time Source Procedure Growth Status 10/30/24 03:25 Trachea Gram Stain - Final Resulted 10/30/24 03:25 Respiratory Culture - Preliminary Providencia rettgeri Escherichia coli Presumptive Blanca albicans Resulted 10/29/24 06:10 Blood Blood Culture - Final NO GROWTH AFTER 5 DAYS OF INCUBATION. Complete 10/26/24 13:25 Peritoneal Fluid Gram Stain - Final Complete 10/26/24 13:25 Anaerobic Culture - Final Bacteroides fragilis Prevotella melaninogenica Complete 10/26/24 13:25 Aerobic Culture - Final Pseudomonas aeruginosa Klebsiella pneumoniae Streptococcus Group F Complete 10/26/24 04:00 Voided Urine Urine Culture - Final Complete Labs and/or images reviewed: Labs reviewed by me, Image(s) reviewed by me Assessment/Plan Assessment/Plan Impression: -sepsis , yeast in the blood -perforated gastric ulcer, status post exploratory laparotomy with repair of ulcer, lysis of adhesions -pneumoperitoneum with multiple gastric adhesions and abscess -acute kidney injury, vasomotor nephropathy -cachexia -postop anemia Plan: -Events: No events overnight. Continues to be tachycardic. NG tube with bilious secretions. ALLISON drain to left lower quadrant with leakage around drain, noted to have thick bilious secretions. -continue current ventilator settings per pulmonology. Spontaneous breathing trial per their recommendations -continue TPN -PUD, DVT prophylaxis -IV antibiotics per Infectious Disease -PPI -Cont sedation: Versed, Fent -repeat labs, chest x-ray, ABG daily Critical Care time spent with patient discussing and formulating plan of care: 40 minutes. This medical document was created using an electronic medical record system with [employer] dictation system. Although this document has been carefully reviewed, there may still be some phonetic and typographical errors. These areas are purely typographical due to imperfections of the software programs, and do not reflect any compromise in the patient's medical care. Plan discussed with: Patient, Other (RN) My Orders Orders - IRMA WAITE NP Procedure Category Date Status Time Complete Blood Count LAB 11/12/24 Verified 04:00 Date of Service: November 11, 2024 Billing Provider: IRMA WAITE NP Common Visit Codes: 82057-[id number] 30-74 MIN IRMA WAITE NP November 11, 2024 10:39
--- NOTE | 2024-11-11 14:28 | DVHPN2 ---
Progress Note Date Seen: November 11, 2024 Resident Creating Document: LUANN PLUNKETT RESIDENT Medical Necessity Reason Pt with a Central, PICC or Fol: Yes The following are medically ne: Persaud Catheter Reason for persaud catheter: Strict I&O Subjective Review of Systems Patient seen and examined at bedside. Patient is currently intubated on mechanical ventilation on the following ventilatory parameters: VT 450, if 20, FiO2 30%, PEEP 5.0. From nephrology stand point we will increase furosemide to 60mg IV BID and IV albumin 25% q.8, since the patient is still having significant bilateral 2+pitting edema extending up to bilateral thighs and upper extremities. ALLISON drainage is draining approximately 90 cc in the last 24 hours which is bile colored greenish/blackish color. Patient was having sinus tachycardia but saturating 100% on minimal ventilatory settings and bilateral lung sounds grossly clear. ROS unable to obtain due to patient's current status intubated. Objective vital signs Vital Sign Date Time Temp Pulse Resp B/P (MAP) Pulse Ox O2 Delivery O2 Flow Rate FiO2 11/11/24 14:01 113 25 135/68 (90) 100 30 11/11/24 12:00 98.7 98.7 11/11/24 12:00 Mechanical Ventilator+ Total Intake and Output 11/10/24 11/10/24 11/11/24 15:00 23:00 07:00 Intake Total 821.5 ml 797.817 ml 650.0 ml Output Total 825 ml 1200 ml Balance 821.5 ml -27.183 ml -550.0 ml medications Current Medications Medications Dose Ordered Sig/Neisha Route Start Time Stop Time Status Last Admin Dose Admin Amino Acids 0 ml @ 0 mls/hr PER PHARMACY IV 10/27/24 08:45 Diagnostic Test (Pha) 1 strip Q6HR 10/27/24 12:00 11/11/24 12:26 1 STRIP Insulin Human Regular FOLLOW SLIDING SCALE Q6HR SC 10/27/24 12:00 11/11/24 12:27 2 UNITS Dextrose 50 ml UD IV 10/27/24 09:45 Sodium Chloride 10 ml QSHIFT@10,22 IV 10/27/24 22:00 11/11/24 10:00 10 ML Pantoprazole Sodium 40 mg BID IV 10/28/24 22:00 11/11/24 11:52 40 MG Norepinephrine Bitartrate 250 ml @ 3.75 mls/hr Q24H IV 10/30/24 04:15 10/30/24 04:33 3.75 MLS/HR Levalbuterol HCl 0.625 mg Q6HR NEB 10/30/24 12:00 11/11/24 11:51 0.625 MG Ipratropium [place] 0.5 mg Q6HR NEB 10/30/24 12:00 11/11/24 11:51 0.5 MG Acetylcysteine 100 mg Q6HR NEB 10/30/24 12:00 11/11/24 11:51 100 MG Micafungin Sodium 100 mg/Sodium Chloride 100 ml @ 100 mls/hr DAILY IV 10/31/24 10:00 11/11/24 11:52 100 MLS/HR Meropenem 50 ml @ 17 mls/hr Q12H IV 11/03/24 18:00 11/11/24 06:56 17 MLS/HR Fentanyl Citrate 250 ml @ 2.5 mls/hr Q24H IV 11/08/24 14:45 11/11/24 03:16 22.5 MLS/HR Fat Emulsion Intravenous 100 ml/Sodium Acetate 30 meq/Magnesium Sulfate 4 meq/ Multivitamins 10 ml/Chromium/ Copper/Manganese/ Zinc 1 ml/Amino Acids/Dextrose 1,227 ml @ 51 mls/hr Q24H4M IV 11/10/24 22:00 11/11/24 21:59 11/10/24 22:57 51 MLS/HR Propofol 100 ml @ 1.818 mls/ hr Q24H IV 11/10/24 10:45 11/10/24 16:47 1.818 MLS/HR Fat Emulsion Intravenous 200 ml/Potassium Acetate 30 meq/ Magnesium Sulfate 6 meq/ Multivitamins 10 ml/Chromium/ Copper/Manganese/ Zinc 1 ml/Amino Acids/Dextrose 1,327.5 ml @ 55 mls/hr Q24H9M IV 11/11/24 22:00 11/12/24 21:59 Labetalol HCl 10 mg Q2HPRN PRN IV 11/11/24 12:15 Albumin Human 100 ml @ 100 mls/hr Q8H IV 11/11/24 12:30 11/12/24 05:29 Furosemide 60 mg BIDD IV 11/11/24 18:00 Examination Physical Examination General: Patient currently intubated on the following mechanical ventilatory settings: VT 450, if 20, FiO2 30%, PEEP 5.0 sat 100% HEENT: Normocephalic, atraumatic, moist mucous membranes Respiratory/pulmonary: Clear lungs bilaterally, no associated crackles or wheezes. Cardiovascular: Normal heart sounds S1 and S2 with no associated murmurs Abdomen: Abdomen nondistended, there is no pain to palpation in any of the abdominal quadrants, no palpable masses. ALLISON drainage is draining 90 cc in the last 24 hours greenish/blackish in color Extremities: There is significant 2+ pitting edema on bilateral lower extremities from both foots all the way up to bilateral thighs. Peripheral Pulses: 3+ Radial (R). 3+ Radial (L). 3+ Dorsalis pedis (R). 3+ Dorsalis pedis(L) Skin: No rashes or pruritus, there is no sacral edema present at this time. Neurological: RASS -1, pupils reactive to light. laboratory and microbiology Laboratory Tests 11/11/24 03:26 11/11/24 01:50 Test 11/11/24 03:26 Range/Units Serum Glucose 137 H 74-106 mg/dL Microbiology Date/Time Source Procedure Growth Status 10/30/24 03:25 Trachea Gram Stain - Final Resulted 10/30/24 03:25 Respiratory Culture - Preliminary Providencia rettgeri Escherichia coli Presumptive Blanca albicans Resulted 10/29/24 06:10 Blood Blood Culture - Final NO GROWTH AFTER 5 DAYS OF INCUBATION. Complete 10/26/24 13:25 Peritoneal Fluid Gram Stain - Final Complete 10/26/24 13:25 Anaerobic Culture - Final Bacteroides fragilis Prevotella melaninogenica Complete 10/26/24 13:25 Aerobic Culture - Final Pseudomonas aeruginosa Klebsiella pneumoniae Streptococcus Group F Complete 10/26/24 04:00 Voided Urine Urine Culture - Final Complete Problem List/Assessment/Plan Problem List/Assessment/Plan Assessment/plan MARIA FERNANDA likely hemodynamic mediated in the setting of septic shock Uremia likely multifactorial due to sepsis/TPN/possible GI bleed/severe anemia status post transfusion Acute blood loss anemia most likely due to intraoperative blood loss/ gastric ulcer perforation Acute hypoxemic respiratory failure, possible bacterial pneumonia Acute metabolic/toxic encephalopathy Transaminitis likely due to septic shock Candidemia Severe malnutrition Plan -Will increase furosemide from 40 to 60mg IV BID -Will add albumin 25% IV Q8 to help with oncotic preassure and furosemide action -Eval possibility of starting prophylactic lovenox, risks and benefits depending on HB which is low but patient is in hypercoagulable state -avoid nephrotoxic drugs -creatinine slightly improving 1.88-1.85 and now 1.72, BUN 101 -continue monitoring kidney function -follow close recommendations by surgery team regarding possible fluid collection drainage Goals of care discussed with nurse, academic coordinator. Plan discussed with Addendum Patient seen and examined, plan discussed with resident. Agree with above, we will follow closely Plan discussed with: Other Dietary Evaluation Review Comments: 1) Conitnue TPN to provide at least 75% estimated needs 2) Advance diet as medically feasible 3) Continue current plan of care Expected Outcomes/Goals: GI symptoms to improve To meet >75% estimated needs Fu 2-3 days LUANN PLUNKETT November 11, 2024 14:28 ISIDRO KELLEY MD November 11, 2024 15:37
[2024-11-11] MEDS: ALBUMIN 25% 100 ML IV SCH (16:30)
--- NOTE | 2024-11-11 16:30 | DVHPN2 ---
Reviewed: Care Plan, H&P, Labs, Medications, Previous Orders, Radiology, Other (Consultations) Changes from previous H/P or p: No Changes General: Per HPI Objective Vitals Vital Signs Date Time Temp Pulse Resp B/P (MAP) Pulse Ox O2 Delivery O2 Flow Rate FiO2 11/11/24 16:00 30 11/11/24 16:00 20 100 Mechanical Ventilator+ 11/11/24 15:56 115 140/69 (92) 11/11/24 12:00 98.7 98.7 Intake/Output Intake and Output 11/11/24 07:00 Intake Total 2269.317 ml Output Total 2025 ml Balance 244.317 ml Intake Oral 0 ml IV Total 2269.317 ml Output Urine Total 1800 ml Stool Total 0 ml Gastric Drainage Total 25 ml Drainage Total 200 ml General Appearance: Other (Intubated and sedated) HEENT: Atraumatic Lungs: Other (Mechanical ventilation sounds) Cardiovascular: Normal S1, Normal S2, Other (Tachycardia) Abdomen: Other (ALLISON drain with biliary green fluid; no bowel sounds) Genitourinary: Other (Echavarria's) Neuro: Other (Intubated and sedated) Skin: Wounds (See nurse notes and pictures) Psych/Mental Status: Other (Intubated and sedated) Medications Current Medications Medications Dose Ordered Sig/Neisha Route Start Time Stop Time Status Last Admin Dose Admin Amino Acids 0 ml @ 0 mls/hr PER PHARMACY IV 10/27/24 08:45 Diagnostic Test (Pha) 1 strip Q6HR 10/27/24 12:00 11/11/24 12:26 1 STRIP Insulin Human Regular FOLLOW SLIDING SCALE Q6HR SC 10/27/24 12:00 11/11/24 12:27 2 UNITS Dextrose 50 ml UD IV 10/27/24 09:45 Sodium Chloride 10 ml QSHIFT@10,22 IV 10/27/24 22:00 11/11/24 10:00 10 ML Pantoprazole Sodium 40 mg BID IV 10/28/24 22:00 11/11/24 11:52 40 MG Norepinephrine Bitartrate 250 ml @ 3.75 mls/hr Q24H IV 10/30/24 04:15 10/30/24 04:33 3.75 MLS/HR Levalbuterol HCl 0.625 mg Q6HR NEB 10/30/24 12:00 11/11/24 11:51 0.625 MG Ipratropium [place] 0.5 mg Q6HR NEB 10/30/24 12:00 11/11/24 11:51 0.5 MG Acetylcysteine 100 mg Q6HR NEB 10/30/24 12:00 11/11/24 11:51 100 MG Micafungin Sodium 100 mg/Sodium Chloride 100 ml @ 100 mls/hr DAILY IV 10/31/24 10:00 11/11/24 11:52 100 MLS/HR Meropenem 50 ml @ 17 mls/hr Q12H IV 11/03/24 18:00 11/11/24 06:56 17 MLS/HR Fentanyl Citrate 250 ml @ 2.5 mls/hr Q24H IV 11/08/24 14:45 11/11/24 03:16 22.5 MLS/HR Fat Emulsion Intravenous 100 ml/Sodium Acetate 30 meq/Magnesium Sulfate 4 meq/ Multivitamins 10 ml/Chromium/ Copper/Manganese/ Zinc 1 ml/Amino Acids/Dextrose 1,227 ml @ 51 mls/hr Q24H4M IV 11/10/24 22:00 11/11/24 21:59 11/10/24 22:57 51 MLS/HR Propofol 100 ml @ 1.818 mls/ hr Q24H IV 11/10/24 10:45 11/10/24 16:47 1.818 MLS/HR Potassium Acetate 30 meq/Magnesium Sulfate 6 meq/ Multivitamins 10 ml/Chromium/ Copper/Manganese/ Zinc 1 ml/Amino Acids/Dextrose 1,127.5 ml @ 47 mls/hr Q24H IV 11/11/24 22:00 11/12/24 21:59 Labetalol HCl 10 mg Q2HPRN PRN IV 11/11/24 12:15 Albumin Human 100 ml @ 100 mls/hr Q8H IV 11/11/24 12:30 11/12/24 05:29 Furosemide 60 mg BIDD IV 11/11/24 18:00 Laboratory Results Laboratory Tests 11/11/24 01:50 11/11/24 03:26 Chemistry Test 11/11/24 03:26 Albumin 1.9 g/dL (3.2-4.8) L Calcium Level 7.9 mg/dL (8.7-10.4) L Magnesium Level 2.0 mg/dL (1.6-2.6) Phosphorus Level 3.1 mg/dL (2.4-5.1) Total Protein 4.9 g/dL (5.7-8.2) L LFT Test 11/11/24 03:26 Alanine Aminotransferase (ALT) 59 U/L (7-40) H Alkaline Phosphatase 195 U/L (46-116) H Aspartate Amino Transferase (AST) 89 U/L (13-40) H Total Bilirubin 0.4 mg/dL (0.2-1.0) Urinalysis Test 10/28/24 12:30 Urine Color Yellow (Yellow) Urine Clarity Cloudy (Clear) H Urine pH 5.5 (5.0-9.0) Urine Specific [place] 1.023 (1.001-1.035) Urine Protein 1+ (Negative) H Urine Ketones Negative (Negative) Urine Blood 3+ /uL (Negative) H Urine Nitrite Negative (Negative) Urine Bilirubin Negative (Negative) Urine Urobilinogen Normal mg/dL (Negative) Urine Leukocyte Esterase Negative /uL (Negative) Urine RBC 147 /hpf (0 - 3) Urine Microscopic WBC 5 /HPF (0-3) H Urine Squamous Epithelial Cells Few /hpf (<5) Urine Amorphous Crystals Few /hpf (None Seen) Urine Bacteria Few /hpf (None Seen) H Urine Mucus Few (None Seen) Urine Creatinine 32.03 mg/dL (30.0-125.0) Urine Sodium 13 mmol/L (40-220) L Urine Glucose Normal mg/dL (Normal) Blood Gas Results Test 11/11/24 07:28 Arterial Blood pH 7.439 (7.350-7.450) FiO2 % 30.0 Microbiology Microbiology Date/Time Source Procedure Growth Status 10/30/24 03:25 Trachea Gram Stain - Final Resulted 10/30/24 03:25 Respiratory Culture - Preliminary Providencia rettgeri Escherichia coli Presumptive Blanca albicans Resulted 10/29/24 06:10 Blood Blood Culture - Final NO GROWTH AFTER 5 DAYS OF INCUBATION. Complete 10/26/24 13:25 Peritoneal Fluid Gram Stain - Final Complete 10/26/24 13:25 Anaerobic Culture - Final Bacteroides fragilis Prevotella melaninogenica Complete 10/26/24 13:25 Aerobic Culture - Final Pseudomonas aeruginosa Klebsiella pneumoniae Streptococcus Group F Complete 10/26/24 04:00 Voided Urine Urine Culture - Final Complete Labs and/or images reviewed: Labs reviewed by me, Image(s) reviewed by me Assessment/Plan Assessment/Plan Perforated abdominal viscus Small-bowel obstruction Cachexia Severe protein malnutrition with associated hypoalbuminemia acute hypoxic respiratory failure, intubated s/p urgent surgery time: >35 minutes of critical care time Plan discussed with: Other (nursing staff) Date of Service: November 10, 2024 Billing Provider: RADHA FOLEY DO Common Visit Codes: [id number] CARE 30-74 MIN RADHA FOLEY DO November 11, 2024 16:30
--- NOTE | 2024-11-11 17:18 | DVHPN2 ---
Consult Progress Note Date Seen: November 08, 2024 Subjective Patient reports: Other (doing well off presser , green biieous output from catheter and draining about 300ccs of fluid ) Objective vital signs Vital Sign Date Time Temp Pulse Resp B/P (MAP) Pulse Ox O2 Delivery O2 Flow Rate FiO2 11/11/24 16:00 30 11/11/24 16:00 105 11/11/24 16:00 20 100 Mechanical Ventilator+ 11/11/24 15:56 140/69 (92) 11/11/24 12:00 98.7 98.7 Total Intake and Output 11/10/24 11/10/24 11/11/24 15:00 23:00 07:00 Intake Total 821.5 ml 797.817 ml 650.0 ml Output Total 825 ml 1200 ml Balance 821.5 ml -27.183 ml -550.0 ml medications Current Medications Medications Dose Ordered Sig/Neisha Route Start Time Stop Time Status Last Admin Dose Admin Amino Acids 0 ml @ 0 mls/hr PER PHARMACY IV 10/27/24 08:45 Diagnostic Test (Pha) 1 strip Q6HR 10/27/24 12:00 11/11/24 12:26 1 STRIP Insulin Human Regular FOLLOW SLIDING SCALE Q6HR SC 10/27/24 12:00 11/11/24 12:27 2 UNITS Dextrose 50 ml UD IV 10/27/24 09:45 Sodium Chloride 10 ml QSHIFT@10,22 IV 10/27/24 22:00 11/11/24 10:00 10 ML Pantoprazole Sodium 40 mg BID IV 10/28/24 22:00 11/11/24 11:52 40 MG Norepinephrine Bitartrate 250 ml @ 3.75 mls/hr Q24H IV 10/30/24 04:15 10/30/24 04:33 3.75 MLS/HR Levalbuterol HCl 0.625 mg Q6HR NEB 10/30/24 12:00 11/11/24 11:51 0.625 MG Ipratropium [place] 0.5 mg Q6HR NEB 10/30/24 12:00 11/11/24 11:51 0.5 MG Acetylcysteine 100 mg Q6HR NEB 10/30/24 12:00 11/11/24 11:51 100 MG Micafungin Sodium 100 mg/Sodium Chloride 100 ml @ 100 mls/hr DAILY IV 10/31/24 10:00 11/11/24 11:52 100 MLS/HR Meropenem 50 ml @ 17 mls/hr Q12H IV 11/03/24 18:00 11/11/24 06:56 17 MLS/HR Fentanyl Citrate 250 ml @ 2.5 mls/hr Q24H IV 11/08/24 14:45 11/11/24 03:16 22.5 MLS/HR Fat Emulsion Intravenous 100 ml/Sodium Acetate 30 meq/Magnesium Sulfate 4 meq/ Multivitamins 10 ml/Chromium/ Copper/Manganese/ Zinc 1 ml/Amino Acids/Dextrose 1,227 ml @ 51 mls/hr Q24H4M IV 11/10/24 22:00 11/11/24 21:59 11/10/24 22:57 51 MLS/HR Propofol 100 ml @ 1.818 mls/ hr Q24H IV 11/10/24 10:45 11/11/24 13:00 18.18 MLS/HR Potassium Acetate 30 meq/Magnesium Sulfate 6 meq/ Multivitamins 10 ml/Chromium/ Copper/Manganese/ Zinc 1 ml/Amino Acids/Dextrose 1,127.5 ml @ 47 mls/hr Q24H IV 11/11/24 22:00 11/12/24 21:59 Labetalol HCl 10 mg Q2HPRN PRN IV 11/11/24 12:15 Albumin Human 100 ml @ 100 mls/hr Q8H IV 11/11/24 12:30 11/12/24 05:29 11/11/24 16:30 100 MLS/HR Furosemide 60 mg BIDD IV 11/11/24 18:00 Physical Exam: General: NAD Neck: Supple. No masses. Palpable tender cervical and supraclavicular lymphadenopathy. HEENT: PERRL. Normal lids and conjunctiva. Moist mucous membranes. Oropharynx without lesions, exudates or excessive erythema. Normal appearance of the external aspects of the nose and ears. Heart: Regular rhythm, normal rate. No murmur. 3+ upper and lower extremity edema. Lungs: Normal respiratory effort. Clear to auscultation bilaterally. No wheezes. No crackles. Abdomen: Distended. Tender. Abdominal drain present with green fluid output. Msk: No digital cyanosis. Normal strength and tone in all 4 limbs Skin: Warm and dry, no rashes. No open wounds. 3+ edema in extremities. Neuro: Alert. No facial droop or slurred speech. Extra-ocular movements intact. Sensation intact to soft touch in all 4 limbs. Psych: Appropriate mood. Full affect. Oriented to person, place, time, and situation. laboratory and microbiology Laboratory Tests 11/11/24 03:26 11/11/24 01:50 Test 11/11/24 03:26 Range/Units Serum Glucose 137 H 74-106 mg/dL Problem List/Assessment/Plan Problems(with codes): (1) Bowel obstruction (2) Dehydration with hyponatremia (3) Acute kidney injury (4) Perforated abdominal viscus (5) Septic shock (6) Abdominal abscess Problem List/Assessment/Plan ID Problem List: -- Septic shock -- Cardiac arrest, post-resuscitation -- Perforated stomach, post-operative status -- Intra-abdominal abscess -- Fungemia (Blanca albicans) -- Pseudomonas infection -- Acute kidney injury -- Thrombocytopenia -- Anemia (likely secondary to blood loss) -- Pneumonia -- Small bowel obstruction Assessment This is a 44-year-old male with no significant past medical or family history who presented with increased fatigue, upper abdominal pain, nausea, vomiting, generalized weakness, and inability to tolerate oral intake. On admission, the patient was found to have a distended, tender abdomen and palpable cervical and supraclavicular lymphadenopathy. Vital signs revealed hypoxia and relative hypotension. CT abdomen/pelvis without contrast demonstrated pneumoperitoneum, scattered ascites, and dilated small bowel consistent with small bowel obstruction and visceral perforation. Emergent exploratory laparotomy on 10/26 revealed a perforated proximal stomach just proximal to the pylorus, extensive peritoneal contamination, and dense intra-abdominal adhesions. The perforation was repaired; multiple cultures were sent. Microbiology demonstrated bloodstream infection with Blanca albicans and intra- abdominal cultures positive for Bacteroides fragilis, Prevotella melaninogenica, Pseudomonas aeruginosa, Klebsiella species, Streptococcus Group F, Providencia species, and Escherichia coli; respiratory cultures also grew Blanca albicans following a code event with likely aspiration. Post-operatively, the patient has been treated with broad-spectrum antimicrobials. Hospital course has been notable for episodes of hypothermia (as low as 97.3F), initially requiring vasopressor support, and a code event with cardiac arrest and pulselessness for approximately three minutes on 10/30, after which the patient was resuscitated. The patient had an initial MARIA FERNANDA (peak creatinine 1.88 mg/dL), anemia (hemoglobin sarath 6.6-7.5 g/dL), thrombocytopenia (platelets as low as 113,000), and ongoing fluid overload with 3+ edema in the extremities. Repeat abdominal CT on 11/03 showed interval increase in size of right-sided intra-abdominal abscess (measuring up to 17.9 cm), persistent moderate ascites, and evidence of bowel-abscess communication. There is also evidence of bilateral pleural effusions, right greater than left, and adjacent consolidations concerning for pneumonia; these findings have been improving on serial imaging. The patient is currently on meropenem, micafungin, and daptomycin with most recent blood cultures showing improvement. He remains on minimal ventilatory support, with an abdominal drain in place (noted green fluid output), and no new open wounds. Vancomycin therapy has been discontinued due to elevated troughs and absence of Gram-positive organisms on recent cultures. 11/08: whitecount is 6.4 , hemoglobin is 6.6 and required blood transfusion . tachycardia appears to be improving . clinically appears to be improving however at times get tachycardic and has some ongoing blood loss likely post surgically related Plan: -- Discontinue daptomycin. Continue meropenem and micafungin for ongoing intra-abdominal and fungal infection coverage. -- Maintain a two-week course of micafungin from the resolution of intra- abdominal abscess. -- Monitor drain output and clinical signs of intra-abdominal infection. -- Serial CT abdomen/pelvis every 1-2 weeks to monitor abscess resolution. -- Continue pressure support only if mean arterial pressure <65 mmHg; currently minimal vasopressor support required. -- Maintain O? saturation above 94%; defer ventilator weaning to primary/pulmonology as tolerated. -- Monitor for ongoing bowel leak versus fistula development; consider surgical intervention if infection or abscess fails to resolve. -- Pneumonia: Covered by current antibiotics. If there is lack of radiographic improvement, may consider thoracentesis to evaluate pleural effusion for infection. -- Anemia: Monitor hemoglobin. Transfuse if clinically indicated. -- Thrombocytopenia: Monitor counts, transfuse if indicated for bleeding or procedures. -- MARIA FERNANDA: Monitor renal function. Adjust dosing as needed. -- Outpatient ophthalmology follow-up after discharge to assess for potential complications of fungemia. -- Blood cultures: Repeat as clinically indicated. Monitor for further clearance. -- Infectious Disease will continue to follow. -- Plan is subject to change pending new clinical information or diagnostic data. Updates may be added as an addendum. Authorized and Performed by: Sagar Ross MD Total critical care time: Approximately 76 minutes Due to a high probability of clinically significant, life threatening deterioration, the patient required my highest level of preparedness to intervene emergently and I personally spent this critical care time directly and personally managing the patient. This critical care time included obtaining a history; examining the patient; pulse oximetry; ordering and review of studies; arranging urgent treatment with development of a management plan; evaluation of patient's response to treatment; frequent reassessment; and, discussions with other providers. This critical care time was performed to assess and manage the high probability of imminent, life-threatening deterioration that could result in multi-organ failure. It was exclusive of separately billable procedures and treating other patients and teaching time. Isolation Precautions: Standard Plan discussed with: Other Dietary Evaluation Review Comments: 1) Conitnue TPN to provide at least 75% estimated needs 2) Advance diet as medically feasible 3) Continue current plan of care Expected Outcomes/Goals: GI symptoms to improve To meet >75% estimated needs Fu 2-3 days SAGAR ROSS MD November 11, 2024 17:18
--- NOTE | 2024-11-11 17:24 | DVHPN2 ---
Consult Progress Note Date Seen: November 09, 2024 Subjective Patient reports: Other (tachycardia is improving , green billeous output is ongoing ) Objective vital signs Vital Sign Date Time Temp Pulse Resp B/P (MAP) Pulse Ox O2 Delivery O2 Flow Rate FiO2 11/11/24 16:00 30 11/11/24 16:00 105 11/11/24 16:00 20 100 Mechanical Ventilator+ 11/11/24 15:56 140/69 (92) 11/11/24 12:00 98.7 98.7 Total Intake and Output 11/10/24 11/10/24 11/11/24 15:00 23:00 07:00 Intake Total 821.5 ml 797.817 ml 650.0 ml Output Total 825 ml 1200 ml Balance 821.5 ml -27.183 ml -550.0 ml medications Current Medications Medications Dose Ordered Sig/Neisha Route Start Time Stop Time Status Last Admin Dose Admin Amino Acids 0 ml @ 0 mls/hr PER PHARMACY IV 10/27/24 08:45 Diagnostic Test (Pha) 1 strip Q6HR 10/27/24 12:00 11/11/24 12:26 1 STRIP Insulin Human Regular FOLLOW SLIDING SCALE Q6HR SC 10/27/24 12:00 11/11/24 12:27 2 UNITS Dextrose 50 ml UD IV 10/27/24 09:45 Sodium Chloride 10 ml QSHIFT@10,22 IV 10/27/24 22:00 11/11/24 10:00 10 ML Pantoprazole Sodium 40 mg BID IV 10/28/24 22:00 11/11/24 11:52 40 MG Norepinephrine Bitartrate 250 ml @ 3.75 mls/hr Q24H IV 10/30/24 04:15 10/30/24 04:33 3.75 MLS/HR Levalbuterol HCl 0.625 mg Q6HR NEB 10/30/24 12:00 11/11/24 11:51 0.625 MG Ipratropium [place] 0.5 mg Q6HR NEB 10/30/24 12:00 11/11/24 11:51 0.5 MG Acetylcysteine 100 mg Q6HR NEB 10/30/24 12:00 11/11/24 11:51 100 MG Micafungin Sodium 100 mg/Sodium Chloride 100 ml @ 100 mls/hr DAILY IV 10/31/24 10:00 11/11/24 11:52 100 MLS/HR Meropenem 50 ml @ 17 mls/hr Q12H IV 11/03/24 18:00 11/11/24 06:56 17 MLS/HR Fentanyl Citrate 250 ml @ 2.5 mls/hr Q24H IV 11/08/24 14:45 11/11/24 03:16 22.5 MLS/HR Fat Emulsion Intravenous 100 ml/Sodium Acetate 30 meq/Magnesium Sulfate 4 meq/ Multivitamins 10 ml/Chromium/ Copper/Manganese/ Zinc 1 ml/Amino Acids/Dextrose 1,227 ml @ 51 mls/hr Q24H4M IV 11/10/24 22:00 11/11/24 21:59 11/10/24 22:57 51 MLS/HR Propofol 100 ml @ 1.818 mls/ hr Q24H IV 11/10/24 10:45 11/11/24 13:00 18.18 MLS/HR Potassium Acetate 30 meq/Magnesium Sulfate 6 meq/ Multivitamins 10 ml/Chromium/ Copper/Manganese/ Zinc 1 ml/Amino Acids/Dextrose 1,127.5 ml @ 47 mls/hr Q24H IV 11/11/24 22:00 11/12/24 21:59 Labetalol HCl 10 mg Q2HPRN PRN IV 11/11/24 12:15 Albumin Human 100 ml @ 100 mls/hr Q8H IV 11/11/24 12:30 11/12/24 05:29 11/11/24 16:30 100 MLS/HR Furosemide 60 mg BIDD IV 11/11/24 18:00 Physical Exam: General: NAD Neck: Supple. No masses. Palpable tender cervical and supraclavicular lymphadenopathy. HEENT: PERRL. Normal lids and conjunctiva. Moist mucous membranes. Oropharynx without lesions, exudates or excessive erythema. Normal appearance of the external aspects of the nose and ears. Heart: Regular rhythm, normal rate. No murmur. 3+ upper and lower extremity edema. Lungs: Normal respiratory effort. Clear to auscultation bilaterally. No wheezes. No crackles. Abdomen: Distended. Tender. Abdominal drain present with green fluid output. Msk: No digital cyanosis. Normal strength and tone in all 4 limbs Skin: Warm and dry, no rashes. No open wounds. 3+ edema in extremities. Neuro: Alert. No facial droop or slurred speech. Extra-ocular movements intact. Sensation intact to soft touch in all 4 limbs. Psych: Appropriate mood. Full affect. Oriented to person, place, time, and situation. laboratory and microbiology Laboratory Tests 11/11/24 03:26 11/11/24 01:50 Test 11/11/24 03:26 Range/Units Serum Glucose 137 H 74-106 mg/dL Problem List/Assessment/Plan Problems(with codes): (1) Bowel obstruction (2) Dehydration with hyponatremia (3) Acute kidney injury (4) Perforated abdominal viscus (5) Septic shock (6) Abdominal abscess Problem List/Assessment/Plan ID Problem List: -- Septic shock -- Cardiac arrest, post-resuscitation -- Perforated stomach, post-operative status -- Intra-abdominal abscess -- Fungemia (Blanca albicans) -- Pseudomonas infection -- Acute kidney injury -- Thrombocytopenia -- Anemia (likely secondary to blood loss) -- Pneumonia -- Small bowel obstruction Assessment This is a 44-year-old male with no significant past medical or family history who presented with increased fatigue, upper abdominal pain, nausea, vomiting, generalized weakness, and inability to tolerate oral intake. On admission, the patient was found to have a distended, tender abdomen and palpable cervical and supraclavicular lymphadenopathy. Vital signs revealed hypoxia and relative hypotension. CT abdomen/pelvis without contrast demonstrated pneumoperitoneum, scattered ascites, and dilated small bowel consistent with small bowel obstruction and visceral perforation. Emergent exploratory laparotomy on 10/26 revealed a perforated proximal stomach just proximal to the pylorus, extensive peritoneal contamination, and dense intra-abdominal adhesions. The perforation was repaired; multiple cultures were sent. Microbiology demonstrated bloodstream infection with Blanca albicans and intra- abdominal cultures positive for Bacteroides fragilis, Prevotella melaninogenica, Pseudomonas aeruginosa, Klebsiella species, Streptococcus Group F, Providencia species, and Escherichia coli; respiratory cultures also grew Blanca albicans following a code event with likely aspiration. Post-operatively, the patient has been treated with broad-spectrum antimicrobials. Hospital course has been notable for episodes of hypothermia (as low as 97.3F), initially requiring vasopressor support, and a code event with cardiac arrest and pulselessness for approximately three minutes on 10/30, after which the patient was resuscitated. The patient had an initial MARIA FERNANDA (peak creatinine 1.88 mg/dL), anemia (hemoglobin sarath 6.6-7.5 g/dL), thrombocytopenia (platelets as low as 113,000), and ongoing fluid overload with 3+ edema in the extremities. Repeat abdominal CT on 11/03 showed interval increase in size of right-sided intra-abdominal abscess (measuring up to 17.9 cm), persistent moderate ascites, and evidence of bowel-abscess communication. There is also evidence of bilateral pleural effusions, right greater than left, and adjacent consolidations concerning for pneumonia; these findings have been improving on serial imaging. The patient is currently on meropenem, micafungin, and daptomycin with most recent blood cultures showing improvement. He remains on minimal ventilatory support, with an abdominal drain in place (noted green fluid output), and no new open wounds. Vancomycin therapy has been discontinued due to elevated troughs and absence of Gram-positive organisms on recent cultures. 5/2: whitecount is 6.4 , hemoglobin is 6.6 and required blood transfusion . tachycardia appears to be improving . clinically appears to be improving however at times get tachycardic and has some ongoing blood loss likely post surgically related 5/: ALLISON drain is continuing to have significant amount of output in the setting of ongoing abscess appears to be suggestive of clearage of infection source Plan: --Continue meropenem and micafungin for ongoing intra-abdominal and fungal infection coverage. -- Maintain a two-week course of micafungin from the resolution of intra- abdominal abscess. -- Monitor drain output and clinical signs of intra-abdominal infection. -- Serial CT abdomen/pelvis every 1-2 weeks to monitor abscess resolution. -- Continue pressure support only if mean arterial pressure <65 mmHg; currently minimal vasopressor support required. -- Maintain O? saturation above 94%; defer ventilator weaning to primary/pulmonology as tolerated. -- Monitor for ongoing bowel leak versus fistula development; consider surgical intervention if infection or abscess fails to resolve. -- Pneumonia: Covered by current antibiotics. If there is lack of radiographic improvement, may consider thoracentesis to evaluate pleural effusion for infection. -- Anemia: Monitor hemoglobin. Transfuse if clinically indicated. -- Thrombocytopenia: Monitor counts, transfuse if indicated for bleeding or procedures. -- MARIA FERNANDA: Monitor renal function. Adjust dosing as needed. -- Outpatient ophthalmology follow-up after discharge to assess for potential complications of fungemia. -- Blood cultures: Repeat as clinically indicated. Monitor for further clearance. -- Infectious Disease will continue to follow. -- Plan is subject to change pending new clinical information or diagnostic data. Updates may be added as an addendum. Authorized and Performed by: Sagar Ross MD Total critical care time: Approximately 76 minutes Due to a high probability of clinically significant, life threatening deterioration, the patient required my highest level of preparedness to intervene emergently and I personally spent this critical care time directly and personally managing the patient. This critical care time included obtaining a history; examining the patient; pulse oximetry; ordering and review of studies; arranging urgent treatment with development of a management plan; evaluation of patient's response to treatment; frequent reassessment; and, discussions with other providers. This critical care time was performed to assess and manage the high probability of imminent, life-threatening deterioration that could result in multi-organ failure. It was exclusive of separately billable procedures and treating other patients and teaching time. Isolation Precautions: Standard Plan discussed with: Other Dietary Evaluation Review Comments: 1) Conitnue TPN to provide at least 75% estimated needs 2) Advance diet as medically feasible 3) Continue current plan of care Expected Outcomes/Goals: GI symptoms to improve To meet >75% estimated needs Fu 2-3 days SAGAR ROSS MD November 11, 2024 17:24
--- NOTE | 2024-11-11 17:27 | DVHPN2 ---
Consult Progress Note Date Seen: November 10, 2024 Subjective Patient reports: Other (continues to have improved tachycardia . on 50ccs of drain output . hemoglobin appears stable ) Objective vital signs Vital Sign Date Time Temp Pulse Resp B/P (MAP) Pulse Ox O2 Delivery O2 Flow Rate FiO2 11/11/24 16:00 30 11/11/24 16:00 105 11/11/24 16:00 20 100 Mechanical Ventilator+ 11/11/24 15:56 140/69 (92) 11/11/24 12:00 98.7 98.7 Total Intake and Output 11/10/24 11/10/24 11/11/24 15:00 23:00 07:00 Intake Total 821.5 ml 797.817 ml 650.0 ml Output Total 825 ml 1200 ml Balance 821.5 ml -27.183 ml -550.0 ml medications Current Medications Medications Dose Ordered Sig/Neisha Route Start Time Stop Time Status Last Admin Dose Admin Amino Acids 0 ml @ 0 mls/hr PER PHARMACY IV 10/27/24 08:45 Diagnostic Test (Pha) 1 strip Q6HR 10/27/24 12:00 11/11/24 12:26 1 STRIP Insulin Human Regular FOLLOW SLIDING SCALE Q6HR SC 10/27/24 12:00 11/11/24 12:27 2 UNITS Dextrose 50 ml UD IV 10/27/24 09:45 Sodium Chloride 10 ml QSHIFT@10,22 IV 10/27/24 22:00 11/11/24 10:00 10 ML Pantoprazole Sodium 40 mg BID IV 10/28/24 22:00 11/11/24 11:52 40 MG Norepinephrine Bitartrate 250 ml @ 3.75 mls/hr Q24H IV 10/30/24 04:15 10/30/24 04:33 3.75 MLS/HR Levalbuterol HCl 0.625 mg Q6HR NEB 10/30/24 12:00 11/11/24 11:51 0.625 MG Ipratropium [place] 0.5 mg Q6HR NEB 10/30/24 12:00 11/11/24 11:51 0.5 MG Acetylcysteine 100 mg Q6HR NEB 10/30/24 12:00 11/11/24 11:51 100 MG Micafungin Sodium 100 mg/Sodium Chloride 100 ml @ 100 mls/hr DAILY IV 10/31/24 10:00 11/11/24 11:52 100 MLS/HR Meropenem 50 ml @ 17 mls/hr Q12H IV 11/03/24 18:00 11/11/24 06:56 17 MLS/HR Fentanyl Citrate 250 ml @ 2.5 mls/hr Q24H IV 11/08/24 14:45 11/11/24 03:16 22.5 MLS/HR Fat Emulsion Intravenous 100 ml/Sodium Acetate 30 meq/Magnesium Sulfate 4 meq/ Multivitamins 10 ml/Chromium/ Copper/Manganese/ Zinc 1 ml/Amino Acids/Dextrose 1,227 ml @ 51 mls/hr Q24H4M IV 11/10/24 22:00 11/11/24 21:59 11/10/24 22:57 51 MLS/HR Propofol 100 ml @ 1.818 mls/ hr Q24H IV 11/10/24 10:45 11/11/24 13:00 18.18 MLS/HR Potassium Acetate 30 meq/Magnesium Sulfate 6 meq/ Multivitamins 10 ml/Chromium/ Copper/Manganese/ Zinc 1 ml/Amino Acids/Dextrose 1,127.5 ml @ 47 mls/hr Q24H IV 11/11/24 22:00 11/12/24 21:59 Labetalol HCl 10 mg Q2HPRN PRN IV 11/11/24 12:15 Albumin Human 100 ml @ 100 mls/hr Q8H IV 11/11/24 12:30 11/12/24 05:29 11/11/24 16:30 100 MLS/HR Furosemide 60 mg BIDD IV 11/11/24 18:00 Physical Exam: General: NAD Neck: Supple. No masses. Palpable tender cervical and supraclavicular lymphadenopathy. HEENT: PERRL. Normal lids and conjunctiva. Moist mucous membranes. Oropharynx without lesions, exudates or excessive erythema. Normal appearance of the external aspects of the nose and ears. Heart: Regular rhythm, normal rate. No murmur. 3+ upper and lower extremity edema. Lungs: Normal respiratory effort. Clear to auscultation bilaterally. No wheezes. No crackles. Abdomen: Distended. Tender. Abdominal drain present with green fluid output. Msk: No digital cyanosis. Normal strength and tone in all 4 limbs Skin: Warm and dry, no rashes. No open wounds. 3+ edema in extremities. Neuro: Alert. No facial droop or slurred speech. Extra-ocular movements intact. Sensation intact to soft touch in all 4 limbs. Psych: Appropriate mood. Full affect. Oriented to person, place, time, and situation. laboratory and microbiology Laboratory Tests 11/11/24 03:26 11/11/24 01:50 Test 11/11/24 03:26 Range/Units Serum Glucose 137 H 74-106 mg/dL Problem List/Assessment/Plan Problems(with codes): (1) Abdominal abscess (2) Septic shock (3) Perforated abdominal viscus (4) Acute kidney injury (5) Dehydration with hyponatremia (6) Bowel obstruction Problem List/Assessment/Plan ID Problem List: -- Septic shock -- Cardiac arrest, post-resuscitation -- Perforated stomach, post-operative status -- Intra-abdominal abscess -- Fungemia (Blanca albicans) -- Pseudomonas infection -- Acute kidney injury -- Thrombocytopenia -- Anemia (likely secondary to blood loss) -- Pneumonia -- Small bowel obstruction Assessment This is a 44-year-old male with no significant past medical or family history who presented with increased fatigue, upper abdominal pain, nausea, vomiting, generalized weakness, and inability to tolerate oral intake. On admission, the patient was found to have a distended, tender abdomen and palpable cervical and supraclavicular lymphadenopathy. Vital signs revealed hypoxia and relative hypotension. CT abdomen/pelvis without contrast demonstrated pneumoperitoneum, scattered ascites, and dilated small bowel consistent with small bowel obstruction and visceral perforation. Emergent exploratory laparotomy on 10/26 revealed a perforated proximal stomach just proximal to the pylorus, extensive peritoneal contamination, and dense intra-abdominal adhesions. The perforation was repaired; multiple cultures were sent. Microbiology demonstrated bloodstream infection with Blanca albicans and intra- abdominal cultures positive for Bacteroides fragilis, Prevotella melaninogenica, Pseudomonas aeruginosa, Klebsiella species, Streptococcus Group F, Providencia species, and Escherichia coli; respiratory cultures also grew Blanca albicans following a code event with likely aspiration. Post-operatively, the patient has been treated with broad-spectrum antimicrobials. Hospital course has been notable for episodes of hypothermia (as low as 97.3F), initially requiring vasopressor support, and a code event with cardiac arrest and pulselessness for approximately three minutes on 10/30, after which the patient was resuscitated. The patient had an initial MARIA FERNANDA (peak creatinine 1.88 mg/dL), anemia (hemoglobin sarath 6.6-7.5 g/dL), thrombocytopenia (platelets as low as 113,000), and ongoing fluid overload with 3+ edema in the extremities. Repeat abdominal CT on 11/03 showed interval increase in size of right-sided intra-abdominal abscess (measuring up to 17.9 cm), persistent moderate ascites, and evidence of bowel-abscess communication. There is also evidence of bilateral pleural effusions, right greater than left, and adjacent consolidations concerning for pneumonia; these findings have been improving on serial imaging. The patient is currently on meropenem, micafungin, and daptomycin with most recent blood cultures showing improvement. He remains on minimal ventilatory support, with an abdominal drain in place (noted green fluid output), and no new open wounds. Vancomycin therapy has been discontinued due to elevated troughs and absence of Gram-positive organisms on recent cultures. 5/2: whitecount is 6.4 , hemoglobin is 6.6 and required blood transfusion . tachycardia appears to be improving . clinically appears to be improving however at times get tachycardic and has some ongoing blood loss likely post surgically related 5/3: ALLISON drain is continuing to have significant amount of output in the setting of ongoing abscess appears to be suggestive of clearage of infection source 5/4: Tolerating CPAP , appears to be overall clinically improving. getting diuretic therapy for edema in upper and lower extremities . whitecount is improving after stopping daptomycin , LFTs are mildly elevated Plan: --Continue meropenem and micafungin for ongoing intra-abdominal and fungal infection coverage. -- Maintain a two-week course of micafungin from the resolution of intra- abdominal abscess. -- Monitor drain output and clinical signs of intra-abdominal infection. -- Serial CT abdomen/pelvis every 1-2 weeks to monitor abscess resolution. -- Continue pressure support only if mean arterial pressure <65 mmHg; currently minimal vasopressor support required. -- Maintain O? saturation above 94%; defer ventilator weaning to primary/pulmonology as tolerated. -- Monitor for ongoing bowel leak versus fistula development; consider surgical intervention if infection or abscess fails to resolve. -- Pneumonia: Covered by current antibiotics. If there is lack of radiographic improvement, may consider thoracentesis to evaluate pleural effusion for infection. -- Anemia: Monitor hemoglobin. Transfuse if clinically indicated. -- Thrombocytopenia: Monitor counts, transfuse if indicated for bleeding or procedures. -- MARIA FERNANDA: Monitor renal function. Adjust dosing as needed. -- Outpatient ophthalmology follow-up after discharge to assess for potential complications of fungemia. -- Blood cultures: Repeat as clinically indicated. Monitor for further clearance. -- Infectious Disease will continue to follow. -- Plan is subject to change pending new clinical information or diagnostic data. Updates may be added as an addendum. Authorized and Performed by: Sagar Ross MD Total critical care time: Approximately 76 minutes Due to a high probability of clinically significant, life threatening deterioration, the patient required my highest level of preparedness to intervene emergently and I personally spent this critical care time directly and personally managing the patient. This critical care time included obtaining a history; examining the patient; pulse oximetry; ordering and review of studies; arranging urgent treatment with development of a management plan; evaluation of patient's response to treatment; frequent reassessment; and, discussions with other providers. This critical care time was performed to assess and manage the high probability of imminent, life-threatening deterioration that could result in multi-organ failure. It was exclusive of separately billable procedures and treating other patients and teaching time. Isolation Precautions: Standard Plan discussed with: Other Dietary Evaluation Review Comments: 1) Conitnue TPN to provide at least 75% estimated needs 2) Advance diet as medically feasible 3) Continue current plan of care Expected Outcomes/Goals: GI symptoms to improve To meet >75% estimated needs Fu 2-3 days SAGAR ROSS MD November 11, 2024 17:27
[2024-11-11] MEDS: FUROSEMIDE 100 MG/10ML VIAL IV SCH (17:45)
[2024-11-11] MEDS: TPN PER PHARMACY IV NR (21:51)
[2024-11-11] MEDS: PIPERACILLIN-TAZOB 3.375GM 100 ML IV SCH (21:53)
[2024-11-12] VITALS (145 sets, daily range): BP systolic 123–176; BP diastolic 66–152; PULSE 66–131; RESP 17–27; TEMP 97.5–98.7; O2SAT 99–100
[2024-11-12] MEDS: LABETALOL HCL 20 MG/4 ML VL IV PRN (00:22)
[2024-11-12 04:08] LABS: Basophils # (auto) 0 10 ^3/uL (0-0.2); Basophils % (auto) 0.4 % (0.0-2.0); Eosinophils # (auto) 0.3 10 ^3/uL (0-0.8); Eosinophils % (auto) 4.4 % (0.0-7.0); Lymphocytes # (auto) 0.5 10 ^3/uL (0.4-5.4); Red Blood Cells 2.19 10^6/uL (4.5-5.90)
[2024-11-12 04:15] LABS: Hematocrit 20.4 % (41.0-53.0); Lymphocytes % (auto) 6.6 % (10.0-50.0); Mean Corpuscular Hemoglobin 31.6 pg (28.0-32.0); Mean Corpuscular Hgb Conc. 33.8 g/dL (32.0-36.0); Mean Corpuscular Volume 93.3 fL (80.0-100.0); Monocytes # (auto) 0.6 10 ^3/uL (0-1.3); Monocytes % (auto) 8.5 % (0.0-12.0); Neutrophils # (auto) 6.1 10 ^3/uL (1.6-8.6); Neutrophils % (auto) 80.1 % (37.0-80.0); Nucleated Red Blood Cells % 0.1 %; Platelet Count (auto) 181 10^3/uL (140-450); Red Cell Distribution Width 14.5 % (11.8-14.3); White Blood Cell 7.6 10^3/uL (4.4-10.8)
[2024-11-12 04:21] LABS: Hemoglobin 6.9 g/dL (13.5-17.5)
[2024-11-12 04:30] LABS: Anion Gap 9 (5-15); BUN/Creatinine Ratio 54.8 (10.0-20.0); Carbon Dioxide 26 mmol/L (20-31); Phosphorus 2.6 mg/dL (2.4-5.1); Sodium 143 mmol/L (136-145)
[2024-11-12 04:31] LABS: Bilirubin, Total 0.5 mg/dL (0.2-1.0)
[2024-11-12 04:40] LABS: Chloride 108 mmol/L (98-107); Glucose 131 mg/dL (74-106); Potassium 3.1 mmol/L (3.5-5.1)
[2024-11-12 04:41] LABS: Alanine Aminotransferase 48 U/L (7-40); Albumin 2.4 g/dL (3.2-4.8); Alkaline Phosphatase 170 U/L (46-116); Aspartate Aminotransferase 61 U/L (13-40); Blood Urea Nitrogen 91 mg/dL (9-23); Calcium 8.3 mg/dL (8.7-10.4)
--- NOTE | 2024-11-12 05:15 | DVH ---
EXAM: XR Chest, 1 View CLINICAL INDICATION: Intubated TECHNIQUE: Frontal view of the chest. COMPARISON: XY CHEST PORTABLE on DOS: 11/11/24, XY CHEST PORTABLE on DOS: 11/10/24, XY CHEST PORTABLE o n DOS: 11/09/24, XY CHEST PORTABLE on DOS: 11/08/24, XY CHEST PORTABLE on DOS: 11/07/24 FINDINGS: LUNGS AND PLEURAL SPACES: Bibasilar atelectasis or pneumonia. No pneumothorax. HEART: Unremarkable. No cardiomegaly. MEDIASTINUM: Unremarkable. Normal mediastinal contour. BONES/JOINTS: Unremarkable. No acute fracture. TUBES, LINES AND DEVICES: The endotracheal tube (ETT) is in satisfactory position. Right periphera lly inserted central catheter (PICC) tip in the superior vena cava. Enteric tube tip cannot be seen but is below the diaphragm. OTHER FINDINGS: . . . IMPRESSION: Bibasilar atelectasis or pneumonia.
[2024-11-12] MEDS ORDERED: POTASSIUM CHL 20MEQ/100ML 100 ML IV SCH (05:30)
[2024-11-12] MEDS: POTASSIUM CHL 20MEQ/50ML 50 ML IV SCH (06:29)
[2024-11-12 06:35] LABS: Base Excess 0.7 mmol/L (-2.0-3.0)
--- NOTE | 2024-11-12 09:48 | DVHPN2 ---
Subjective Patient was intubated and sedated Reviewed: Care Plan, H&P, Labs, Medications, Previous Orders, Radiology, Other (Consultations) Changes from previous H/P or p: No Changes General: Per HPI Objective Vitals Vital Signs Date Time Temp Pulse Resp B/P (MAP) Pulse Ox O2 Delivery O2 Flow Rate FiO2 11/12/24 08:20 82 21 129/75 (93) 100 30 11/12/24 08:00 Mechanical Ventilator+ 11/12/24 07:22 97.5 97.5 Intake/Output Intake and Output 11/12/24 07:00 Intake Total 1642.964 ml Output Total 2815 ml Balance -1172.036 ml Intake Oral 0 ml IV Total 1642.964 ml Output Urine Total 2675 ml Other 140 ml General Appearance: Other (Intubated and sedated) HEENT: Atraumatic Lungs: Other (Mechanical ventilation sounds) Cardiovascular: Normal S1, Normal S2, Other (Tachycardia) Abdomen: Other (ALLISON drain with biliary green fluid; no bowel sounds) Genitourinary: Other (Echavarria's) Neuro: Other (Intubated and sedated) Skin: Dry, Intact, Wounds (See nurse notes and pictures) Psych/Mental Status: Other (Intubated and sedated) Medications Current Medications Medications Dose Ordered Sig/Neisha Route Start Time Stop Time Status Last Admin Dose Admin Amino Acids 0 ml @ 0 mls/hr PER PHARMACY IV 10/27/24 08:45 Diagnostic Test (Pha) 1 strip Q6HR 10/27/24 12:00 11/12/24 06:27 1 STRIP Insulin Human Regular FOLLOW SLIDING SCALE Q6HR SC 10/27/24 12:00 11/11/24 12:27 2 UNITS Dextrose 50 ml UD IV 10/27/24 09:45 Sodium Chloride 10 ml QSHIFT@10,22 IV 10/27/24 22:00 11/11/24 21:48 10 ML Pantoprazole Sodium 40 mg BID IV 10/28/24 22:00 11/11/24 21:48 40 MG Norepinephrine Bitartrate 250 ml @ 3.75 mls/hr Q24H IV 10/30/24 04:15 10/30/24 04:33 3.75 MLS/HR Levalbuterol HCl 0.625 mg Q6HR NEB 10/30/24 12:00 11/12/24 06:51 0.625 MG Ipratropium [place] 0.5 mg Q6HR NEB 10/30/24 12:00 11/12/24 06:51 0.5 MG Acetylcysteine 100 mg Q6HR NEB 10/30/24 12:00 11/12/24 06:52 100 MG Micafungin Sodium 100 mg/Sodium Chloride 100 ml @ 100 mls/hr DAILY IV 10/31/24 10:00 11/11/24 11:52 100 MLS/HR Fentanyl Citrate 250 ml @ 2.5 mls/hr Q24H IV 11/08/24 14:45 11/12/24 06:27 7.5 MLS/HR Propofol 100 ml @ 1.818 mls/ hr Q24H IV 11/10/24 10:45 11/12/24 06:25 18.18 MLS/HR Potassium Acetate 30 meq/Magnesium Sulfate 6 meq/ Multivitamins 10 ml/Chromium/ Copper/Manganese/ Zinc 1 ml/Amino Acids/Dextrose 1,127.5 ml @ 47 mls/hr Q24H IV 11/11/24 22:00 11/12/24 21:59 11/11/24 21:51 47 MLS/HR Labetalol HCl 10 mg Q2HPRN PRN IV 11/11/24 12:15 11/12/24 00:22 10 MG Furosemide 60 mg BIDD IV 11/11/24 18:00 11/11/24 17:45 60 MG Piperacillin Sod/ Tazobactam Sod 100 ml @ 25 mls/hr Q8HR IV 11/11/24 22:00 11/11/24 21:53 25 MLS/HR Potassium Chloride 100 ml @ 50 mls/hr Q2H IV 11/12/24 05:30 11/12/24 09:29 UNV Laboratory Results Laboratory Tests 11/12/24 03:20 Chemistry Test 11/12/24 03:20 Albumin 2.4 g/dL (3.2-4.8) L Calcium Level 8.3 mg/dL (8.7-10.4) L Magnesium Level 2.0 mg/dL (1.6-2.6) Phosphorus Level 2.6 mg/dL (2.4-5.1) Total Protein 5.0 g/dL (5.7-8.2) L LFT Test 11/12/24 03:20 Alanine Aminotransferase (ALT) 48 U/L (7-40) H Alkaline Phosphatase 170 U/L (46-116) H Aspartate Amino Transferase (AST) 61 U/L (13-40) H Total Bilirubin 0.5 mg/dL (0.2-1.0) Urinalysis Test 10/28/24 12:30 Urine Color Yellow (Yellow) Urine Clarity Cloudy (Clear) H Urine pH 5.5 (5.0-9.0) Urine Specific [place] 1.023 (1.001-1.035) Urine Protein 1+ (Negative) H Urine Ketones Negative (Negative) Urine Blood 3+ /uL (Negative) H Urine Nitrite Negative (Negative) Urine Bilirubin Negative (Negative) Urine Urobilinogen Normal mg/dL (Negative) Urine Leukocyte Esterase Negative /uL (Negative) Urine RBC 147 /hpf (0 - 3) Urine Microscopic WBC 5 /HPF (0-3) H Urine Squamous Epithelial Cells Few /hpf (<5) Urine Amorphous Crystals Few /hpf (None Seen) Urine Bacteria Few /hpf (None Seen) H Urine Mucus Few (None Seen) Urine Creatinine 32.03 mg/dL (30.0-125.0) Urine Sodium 13 mmol/L (40-220) L Urine Glucose Normal mg/dL (Normal) Blood Gas Results Test 11/12/24 06:30 Arterial Blood pH 7.501 (7.350-7.450) FiO2 % 30.0 Microbiology Microbiology Date/Time Source Procedure Growth Status 11/11/24 15:48 Abdomen Gram Stain Pending Resulted 11/11/24 15:48 Abdomen Wound Culture - Preliminary Resulted 10/29/24 06:10 Blood Blood Culture - Final NO GROWTH AFTER 5 DAYS OF INCUBATION. Complete 10/26/24 13:25 Peritoneal Fluid Gram Stain - Final Complete 10/26/24 13:25 Anaerobic Culture - Final Bacteroides fragilis Prevotella melaninogenica Complete 10/26/24 13:25 Aerobic Culture - Final Pseudomonas aeruginosa Klebsiella pneumoniae Streptococcus Group F Complete 10/26/24 04:00 Voided Urine Urine Culture - Final Complete Labs and/or images reviewed: Labs reviewed by me, Image(s) reviewed by me Assessment/Plan Assessment/Plan Impression: -sepsis , yeast in the blood, repeat blood culture negative for yeast -perforated gastric ulcer, status post exploratory laparotomy with repair of ulcer, lysis of adhesions -pneumoperitoneum with multiple gastric adhesions and abscess -acute kidney injury, vasomotor nephropathy -cachexia -postop anemia -acute hypoxic respiratory failure mechanical ventilation - Plan: -Events: No events overnight. Anemic, hypokalemic. Continues to have bowel green drainage from ALLISON and around insertion site. Failed CPAP trial yesterday. Neurologically not waking up while off of sedation. Plans to discuss with surgeon regarding possible repeat CT scan with oral contrast to be performed concurrently with CT scan of the head. -continue current ventilator settings per pulmonology. Spontaneous breathing trial per their recommendations -continue TPN -potassium replacement -PUD, DVT prophylaxis -IV antibiotics per Infectious Disease -PPI -Cont sedation: Versed, Fent -repeat labs, chest x-ray, ABG daily Critical Care time spent with patient discussing and formulating plan of care: 40 minutes. This medical document was created using an electronic medical record system with [employer] dictation system. Although this document has been carefully reviewed, there may still be some phonetic and typographical errors. These areas are purely typographical due to imperfections of the software programs, and do not reflect any compromise in the patient's medical care. Plan discussed with: Patient, Other (RN) My Orders Orders - IRMA WAITE NP Procedure Category Date Status Time Labetalol Hcl PHA 11/11/24 In Process (Labetalol Hcl) 12:15 Wound Culture W/ Gs VAISHALI 11/11/24 In Process 15:52 Chest Portable XY 11/12/24 Resulted 04:17 Basic Metabolic Panel LAB 11/13/24 Verified 04:00 Chest Portable XY 11/13/24 Verified 04:00 Complete Blood Count LAB 11/13/24 Verified 04:00 Hemoglobin & LAB 11/12/24 Verified Hematocrit 14:00 Potassium LAB 11/12/24 Verified 14:00 Date of Service: November 12, 2024 Billing Provider: IRMA WAITE NP Common Visit Codes: [id number] CARE 30-74 MIN IRMA WAITE NP November 12, 2024 09:48
--- NOTE | 2024-11-12 10:18 | DVHPN2 ---
Progress Note Date Seen: November 12, 2024 Resident Creating Document: LUANN PLUNKETT RESIDENT Has the PT tested + for MRSA If YES, has PT been informed?: No Medical Necessity Reason Pt with a Central, PICC or Fol: Yes The following are medically ne: Persaud Catheter Reason for persaud catheter: Strict I&O Subjective Review of Systems Patient seen and examined at bedside. Patient still sedated on mechanical ventilation on the following ventilatory settings: VT 450, if 20, FiO2 30%, PEEP 5.0% saturating 100%. Patient is currently off vasopressors. Primary team de-escalated meropenem to IV Zosyn and we will continue micafungin. Yesterday we increase furosemide to 60 mg IV b.i.d.. Today, creatinine is slightly improving went down and BUN is 91. Will give IV albumin 25% Q8 x3 doses. Upon my examination the patient still having lower extremity 2+ pitting edema on bilateral foods extending up to bilateral thighs. We will continue current dosage of furosemide at this time. Single dose of albumin was given this morning. ALLISON drainage is draining approximately 55 cc in the last 12 hours which is greenish/blackish in color. ROS unable to obtain due to patient's current status sedated and intubated. Objective vital signs Vital Sign Date Time Temp Pulse Resp B/P (MAP) Pulse Ox O2 Delivery O2 Flow Rate FiO2 11/12/24 10:01 137/77 11/12/24 08:20 82 21 100 30 11/12/24 08:00 Mechanical Ventilator+ 11/12/24 07:22 97.5 97.5 Total Intake and Output 11/11/24 11/11/24 11/12/24 15:00 23:00 07:00 Intake Total 681.764 ml 452.44 ml 508.76 ml Output Total 1575 ml 1240 ml Balance 681.764 ml -1122.56 ml -731.24 ml medications Current Medications Medications Dose Ordered Sig/Neisha Route Start Time Stop Time Status Last Admin Dose Admin Amino Acids 0 ml @ 0 mls/hr PER PHARMACY IV 10/27/24 08:45 Diagnostic Test (Pha) 1 strip Q6HR 10/27/24 12:00 11/12/24 06:27 1 STRIP Insulin Human Regular FOLLOW SLIDING SCALE Q6HR SC 10/27/24 12:00 11/11/24 12:27 2 UNITS Dextrose 50 ml UD IV 10/27/24 09:45 Sodium Chloride 10 ml QSHIFT@10,22 IV 10/27/24 22:00 11/12/24 10:01 10 ML Pantoprazole Sodium 40 mg BID IV 10/28/24 22:00 11/11/24 21:48 40 MG Norepinephrine Bitartrate 250 ml @ 3.75 mls/hr Q24H IV 10/30/24 04:15 10/30/24 04:33 3.75 MLS/HR Levalbuterol HCl 0.625 mg Q6HR NEB 10/30/24 12:00 11/12/24 06:51 0.625 MG Ipratropium [place] 0.5 mg Q6HR NEB 10/30/24 12:00 11/12/24 06:51 0.5 MG Acetylcysteine 100 mg Q6HR NEB 10/30/24 12:00 11/12/24 06:52 100 MG Micafungin Sodium 100 mg/Sodium Chloride 100 ml @ 100 mls/hr DAILY IV 10/31/24 10:00 11/11/24 11:52 100 MLS/HR Fentanyl Citrate 250 ml @ 2.5 mls/hr Q24H IV 11/08/24 14:45 11/12/24 06:27 7.5 MLS/HR Propofol 100 ml @ 1.818 mls/ hr Q24H IV 11/10/24 10:45 11/12/24 06:25 18.18 MLS/HR Potassium Acetate 30 meq/Magnesium Sulfate 6 meq/ Multivitamins 10 ml/Chromium/ Copper/Manganese/ Zinc 1 ml/Amino Acids/Dextrose 1,127.5 ml @ 47 mls/hr Q24H IV 11/11/24 22:00 11/12/24 21:59 11/11/24 21:51 47 MLS/HR Labetalol HCl 10 mg Q2HPRN PRN IV 11/11/24 12:15 11/12/24 00:22 10 MG Furosemide 60 mg BIDD IV 11/11/24 18:00 11/12/24 10:01 60 MG Piperacillin Sod/ Tazobactam Sod 100 ml @ 25 mls/hr Q8HR IV 11/11/24 22:00 11/12/24 10:01 25 MLS/HR Potassium Chloride 100 ml @ 50 mls/hr Q2H IV 11/12/24 05:30 11/12/24 09:29 UNV Examination Physical Examination General: Patient currently intubated on the following mechanical ventilatory settings: VT 450, if 20, FiO2 30%, PEEP 5.0 sat 100% HEENT: Normocephalic, atraumatic, moist mucous membranes Respiratory/pulmonary: Clear lungs bilaterally, no associated crackles or wheezes. Cardiovascular: Normal heart sounds S1 and S2 with no associated murmurs Abdomen: Abdomen nondistended, there is no pain to palpation in any of the abdominal quadrants, no palpable masses. ALLISON drainage is draining 55 cc in the last 24 hours greenish/blackish in color Extremities: There is significant 2+ pitting edema on bilateral lower extremities from both foots all the way up to bilateral thighs. Peripheral Pulses: 3+ Radial (R). 3+ Radial (L). 3+ Dorsalis pedis (R). 3+ Dorsalis pedis(L) Skin: No rashes or pruritus, there is no sacral edema present at this time. Neurological: RASS -1, pupils reactive to light. laboratory and microbiology Laboratory Tests 11/12/24 03:20 Test 11/12/24 03:20 Range/Units Serum Glucose 131 H 74-106 mg/dL Microbiology Date/Time Source Procedure Growth Status 11/11/24 15:48 Abdomen Gram Stain Pending Resulted 11/11/24 15:48 Abdomen Wound Culture - Preliminary Resulted 10/29/24 06:10 Blood Blood Culture - Final NO GROWTH AFTER 5 DAYS OF INCUBATION. Complete 10/26/24 13:25 Peritoneal Fluid Gram Stain - Final Complete 10/26/24 13:25 Anaerobic Culture - Final Bacteroides fragilis Prevotella melaninogenica Complete 10/26/24 13:25 Aerobic Culture - Final Pseudomonas aeruginosa Klebsiella pneumoniae Streptococcus Group F Complete 10/26/24 04:00 Voided Urine Urine Culture - Final Complete Problem List/Assessment/Plan Problem List/Assessment/Plan Assessment/plan MARIA FERNANDA likely hemodynamic mediated in the setting of septic shock Uremia likely multifactorial due to sepsis/TPN/possible GI bleed/severe anemia status post transfusion Acute blood loss anemia most likely due to intraoperative blood loss/ gastric ulcer perforation Acute hypoxemic respiratory failure, possible bacterial pneumonia Acute metabolic/toxic encephalopathy Transaminitis likely due to septic shock Candidemia Severe malnutrition Plan -continue IV furosemide at 60 mg b.i.d. -continue albumin 25% IV Q8 to help with oncotic preassure and furosemide action -continue IV antibiotics per hospitalist recommend to start prophylactic lovenox, risks and benefits do to hypercoagulable state -avoid nephrotoxic drugs -kidney function slightly improving. Today creatinine was 1.66 -continue monitoring kidney function -follow close recommendations by surgery team regarding possible fluid collection drainage Goals of care discussed with nurse, foreign language instructor. Critical time spent 40min Plan discussed with Addendum Patient seen and examined, plan discussed with resident. Agree with above, we will follow closely Plan discussed with: Other My Orders My Orders Orders - LUANN PLUNKETT Procedure Category Date Status Time Potassium LAB 11/12/24 Logged 08:06 Dietary Evaluation Review Comments: 1) Conitnue TPN to provide at least 75% estimated needs 2) Advance diet as medically feasible 3) Continue current plan of care Expected Outcomes/Goals: GI symptoms to improve To meet >75% estimated needs Fu 2-3 days LUANN PLUNKETT November 12, 2024 10:18 ISIDRO KELLEY MD November 12, 2024 17:12
--- NOTE | 2024-11-12 12:30 | DVH ---
EXAM: CT HEAD WITHOUT CONTRAST INDICATION: anoxic damage TECHNIQUE: CT of the head without intravenous contrast. Radiation Dose Information: CT Dose: CTDI volume is 55.46 mGy. Dose-length product is 982.13 mGy*cm The dose indicators for CT are the volume Computed Tomography (CT) Dose Index (CTDIvol) and the Dose Length Product (DLP), and are measured in units of mGy and mGy-cm, respectively. These indicators are not patient dose, but values generated from the CT scanner acquisition factors. The report includes radiation exposure data for exposures received during this examination. COMPARISON: None FINDINGS: Possible hypodensity in the bilateral cerebellum, cerebellar infarct can not be excluded. There is a punctate hypodensity within the right frontal lobe, which could represent age indeterminate infarct. MRI recommended for further evaluation. There is a large cystic posterior fossa hypodensity, which co uld represent an arachnoid cyst versus a epidermoid cyst. IMPRESSION: Possible hypodensity in the bilateral cerebellum, cerebellar infarct can not be excluded. There is a punctate hypodensity within the right frontal lobe, which could represent age indeterminate infarct. MRI recommended for further evaluation.
--- NOTE | 2024-11-12 12:40 | DVHPN2 ---
Progress Note Date Seen: November 12, 2024 Has the PT tested + for MRSA If YES, has PT been informed?: No Medical Necessity Reason Pt with a Central, PICC or Fol: Yes The following are medically ne: Persaud Catheter Reason for persaud catheter: Strict I&O Objective vital signs Vital Sign Date Time Temp Pulse Resp B/P (MAP) Pulse Ox O2 Delivery O2 Flow Rate FiO2 11/12/24 12:03 73 22 139/76 (97) 100 30 11/12/24 12:00 Mechanical Ventilator+ 11/12/24 08:45 98.7 98.7 Total Intake and Output 11/11/24 11/11/24 11/12/24 15:00 23:00 07:00 Intake Total 681.764 ml 452.44 ml 581.44 ml Output Total 1575 ml 1240 ml Balance 681.764 ml -1122.56 ml -658.56 ml medications Current Medications Medications Dose Ordered Sig/Neisha Route Start Time Stop Time Status Last Admin Dose Admin Amino Acids 0 ml @ 0 mls/hr PER PHARMACY IV 10/27/24 08:45 Diagnostic Test (Pha) 1 strip Q6HR 10/27/24 12:00 11/12/24 12:09 1 STRIP Insulin Human Regular FOLLOW SLIDING SCALE Q6HR SC 10/27/24 12:00 11/11/24 12:27 2 UNITS Dextrose 50 ml UD IV 10/27/24 09:45 Sodium Chloride 10 ml QSHIFT@10,22 IV 10/27/24 22:00 11/12/24 10:01 10 ML Pantoprazole Sodium 40 mg BID IV 10/28/24 22:00 11/11/24 21:48 40 MG Norepinephrine Bitartrate 250 ml @ 3.75 mls/hr Q24H IV 10/30/24 04:15 10/30/24 04:33 3.75 MLS/HR Levalbuterol HCl 0.625 mg Q6HR NEB 10/30/24 12:00 11/12/24 12:07 0.625 MG Ipratropium [place] 0.5 mg Q6HR NEB 10/30/24 12:00 11/12/24 12:07 0.5 MG Acetylcysteine 100 mg Q6HR NEB 10/30/24 12:00 11/12/24 12:07 100 MG Micafungin Sodium 100 mg/Sodium Chloride 100 ml @ 100 mls/hr DAILY IV 10/31/24 10:00 11/11/24 11:52 100 MLS/HR Fentanyl Citrate 250 ml @ 2.5 mls/hr Q24H IV 11/08/24 14:45 11/12/24 06:27 7.5 MLS/HR Propofol 100 ml @ 1.818 mls/ hr Q24H IV 11/10/24 10:45 11/12/24 06:25 18.18 MLS/HR Potassium Acetate 30 meq/Magnesium Sulfate 6 meq/ Multivitamins 10 ml/Chromium/ Copper/Manganese/ Zinc 1 ml/Amino Acids/Dextrose 1,127.5 ml @ 47 mls/hr Q24H IV 11/11/24 22:00 11/12/24 21:59 11/11/24 21:51 47 MLS/HR Labetalol HCl 10 mg Q2HPRN PRN IV 11/11/24 12:15 11/12/24 00:22 10 MG Furosemide 60 mg BIDD IV 11/11/24 18:00 11/12/24 10:01 60 MG Piperacillin Sod/ Tazobactam Sod 100 ml @ 25 mls/hr Q8HR IV 11/11/24 22:00 11/12/24 10:01 25 MLS/HR Potassium Chloride 100 ml @ 50 mls/hr Q2H IV 11/12/24 05:30 11/12/24 09:29 UNV Potassium Phosphate 44 meq/ Magnesium Sulfate 6 meq/ Multivitamins 10 ml/Chromium/ Copper/Manganese/ Zinc 1 ml/Amino Acids/Dextrose/ Purified Water 1,522.5 ml @ 63 mls/hr [id number] IV 11/12/24 22:00 11/13/24 21:59 laboratory and microbiology Laboratory Tests 11/12/24 03:20 Test 11/12/24 03:20 Range/Units Serum Glucose 131 H 74-106 mg/dL Problem List/Assessment/Plan Problem List/Assessment/Plan 10/27/24 STATES THAT HE FEELS MUCH BETTER, ABDOMEN APPROPRIATELY TENDER, WOUND CLEAN AND WELL APPROXIMATED, DRAINAGE SERO SANGUINEOUS VIA MOISES DRAIN, OK TO SEND TO TELEMETRY 10/28/24 FEELS WEEK, ABDOMEN SOCT NON DISTENDED, APPROPRIATELY TENDER, WOUND CLEAN AND WELL APPROXIMATED,. NO CHANGES 10/29/24 PASSING FLATUS, NO bm, WOUND CLEAN AND WELL APPROXIMATED, DRAINAGE SERO SANGUINEOUS, UGI PENDING INTUBATED SEDATED, ABDOMEN NOT DISTENDED CT SCAN REVEALS FINDINGS PRESENT BEFORE HIS OPERQAWTION FRO PERFOATED GASTFRIC ULCER. HE WAS DOING VERY WELL TILL THE NIGHT HE WAS FOUND PULSELESS IN BED, DOES NOT NEED ANOTHER OPERATION 11/01/24 CONTINUES INTUBATED AND SEDATED, WOUND CLEAN AND WELL APPROXIMATED, DRAINAGE SERO SANGUINEOUS, LABS REVIEWED 11/05/24 abdomen non distended, moises drainage bilious, needs to be emptied more frequently, wbc normal, anemia persists, remains intubated and sedated 11/07/24 clinically essentially unchanged except the MOISES drain which now appears infected. Abdomen non distended, will have nurses irrigate the drain 11/09/24 afebrile, normotensive, wbc nl, abdomen non distended, wound clean, MOISES drainage clearing, OK to try weaning off vent 11/12/24 afebrile, normotensive without pharmacologic support, urine output ok, wound with an area of bile stained drainage outside opf MOISES drain insertion site( suspect abdominal wound dehiscence). will get neurology consult( CT shows areas of infarct). Plan discussed with: Other Dietary Evaluation Review Comments: 1) Conitnue TPN to provide at least 75% estimated needs 2) Advance diet as medically feasible 3) Continue current plan of care Expected Outcomes/Goals: GI symptoms to improve To meet >75% estimated needs Fu 2-3 days CHRIST HUDDLESTON MD November 12, 2024 12:40
[2024-11-12 13:32] LABS: Hemoglobin 8.6 g/dL (13.5-17.5)
--- NOTE | 2024-11-12 15:36 | DVH ---
EXAM: XY L ELBOW 2 VIEW XRAY CLINICAL INDICATION: VERIFY METAL IN LEFT ELBOW TECHNIQUE: XY L ELBOW 2 VIEW XRAY Comparison: None FINDINGS/IMPRESSION: There is a linear radiopaque foreign body overlying the distal humeral shaft. 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
[2024-11-12] MEDS: PROPOFOL 100 ML IV SCH (16:45)
[2024-11-12] MEDS: fentaNYL Drip 2500mCg/250mlNS 250 ML IV SCH (16:45)
[2024-11-12] MEDS: ALBUMIN 25% 50 ML IV SCH (17:17)
[2024-11-12] MEDS: NICARDIPINE HCL IN SODIUM CHLO 200 ML IV SCH (17:34)
[2024-11-12] MEDS: TPN PER PHARMACY IV NR (21:28)
--- NOTE | 2024-11-12 22:55 | DVHPN2 ---
Consult Progress Note Date Seen: November 11, 2024 Subjective Patient reports: Other (less hypothermic overnight , output 50ccs of green billious and mildly distended abdomen , abdominal binder is on ) Objective vital signs Vital Sign Date Time Temp Pulse Resp B/P (MAP) Pulse Ox O2 Delivery O2 Flow Rate FiO2 11/12/24 22:05 124 23 152/83 (106) 99 30 11/12/24 20:00 Mechanical Ventilator+ 11/12/24 08:45 98.7 98.7 Total Intake and Output 11/11/24 11/11/24 11/12/24 15:00 23:00 07:00 Intake Total 681.764 ml 452.44 ml 581.44 ml Output Total 1575 ml 1240 ml Balance 681.764 ml -1122.56 ml -658.56 ml medications Current Medications Medications Dose Ordered Sig/Neisha Route Start Time Stop Time Status Last Admin Dose Admin Amino Acids 0 ml @ 0 mls/hr PER PHARMACY IV 10/27/24 08:45 Diagnostic Test (Pha) 1 strip Q6HR 10/27/24 12:00 11/12/24 18:10 1 STRIP Insulin Human Regular FOLLOW SLIDING SCALE Q6HR SC 10/27/24 12:00 11/11/24 12:27 2 UNITS Dextrose 50 ml UD IV 10/27/24 09:45 Sodium Chloride 10 ml QSHIFT@10,22 IV 10/27/24 22:00 11/12/24 21:26 10 ML Pantoprazole Sodium 40 mg BID IV 10/28/24 22:00 11/12/24 21:26 40 MG Norepinephrine Bitartrate 250 ml @ 3.75 mls/hr Q24H IV 10/30/24 04:15 10/30/24 04:33 3.75 MLS/HR Levalbuterol HCl 0.625 mg Q6HR NEB 10/30/24 12:00 11/12/24 18:11 0.625 MG Ipratropium [place] 0.5 mg Q6HR NEB 10/30/24 12:00 11/12/24 18:11 0.5 MG Acetylcysteine 100 mg Q6HR NEB 10/30/24 12:00 11/12/24 18:11 100 MG Micafungin Sodium 100 mg/Sodium Chloride 100 ml @ 100 mls/hr DAILY IV 10/31/24 10:00 11/12/24 12:38 100 MLS/HR Labetalol HCl 10 mg Q2HPRN PRN IV 11/11/24 12:15 11/12/24 15:18 10 MG Furosemide 60 mg BIDD IV 11/11/24 18:00 11/12/24 18:15 60 MG Piperacillin Sod/ Tazobactam Sod 100 ml @ 25 mls/hr Q8HR IV 11/11/24 22:00 11/12/24 21:26 25 MLS/HR Potassium Chloride 100 ml @ 50 mls/hr Q2H IV 11/12/24 05:30 11/12/24 09:29 UNV Potassium Phosphate 44 meq/ Magnesium Sulfate 6 meq/ Multivitamins 10 ml/Chromium/ Copper/Manganese/ Zinc 1 ml/Amino Acids/Dextrose/ Purified Water 1,522.5 ml @ 63 mls/hr [id number] IV 11/12/24 22:00 11/13/24 21:59 11/12/24 21:28 63 MLS/HR Albumin Human 50 ml @ 100 mls/hr Q8H IV 11/12/24 15:00 11/13/24 07:29 11/12/24 17:17 100 MLS/HR Fentanyl Citrate 250 ml @ 2.5 mls/hr Q24H IV 11/12/24 16:45 Propofol 100 ml @ 1.818 mls/ hr Q24H IV 11/12/24 16:45 11/12/24 21:53 7.272 MLS/HR Nicardipine/ Sodium Chloride 200 ml @ 50 mls/hr Q4H IV 11/12/24 16:45 11/12/24 21:26 75 MLS/HR Physical Exam: General: NAD Neck: Supple. No masses. Palpable tender cervical and supraclavicular lymphadenopathy. HEENT: PERRL. Normal lids and conjunctiva. Moist mucous membranes. Oropharynx without lesions, exudates or excessive erythema. Normal appearance of the external aspects of the nose and ears. Heart: Regular rhythm, normal rate. No murmur. 3+ upper and lower extremity edema. Lungs: Normal respiratory effort. Clear to auscultation bilaterally. No wheezes. No crackles. Abdomen: Distended. Tender. Abdominal drain present with green fluid output. Msk: No digital cyanosis. Normal strength and tone in all 4 limbs Skin: Warm and dry, no rashes. No open wounds. 3+ edema in extremities. Neuro: Alert. No facial droop or slurred speech. Extra-ocular movements intact. Sensation intact to soft touch in all 4 limbs. Psych: Appropriate mood. Full affect. Oriented to person, place, time, and situation. laboratory and microbiology Laboratory Tests 11/12/24 17:00 11/12/24 12:57 11/12/24 03:20 Test 11/12/24 03:20 Range/Units Serum Glucose 131 H 74-106 mg/dL Problem List/Assessment/Plan Problems(with codes): (1) Perforated abdominal viscus (2) Septic shock (3) Abdominal abscess (4) Acute kidney injury (5) Bowel obstruction (6) Dehydration with hyponatremia Problem List/Assessment/Plan ID Problem List: -- Septic shock -- Cardiac arrest, post-resuscitation -- Perforated stomach, post-operative status -- Intra-abdominal abscess -- Fungemia (Blanca albicans) -- Pseudomonas infection -- Acute kidney injury -- Thrombocytopenia -- Anemia (likely secondary to blood loss) -- Pneumonia -- Small bowel obstruction Assessment This is a 44-year-old male with no significant past medical or family history who presented with increased fatigue, upper abdominal pain, nausea, vomiting, generalized weakness, and inability to tolerate oral intake. On admission, the patient was found to have a distended, tender abdomen and palpable cervical and supraclavicular lymphadenopathy. Vital signs revealed hypoxia and relative hypotension. CT abdomen/pelvis without contrast demonstrated pneumoperitoneum, scattered ascites, and dilated small bowel consistent with small bowel obstruction and visceral perforation. Emergent exploratory laparotomy on 10/26 revealed a perforated proximal stomach just proximal to the pylorus, extensive peritoneal contamination, and dense intra-abdominal adhesions. The perforation was repaired; multiple cultures were sent. Microbiology demonstrated bloodstream infection with Blanca albicans and intra- abdominal cultures positive for Bacteroides fragilis, Prevotella melaninogenica, Pseudomonas aeruginosa, Klebsiella species, Streptococcus Group F, Providencia species, and Escherichia coli; respiratory cultures also grew Blanca albicans following a code event with likely aspiration. Post-operatively, the patient has been treated with broad-spectrum antimicrobials. Hospital course has been notable for episodes of hypothermia (as low as 97.3F), initially requiring vasopressor support, and a code event with cardiac arrest and pulselessness for approximately three minutes on 10/30, after which the patient was resuscitated. The patient had an initial MARIA FERNANDA (peak creatinine 1.88 mg/dL), anemia (hemoglobin sarath 6.6-7.5 g/dL), thrombocytopenia (platelets as low as 113,000), and ongoing fluid overload with 3+ edema in the extremities. Repeat abdominal CT on 11/03 showed interval increase in size of right-sided intra-abdominal abscess (measuring up to 17.9 cm), persistent moderate ascites, and evidence of bowel-abscess communication. There is also evidence of bilateral pleural effusions, right greater than left, and adjacent consolidations concerning for pneumonia; these findings have been improving on serial imaging. The patient is currently on meropenem, micafungin, and daptomycin with most recent blood cultures showing improvement. He remains on minimal ventilatory support, with an abdominal drain in place (noted green fluid output), and no new open wounds. Vancomycin therapy has been discontinued due to elevated troughs and absence of Gram-positive organisms on recent cultures. 5/2: whitecount is 6.4 , hemoglobin is 6.6 and required blood transfusion . tachycardia appears to be improving . clinically appears to be improving however at times get tachycardic and has some ongoing blood loss likely post surgically related 5/3: ALLISON drain is continuing to have significant amount of output in the setting of ongoing abscess appears to be suggestive of clearage of infection source 5/4: Tolerating CPAP , appears to be overall clinically improving. getting diuretic therapy for edema in upper and lower extremities . whitecount is improving after stopping daptomycin , LFTs are mildly elevated 5/5: elevated BUN , concerning for ongoing GI bloodloss , hemoglobin is stable at 7.2 Plan: -Stop meropenem and transition to Zosyn - repeat abdominal pelvis Ct in 7 days --Continue micafungin for ongoing intra-abdominal and fungal infection coverage. -- Maintain a two-week course of micafungin from the resolution of intra- abdominal abscess. -- Monitor drain output and clinical signs of intra-abdominal infection. -- Serial CT abdomen/pelvis every 1-2 weeks to monitor abscess resolution. -- Continue pressure support only if mean arterial pressure <65 mmHg; currently minimal vasopressor support required. -- Maintain O? saturation above 94%; defer ventilator weaning to primary/pulmonology as tolerated. -- Monitor for ongoing bowel leak versus fistula development; consider surgical intervention if infection or abscess fails to resolve. -- Pneumonia: Covered by current antibiotics. If there is lack of radiographic improvement, may consider thoracentesis to evaluate pleural effusion for infection. -- Anemia: Monitor hemoglobin. Transfuse if clinically indicated. -- Thrombocytopenia: Monitor counts, transfuse if indicated for bleeding or procedures. -- MARIA FERNANDA: Monitor renal function. Adjust dosing as needed. -- Outpatient ophthalmology follow-up after discharge to assess for potential complications of fungemia. -- Blood cultures: Repeat as clinically indicated. Monitor for further clearance. -- Infectious Disease will continue to follow. -- Plan is subject to change pending new clinical information or diagnostic data. Updates may be added as an addendum. Authorized and Performed by: Sagar Ross MD Total critical care time: Approximately 76 minutes Due to a high probability of clinically significant, life threatening deterioration, the patient required my highest level of preparedness to intervene emergently and I personally spent this critical care time directly and personally managing the patient. This critical care time included obtaining a history; examining the patient; pulse oximetry; ordering and review of studies; arranging urgent treatment with development of a management plan; evaluation of patient's response to treatment; frequent reassessment; and, discussions with other providers. This critical care time was performed to assess and manage the high probability of imminent, life-threatening deterioration that could result in multi-organ failure. It was exclusive of separately billable procedures and treating other patients and teaching time. Isolation Precautions: Standard Plan discussed with: Other Dietary Evaluation Review Comments: 1) Conitnue TPN to provide at least 75% estimated needs 2) Advance diet as medically feasible 3) Continue current plan of care Expected Outcomes/Goals: GI symptoms to improve To meet >75% estimated needs Fu 2-3 days SAGAR ROSS MD November 12, 2024 22:55
[2024-11-13] VITALS (118 sets, daily range): BP systolic 73–185; BP diastolic 69–107; PULSE 89–132; RESP 10–34; TEMP 97.7–98.8; O2SAT 99–100
[2024-11-13 03:38] LABS: Hemoglobin 10.5 g/dL (13.5-17.5); Mean Corpuscular Hemoglobin 31.7 pg (28.0-32.0); Mean Corpuscular Hgb Conc. 34.8 g/dL (32.0-36.0); Platelet Count (auto) 246 10^3/uL (140-450); White Blood Cell 10.9 10^3/uL (4.4-10.8)
[2024-11-13 03:53] LABS: Anion Gap 10 (5-15); BUN/Creatinine Ratio 51.8 (10.0-20.0); Basophils % (manual) 0 (0.0-2.0); Bilirubin, Total 0.7 mg/dL (0.2-1.0); Blast Cells 0; Carbon Dioxide 25 mmol/L (20-31); Eosinophils % (manual) 0 (0-7); Magnesium 1.9 mg/dL (1.6-2.6); Metamyelocytes % 0; Phosphorus 2.7 mg/dL (2.4-5.1); Promyelocytes % 0; Reactive Lymphocytes 0; Sodium 143 mmol/L (136-145); Triglycerides 138 mg/dL (< 150)
[2024-11-13 04:02] LABS: Alanine Aminotransferase 46 U/L (7-40); Albumin 2.8 g/dL (3.2-4.8); Alkaline Phosphatase 177 U/L (46-116); Aspartate Aminotransferase 52 U/L (13-40); Calcium 8.2 mg/dL (8.7-10.4); Chloride 108 mmol/L (98-107); Glucose 145 mg/dL (74-106); Potassium 3.3 mmol/L (3.5-5.1); Total Protein 5.4 g/dL (5.7-8.2)
[2024-11-13 04:03] LABS: Blood Urea Nitrogen 85 mg/dL (9-23)
[2024-11-13 05:06] LABS: Band Neutrophils % (manual) 2; Lymphocytes % (manual) 11 (10.0-50.0); Monocytes % (manual) 3 (0-12); Myelocytes % 2; Platelet Estimate Adequate
[2024-11-13] MEDS ORDERED: POTASSIUM CHL 20MEQ/100ML 100 ML IV ONE (05:15)
--- NOTE | 2024-11-13 05:16 | DVH ---
INDICATION: pna TECHNIQUE: Frontal view of the chest. COMPARISON: XY CHEST PORTABLE on DOS: 11/12/24, XY CHEST PORTABLE on DOS: 11/11/24, XY CHEST PORTABLE on DOS: 11/10/24, XY CHEST PORTABLE on DOS: 11/09/24, XY CHEST PORTABLE on DOS: 11/08/24, XY CHEST PORTABLE on DOS: 11/12/24 FINDINGS: LUNGS AND PLEURAL SPACES: Bibasilar atelectasis or pneumonia. No pneumothorax. HEART: Unremarkable. No cardiomegaly. MEDIASTINUM: Unremarkable. Normal mediastinal contour. BONES/JOINTS: Unremarkable. No acute fracture. TUBES, LINES AND DEVICES: The endotracheal tube (ETT) is in satisfactory position. Right periphera lly inserted central catheter (PICC) tip in the superior vena cava. Enteric tube tip cannot be seen but is below the diaphragm. IMPRESSION: Bibasilar atelectasis or pneumonia.
[2024-11-13] MEDS: POTASSIUM CHL 20MEQ/50ML 50 ML IV ONE ×2 (06:22→10:51)
[2024-11-13 07:03] LABS: Base Excess -0.5 mmol/L (-2.0-3.0)
--- NOTE | 2024-11-13 09:27 | DVHINCON2 ---
Date of service: November 13, 2024 Referring Physician Alen Reason for Consultation Evaluation for reversibility of neuro status History of Present Illness Mr. Martinez is a 44 years old gentleman, he was brought to the [facility] on 10/25/2024 with a chief company of general weakness, fatigue, abdominal pain, in the hospital, the patient was found to have CT confirmed perforated peptic ulcer, he went through exploratory laparoscopy on 10/26/2024 and then was transferred to ICU post surgically. He was downgraded to telemetry on 10/28/2024, unfortunately he coded @ 10/30/2024 0304 with cardiopulmonary arrest, patient was intubated, resuscitated with ROSC @ 10/30/2024 0307. He has been in the ICU since At this time, the patient is intubated, he did not responsive to my stroke pa inful stimuli but he opened his eyes when he was repositioned earlier today, he has brainstem reflexes Recently, the patient was noticed to have bleeding from the mouth and other sources Blood culture, 10/25/2024: Blanca albicans Respiratory culture, 10/30/2024: Providencia rettgerei, E coli, Blanca albicans Peritoneal fluid culture, 10/26/2024: Bacteroides fragilis, Prevotella melaninogenica, Pseudomonas aeruginosa, Klebsiella pneumoniae, Streptococcus group F Urinalysis, 10/28/2024: WBC: 5, urine leukocyte esterase: Negative ABG 10/30/2024, metabolic acidosis, 10/30/2024: Compensated metabolic acidosis, WBC/HGB/PLT/MCV, 11/13/2024: 10.9/10.5/246/91 BUN/CR, 11/13/2024: 85/1.65 TBI/AST/ALT/AP, 11/13/2024: 0.7/52/46/177 Chest x-ray, 11/13/2024: Bibasilar atelectasis or pneumonia CT head, 11/12/2024: Possible hypodensity in the bilateral cerebellum, cerebellar infarct can not be excluded. There is a punctate hypodensity within the right frontal lobe, which could represent age indeterminate infarct. MRI recommended for further evaluation (I suspect an arachnoid cyst in the posterior fossa, instead of cerebellum chronic stroke) CT abdomen, pelvis, 10/30/2024: 1. Development of moderate dependent consolidations in the bilateral lower lobes as well as patchy mixed airspace opacities in the right lower lobe likely a combination of atelectasis and pn eumonia, which may be on the basis of aspiration. 2. Interval placement of midline abdominal drain with the tip terminating in the anterior left upper abdomen. 3. Persistent free intraperitoneal air as well as extraluminal oral contrast in the abdomen compatible with perforated viscus. 4. Multiple loculated fluid collections in the abdomen and pelvis which could reflect multifocal abscesses. 5. Mild ascites, body wall edema, and small bilateral pleural effusions. 6. Cholelithiasis. 7. Mildly dilated small bowel loops as well as intervening normal caliber small bowel loops which could be related to ileus or multifocal small-bowel obstr Past Medical History Denies Past Surgical History Prior Left elbow fracture-needed Sx Family History: Patient reports no known family medical history. Family History Reviewed,noncontributory to illness, Social History Smoker: Non-Smoker Alcohol: Denies ETOH Use Drugs: Denies Drug Use Lives In: Home Allergies: Coded Allergies: NO KNOWN ALLERGIES (Unverified , 10/25/24) Home Meds No Active Prescriptions or Reported Meds Current Medications Current Medications Medications (Trade) Dose Ordered Sig/Neisha Route PRN Reason Start Time Stop Time Status Last Admin Potassium Phosphate 44 meq/ Magnesium Sulfate 6 meq/ Multivitamins 10 ml/Chromium/ Copper/Manganese/ Zinc 1 ml/Amino Acids/Dextrose/ Purified Water 1,522.5 ml @ 63 mls/hr [id number] IV 11/12/24 22:00 11/13/24 21:59 11/12/24 21:28 Albumin Human 50 ml @ 100 mls/hr Q8H IV 11/12/24 15:00 11/13/24 07:29 DC 11/13/24 08:04 Fentanyl Citrate 250 ml @ 2.5 mls/hr Q24H IV 11/12/24 16:45 Propofol 100 ml @ 1.818 mls/ hr Q24H IV 11/12/24 16:45 11/13/24 06:56 Nicardipine/ Sodium Chloride 200 ml @ 50 mls/hr Q4H IV 11/12/24 16:45 11/13/24 08:28 Review of Systems Unobtainable Vital Signs Vital Signs Date Time Temp Pulse Resp B/P (MAP) Pulse Ox O2 Delivery O2 Flow Rate FiO2 11/13/24 08:28 158/91 11/13/24 08:04 118 11/13/24 07:34 24 99 30 11/13/24 06:00 Mechanical Ventilator+ 11/13/24 00:01 98.3 98.3 Physical Exam The patient is well-nourished and well-developed with no distress. The patient is intubated HEENT: Normocephalic, neck supple, no carotid bruits Lungs: Clear to auscultation Cardiovascular: Regular rate and region, S1, S2, no murmurs Abdomen: Soft, nontender, normal bowel sounds. ALLISON drainage MENTAL STATUS: Not responsive to the surroundings CRANIAL NERVES: Pupils are equal, round and reactive.There are corneal reflexes and doll's eyes phenomenon. No signs of facial weakness. There are gagging or coughing reflexes SENSATION: No responses to pain stimuli. MOTOR: Normal tone in the upper and lower extremity. Normal muscle bulk. No fasciculations. No spontaneous movement. REFLEXES: Deep tendon reflexes are symmetrical. No pathological reflexes. CEREBELLAR/COORDINATION: Deferred GAIT/STATION: deferred. Labs/Diagnostic Data Labs Test 11/13/24 06:49 11/13/24 06:37 11/13/24 03:00 11/12/24 06:30 Range/Units Blood Gas Specimen Type Arterial Blood Gas Sample Site Left radial Blood Gas Patient Temperature 37.0 Arterial Blood Date Drawn [id number] Arterial Blood pH 7.452 H 7.350-7.450 Arterial Blood Partial Pressure CO2 33.6 L 35.0-48.0 mmHg Arterial Blood Partial Pressure O2 102.7 83.0-108.0 mmHg Arterial Blood HCO3 22.9 21.0-28.0 mmol/L Arterial Blood Oxygen Saturation 97.3 94.0-98.0 % Arterial Blood Base Excess -0.5 -2.0-3.0 mmol/L Arterial Blood Oxyhemoglobin 96.9 94.0-98.0 % Arterial Blood Carboxyhemoglobin 0.2 L 0.5-1.5 % Arterial Blood Methemoglobin 0.2 0.0-1.5 % Yunior Test Modified Blood Gas Total Hemoglobin 11.10 L 13.5-17.5 g/dL Blood Gas Set Respiration Rate 24.0 Blood Gas Modality Vent - ac FiO2 % 30.0 Blood Gas Tidal Volume 450.0 Blood Gas PEEP or CPAP 5.0 POC Glucose 153 H 70-106 mg/dl White Blood Count 10.9 #H 4.4-10.8 10^3/uL Red Blood Count 3.30 L 4.5-5.90 10^6/uL Hemoglobin 10.5 #L 13.5-17.5 g/dL Hematocrit 30.0 #L 41.0-53.0 % Mean Corpuscular Volume 91.0 80.0-100.0 fL Mean Corpuscular Hemoglobin 31.7 28.0-32.0 pg Mean Corpuscular Hemoglobin Concent 34.8 32.0-36.0 g/dL Red Cell Distribution Width 15.0 H 11.8-14.3 % Platelet Count 246 140-450 10^3/uL Mean Platelet Volume 7.9 6.9-10.8 fL Neutrophils (%) (Auto) 37.0-80.0 % Lymphocytes (%) (Auto) 10.0-50.0 % Monocytes (%) (Auto) 0.0-12.0 % Basophils (%) (Auto) 0.0-2.0 % Neutrophils # (Auto) 1.6-8.6 10 ^3/uL Lymphocytes # (Auto) 0.4-5.4 10 ^3/uL Monocytes # (Auto) 0-1.3 10 ^3/uL Differential Total Cells Counted 100.0 100 Neutrophils % (Manual) 82 H 37.0-80.0 Band Neutrophils % (Manual) 2 Lymphocytes % (Manual) 11 10.0-50.0 Monocytes % (Manual) 3 0-12 Eosinophils % (Manual) 0 0-7 Basophils % (Manual) 0 0.0-2.0 Metamyelocytes % (manual) 0 Myelocytes % (Manual) 2 Promyelocytes % (Manual) 0 Blast Cells % (Manual) 0 Reactive Lymphocytes 0 Platelet Estimate Adequate Sodium Level 143 136-145 mmol/L Potassium Level 3.3 L 3.5-5.1 mmol/L Chloride Level 108 H 98-107 mmol/L Carbon Dioxide Level 25 20-31 mmol/L Anion Gap 10 5-15 Blood Urea Nitrogen 85 *H 9-23 mg/dL Creatinine 1.64 H 0.700-1.30 mg/dL Glomerular Filtration Rate Calc 52 >90 mL/min BUN/Creatinine Ratio 51.8 H 10.0-20.0 Serum Glucose 145 H 74-106 mg/dL Calcium Level 8.2 L 8.7-10.4 mg/dL Phosphorus Level 2.7 2.4-5.1 mg/dL Magnesium Level 1.9 1.6-2.6 mg/dL Total Bilirubin 0.7 0.2-1.0 mg/dL Aspartate Amino Transferase (AST) 52 H 13-40 U/L Alanine Aminotransferase (ALT) 46 H 7-40 U/L Alkaline Phosphatase 177 H 46-116 U/L Total Protein 5.4 L 5.7-8.2 g/dL Albumin 2.8 L 3.2-4.8 g/dL Triglycerides Level 138 < 150 mg/dL Blood Gas Critical Value Read Back Yes Blood Gas Notified Whom Vero kendrick Blood Gas Notified Time [id number] Blood Gas Notified By Rt rosette russ Test 11/12/24 03:20 11/07/24 06:48 11/07/24 03:30 11/06/24 03:14 Range/Units Eosinophils (%) (Auto) 4.4 0.0-7.0 % Eosinophils # (Auto) 0.3 0-0.8 10 ^3/uL Basophils # (Auto) 0 0-0.2 10 ^3/uL Nucleated Red Blood Cells 0.1 % Blood Gas Spontaneous Rate 24 Blood Gas Inspiratory Pressure 21.0 Bl Gas Inspiratory/Expiratory Ratio 1:2.7 Specimen Drawn By lewis rt Lactic Acid Level 0.9 0.4-2.0 mmol/L Random Vancomycin Level 16.9 H 5-10 ug/mL Prothrombin Time 11.5 9.3-11.8 sec Prothrombin Time INR 1.09 0.9-1.15 Activated Partial Thromboplast Time 38.0 H 24.5-34.5 SEC Test 11/04/24 14:58 11/03/24 03:00 10/30/24 08:27 10/30/24 03:12 Range/Units Vancomycin Level Trough 29.6 H 5-10 ug/mL Smudge Cells 5 /100 WBC Miscellaneous Referred Test (Rm Tmp Sent to [facility] Large Platelets Few Test 10/29/24 06:10 10/28/24 12:30 10/26/24 18:40 10/26/24 02:52 Range/Units Anisocytosis (manual) Slight Urine Color Yellow Yellow Urine Clarity Cloudy H Clear Urine pH 5.5 5.0-9.0 Urine Specific [place]auer 1.023 1.001-1.035 Urine Protein 1+ H Negative Urine Ketones Negative Negative Urine Blood 3+ H Negative /uL Urine Nitrite Negative Negative Urine Bilirubin Negative Negative Urine Urobilinogen Normal Negative mg/dL Urine Leukocyte Esterase Negative Negative /uL Urine RBC 147 0 - 3 /hpf Urine Microscopic WBC 5 H 0-3 /HPF Urine Squamous Epithelial Cells Few <5 /hpf Urine Amorphous Crystals Few None Seen /hpf Urine Bacteria Few H None Seen /hpf Urine Mucus Few None Seen Urine Creatinine 32.03 30.0-125.0 mg/dL Urine Sodium 13 L 40-220 mmol/L Urine Glucose Normal Normal mg/dL Polychromasia Slight Microcytosis Slight Macrocytosis Slight Troponin I High Sensitivity 3 L </=54 ng/L Test 10/25/24 19:03 Range/Units B-Type Natriuretic Peptide 74.53 0-100 pg/mL Lipase 50 12-53 U/L Microbiology Date/Time Source Procedure Growth Status 11/11/24 15:48 Abdomen Gram Stain - Final Resulted 11/11/24 15:48 Abdomen Wound Culture - Preliminary Resulted 10/29/24 06:10 Blood Blood Culture - Final NO GROWTH AFTER 5 DAYS OF INCUBATION. Complete 10/26/24 13:25 Peritoneal Fluid Gram Stain - Final Complete 10/26/24 13:25 Anaerobic Culture - Final Bacteroides fragilis Prevotella melaninogenica Complete 10/26/24 13:25 Aerobic Culture - Final Pseudomonas aeruginosa Klebsiella pneumoniae Streptococcus Group F Complete 10/26/24 04:00 Voided Urine Urine Culture - Final Complete Assessment Coma Metabolic encephalopathy Hypoxic encephalopathy Toxic encephalopathy Acute respiratory failure Perforated gastric ulcer, status post surgical repair Peritonitis Sepsis Kidney failure Questionable infarct per CT scan Plan/Recommendation Monitoring Supportive treatment Follow-up labs MR brain scan ICU care Stabilize vitals Respiratory support/vent management Oxygen IV antibiotics TPN GI prophylaxis DVT prophylaxis More recommendation per clinical course Progress: Guarded Critical care time spent is 45 minutes This medical document was created using an electronic medical record system with [employer] dictation system. Although this document has been carefully reviewed, there may still be some phonetic and typographical errors. These areas are purely typographical due to imperfections of the software programs, and do not reflect any compromise in the patient's medical care. Plan discussed with: DOMI García MD November 13, 2024 09:27
--- NOTE | 2024-11-13 09:33 | DVHPN2 ---
Subjective Patient was intubated and sedated Reviewed: Care Plan, H&P, Labs, Medications, Previous Orders, Radiology, Other (Consultations) Changes from previous H/P or p: No Changes General: Per HPI Objective Vitals Vital Signs Date Time Temp Pulse Resp B/P (MAP) Pulse Ox O2 Delivery O2 Flow Rate FiO2 11/13/24 09:01 111 27 147/83 (104) 100 11/13/24 08:01 98.8 98.8 11/13/24 08:00 Mechanical Ventilator+ 30 30 Intake/Output Intake and Output 11/13/24 07:00 Intake Total 3161.612 ml Output Total 2635 ml Balance 526.612 ml Intake Oral 0 ml IV Total 3161.612 ml Output Urine Total 2250 ml Drainage Total 100 ml Other 285 ml General Appearance: Other (Intubated and sedated) HEENT: Atraumatic Lungs: Other (Mechanical ventilation sounds) Cardiovascular: Normal S1, Normal S2, Other (Tachycardia) Abdomen: Other (ALLISON drain with biliary green fluid; no bowel sounds) Genitourinary: Other (Echavarria's) Neuro: Other (Intubated and sedated) Skin: Dry, Intact, Wounds (See nurse notes and pictures) Psych/Mental Status: Other (Intubated and sedated) Medications Current Medications Medications Dose Ordered Sig/Neisha Route Start Time Stop Time Status Last Admin Dose Admin Amino Acids 0 ml @ 0 mls/hr PER PHARMACY IV 10/27/24 08:45 Diagnostic Test (Pha) 1 strip Q6HR 10/27/24 12:00 11/13/24 06:40 1 STRIP Insulin Human Regular FOLLOW SLIDING SCALE Q6HR SC 10/27/24 12:00 11/13/24 06:40 2 UNITS Dextrose 50 ml UD IV 10/27/24 09:45 Sodium Chloride 10 ml QSHIFT@10,22 IV 10/27/24 22:00 11/12/24 21:26 10 ML Pantoprazole Sodium 40 mg BID IV 10/28/24 22:00 11/12/24 21:26 40 MG Levalbuterol HCl 0.625 mg Q6HR NEB 10/30/24 12:00 11/13/24 00:14 0.625 MG Ipratropium [place] 0.5 mg Q6HR NEB 10/30/24 12:00 11/13/24 00:14 0.5 MG Acetylcysteine 100 mg Q6HR NEB 10/30/24 12:00 11/13/24 00:14 100 MG Micafungin Sodium 100 mg/Sodium Chloride 100 ml @ 100 mls/hr DAILY IV 10/31/24 10:00 11/12/24 12:38 100 MLS/HR Labetalol HCl 10 mg Q2HPRN PRN IV 11/11/24 12:15 11/13/24 08:04 10 MG Furosemide 60 mg BIDD IV 11/11/24 18:00 11/13/24 06:25 60 MG Piperacillin Sod/ Tazobactam Sod 100 ml @ 25 mls/hr Q8HR IV 11/11/24 22:00 11/13/24 06:23 25 MLS/HR Potassium Chloride 100 ml @ 50 mls/hr Q2H IV 11/12/24 05:30 11/12/24 09:29 UNV Potassium Phosphate 44 meq/ Magnesium Sulfate 6 meq/ Multivitamins 10 ml/Chromium/ Copper/Manganese/ Zinc 1 ml/Amino Acids/Dextrose/ Purified Water 1,522.5 ml @ 63 mls/hr [id number] IV 11/12/24 22:00 11/13/24 21:59 11/12/24 21:28 63 MLS/HR Fentanyl Citrate 250 ml @ 2.5 mls/hr Q24H IV 11/12/24 16:45 Propofol 100 ml @ 1.818 mls/ hr Q24H IV 11/12/24 16:45 11/13/24 06:56 7.272 MLS/HR Nicardipine/ Sodium Chloride 200 ml @ 50 mls/hr Q4H IV 11/12/24 16:45 11/13/24 08:28 100 MLS/HR Laboratory Results Laboratory Tests 11/13/24 03:00 Chemistry Test 11/13/24 03:00 Albumin 2.8 g/dL (3.2-4.8) L Calcium Level 8.2 mg/dL (8.7-10.4) L Magnesium Level 1.9 mg/dL (1.6-2.6) Phosphorus Level 2.7 mg/dL (2.4-5.1) Total Protein 5.4 g/dL (5.7-8.2) L Lipid panel Test 11/13/24 03:00 Triglycerides Level 138 mg/dL (< 150) LFT Test 11/13/24 03:00 Alanine Aminotransferase (ALT) 46 U/L (7-40) H Alkaline Phosphatase 177 U/L (46-116) H Aspartate Amino Transferase (AST) 52 U/L (13-40) H Total Bilirubin 0.7 mg/dL (0.2-1.0) Urinalysis Test 10/28/24 12:30 Urine Color Yellow (Yellow) Urine Clarity Cloudy (Clear) H Urine pH 5.5 (5.0-9.0) Urine Specific [place] 1.023 (1.001-1.035) Urine Protein 1+ (Negative) H Urine Ketones Negative (Negative) Urine Blood 3+ /uL (Negative) H Urine Nitrite Negative (Negative) Urine Bilirubin Negative (Negative) Urine Urobilinogen Normal mg/dL (Negative) Urine Leukocyte Esterase Negative /uL (Negative) Urine RBC 147 /hpf (0 - 3) Urine Microscopic WBC 5 /HPF (0-3) H Urine Squamous Epithelial Cells Few /hpf (<5) Urine Amorphous Crystals Few /hpf (None Seen) Urine Bacteria Few /hpf (None Seen) H Urine Mucus Few (None Seen) Urine Creatinine 32.03 mg/dL (30.0-125.0) Urine Sodium 13 mmol/L (40-220) L Urine Glucose Normal mg/dL (Normal) Blood Gas Results Test 11/13/24 06:49 Arterial Blood pH 7.452 (7.350-7.450) FiO2 % 30.0 Microbiology Microbiology Date/Time Source Procedure Growth Status 11/11/24 15:48 Abdomen Gram Stain - Final Resulted 11/11/24 15:48 Abdomen Wound Culture - Preliminary Resulted 10/29/24 06:10 Blood Blood Culture - Final NO GROWTH AFTER 5 DAYS OF INCUBATION. Complete 10/26/24 13:25 Peritoneal Fluid Gram Stain - Final Complete 10/26/24 13:25 Anaerobic Culture - Final Bacteroides fragilis Prevotella melaninogenica Complete 10/26/24 13:25 Aerobic Culture - Final Pseudomonas aeruginosa Klebsiella pneumoniae Streptococcus Group F Complete 10/26/24 04:00 Voided Urine Urine Culture - Final Complete Labs and/or images reviewed: Labs reviewed by me, Image(s) reviewed by me Assessment/Plan Assessment/Plan Impression: -sepsis , yeast in the blood, repeat blood culture negative for yeast -perforated gastric ulcer, status post exploratory laparotomy with repair of ulcer, lysis of adhesions -pneumoperitoneum with multiple gastric adhesions and abscess -acute kidney injury, vasomotor nephropathy -cachexia -postop anemia -acute hypoxic respiratory failure mechanical ventilation - Plan: -Events: No events overnight. H&H stable. Noted bilious drainage from left lower quadrant drain. Long discussion made with the patient's brother and son yesterday. CT scan of the head yesterday reveals probable areas of infarct. Neurology consultation pending. MRI of the brain currently pending. -continue current ventilator settings per pulmonology. Spontaneous breathing trial per their recommendations -continue TPN -potassium replacement -PUD, DVT prophylaxis -IV antibiotics per Infectious Disease -PPI -Cont sedation: Versed, Fent -repeat labs, chest x-ray, ABG daily Critical Care time spent with patient discussing and formulating plan of care: 90 minutes. This medical document was created using an electronic medical record system with [employer] dictation system. Although this document has been carefully reviewed, there may still be some phonetic and typographical errors. These areas are purely typographical due to imperfections of the software programs, and do not reflect any compromise in the patient's medical care. Plan discussed with: Patient, Son, Other (RN) My Orders Orders - IRMA WAITE NP Procedure Category Date Status Time Chest Portable XY 11/13/24 Resulted 04:[address] 11/12/24 Resulted 10:14 Communication Order ORDERS 11/12/24 Transmitted 13:32 Communication Order ORDERS 11/12/24 Transmitted 13:51 L Elbow 2 View Xray XY 11/12/24 Resulted 15:00 * Neurology Consult CONS 11/12/24 Transmitted 15:19 Brain Head Wo Contrast MRI 11/12/24 Logged 15:19 Fentanyl Drip PHA 11/12/24 In Process 2500mcg/250mlns 16:45 Propofol (Diprivan) PHA 11/12/24 In Process 16:45 Nicardipine Hcl In PHA 11/12/24 In Process Sodium Chlo (Cardene 16:45 Abg W/ Co-Ox RT 11/13/24 Logged 06:30 Date of Service: November 13, 2024 Billing Provider: IRMA WAITE NP Common Visit Codes: 22391-[id number] CARE 30-74 MIN, 62574-[id number] CARE-EACH +30MIN IRMA WAITE NP November 13, 2024 09:33
--- NOTE | 2024-11-13 11:06 | DVHPN2 ---
Progress Note Date Seen: November 13, 2024 Resident Creating Document: LUANN PLUNKETT RESIDENT Has the PT tested + for MRSA If YES, has PT been informed?: No Medical Necessity Reason Pt with a Central, PICC or Fol: Yes The following are medically ne: Persaud Catheter Reason for persaud catheter: Strict I&O Subjective Review of Systems Patient seen and examined at bedside. Patient is currently sedated and mechanically ventilated on the following parameters: VT 450, if 20, FiO2 30%, PEEP 5.0 sat 98%. ABG this morning showed a pH of 7.45, pCO2 of 33.6, PaO2 of 102 and HC03 of 22.9 no acid-base disturbance at this time. Strict in's and out were monitored in the past 24 hours in's 3036, out 2635 for a positive balance of 401. We will continue furosemide 60 mg b.i.d. IV, continue diuresis, creatinine is slightly improving 1.64 and BUN 85. Upon my examination, the patient still having severe 3+ pitting edema bilaterally extending to bilateral knees. We will continue with furosemide 60 mg b.i.d. IV. We will keep monitoring kidney function closely. ROS unable to obtain due to patient's current status intubated and sedated. Objective vital signs Vital Sign Date Time Temp Pulse Resp B/P (MAP) Pulse Ox O2 Delivery O2 Flow Rate FiO2 11/13/24 10:51 116 151/77 11/13/24 10:46 29 100 11/13/24 10:00 30 11/13/24 10:00 Mechanical Ventilator+ 11/13/24 08:01 98.8 98.8 Total Intake and Output 11/12/24 11/12/24 11/13/24 15:00 23:00 07:00 Intake Total 764.396 ml 1014.812 ml 1382.404 ml Output Total 1285 ml 1350 ml Balance 764.396 ml -270.188 ml 32.404 ml medications Current Medications Medications Dose Ordered Sig/Neisha Route Start Time Stop Time Status Last Admin Dose Admin Amino Acids 0 ml @ 0 mls/hr PER PHARMACY IV 10/27/24 08:45 Diagnostic Test (Pha) 1 strip Q6HR 10/27/24 12:00 11/13/24 06:40 1 STRIP Insulin Human Regular FOLLOW SLIDING SCALE Q6HR SC 10/27/24 12:00 11/13/24 06:40 2 UNITS Dextrose 50 ml UD IV 10/27/24 09:45 Sodium Chloride 10 ml QSHIFT@10,22 IV 10/27/24 22:00 11/13/24 09:33 10 ML Pantoprazole Sodium 40 mg BID IV 10/28/24 22:00 11/13/24 09:33 40 MG Levalbuterol HCl 0.625 mg Q6HR NEB 10/30/24 12:00 11/13/24 10:02 0.625 MG Ipratropium [place] 0.5 mg Q6HR NEB 10/30/24 12:00 11/13/24 10:01 0.5 MG Acetylcysteine 100 mg Q6HR NEB 10/30/24 12:00 11/13/24 10:02 100 MG Micafungin Sodium 100 mg/Sodium Chloride 100 ml @ 100 mls/hr DAILY IV 10/31/24 10:00 11/13/24 09:33 100 MLS/HR Labetalol HCl 10 mg Q2HPRN PRN IV 11/11/24 12:15 11/13/24 10:51 10 MG Furosemide 60 mg BIDD IV 11/11/24 18:00 11/13/24 06:25 60 MG Piperacillin Sod/ Tazobactam Sod 100 ml @ 25 mls/hr Q8HR IV 11/11/24 22:00 11/13/24 06:23 25 MLS/HR Potassium Chloride 100 ml @ 50 mls/hr Q2H IV 11/12/24 05:30 11/12/24 09:29 UNV Potassium Phosphate 44 meq/ Magnesium Sulfate 6 meq/ Multivitamins 10 ml/Chromium/ Copper/Manganese/ Zinc 1 ml/Amino Acids/Dextrose/ Purified Water 1,522.5 ml @ 63 mls/hr [id number] IV 11/12/24 22:00 11/13/24 21:59 11/12/24 21:28 63 MLS/HR Fentanyl Citrate 250 ml @ 2.5 mls/hr Q24H IV 11/12/24 16:45 Propofol 100 ml @ 1.818 mls/ hr Q24H IV 11/12/24 16:45 11/13/24 06:56 7.272 MLS/HR Nicardipine/ Sodium Chloride 200 ml @ 50 mls/hr Q4H IV 11/12/24 16:45 11/13/24 10:40 100 MLS/HR Potassium Acetate 10 meq/Potassium Phosphate 44 meq/ Magnesium Sulfate 8 meq/ Multivitamins 10 ml/Chromium/ Copper/Manganese/ Zinc 1 ml/Amino Acids/Dextrose/ Purified Water 1,528 ml @ 63 mls/hr [id number] IV 11/13/24 22:00 11/14/24 21:59 Examination Physical Examination General: Patient currently intubated on the following mechanical ventilatory settings: VT 450, if 20, FiO2 30%, PEEP 5.0 sat 100% HEENT: Normocephalic, atraumatic, moist mucous membranes Respiratory/pulmonary: Clear lungs bilaterally, no associated crackles or wheezes. Cardiovascular: Normal heart sounds S1 and S2 with no associated murmurs Abdomen: Abdomen nondistended, there is no pain to palpation in any of the abdominal quadrants, no palpable masses. ALLISON drainage is draining 135 cc in the last 24 hours greenish/blackish in color Extremities: There is significant 2+ pitting edema on bilateral lower extremities from both foots all the way up to bilateral thighs. Peripheral Pulses: 3+ Radial (R). 3+ Radial (L). 3+ Dorsalis pedis (R). 3+ Dorsalis pedis(L) Skin: No rashes or pruritus, there is no sacral edema present at this time. Neurological: RASS -1, pupils reactive to light. laboratory and microbiology Laboratory Tests 11/13/24 03:00 Test 11/13/24 03:00 Range/Units Serum Glucose 145 H 74-106 mg/dL Microbiology Date/Time Source Procedure Growth Status 11/11/24 15:48 Abdomen Gram Stain - Final Resulted 11/11/24 15:48 Abdomen Wound Culture - Preliminary Resulted 10/29/24 06:10 Blood Blood Culture - Final NO GROWTH AFTER 5 DAYS OF INCUBATION. Complete 10/26/24 13:25 Peritoneal Fluid Gram Stain - Final Complete 10/26/24 13:25 Anaerobic Culture - Final Bacteroides fragilis Prevotella melaninogenica Complete 10/26/24 13:25 Aerobic Culture - Final Pseudomonas aeruginosa Klebsiella pneumoniae Streptococcus Group F Complete 10/26/24 04:00 Voided Urine Urine Culture - Final Complete Problem List/Assessment/Plan Problem List/Assessment/Plan Assessment/plan MARIA FERNANDA likely hemodynamic mediated in the setting of septic shock Uremia likely multifactorial due to sepsis/TPN/possible GI bleed/severe anemia status post transfusion Acute blood loss anemia most likely due to intraoperative blood loss/ gastric ulcer perforation Acute hypoxemic respiratory failure, possible bacterial pneumonia Acute metabolic/toxic encephalopathy Transaminitis likely due to septic shock Candidemia Severe malnutrition Plan -continue IV furosemide at 60 mg b.i.d. -continue albumin 25% IV Q8 to help with oncotic preassure and furosemide action -continue IV antibiotics per hospitalist -Eval possibility of starting prophylactic lovenox, risks and benefits do to hypercoagulable state -avoid nephrotoxic drugs -kidney function slightly improving. Today creatinine was 1.64 -continue monitoring kidney function -follow close recommendations by surgery team regarding possible fluid collection drainage Goals of care discussed with nurse, claims supervisor. Critical time spent 40min Plan discussed with Addendum Patient seen and examined, plan discussed with resident. Agree with above, we will follow closely Plan discussed with: Other Dietary Evaluation Review Comments: 1) Conitnue TPN to provide at least 75% estimated needs 2) Advance diet as medically feasible 3) Continue current plan of care Expected Outcomes/Goals: GI symptoms to improve To meet >75% estimated needs Fu 2-3 days LUANN PLUNKETT November 13, 2024 11:06 ISIDRO KELLEY MD November 13, 2024 16:46
--- NOTE | 2024-11-13 16:11 | DVH ---
PROCEDURE: MRI BRAIN HEAD WO CONTRAST Indication: anoxic injury COMPARISON: 11/12/2024. TECHNIQUE: Multiplanar multisequence images of the brain are obtained. FINDINGS: There is diffusely increased diffusion restriction signal within the cerebral cortices. There is asso ciated increased T2 and FLAIR signal within the bilateral cerebral cortices. There is no intracranial hemorrhage. No midline shift. 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 The cisterns are patent. Normal intracranial flow voids are preserved. No abnormal susceptibility signal. [id number] global cerebral volume loss especially in the edward ateral cerebellar hemispheres. Large bilateral mastoid effusions. Paranasal sinuses well pneumatized. Orbits and retrobulbar spaces unremarkable. IMPRESSION: 1. Diffusely increased diffusion restriction signal within the cerebral cortices, suggestive of anoxi c/ hypoxic brain ischemic injury 2. [id number] global cerebral volume loss. 3. Bilateral mastoid effusions.
[2024-11-13] MEDS: TPN PER PHARMACY IV NR (21:52)
[2024-11-14] VITALS (115 sets, daily range): BP systolic 123–178; BP diastolic 56–83; PULSE 100–136; RESP 14–34; TEMP 97.9–98.6; O2SAT 98–100
[2024-11-14 04:03] LABS: Anion Gap 12 (5-15); BUN/Creatinine Ratio 50.6 (10.0-20.0); Carbon Dioxide 24 mmol/L (20-31); Magnesium 1.9 mg/dL (1.6-2.6); Potassium 3.5 mmol/L (3.5-5.1); Sodium 143 mmol/L (136-145)
[2024-11-14 04:04] LABS: Bilirubin, Total 0.6 mg/dL (0.2-1.0); Phosphorus 3.8 mg/dL (2.4-5.1)
[2024-11-14 04:36] LABS: Alanine Aminotransferase 46 U/L (7-40); Albumin 2.7 g/dL (3.2-4.8); Alkaline Phosphatase 175 U/L (46-116); Aspartate Aminotransferase 57 U/L (13-40); Chloride 107 mmol/L (98-107); Glucose 125 mg/dL (74-106); Total Protein 5.5 g/dL (5.7-8.2)
[2024-11-14 04:37] LABS: Blood Urea Nitrogen 82 mg/dL (9-23)
[2024-11-14 07:24] LABS: Base Excess -1.2 mmol/L (-2.0-3.0)
--- NOTE | 2024-11-14 09:35 | DVHPN2 ---
Subjective Patient was intubated and sedated Reviewed: Care Plan, H&P, Labs, Medications, Previous Orders, Radiology, Other (Consultations) Changes from previous H/P or p: No Changes General: Per HPI Objective Vitals Vital Signs Date Time Temp Pulse Resp B/P (MAP) Pulse Ox O2 Delivery O2 Flow Rate FiO2 11/14/24 08:58 112 22 161/79 (106) 100 30 11/14/24 08:00 Mechanical Ventilator+ 11/14/24 04:18 98.2 98.2 Intake/Output Intake and Output 11/14/24 07:00 Intake Total 3701.56 ml Output Total 1955 ml Balance 1746.56 ml Intake Oral 0 ml IV Total 3701.56 ml Output Urine Total 1600 ml Stool Total 0 ml Drainage Total 250 ml Other 105 ml General Appearance: Other (Intubated and sedated) HEENT: Atraumatic Lungs: Other (Mechanical ventilation sounds) Cardiovascular: Normal S1, Normal S2, Other (Tachycardia) Abdomen: Other (ALLISON drain with biliary green fluid; no bowel sounds) Genitourinary: Other (Echavarria's) Neuro: Other (Intubated and sedated) Skin: Dry, Intact, Wounds (See nurse notes and pictures) Psych/Mental Status: Other (Intubated and sedated) Medications Current Medications Medications Dose Ordered Sig/Neisha Route Start Time Stop Time Status Last Admin Dose Admin Amino Acids 0 ml @ 0 mls/hr PER PHARMACY IV 10/27/24 08:45 Diagnostic Test (Pha) 1 strip Q6HR 10/27/24 12:00 11/14/24 06:03 1 STRIP Insulin Human Regular FOLLOW SLIDING SCALE Q6HR SC 10/27/24 12:00 11/14/24 00:20 2 UNITS Dextrose 50 ml UD IV 10/27/24 09:45 Sodium Chloride 10 ml QSHIFT@10,22 IV 10/27/24 22:00 11/13/24 21:43 10 ML Pantoprazole Sodium 40 mg BID IV 10/28/24 22:00 11/14/24 09:29 40 MG Levalbuterol HCl 0.625 mg Q6HR NEB 10/30/24 12:00 11/14/24 06:19 0.625 MG Ipratropium [place] 0.5 mg Q6HR NEB 10/30/24 12:00 11/14/24 06:19 0.5 MG Acetylcysteine 100 mg Q6HR NEB 10/30/24 12:00 11/14/24 06:19 100 MG Micafungin Sodium 100 mg/Sodium Chloride 100 ml @ 100 mls/hr DAILY IV 10/31/24 10:00 11/14/24 09:29 100 MLS/HR Labetalol HCl 10 mg Q2HPRN PRN IV 11/11/24 12:15 11/13/24 21:49 10 MG Furosemide 60 mg BIDD IV 11/11/24 18:00 11/14/24 06:03 60 MG Piperacillin Sod/ Tazobactam Sod 100 ml @ 25 mls/hr Q8HR IV 11/11/24 22:00 11/14/24 06:03 25 MLS/HR Potassium Chloride 100 ml @ 50 mls/hr Q2H IV 11/12/24 05:30 11/12/24 09:29 UNV Fentanyl Citrate 250 ml @ 2.5 mls/hr Q24H IV 11/12/24 16:45 11/14/24 03:28 2.5 MLS/HR Propofol 100 ml @ 1.818 mls/ hr Q24H IV 11/12/24 16:45 11/14/24 08:35 3.636 MLS/HR Nicardipine/ Sodium Chloride 200 ml @ 50 mls/hr Q4H IV 11/12/24 16:45 11/14/24 08:35 100 MLS/HR Potassium Acetate 10 meq/Potassium Phosphate 44 meq/ Magnesium Sulfate 8 meq/ Multivitamins 10 ml/Chromium/ Copper/Manganese/ Zinc 1 ml/Amino Acids/Dextrose/ Purified Water 1,528 ml @ 63 mls/hr [id number] IV 11/13/24 22:00 11/14/24 21:59 11/13/24 21:52 63 MLS/HR Laboratory Results Laboratory Tests 11/13/24 03:00 11/14/24 03:00 Chemistry Test 11/14/24 03:00 Albumin 2.7 g/dL (3.2-4.8) L Calcium Level 8.0 mg/dL (8.7-10.4) L Magnesium Level 1.9 mg/dL (1.6-2.6) Phosphorus Level 3.8 mg/dL (2.4-5.1) Total Protein 5.5 g/dL (5.7-8.2) L LFT Test 11/14/24 03:00 Alanine Aminotransferase (ALT) 46 U/L (7-40) H Alkaline Phosphatase 175 U/L (46-116) H Aspartate Amino Transferase (AST) 57 U/L (13-40) H Total Bilirubin 0.6 mg/dL (0.2-1.0) Urinalysis Test 10/28/24 12:30 Urine Color Yellow (Yellow) Urine Clarity Cloudy (Clear) H Urine pH 5.5 (5.0-9.0) Urine Specific [place] 1.023 (1.001-1.035) Urine Protein 1+ (Negative) H Urine Ketones Negative (Negative) Urine Blood 3+ /uL (Negative) H Urine Nitrite Negative (Negative) Urine Bilirubin Negative (Negative) Urine Urobilinogen Normal mg/dL (Negative) Urine Leukocyte Esterase Negative /uL (Negative) Urine RBC 147 /hpf (0 - 3) Urine Microscopic WBC 5 /HPF (0-3) H Urine Squamous Epithelial Cells Few /hpf (<5) Urine Amorphous Crystals Few /hpf (None Seen) Urine Bacteria Few /hpf (None Seen) H Urine Mucus Few (None Seen) Urine Creatinine 32.03 mg/dL (30.0-125.0) Urine Sodium 13 mmol/L (40-220) L Urine Glucose Normal mg/dL (Normal) Blood Gas Results Test 11/14/24 07:00 Arterial Blood pH 7.449 (7.350-7.450) FiO2 % 30.0 Microbiology Microbiology Date/Time Source Procedure Growth Status 11/11/24 15:48 Abdomen Gram Stain - Final Resulted 11/11/24 15:48 Abdomen Wound Culture - Preliminary Resulted 10/29/24 06:10 Blood Blood Culture - Final NO GROWTH AFTER 5 DAYS OF INCUBATION. Complete 10/26/24 13:25 Peritoneal Fluid Gram Stain - Final Complete 10/26/24 13:25 Anaerobic Culture - Final Bacteroides fragilis Prevotella melaninogenica Complete 10/26/24 13:25 Aerobic Culture - Final Pseudomonas aeruginosa Klebsiella pneumoniae Streptococcus Group F Complete 10/26/24 04:00 Voided Urine Urine Culture - Final Complete Labs and/or images reviewed: Labs reviewed by me, Image(s) reviewed by me Assessment/Plan Assessment/Plan Impression: -sepsis , yeast in the blood, repeat blood culture negative for yeast -perforated gastric ulcer, status post exploratory laparotomy with repair of ulcer, lysis of adhesions -pneumoperitoneum with multiple gastric adhesions and abscess -acute kidney injury, vasomotor nephropathy -cachexia -postop anemia -acute hypoxic respiratory failure mechanical ventilation - Plan: -Events: MRI of the brain performed yesterday with impression of diffuse hypoxic damage. Discussed case with primary nurse to weaned off all sedation. Neurology recommendations appreciated. Attempted to call patient's brother, James, who was not available at this time (did not answer). Patient continues to have copious drainage around ALLISON site, continues to be bilious in nature. -continue current ventilator settings per pulmonology. Spontaneous breathing trial per their recommendations -continue TPN -potassium replacement -PUD, DVT prophylaxis -IV antibiotics per Infectious Disease -PPI -Cont sedation: Versed, Fent -repeat labs, chest x-ray, ABG daily Critical Care time spent with patient discussing and formulating plan of care: 90 minutes. This medical document was created using an electronic medical record system with [employer] dictation system. Although this document has been carefully reviewed, there may still be some phonetic and typographical errors. These areas are purely typographical due to imperfections of the software programs, and do not reflect any compromise in the patient's medical care. Plan discussed with: Patient, Other (RN) My Orders Orders - IRMA WAITE NP Procedure Category Date Status Time Abg W/ Co-Ox RT 11/14/24 Logged 05:25 Complete Blood Count LAB 11/15/24 Verified 05:00 Complete Blood Count LAB 11/16/24 Verified 05:00 Complete Blood Count LAB 11/17/24 Verified 05:00 Basic Metabolic Panel LAB 11/15/24 Verified 05:00 Basic Metabolic Panel LAB 11/16/24 Verified 05:00 Basic Metabolic Panel LAB 11/17/24 Verified 05:00 Chest Portable XY 11/15/24 Transmitted 05:00 Chest Portable XY 11/16/24 Transmitted 05:00 Chest Portable XY 11/17/24 Transmitted 05:00 Date of Service: November 14, 2024 Billing Provider: IRMA WAITE NP Common Visit Codes: [id number] CARE 30-74 MIN IRMA WAITE NP November 14, 2024 09:35
--- NOTE | 2024-11-14 10:24 | DVHPN2 ---
Progress Note - Dictate Date Seen: November 14, 2024 Has the PT tested + for MRSA If YES, has PT been informed?: No Medical Necessity Reason Pt with a Central, PICC or Fol: Yes The following are medically ne: Persaud Catheter Reason for persaud catheter: Strict I&O Subjective Mr. Martinez is a 44 years old gentleman, he was brought to the [facility] on 10/25/2024 with a chief company of general weakness, fatigue, abdominal pain, in the hospital, the patient was found to have CT confirmed perforated peptic ulcer, he went through exploratory laparoscopy on 10/26/2024 and then was transferred to ICU post surgically. He was downgraded to telemetry on 10/28/2024, unfortunately he coded @ 10/30/2024 0304 with cardiopulmonary arrest, patient was intubated, resuscitated with ROSC @ 10/30/2024 0307. He has been in the ICU since I have seen and examined the patient, I have talked to his nurse and the medical staff, he is intubated, eyes are open, he has spontaneous facial movement, but he is nonresponsive to verbal stimuli, visual threat, or sudden loud noise Blood culture, 10/25/2024: Blanca albicans Respiratory culture, 10/30/2024: Providencia rettgerei, E coli, Blanca albicans Peritoneal fluid culture, 10/26/2024: Bacteroides fragilis, Prevotella melaninogenica, Pseudomonas aeruginosa, Klebsiella pneumoniae, Streptococcus group F Urinalysis, 10/28/2024: WBC: 5, urine leukocyte esterase: Negative ABG 10/30/2024, metabolic acidosis, 10/30/2024: Compensated metabolic acidosis, WBC/HGB/PLT/MCV, 11/13/2024: 10.9/10.5/246/91 BUN/CR, 11/13/2024: 85/1.65 TBI/AST/ALT/AP, 11/13/2024: 0.7/52/46/177 Chest x-ray, 11/13/2024: Bibasilar atelectasis or pneumonia CT head, 11/12/2024: Possible hypodensity in the bilateral cerebellum, cerebellar infarct can not be excluded. There is a punctate hypodensity within the right frontal lobe, which could represent age indeterminate infarct. MRI recommended for further evaluation (I suspect an arachnoid cyst in the posterior fossa, instead of cerebellum chronic stroke) CT abdomen, pelvis, 10/30/2024: 1. Development of moderate dependent consolidations in the bilateral lower lobes as well as patchy mixed airspace opacities in the right lower lobe likely a combination of atelectasis and pneumonia, which may be on the basis of aspiration. 2. Interval placement of midline abdominal drain with the tip terminating in the anterior left upper abdomen. 3. Persistent free intraperitoneal air as well as extraluminal oral contrast in the abdomen compatible with perforated viscus. 4. Multiple loculated fluid collections in the abdomen and pelvis which could reflect multifocal abscesses. 5. Mild ascites, body wall edema, and small bilateral pleural effusions. 6. Cholelithiasis. 7. Mildly dilated small bowel loops as well as intervening normal caliber small bowel loops which could be related to ileus or multifocal small-bowel obstr MR brain, 11/13/2024: 1. Diffusely increased diffusion restriction signal within the cerebral cortices, suggestive of anoxic/ hypoxic brain ischemic injury 2. [id number] global cerebral volume loss. 3. Bilateral mastoid effusions vital signs Vital Sign Date Time Temp Pulse Resp B/P (MAP) Pulse Ox O2 Delivery O2 Flow Rate FiO2 11/14/24 09:51 122 152/78 11/14/24 08:58 22 100 30 11/14/24 08:00 Mechanical Ventilator+ 11/14/24 04:18 98.2 98.2 Total Intake and Output 11/13/24 11/13/24 11/14/24 15:00 23:00 07:00 Intake Total 1609 ml 1158.65 ml 933.91 ml Output Total 975 ml 980 ml Balance 1609 ml 183.65 ml -46.09 ml medications Current Medications Medications Dose Ordered Sig/Neisha Route Start Time Stop Time Status Last Admin Dose Admin Amino Acids 0 ml @ 0 mls/hr PER PHARMACY IV 10/27/24 08:45 Diagnostic Test (Pha) 1 strip Q6HR 10/27/24 12:00 11/14/24 06:03 1 STRIP Insulin Human Regular FOLLOW SLIDING SCALE Q6HR SC 10/27/24 12:00 11/14/24 00:20 2 UNITS Dextrose 50 ml UD IV 10/27/24 09:45 Sodium Chloride 10 ml QSHIFT@10,22 IV 10/27/24 22:00 11/14/24 09:51 10 ML Pantoprazole Sodium 40 mg BID IV 10/28/24 22:00 11/14/24 09:29 40 MG Levalbuterol HCl 0.625 mg Q6HR NEB 10/30/24 12:00 11/14/24 06:19 0.625 MG Ipratropium [place] 0.5 mg Q6HR NEB 10/30/24 12:00 11/14/24 06:19 0.5 MG Acetylcysteine 100 mg Q6HR NEB 10/30/24 12:00 11/14/24 06:19 100 MG Micafungin Sodium 100 mg/Sodium Chloride 100 ml @ 100 mls/hr DAILY IV 10/31/24 10:00 11/14/24 09:29 100 MLS/HR Labetalol HCl 10 mg Q2HPRN PRN IV 11/11/24 12:15 11/14/24 09:51 10 MG Furosemide 60 mg BIDD IV 11/11/24 18:00 11/14/24 06:03 60 MG Piperacillin Sod/ Tazobactam Sod 100 ml @ 25 mls/hr Q8HR IV 11/11/24 22:00 11/14/24 06:03 25 MLS/HR Potassium Chloride 100 ml @ 50 mls/hr Q2H IV 11/12/24 05:30 11/12/24 09:29 UNV Fentanyl Citrate 250 ml @ 2.5 mls/hr Q24H IV 11/12/24 16:45 11/14/24 03:28 2.5 MLS/HR Propofol 100 ml @ 1.818 mls/ hr Q24H IV 11/12/24 16:45 11/14/24 08:35 3.636 MLS/HR Nicardipine/ Sodium Chloride 200 ml @ 50 mls/hr Q4H IV 11/12/24 16:45 11/14/24 08:35 100 MLS/HR Potassium Acetate 10 meq/Potassium Phosphate 44 meq/ Magnesium Sulfate 8 meq/ Multivitamins 10 ml/Chromium/ Copper/Manganese/ Zinc 1 ml/Amino Acids/Dextrose/ Purified Water 1,528 ml @ 63 mls/hr [id number] IV 11/13/24 22:00 11/14/24 21:59 11/13/24 21:52 63 MLS/HR objective The patient is well-nourished and well-developed with no distress. The patient is intubated MENTAL STATUS: Subjective CRANIAL NERVES: Pupils are equal, round and reactive.There are corneal reflexes and doll's eyes phenomenon. No signs of facial weakness. There are gagging or coughing reflexes SENSATION: No responses to pain stimuli. MOTOR: Normal tone in the upper and lower extremity. Normal muscle bulk. No fasciculations. No spontaneous movement. REFLEXES: Deep tendon reflexes are symmetrical. No pathological reflexes. CEREBELLAR/COORDINATION: Deferred GAIT/STATION: deferred laboratory and microbiology Laboratory Tests 11/14/24 03:00 11/13/24 03:00 Test 11/14/24 03:00 Range/Units Serum Glucose 125 H 74-106 mg/dL Problem List Coma Metabolic encephalopathy Hypoxic encephalopathy Toxic encephalopathy Acute respiratory failure Perforated gastric ulcer, status post surgical repair Peritonitis Sepsis Kidney failure Diffuse brain edema per MRI scan Assessment/Plan Monitoring Supportive treatment Follow-up labs ICU care Stabilize vitals Respiratory support/vent management Oxygen IV antibiotics TPN GI prophylaxis DVT prophylaxis More recommendation per clinical course This medical document was created using an electronic medical record system with [employer] dictation system. Although this document has been carefully reviewed, there may still be some phonetic and typographical errors. These areas are purely typographical due to imperfections of the software programs, and do not reflect any compromise in the patient's medical care. Prognosis guarded Dietary Evaluation Review Comments: 1) Conitnue TPN to provide at least 75% estimated needs 2) Advance diet as medically feasible 3) Continue current plan of care Expected Outcomes/Goals: GI symptoms to improve To meet >75% estimated needs Fu 2-3 days Plan discussed with: Other Critical Care Time(min): 35 DOMI LEY MD November 14, 2024 10:24
--- NOTE | 2024-11-14 10:39 | DVHPN2 ---
Progress Note Date Seen: November 14, 2024 Resident Creating Document: LUANN PLUNKETT RESIDENT Has the PT tested + for MRSA If YES, has PT been informed?: No Medical Necessity Reason Pt with a Central, PICC or Fol: Yes The following are medically ne: Persaud Catheter Reason for persaud catheter: Strict I&O Subjective Review of Systems Patient seen and examined at bedside. Patient was taken off sedation this morning spill intubated on the following ventilatory settings: VT 450, F 20, FiO2 30%, PEEP 5.0. ABG was reviewed this morning showing a pH of 7.44, PCO2 32.8, PAO2 OF 117.8 AND HC03 OF 22.2, consistent with near normal acid base balance. MRI of the brain was performed showing diffuse increased diffusion restriction signal within the cerebral cortices suggesting of anoxic brain injury and there was also moderate volume loss. Patient was turned off on sedation to see his actual mental status at this time. Per hospitalist, Neurology will get him both and have a discussion with the family. Creatinine keeps improving, today creatinine was 1.62 and BUN 82. Patient is in no pressors at this time and is currently on furosemide 60 mg IV b.i.d.. Upon my examination, the patient still having 3+ pitting edema up to bilateral thighs. We reviewed in's and out which showed in's of 3819 and out's of 1955 with a positive balance of 1944 cc in the last 24 hours. We will continue albumin and furosemide at current dosage and we will start metolazone 5 mg daily. ROS unable to be obtain due to patient current status intubated. Objective vital signs Vital Sign Date Time Temp Pulse Resp B/P (MAP) Pulse Ox O2 Delivery O2 Flow Rate FiO2 11/14/24 10:00 104 11/14/24 10:00 30 11/14/24 10:00 20 100 Mechanical Ventilator+ 11/14/24 09:51 152/78 11/14/24 04:18 98.2 98.2 Total Intake and Output 11/13/24 11/13/24 11/14/24 14:59 22:59 06:59 Intake Total 1659 ml 1137.52 ml 1103.04 ml Output Total 975 ml 980 ml Balance 1659 ml 162.52 ml 123.04 ml medications Current Medications Medications Dose Ordered Sig/Neisha Route Start Time Stop Time Status Last Admin Dose Admin Amino Acids 0 ml @ 0 mls/hr PER PHARMACY IV 10/27/24 08:45 Diagnostic Test (Pha) 1 strip Q6HR 10/27/24 12:00 11/14/24 06:03 1 STRIP Insulin Human Regular FOLLOW SLIDING SCALE Q6HR SC 10/27/24 12:00 11/14/24 00:20 2 UNITS Dextrose 50 ml UD IV 10/27/24 09:45 Sodium Chloride 10 ml QSHIFT@10,22 IV 10/27/24 22:00 11/14/24 09:51 10 ML Pantoprazole Sodium 40 mg BID IV 10/28/24 22:00 11/14/24 09:29 40 MG Levalbuterol HCl 0.625 mg Q6HR NEB 10/30/24 12:00 11/14/24 06:19 0.625 MG Ipratropium [place] 0.5 mg Q6HR NEB 10/30/24 12:00 11/14/24 06:19 0.5 MG Acetylcysteine 100 mg Q6HR NEB 10/30/24 12:00 11/14/24 06:19 100 MG Micafungin Sodium 100 mg/Sodium Chloride 100 ml @ 100 mls/hr DAILY IV 10/31/24 10:00 11/14/24 09:29 100 MLS/HR Labetalol HCl 10 mg Q2HPRN PRN IV 11/11/24 12:15 11/14/24 09:51 10 MG Furosemide 60 mg BIDD IV 11/11/24 18:00 11/14/24 06:03 60 MG Piperacillin Sod/ Tazobactam Sod 100 ml @ 25 mls/hr Q8HR IV 11/11/24 22:00 11/14/24 06:03 25 MLS/HR Potassium Chloride 100 ml @ 50 mls/hr Q2H IV 11/12/24 05:30 11/12/24 09:29 UNV Fentanyl Citrate 250 ml @ 2.5 mls/hr Q24H IV 11/12/24 16:45 11/14/24 03:28 2.5 MLS/HR Propofol 100 ml @ 1.818 mls/ hr Q24H IV 11/12/24 16:45 11/14/24 08:35 3.636 MLS/HR Nicardipine/ Sodium Chloride 200 ml @ 50 mls/hr Q4H IV 11/12/24 16:45 11/14/24 08:35 100 MLS/HR Potassium Acetate 10 meq/Potassium Phosphate 44 meq/ Magnesium Sulfate 8 meq/ Multivitamins 10 ml/Chromium/ Copper/Manganese/ Zinc 1 ml/Amino Acids/Dextrose/ Purified Water 1,528 ml @ 63 mls/hr [id number] IV 11/13/24 22:00 11/14/24 21:59 11/13/24 21:52 63 MLS/HR Examination Physical Examination General: Patient currently intubated on the following mechanical ventilatory settings: VT 450, if 20, FiO2 30%, PEEP 5.0 sat 100% HEENT: Normocephalic, atraumatic, moist mucous membranes Respiratory/pulmonary: Clear lungs bilaterally, no associated crackles or wheezes. Cardiovascular: Normal heart sounds S1 and S2 with no associated murmurs Abdomen: Abdomen nondistended, there is no pain to palpation in any of the abdominal quadrants, no palpable masses. ALLISON drainage is draining 135 cc in the last 24 hours greenish/blackish in color Extremities: There is significant 2+ pitting edema on bilateral lower extremities from both foots all the way up to bilateral thighs. Peripheral Pulses: 3+ Radial (R). 3+ Radial (L). 3+ Dorsalis pedis (R). 3+ Dorsalis pedis(L) Skin: No rashes or pruritus, there is no sacral edema present at this time. Neurological: RASS -1, pupils reactive to light. laboratory and microbiology Laboratory Tests 11/14/24 03:00 11/13/24 03:00 Test 11/14/24 03:00 Range/Units Serum Glucose 125 H 74-106 mg/dL Microbiology Date/Time Source Procedure Growth Status 11/11/24 15:48 Abdomen Gram Stain - Final Resulted 11/11/24 15:48 Abdomen Wound Culture - Preliminary Resulted 10/29/24 06:10 Blood Blood Culture - Final NO GROWTH AFTER 5 DAYS OF INCUBATION. Complete 10/26/24 13:25 Peritoneal Fluid Gram Stain - Final Complete 10/26/24 13:25 Anaerobic Culture - Final Bacteroides fragilis Prevotella melaninogenica Complete 10/26/24 13:25 Aerobic Culture - Final Pseudomonas aeruginosa Klebsiella pneumoniae Streptococcus Group F Complete 10/26/24 04:00 Voided Urine Urine Culture - Final Complete Problem List/Assessment/Plan Problem List/Assessment/Plan Assessment/plan MARIA FERNANDA likely hemodynamic mediated in the setting of septic shock Uremia likely multifactorial due to sepsis/TPN/possible GI bleed/severe anemia status post transfusion Acute blood loss anemia most likely due to intraoperative blood loss/ gastric ulcer perforation Acute hypoxemic respiratory failure, possible bacterial pneumonia Acute metabolic/toxic encephalopathy Transaminitis likely due to septic shock Candidemia Severe malnutrition Plan -brain MRI is showing diffuse increased diffusion restriction signal within the cerebral cortices suggesting of anoxic brain injury and there was also moderate volume loss -continue IV furosemide at 60 mg b.i.d. -continue albumin 25% IV Q8 to help with oncotic preassure and furosemide action -Start metolazone 5mg daily -continue IV antibiotics per hospitalist -Eval possibility of starting prophylactic lovenox, risks and benefits do to hypercoagulable state -avoid nephrotoxic drugs -kidney function slightly improving. Today creatinine was 1.62 and BUN 82 -continue monitoring kidney function Goals of care discussed with nurse, ripsaw grader. Critical time spent 40min Plan discussed with Addendum Patient seen and examined, plan discussed with resident. Agree with above, we will follow closely Plan discussed with: Other Dietary Evaluation Review Comments: 1) Conitnue TPN to provide at least 75% estimated needs 2) Advance diet as medically feasible 3) Continue current plan of care Expected Outcomes/Goals: GI symptoms to improve To meet >75% estimated needs Fu 2-3 days LUANN PLUNKETT November 14, 2024 10:39 ISIDRO KELLEY MD November 14, 2024 19:57
[2024-11-14] MEDS: METOPROLOL TARTRATE 1MG/1ML-5ML VIAL IV ONE (12:27)
[2024-11-14] MEDS: POTASSIUM CHL 20MEQ/50ML 50 ML IV ONE (12:28)
--- NOTE | 2024-11-14 12:44 | DVHPNRES ---
Progress Note Date Seen: November 14, 2024 Resident Creating Document: ANDREW APPIAH RESIDENT Has the PT tested + for MRSA If YES, has PT been informed?: No Medical Necessity Reason Pt with a Central, PICC or Fol: Yes The following are medically ne: Persaud Catheter Reason for persaud catheter: Strict I&O Subjective Patient reports: Other (Temperature has been within normal limits, he remains in sinus tachycardia around 120s, he's on minimal vent settings FIO2 30%, PEEP 5. On nicardipine drip. Sedation and analgesia has been held. Urine output was 900ml overnight. Billous drainage was 30ml overnight.) Objective vital signs Vital Sign Date Time Temp Pulse Resp B/P (MAP) Pulse Ox O2 Delivery O2 Flow Rate FiO2 11/14/24 12:27 145 163/68 11/14/24 11:18 21 100 11/14/24 11:16 30 11/14/24 10:00 Mechanical Ventilator+ 11/14/24 08:03 98.0 98.0 Total Intake and Output 11/13/24 11/13/24 11/14/24 15:00 23:00 07:00 Intake Total 1609 ml 1158.65 ml 1078.04 ml Output Total 975 ml 980 ml Balance 1609 ml 183.65 ml 98.04 ml medications Current Medications Medications Dose Ordered Sig/Neisha Route Start Time Stop Time Status Last Admin Dose Admin Amino Acids 0 ml @ 0 mls/hr PER PHARMACY IV 10/27/24 08:45 Diagnostic Test (Pha) 1 strip Q6HR 10/27/24 12:00 11/14/24 12:01 1 STRIP Insulin Human Regular FOLLOW SLIDING SCALE Q6HR SC 10/27/24 12:00 11/14/24 12:00 2 UNITS Dextrose 50 ml UD IV 10/27/24 09:45 Sodium Chloride 10 ml QSHIFT@10,22 IV 10/27/24 22:00 11/14/24 09:51 10 ML Pantoprazole Sodium 40 mg BID IV 10/28/24 22:00 11/14/24 09:29 40 MG Levalbuterol HCl 0.625 mg Q6HR NEB 10/30/24 12:00 11/14/24 06:19 0.625 MG Ipratropium Magazine 0.5 mg Q6HR NEB 10/30/24 12:00 11/14/24 06:19 0.5 MG Acetylcysteine 100 mg Q6HR NEB 10/30/24 12:00 11/14/24 06:19 100 MG Micafungin Sodium 100 mg/Sodium Chloride 100 ml @ 100 mls/hr DAILY IV 10/31/24 10:00 11/14/24 09:29 100 MLS/HR Labetalol HCl 10 mg Q2HPRN PRN IV 11/11/24 12:15 11/14/24 09:51 10 MG Furosemide 60 mg BIDD IV 11/11/24 18:00 11/14/24 06:03 60 MG Piperacillin Sod/ Tazobactam Sod 100 ml @ 25 mls/hr Q8HR IV 11/11/24 22:00 11/14/24 06:03 25 MLS/HR Potassium Chloride 100 ml @ 50 mls/hr Q2H IV 11/12/24 05:30 11/12/24 09:29 UNV Fentanyl Citrate 250 ml @ 2.5 mls/hr Q24H IV 11/12/24 16:45 11/14/24 03:28 2.5 MLS/HR Propofol 100 ml @ 1.818 mls/ hr Q24H IV 11/12/24 16:45 11/14/24 08:35 3.636 MLS/HR Nicardipine/ Sodium Chloride 200 ml @ 50 mls/hr Q4H IV 11/12/24 16:45 11/14/24 10:36 75 MLS/HR Potassium Acetate 10 meq/Potassium Phosphate 44 meq/ Magnesium Sulfate 8 meq/ Multivitamins 10 ml/Chromium/ Copper/Manganese/ Zinc 1 ml/Amino Acids/Dextrose/ Purified Water 1,528 ml @ 63 mls/hr [id number] IV 11/13/24 22:00 11/14/24 21:59 11/13/24 21:52 63 MLS/HR Fat Emulsion Intravenous 50 ml/ Potassium Acetate 40 meq/Potassium Phosphate 10 meq/ Calcium Gluconate 2.3 meq/Magnesium Sulfate 10 meq/ Multivitamins 10 ml/Chromium/ Copper/Manganese/ Zinc 1 ml/Amino Acids/Dextrose/ Purified Water 1,540.7189 ml @ 64 mls/hr [id number] IV 11/14/24 22:00 11/15/24 21:59 Examination Physical examination as below: General: Intubated, off sedation and analgesia, not tracking or following commands. HEENT: Head is normocephalic and atraumatic. Pupils are both dilated Neck: Supple with no cervical lymphadenopathy. Heart: tachycardia without murmur, rub, or gallop. Lungs: bilateral crackles Abdomen:surgical incision site with drainage of green fluid. Bowel sounds are present. Abdomen is distended Extremities: Strong peripheral pulses. There is no clubbing, no cyanosis. Upper and lower extremity pitting edema +3 Skin: No rash. Neurologic: off sedation and analgesia, not tracking or following commands. laboratory and microbiology Laboratory Tests 11/14/24 03:00 11/13/24 03:00 Test 11/14/24 03:00 Range/Units Serum Glucose 125 H 74-106 mg/dL Microbiology Date/Time Source Procedure Growth Status 11/11/24 15:48 Abdomen Gram Stain - Final Resulted 11/11/24 15:48 Wound Culture - Preliminary Pseudomonas aeruginosa Presumptive Blanca albicans Resulted 10/29/24 06:10 Blood Blood Culture - Final NO GROWTH AFTER 5 DAYS OF INCUBATION. Complete 10/26/24 13:25 Peritoneal Fluid Gram Stain - Final Complete 10/26/24 13:25 Anaerobic Culture - Final Bacteroides fragilis Prevotella melaninogenica Complete 10/26/24 13:25 Aerobic Culture - Final Pseudomonas aeruginosa Klebsiella pneumoniae Streptococcus Group F Complete 10/26/24 04:00 Voided Urine Urine Culture - Final Complete Labs and/or images reviewed: Labs reviewed by me, Image(s) reviewed by me Problem List/Assessment/Plan Problem List/Assessment/Plan ID Problem List: -- Septic shock -- Cardiac arrest, post-resuscitation -- Perforated stomach, post-operative status -- Intra-abdominal abscess -- Fungemia (Blanca albicans) -- Pseudomonas infection -- Acute kidney injury -- Thrombocytopenia -- Anemia (likely secondary to blood loss) -- Pneumonia -- Small bowel obstruction Assessment This is a 44-year-old male with no significant past medical or family history who presented with increased fatigue, upper abdominal pain, nausea, vomiting, generalized weakness, and inability to tolerate oral intake. On admission, the patient was found to have a distended, tender abdomen and palpable cervical and supraclavicular lymphadenopathy. Vital signs revealed hypoxia and relative hypotension. CT abdomen/pelvis without contrast demonstrated pneumoperitoneum, scattered ascites, and dilated small bowel consistent with small bowel obstruction and visceral perforation. Emergent exploratory laparotomy on 10/26 revealed a perforated proximal stomach just proximal to the pylorus, extensive peritoneal contamination, and dense intra-abdominal adhesions. The perforation was repaired; multiple cultures were sent. Microbiology demonstrated bloodstream infection with Blanca albicans and intra- abdominal cultures positive for Bacteroides fragilis, Prevotella melaninogenica, Pseudomonas aeruginosa, Klebsiella species, Streptococcus Group F, Providencia species, and Escherichia coli; respiratory cultures also grew Blanca albicans following a code event with likely aspiration. Post-operatively, the patient has been treated with broad-spectrum antimicrobials. Hospital course has been notable for episodes of hypothermia (as low as 97.3F), initially requiring vasopressor support, and a code event with cardiac arrest and pulselessness for approximately three minutes on 10/30, after which the patient was resuscitated. The patient had an initial MARIA FERNANDA (peak creatinine 1.88 mg/dL), anemia (hemoglobin sarath 6.6-7.5 g/dL), thrombocytopenia (platelets as low as 113,000), and ongoing fluid overload with 3+ edema in the extremities. Repeat abdominal CT on 11/03 showed interval increase in size of right-sided intra-abdominal abscess (measuring up to 17.9 cm), persistent moderate ascites, and evidence of bowel-abscess communication. There is also evidence of bilateral pleural effusions, right greater than left, and adjacent consolidations concerning for pneumonia; these findings have been improving on serial imaging. The patient is currently on meropenem, micafungin, and daptomycin with most recent blood cultures showing improvement. He remains on minimal ventilatory support, with an abdominal drain in place (noted green fluid output), and no new open wounds. Vancomycin therapy has been discontinued due to elevated troughs and absence of Gram-positive organisms on recent cultures. 5/2: whitecount is 6.4 , hemoglobin is 6.6 and required blood transfusion . tachycardia appears to be improving . clinically appears to be improving however at times get tachycardic and has some ongoing blood loss likely post surgically related 5/3: ALLISON drain is continuing to have significant amount of output in the setting of ongoing abscess appears to be suggestive of clearage of infection source 5/4: Tolerating CPAP , appears to be overall clinically improving. getting diuretic therapy for edema in upper and lower extremities . whitecount is improving after stopping daptomycin , LFTs are mildly elevated 5/5: elevated BUN , concerning for ongoing GI bloodloss , hemoglobin is stable at 7.2 11/14: Concern for anoxic brain injury per brain mri, pending goals of care discussion with family members per primary team and neurologist, sedation and analgesia has been held. Wound culture is growing carbapenemic resistant pseudomonas. WBC trending up with left shift. There is also a concern for possible surgical wound dehiscence from ex-lap. Plan: - Continue Zosyn - repeat abdominal pelvis Ct in 5 days --Continue micafungin for ongoing intra-abdominal and fungal infection coverage. -- Maintain a two-week course of micafungin from the resolution of intra- abdominal abscess. -- Monitor drain output and clinical signs of intra-abdominal infection. -- Serial CT abdomen/pelvis every 1-2 weeks to monitor abscess resolution. -- Off vasopressors, on nicardipine drip. -- Maintain O? saturation above 94%; defer ventilator weaning to primary/pulmonology as tolerated. -- Monitor for ongoing bowel leak versus fistula development; consider surgical intervention if infection or abscess fails to resolve. -- Pneumonia: Covered by current antibiotics. If there is lack of radiographic improvement, may consider thoracentesis to evaluate pleural effusion for infection. -- Anemia: Monitor hemoglobin. Transfuse if clinically indicated. -- Thrombocytopenia: Monitor counts, transfuse if indicated for bleeding or procedures. -- MARIA FERNANDA: Monitor renal function. Adjust dosing as needed. -- Outpatient ophthalmology follow-up after discharge to assess for potential complications of fungemia. -- Blood cultures: Repeat as clinically indicated. Monitor for further clearance. Repeated on 11/14/24 -- Infectious Disease will continue to follow. -- Plan is subject to change pending new clinical information or diagnostic data. Updates may be added as an addendum. Case was discussed with Dr. Ross Addendum Dr. Ross Patient was seen by Dr. Keita , remains minimally responsive. Agree with Dr. Keita's notes ID Problem List: -- Septic shock -- Cardiac arrest, post-resuscitation -- Perforated stomach, post-operative status -- Intra-abdominal abscess -- Fungemia (Blanca albicans) -- Pseudomonas infection -- Acute kidney injury -- Thrombocytopenia -- Anemia (likely secondary to blood loss) -- Pneumonia -- Small bowel obstruction Assessment This is a 44-year-old male with no significant past medical or family history who presented with increased fatigue, upper abdominal pain, nausea, vomiting, generalized weakness, and inability to tolerate oral intake. On admission, the patient was found to have a distended, tender abdomen and palpable cervical and supraclavicular lymphadenopathy. Vital signs revealed hypoxia and relative hypotension. CT abdomen/pelvis without contrast demonstrated pneumoperitoneum, scattered ascites, and dilated small bowel consistent with small bowel obstruction and visceral perforation. Emergent exploratory laparotomy on 10/26 revealed a perforated proximal stomach just proximal to the pylorus, extensive peritoneal contamination, and dense intra-abdominal adhesions. The perforation was repaired; multiple cultures were sent. Microbiology demonstrated bloodstream infection with Blanca albicans and intra- abdominal cultures positive for Bacteroides fragilis, Prevotella melaninogenica, Pseudomonas aeruginosa, Klebsiella species, Streptococcus Group F, Providencia species, and Escherichia coli; respiratory cultures also grew Blanca albicans following a code event with likely aspiration. Post-operatively, the patient has been treated with broad-spectrum antimicrobials. Hospital course has been notable for episodes of hypothermia (as low as 97.3F), initially requiring vasopressor support, and a code event with cardiac arrest and pulselessness for approximately three minutes on 10/30, after which the patient was resuscitated. The patient had an initial MARIA FERNANDA (peak creatinine 1.88 mg/dL), anemia (hemoglobin sarath 6.6-7.5 g/dL), thrombocytopenia (platelets as low as 113,000), and ongoing fluid overload with 3+ edema in the extremities. Repeat abdominal CT on 11/03 showed interval increase in size of right-sided intra-abdominal abscess (measuring up to 17.9 cm), persistent moderate ascites, and evidence of bowel-abscess communication. There is also evidence of bilateral pleural effusions, right greater than left, and adjacent consolidations concerning for pneumonia; these findings have been improving on serial imaging. The patient is currently on meropenem, micafungin, and daptomycin with most recent blood cultures showing improvement. He remains on minimal ventilatory support, with an abdominal drain in place (noted green fluid output), and no new open wounds. Vancomycin therapy has been discontinued due to elevated troughs and absence of Gram-positive organisms on recent cultures. 5/2: whitecount is 6.4 , hemoglobin is 6.6 and required blood transfusion . tachycardia appears to be improving . clinically appears to be improving however at times get tachycardic and has some ongoing blood loss likely post surgically related 5/3: ALLISON drain is continuing to have significant amount of output in the setting of ongoing abscess appears to be suggestive of clearage of infection source 5/: Tolerating CPAP , appears to be overall clinically improving. getting diuretic therapy for edema in upper and lower extremities . whitecount is improving after stopping daptomycin , LFTs are mildly elevated 5: elevated BUN , concerning for ongoing GI bloodloss , hemoglobin is stable at 7.2 5: agree with Dr. Keita's notes and findings . Patient is on minimal vent and not on any pressers and having very few bowel movements and remains NPO . Per Dr. Keita : Concern for anoxic brain injury per brain mri, pending goals of care discussion with family members per primary team and neurologist, sedation and analgesia has been held. Wound culture is growing carbapenemic resistant pseudomonas. WBC trending up with left shift. There is also a concern for possible surgical wound dehiscence from ex-lap. Plan: - Continue Zosyn - repeat abdominal pelvis Ct in 5 days --Continue micafungin for ongoing intra-abdominal and fungal infection coverage. -- Maintain a two-week course of micafungin from the resolution of intra- abdominal abscess. -- Monitor drain output and clinical signs of intra-abdominal infection. -- Serial CT abdomen/pelvis every 1-2 weeks to monitor abscess resolution. -- Off vasopressors, on nicardipine drip. -- Maintain O? saturation above 94%; defer ventilator weaning to primary/pulmonology as tolerated. -- Monitor for ongoing bowel leak versus fistula development; consider surgical intervention if infection or abscess fails to resolve. -- Pneumonia: Covered by current antibiotics. If there is lack of radiographic improvement, may consider thoracentesis to evaluate pleural effusion for infection. -- Anemia: Monitor hemoglobin. Transfuse if clinically indicated. -- Thrombocytopenia: Monitor counts, transfuse if indicated for bleeding or procedures. -- MARIA FERNANDA: Monitor renal function. Adjust dosing as needed. -- Outpatient ophthalmology follow-up after discharge to assess for potential complications of fungemia. -- Blood cultures: Repeat as clinically indicated. Monitor for further clearance. Repeated on 11/14/24 -- Infectious Disease will continue to follow. -- Plan is subject to change pending new clinical information or diagnostic data. Updates may be added as an addendum. Total critical care time: Approximately 76 minutes Due to a high probability of clinically significant, life threatening deterioration, the patient required my highest level of preparedness to intervene emergently and I personally spent this critical care time directly and personally managing the patient. This critical care time included obtaining a history; examining the patient; pulse oximetry; ordering and review of studies; arranging urgent treatment with development of a management plan; evaluation of patient's response to treatment; frequent reassessment; and, discussions with other providers. This critical care time was performed to assess and manage the high probability of imminent, life-threatening deterioration that could result in multi-organ failure. It was exclusive of separately billable procedures and treating other patients and teaching time. Isolation Precautions: Standard Plan discussed with: Other (RN) Dietary Evaluation Review Comments: 1) Conitnue TPN to provide at least 75% estimated needs 2) Advance diet as medically feasible 3) Continue current plan of care Expected Outcomes/Goals: GI symptoms to improve To meet >75% estimated needs Fu 2-3 days ANDREW APPIAH RESIDENT November 14, 2024 12:44 SAGAR ROSS MD November 18, 2024 13:09
[2024-11-14] MEDS: TPN PER PHARMACY IV NR (21:36)
[2024-11-15] VITALS (115 sets, daily range): BP systolic 132–176; BP diastolic 69–87; PULSE 90–118; RESP 10–26; TEMP 97.5–98.2; O2SAT 97–100
[2024-11-15 03:51] LABS: Hemoglobin 7.9 g/dL (13.5-17.5); Red Cell Distribution Width 14.8 % (11.8-14.3)
[2024-11-15 03:54] LABS: Hematocrit 23.5 % (41.0-53.0); Mean Corpuscular Hemoglobin 30.6 pg (28.0-32.0); Mean Corpuscular Hgb Conc. 33.6 g/dL (32.0-36.0); Platelet Count (auto) 297 10^3/uL (140-450); Red Blood Cells 2.58 10^6/uL (4.5-5.90); White Blood Cell 11.5 10^3/uL (4.4-10.8)
[2024-11-15 04:00] LABS: Basophils % (manual) 0 (0.0-2.0); Blast Cells 0; Promyelocytes % 0; Reactive Lymphocytes 0
[2024-11-15 04:10] LABS: Anion Gap 13 (5-15); BUN/Creatinine Ratio 48.2 (10.0-20.0); Carbon Dioxide 23 mmol/L (20-31); Potassium 3.5 mmol/L (3.5-5.1); Sodium 143 mmol/L (136-145)
[2024-11-15 04:11] LABS: Bilirubin, Total 0.6 mg/dL (0.2-1.0); Phosphorus 4.3 mg/dL (2.4-5.1)
[2024-11-15 04:17] LABS: Alanine Aminotransferase 54 U/L (7-40); Albumin 2.7 g/dL (3.2-4.8); Alkaline Phosphatase 179 U/L (46-116); Aspartate Aminotransferase 74 U/L (13-40); Blood Urea Nitrogen 80 mg/dL (9-23); Calcium 7.4 mg/dL (8.7-10.4); Chloride 107 mmol/L (98-107); Glucose 130 mg/dL (74-106); Total Protein 5.4 g/dL (5.7-8.2)
--- NOTE | 2024-11-15 05:19 | DVH ---
EXAM: CT Abdomen and Pelvis Without Intravenous Contrast CLINICAL INDICATION: abdominal distention, possible wound dehiscence after ex-lap TECHNIQUE: Axial computed tomography images of the abdomen and pelvis without intravenous contrast. This CT exam was performed using one or more of the following dose reduction techniques: automated exposure control, adjustment of the mA and/or kV according to patient size, and/or use of iterative r econstruction technique. CONTRAST: COMPARISON: CT CT AB PEL WO CON-NO ORAL OR IV on DOS: 11/03/24, CT CT AB PEL WO CON-NO ORAL OR IV on DOS: 10/25/24 FINDINGS: LUNG BASES: See below. PLEURAL SPACE: Bilateral pleural effusion with compressive atelectasis. ABDOMEN: LIVER: Hepatomegaly with fatty infiltration. GALLBLADDER AND BILE DUCTS: Unremarkable. No calcified stones. No ductal dilation. PANCREAS: Unremarkable. No ductal dilation. SPLEEN: Unremarkable. No splenomegaly. ADRENALS: Unremarkable. No mass. KIDNEYS AND URETERS: Unremarkable. No obstructing stones. No hydronephrosis. STOMACH AND BOWEL: No contrast extravasation to suggest bowel perforation. Constipation. No obstr uction. No mucosal thickening. PELVIS: APPENDIX: No findings to suggest acute appendicitis. BLADDER: Unremarkable. No stones. REPRODUCTIVE: Unremarkable as visualized. ABDOMEN and PELVIS: INTRAPERITONEAL SPACE: Ascites. BONES/JOINTS: No acute fracture. No dislocation. SOFT TISSUES: No obvious wound dehiscence. However, examination is somewhat suboptimal secondary to beam hardening artifacts from the patient's side-arm. VASCULATURE: Unremarkable. No abdominal aortic aneurysm. LYMPH NODES: Unremarkable. No enlarged lymph nodes. TUBES, LINES AND DEVICES: Surgical drain noted with the distal tip in the upper midabdomen. Small a mount of pneumoperitoneum, likely postsurgical. OTHER FINDINGS: . IMPRESSION: 1. Ascites. 2. Hepatomegaly with fatty infiltration. 3. Surgical drain noted with the distal tip in the upper midabdomen. Small amount of pneumoperitoneu m, likely postsurgical. 4. No obvious wound dehiscence. However, examination is somewhat suboptimal secondary to beam harden ing artifacts from the patient's side-arm. 5. No contrast extravasation to suggest bowel perforation. Constipation. 6. Bilateral pleural effusion with compressive atelectasis.
--- NOTE | 2024-11-15 05:35 | DVH ---
EXAM: XR Chest, 1 View CLINICAL INDICATION: pna TECHNIQUE: Frontal view of the chest. COMPARISON: XY CHEST PORTABLE on DOS: 11/13/24, XY CHEST PORTABLE on DOS: 11/12/24, XY CHEST PORTABLE o n DOS: 11/11/24, XY CHEST PORTABLE on DOS: 11/10/24, XY CHEST PORTABLE on DOS: 11/09/24 FINDINGS: LUNGS AND PLEURAL SPACES: Bibasilar atelectasis or pneumonia. No pneumothorax. HEART: Unremarkable. No cardiomegaly. MEDIASTINUM: Unremarkable. Normal mediastinal contour. BONES/JOINTS: Unremarkable. No acute fracture. TUBES, LINES AND DEVICES: The endotracheal tube (ETT) is in satisfactory position. Enteric tube ti p cannot be seen but is below the diaphragm. Right peripherally inserted central catheter (PICC) tip in the superior vena cava. OTHER FINDINGS: . . . IMPRESSION: Bibasilar atelectasis or pneumonia.
[2024-11-15 06:22] LABS: Band Neutrophils % (manual) 2; Eosinophils % (manual) 1 (0-7); Lymphocytes % (manual) 8 (10.0-50.0); Metamyelocytes % 2; Monocytes % (manual) 2 (0-12); Myelocytes % 6
[2024-11-15 06:23] LABS: Platelet Estimate Adequate
[2024-11-15 06:39] LABS: Base Excess -3.6 mmol/L (-2.0-3.0)
--- NOTE | 2024-11-15 09:08 | DVHPN2 ---
Subjective Patient was intubated and sedated Reviewed: Care Plan, H&P, Labs, Medications, Previous Orders, Radiology, Other (Consultations) Changes from previous H/P or p: No Changes General: Per HPI Objective Vitals Vital Signs Date Time Temp Pulse Resp B/P (MAP) Pulse Ox O2 Delivery O2 Flow Rate FiO2 11/15/24 08:48 96 20 139/70 (93) 100 11/15/24 08:03 98.2 98.2 11/15/24 08:00 Mechanical Ventilator+ 30 30 Intake/Output Intake and Output 11/15/24 07:00 Intake Total 4211.13 ml Output Total 2100 ml Balance 2111.13 ml Intake Oral 0 ml IV Total 4211.13 ml Output Urine Total 1950 ml Stool Total 0 ml Drainage Total 100 ml Other 50 ml General Appearance: Other (Intubated and sedated) HEENT: Atraumatic Lungs: Other (Mechanical ventilation sounds) Cardiovascular: Normal S1, Normal S2, Other (Tachycardia) Abdomen: Other (ALLISON drain with biliary green fluid; no bowel sounds) Genitourinary: Other (Echavarria's) Neuro: Other (Intubated and sedated) Skin: Dry, Intact, Wounds (See nurse notes and pictures) Psych/Mental Status: Other (Intubated and sedated) Medications Current Medications Medications Dose Ordered Sig/Neisha Route Start Time Stop Time Status Last Admin Dose Admin Amino Acids 0 ml @ 0 mls/hr PER PHARMACY IV 10/27/24 08:45 Diagnostic Test (Pha) 1 strip Q6HR 10/27/24 12:00 11/15/24 05:35 1 STRIP Insulin Human Regular FOLLOW SLIDING SCALE Q6HR SC 10/27/24 12:00 11/15/24 05:44 2 UNITS Dextrose 50 ml UD IV 10/27/24 09:45 Sodium Chloride 10 ml QSHIFT@10,22 IV 10/27/24 22:00 11/14/24 21:36 10 ML Pantoprazole Sodium 40 mg BID IV 10/28/24 22:00 11/14/24 21:36 40 MG Levalbuterol HCl 0.625 mg Q6HR NEB 10/30/24 12:00 11/15/24 06:25 0.625 MG Ipratropium [place] 0.5 mg Q6HR NEB 10/30/24 12:00 11/15/24 06:25 0.5 MG Acetylcysteine 100 mg Q6HR NEB 10/30/24 12:00 11/15/24 06:25 100 MG Micafungin Sodium 100 mg/Sodium Chloride 100 ml @ 100 mls/hr DAILY IV 10/31/24 10:00 11/14/24 09:29 100 MLS/HR Labetalol HCl 10 mg Q2HPRN PRN IV 11/11/24 12:15 11/15/24 08:18 10 MG Furosemide 60 mg BIDD IV 11/11/24 18:00 11/15/24 05:32 60 MG Piperacillin Sod/ Tazobactam Sod 100 ml @ 25 mls/hr Q8HR IV 11/11/24 22:00 11/15/24 05:32 25 MLS/HR Potassium Chloride 100 ml @ 50 mls/hr Q2H IV 11/12/24 05:30 11/12/24 09:29 UNV Fentanyl Citrate 250 ml @ 2.5 mls/hr Q24H IV 11/12/24 16:45 11/15/24 03:57 17.5 MLS/HR Propofol 100 ml @ 1.818 mls/ hr Q24H IV 11/12/24 16:45 11/14/24 08:35 3.636 MLS/HR Nicardipine/ Sodium Chloride 200 ml @ 50 mls/hr Q4H IV 11/12/24 16:45 11/15/24 07:23 75 MLS/HR Fat Emulsion Intravenous 50 ml/ Potassium Acetate 40 meq/Potassium Phosphate 10 meq/ Calcium Gluconate 2.3 meq/Magnesium Sulfate 10 meq/ Multivitamins 10 ml/Chromium/ Copper/Manganese/ Zinc 1 ml/Amino Acids/Dextrose/ Purified Water 1,540.7189 ml @ 64 mls/hr Q24H5M IV 11/14/24 22:00 11/15/24 21:59 11/14/24 21:36 64 MLS/HR Laboratory Results Laboratory Tests 11/15/24 03:20 Chemistry Test 11/15/24 03:20 Albumin 2.7 g/dL (3.2-4.8) L Calcium Level 7.4 mg/dL (8.7-10.4) L Magnesium Level 2.0 mg/dL (1.6-2.6) Phosphorus Level 4.3 mg/dL (2.4-5.1) Total Protein 5.4 g/dL (5.7-8.2) L LFT Test 11/15/24 03:20 Alanine Aminotransferase (ALT) 54 U/L (7-40) H Alkaline Phosphatase 179 U/L (46-116) H Aspartate Amino Transferase (AST) 74 U/L (13-40) H Total Bilirubin 0.6 mg/dL (0.2-1.0) Urinalysis Test 10/28/24 12:30 Urine Color Yellow (Yellow) Urine Clarity Cloudy (Clear) H Urine pH 5.5 (5.0-9.0) Urine Specific [place] 1.023 (1.001-1.035) Urine Protein 1+ (Negative) H Urine Ketones Negative (Negative) Urine Blood 3+ /uL (Negative) H Urine Nitrite Negative (Negative) Urine Bilirubin Negative (Negative) Urine Urobilinogen Normal mg/dL (Negative) Urine Leukocyte Esterase Negative /uL (Negative) Urine RBC 147 /hpf (0 - 3) Urine Microscopic WBC 5 /HPF (0-3) H Urine Squamous Epithelial Cells Few /hpf (<5) Urine Amorphous Crystals Few /hpf (None Seen) Urine Bacteria Few /hpf (None Seen) H Urine Mucus Few (None Seen) Urine Creatinine 32.03 mg/dL (30.0-125.0) Urine Sodium 13 mmol/L (40-220) L Urine Glucose Normal mg/dL (Normal) Blood Gas Results Test 11/15/24 06:35 Arterial Blood pH 7.382 (7.350-7.450) FiO2 % 30.0 Microbiology Microbiology Date/Time Source Procedure Growth Status 11/11/24 15:48 Abdomen Gram Stain - Final Resulted 11/11/24 15:48 Wound Culture - Preliminary Pseudomonas aeruginosa Presumptive Blanca albicans Resulted 10/29/24 06:10 Blood Blood Culture - Final NO GROWTH AFTER 5 DAYS OF INCUBATION. Complete 10/26/24 13:25 Peritoneal Fluid Gram Stain - Final Complete 10/26/24 13:25 Anaerobic Culture - Final Bacteroides fragilis Prevotella melaninogenica Complete 10/26/24 13:25 Aerobic Culture - Final Pseudomonas aeruginosa Klebsiella pneumoniae Streptococcus Group F Complete 10/26/24 04:00 Voided Urine Urine Culture - Final Complete Labs and/or images reviewed: Labs reviewed by me, Image(s) reviewed by me Assessment/Plan Assessment/Plan Impression: -sepsis , yeast in the blood, repeat blood culture negative for yeast -perforated gastric ulcer, status post exploratory laparotomy with repair of ulcer, lysis of adhesions -pneumoperitoneum with multiple gastric adhesions and abscess -acute kidney injury, vasomotor nephropathy -cachexia -postop anemia -acute hypoxic respiratory failure mechanical ventilation - Plan: -Events: MRI of the brain performed yesterday with impression of diffuse hypoxic damage. Discussed case with primary nurse to weaned off all sedation. Neurology recommendations appreciated. Attempted to call patient's brother, James, who was not available at this time (did not answer). Patient continues to have copious drainage around ALLISON site, continues to be bilious in nature. -continue current ventilator settings per pulmonology. Spontaneous breathing trial per their recommendations -continue TPN -potassium replacement -PUD, DVT prophylaxis -IV antibiotics per Infectious Disease -PPI -Cont sedation: Versed, Fent -repeat labs, chest x-ray, ABG daily Critical Care time spent with patient discussing and formulating plan of care: 90 minutes. This medical document was created using an electronic medical record system with [employer] dictation system. Although this document has been carefully reviewed, there may still be some phonetic and typographical errors. These areas are purely typographical due to imperfections of the software programs, and do not reflect any compromise in the patient's medical care. Plan discussed with: Other My Orders Orders - IRMA WAITE NP Procedure Category Date Status Time Complete Blood Count LAB 11/16/24 Verified 05:00 Complete Blood Count LAB 11/17/24 Verified 05:00 Basic Metabolic Panel LAB 11/16/24 Verified 05:00 Basic Metabolic Panel LAB 11/17/24 Verified 05:00 Chest Portable XY 11/15/24 Resulted 05:00 Chest Portable XY 11/16/24 Logged 05:00 Chest Portable XY 11/17/24 Logged 05:00 Date of Service: November 15, 2024 Billing Provider: IRMA WAITE NP Common Visit Codes: [id number] CARE 30-74 MIN IRMA WAITE NP November 15, 2024 09:08
--- NOTE | 2024-11-15 13:00 | DVHPN2 ---
Progress Note Date Seen: November 15, 2024 Resident Creating Document: LUANN PLUNKETT RESIDENT Has the PT tested + for MRSA If YES, has PT been informed?: No Medical Necessity Reason Pt with a Central, PICC or Fol: Yes The following are medically ne: Persaud Catheter Reason for persaud catheter: Strict I&O Subjective Review of Systems Patient seen and examined at bedside. Patient is currently sedated and intubated on the following parameters: VT 450, if 20, FiO2 30%, PEEP 5.0 sat 99%. Most recent MRI showing anoxic brain injury, neurology is on board and primary team spoke with family regarding current patient's mental status. Last CT of the abdomen showed minimal pneumoperitoneum but no extravasation of contrast at any place at this point. Total in's has been 4083 cc and out's of 2100 for a positive balance of 1993 cc in the last 24 hours. Today, creatinine mildly elevated from 1.62 to 1.66. BUN 80. ABG was reviewed showing a pH of 7.39, pCO2 of 36.3, HC03 of 21.1 and PaO2 of 102. Last chest x-ray performed today social showing bibasilar atelectasis or possible pneumonia. Upon my examination, there is still bilateral 2+ pitting edema extending all the way up to the thighs. We will continue the patient on furosemide 60 mg IV b.i.d. at this point, primary team we will discuss with family goals of care in the long- term based on this new brain MRI findings. ROS unable to obtain due to patient's current status intubated and sedated. Objective vital signs Vital Sign Date Time Temp Pulse Resp B/P (MAP) Pulse Ox O2 Delivery O2 Flow Rate FiO2 11/15/24 12:03 97.5 104 19 147/76 (99) 99 97.5 11/15/24 12:00 Mechanical Ventilator+ 30 30 Total Intake and Output 11/14/24 11/14/24 11/15/24 15:00 23:00 07:00 Intake Total 1575.13 ml 1276.0 ml 1360.0 ml Output Total 1030 ml 1070 ml Balance 1575.13 ml 246.0 ml 290.0 ml medications Current Medications Medications Dose Ordered Sig/Neisha Route Start Time Stop Time Status Last Admin Dose Admin Amino Acids 0 ml @ 0 mls/hr PER PHARMACY IV 10/27/24 08:45 Diagnostic Test (Pha) 1 strip Q6HR 10/27/24 12:00 11/15/24 11:32 1 STRIP Insulin Human Regular FOLLOW SLIDING SCALE Q6HR SC 10/27/24 12:00 11/15/24 11:37 2 UNITS Dextrose 50 ml UD IV 10/27/24 09:45 Sodium Chloride 10 ml QSHIFT@10,22 IV 10/27/24 22:00 11/15/24 10:07 10 ML Pantoprazole Sodium 40 mg BID IV 10/28/24 22:00 11/15/24 10:07 40 MG Levalbuterol HCl 0.625 mg Q6HR NEB 10/30/24 12:00 11/15/24 11:12 0.625 MG Ipratropium [place] 0.5 mg Q6HR NEB 10/30/24 12:00 11/15/24 11:12 0.5 MG Acetylcysteine 100 mg Q6HR NEB 10/30/24 12:00 11/15/24 11:12 100 MG Micafungin Sodium 100 mg/Sodium Chloride 100 ml @ 100 mls/hr DAILY IV 10/31/24 10:00 11/15/24 10:07 100 MLS/HR Labetalol HCl 10 mg Q2HPRN PRN IV 11/11/24 12:15 11/15/24 08:18 10 MG Furosemide 60 mg BIDD IV 11/11/24 18:00 11/15/24 05:32 60 MG Piperacillin Sod/ Tazobactam Sod 100 ml @ 25 mls/hr Q8HR IV 11/11/24 22:00 11/15/24 05:32 25 MLS/HR Potassium Chloride 100 ml @ 50 mls/hr Q2H IV 11/12/24 05:30 11/12/24 09:29 UNV Fentanyl Citrate 250 ml @ 2.5 mls/hr Q24H IV 11/12/24 16:45 11/15/24 03:57 17.5 MLS/HR Propofol 100 ml @ 1.818 mls/ hr Q24H IV 11/12/24 16:45 11/14/24 08:35 3.636 MLS/HR Nicardipine/ Sodium Chloride 200 ml @ 50 mls/hr Q4H IV 11/12/24 16:45 11/15/24 10:39 50 MLS/HR Fat Emulsion Intravenous 50 ml/ Potassium Acetate 40 meq/Potassium Phosphate 10 meq/ Calcium Gluconate 2.3 meq/Magnesium Sulfate 10 meq/ Multivitamins 10 ml/Chromium/ Copper/Manganese/ Zinc 1 ml/Amino Acids/Dextrose/ Purified Water 1,540.7189 ml @ 64 mls/hr Q24H5M IV 11/14/24 22:00 11/15/24 21:59 11/14/24 21:36 64 MLS/HR Fat Emulsion Intravenous 100 ml/Potassium Acetate 60 meq/ Calcium Gluconate 4.65 meq/ Magnesium Sulfate 8 meq/ Multivitamins 10 ml/Chromium/ Copper/Manganese/ Zinc 1 ml/Amino Acids/Dextrose 1,553 ml @ 65 mls/hr [id number] IV 11/15/24 22:00 11/16/24 21:59 Examination Physical Examination General: Patient currently intubated on the following mechanical ventilatory settings: VT 450, if 20, FiO2 30%, PEEP 5.0 sat 100% HEENT: Normocephalic, atraumatic, moist mucous membranes Respiratory/pulmonary: Clear lungs bilaterally, no associated crackles or wheezes. Cardiovascular: Normal heart sounds S1 and S2 with no associated murmurs Abdomen: Abdomen nondistended, there is no pain to palpation in any of the abdominal quadrants, no palpable masses. Extremities: There is significant 2+ pitting edema on bilateral lower extremities from both foots all the way up to bilateral thighs. Skin: No rashes or pruritus, there is no sacral edema present at this time. Neurological: RASS -2 laboratory and microbiology Laboratory Tests 11/15/24 03:20 Test 11/15/24 03:20 Range/Units Serum Glucose 130 H 74-106 mg/dL Microbiology Date/Time Source Procedure Growth Status 11/11/24 15:48 Abdomen Gram Stain - Final Complete 11/11/24 15:48 Wound Culture - Final Pseudomonas aeruginosa Presumptive Blanca albicans Complete 10/29/24 06:10 Blood Blood Culture - Final NO GROWTH AFTER 5 DAYS OF INCUBATION. Complete 10/26/24 13:25 Peritoneal Fluid Gram Stain - Final Complete 10/26/24 13:25 Anaerobic Culture - Final Bacteroides fragilis Prevotella melaninogenica Complete 10/26/24 13:25 Aerobic Culture - Final Pseudomonas aeruginosa Klebsiella pneumoniae Streptococcus Group F Complete 10/26/24 04:00 Voided Urine Urine Culture - Final Complete Problem List/Assessment/Plan Problem List/Assessment/Plan Assessment/plan MARIA FERNANDA likely hemodynamic mediated in the setting of septic shock Uremia likely multifactorial due to sepsis/TPN/possible GI bleed/severe anemia status post transfusion Acute blood loss anemia most likely due to intraoperative blood loss/ gastric ulcer perforation Acute hypoxemic respiratory failure, possible bacterial pneumonia Acute metabolic/toxic encephalopathy Transaminitis likely due to septic shock Candidemia Severe malnutrition Plan -brain MRI is showing diffuse increased diffusion restriction signal within the cerebral cortices suggesting of anoxic brain injury and there was also moderate volume loss -continue IV furosemide at 60 mg b.i.d. -continue albumin 25% IV Q8 to help with oncotic preassure and furosemide action -continue IV antibiotics per hospitalist -avoid nephrotoxic drugs -Creatine minimally worse today -continue monitoring kidney function Goals of care discussed with nurse, automation tech. Critical time spent 40min Plan discussed with Plan discussed with: Other Dietary Evaluation Review Comments: 1) Conitnue TPN to provide at least 75% estimated needs 2) Advance diet as medically feasible 3) Continue current plan of care Expected Outcomes/Goals: GI symptoms to improve To meet >75% estimated needs Fu 2-3 days LUANN PLUNKETT RESIDENT November 15, 2024 13:00
[2024-11-15] MEDS: ALBUMIN 25% 50 ML IV SCH (15:30)
--- NOTE | 2024-11-15 20:08 | DVHPN2 ---
Progress Note - Dictate Date Seen: November 15, 2024 Has the PT tested + for MRSA If YES, has PT been informed?: No Medical Necessity Reason Pt with a Central, PICC or Fol: Yes The following are medically ne: Persaud Catheter Reason for persaud catheter: Strict I&O Subjective Mr. Martinez is a 44 years old gentleman, he was brought to the [facility] on 10/25/2024 with a chief company of general weakness, fatigue, abdominal pain, in the hospital, the patient was found to have CT confirmed perforated peptic ulcer, he went through exploratory laparoscopy on 10/26/2024 and then was transferred to ICU post surgically. He was downgraded to telemetry on 10/28/2024, unfortunately he coded @ 10/30/2024 0304 with cardiopulmonary arrest, patient was intubated, resuscitated with ROSC @ 10/30/2024 0307. He has been in the ICU since I have seen and examined the patient, I have talked to his nurse and other medical staff, he is intubated, eyes are open, with spontaneous blinking and sometimes conjugated movement, he is nonresponsive to verbal stimuli, visual threat, or sudden loud noise His nurse and I had a family meeting (around 25 remembers attempted), he was son has a a list of more than 10 questions, covered the patient was situation, and prognosis prediction. I have updated the family about the patient was condition, especially is a likely permanent vegetative status. I have also discussed with them Re: Positive tracheostomy and feeding tube insertion if the code status is not to be changed Nurse suggested and the family is to discuss about his code status Blood culture, 10/25/2024: Blanca albicans Respiratory culture, 10/30/2024: Providencia rettgerei, E coli, Blanca albicans Peritoneal fluid culture, 10/26/2024: Bacteroides fragilis, Prevotella melaninogenica, Pseudomonas aeruginosa, Klebsiella pneumoniae, Streptococcus group F Urinalysis, 10/28/2024: WBC: 5, urine leukocyte esterase: Negative ABG 10/30/2024, metabolic acidosis, 10/30/2024: Compensated metabolic acidosis, WBC/HGB/PLT/MCV, 11/13/2024: 10.9/10.5/246/91 BUN/CR, 11/13/2024: 85/1.65 TBI/AST/ALT/AP, 11/13/2024: 0.7/52/46/177 Chest x-ray, 11/13/2024: Bibasilar atelectasis or pneumonia CT head, 11/12/2024: Possible hypodensity in the bilateral cerebellum, cerebellar infarct can not be excluded. There is a punctate hypodensity within the right frontal lobe, which could represent age indeterminate infarct. MRI recommended for further evaluation (I suspect an arachnoid cyst in the posterior fossa, instead of cerebellum chronic stroke) CT abdomen, pelvis, 10/30/2024: 1. Development of moderate dependent consolidations in the bilateral lower lobes as well as patchy mixed airspace opacities in the right lower lobe likely a combination of atelectasis and pneumonia, which may be on the basis of aspiration. 2. Interval placement of midline abdominal drain with the tip terminating in the anterior left upper abdomen. 3. Persistent free intraperitoneal air as well as extraluminal oral contrast in the abdomen compatible with perforated viscus. 4. Multiple loculated fluid collections in the abdomen and pelvis which could reflect multifocal abscesses. 5. Mild ascites, body wall edema, and small bilateral pleural effusions. 6. Cholelithiasis. 7. Mildly dilated small bowel loops as well as intervening normal caliber small bowel loops which could be related to ileus or multifocal small-bowel obstr MR brain, 11/13/2024: 1. Diffusely increased diffusion restriction signal within the cerebral cortices, suggestive of anoxic/ hypoxic brain ischemic injury 2. [id number] global cerebral volume loss. 3. Bilateral mastoid effusions vital signs Vital Sign Date Time Temp Pulse Resp B/P (MAP) Pulse Ox O2 Delivery O2 Flow Rate FiO2 11/15/24 18:58 151/75 11/15/24 18:43 97 11/15/24 18:33 20 99 11/15/24 18:17 30 11/15/24 18:00 Mechanical Ventilator+ 11/15/24 16:03 97.5 97.5 Total Intake and Output 11/14/24 11/14/24 11/15/24 15:00 23:00 07:00 Intake Total 1575.13 ml 1276.0 ml 1360.0 ml Output Total 1030 ml 1070 ml Balance 1575.13 ml 246.0 ml 290.0 ml medications Current Medications Medications Dose Ordered Sig/Neisha Route Start Time Stop Time Status Last Admin Dose Admin Amino Acids 0 ml @ 0 mls/hr PER PHARMACY IV 10/27/24 08:45 Diagnostic Test (Pha) 1 strip Q6HR 10/27/24 12:00 11/15/24 17:21 1 STRIP Insulin Human Regular FOLLOW SLIDING SCALE Q6HR SC 10/27/24 12:00 11/15/24 11:37 2 UNITS Dextrose 50 ml UD IV 10/27/24 09:45 Sodium Chloride 10 ml QSHIFT@10,22 IV 10/27/24 22:00 11/15/24 10:07 10 ML Pantoprazole Sodium 40 mg BID IV 10/28/24 22:00 11/15/24 10:07 40 MG Levalbuterol HCl 0.625 mg Q6HR NEB 10/30/24 12:00 11/15/24 11:12 0.625 MG Ipratropium [place] 0.5 mg Q6HR NEB 10/30/24 12:00 11/15/24 11:12 0.5 MG Acetylcysteine 100 mg Q6HR NEB 10/30/24 12:00 11/15/24 11:12 100 MG Micafungin Sodium 100 mg/Sodium Chloride 100 ml @ 100 mls/hr DAILY IV 10/31/24 10:00 11/15/24 10:07 100 MLS/HR Labetalol HCl 10 mg Q2HPRN PRN IV 11/11/24 12:15 11/15/24 17:51 10 MG Furosemide 60 mg BIDD IV 11/11/24 18:00 11/15/24 17:22 60 MG Piperacillin Sod/ Tazobactam Sod 100 ml @ 25 mls/hr Q8HR IV 11/11/24 22:00 11/15/24 13:45 25 MLS/HR Potassium Chloride 100 ml @ 50 mls/hr Q2H IV 11/12/24 05:30 11/12/24 09:29 UNV Fentanyl Citrate 250 ml @ 2.5 mls/hr Q24H IV 11/12/24 16:45 11/15/24 13:48 22.5 MLS/HR Propofol 100 ml @ 1.818 mls/ hr Q24H IV 11/12/24 16:45 11/14/24 08:35 3.636 MLS/HR Nicardipine/ Sodium Chloride 200 ml @ 50 mls/hr Q4H IV 11/12/24 16:45 11/15/24 18:58 50 MLS/HR Fat Emulsion Intravenous 50 ml/ Potassium Acetate 40 meq/Potassium Phosphate 10 meq/ Calcium Gluconate 2.3 meq/Magnesium Sulfate 10 meq/ Multivitamins 10 ml/Chromium/ Copper/Manganese/ Zinc 1 ml/Amino Acids/Dextrose/ Purified Water 1,540.7189 ml @ 64 mls/hr Q24H5M IV 11/14/24 22:00 11/15/24 21:59 11/14/24 21:36 64 MLS/HR Fat Emulsion Intravenous 100 ml/Potassium Acetate 60 meq/ Calcium Gluconate 4.65 meq/ Magnesium Sulfate 8 meq/ Multivitamins 10 ml/Chromium/ Copper/Manganese/ Zinc 1 ml/Amino Acids/Dextrose 1,553 ml @ 65 mls/hr [id number] IV 11/15/24 22:00 11/16/24 21:59 Albumin Human 50 ml @ 100 mls/hr Q8H IV 11/15/24 13:30 11/16/24 05:59 11/15/24 15:30 100 MLS/HR objective The patient is well-nourished and well-developed with no distress. The patient is intubated MENTAL STATUS: Subjective CRANIAL NERVES: Pupils are equal, round and reactive.There are corneal reflexes and doll's eyes phenomenon. No signs of facial weakness. There are gagging or coughing reflexes SENSATION: No responses to pain stimuli. MOTOR: Normal tone in the upper and lower extremity. Normal muscle bulk. No fasciculations. No spontaneous movement. REFLEXES: Deep tendon reflexes are symmetrical. No pathological reflexes. CEREBELLAR/COORDINATION: Deferred GAIT/STATION: deferred laboratory and microbiology Laboratory Tests 11/15/24 03:20 Test 11/15/24 03:20 Range/Units Serum Glucose 130 H 74-106 mg/dL Problem List Coma Metabolic encephalopathy Hypoxic encephalopathy Toxic encephalopathy Acute respiratory failure Perforated gastric ulcer, status post surgical repair Peritonitis Sepsis Kidney failure Diffuse brain edema per MRI scan He likely end up with permanent vegetative status Assessment/Plan Monitoring Supportive treatment Follow-up labs ICU care Stabilize vitals Respiratory support/vent management Oxygen IV antibiotics TPN GI prophylaxis DVT prophylaxis Wound care More recommendation per clinical course Poor prognosis for meaningful recovery This medical document was created using an electronic medical record system with [employer] dictation system. Although this document has been carefully reviewed, there may still be some phonetic and typographical errors. These areas are purely typographical due to imperfections of the software programs, and do not reflect any compromise in the patient's medical care. Prognosis guarded Dietary Evaluation Review Comments: 1) Conitnue TPN to provide at least 75% estimated needs 2) Advance diet as medically feasible 3) Continue current plan of care Expected Outcomes/Goals: GI symptoms to improve To meet >75% estimated needs Fu 2-3 days Plan discussed with: Son, Other Critical Care Time(min): 45 DOMI LEY MD November 15, 2024 20:08
--- NOTE | 2024-11-15 20:23 | DVHPNRES ---
Progress Note Date Seen: November 15, 2024 Resident Creating Document: ANDREW APPIAH RESIDENT Has the PT tested + for MRSA If YES, has PT been informed?: No Medical Necessity Reason Pt with a Central, PICC or Fol: Yes The following are medically ne: Persaud Catheter Reason for persaud catheter: Strict I&O Subjective Review of Systems Temperature has been within normal limits, he remains in sinus tachycardia around 110ss, he's on minimal vent settings FIO2 30%, PEEP 5. On nicardipine drip. Objective vital signs Vital Sign Date Time Temp Pulse Resp B/P (MAP) Pulse Ox O2 Delivery O2 Flow Rate FiO2 11/15/24 18:58 151/75 11/15/24 18:43 97 11/15/24 18:33 20 99 11/15/24 18:17 30 11/15/24 18:00 Mechanical Ventilator+ 11/15/24 16:03 97.5 97.5 Total Intake and Output 11/14/24 11/14/24 11/15/24 15:00 23:00 07:00 Intake Total 1575.13 ml 1276.0 ml 1360.0 ml Output Total 1030 ml 1070 ml Balance 1575.13 ml 246.0 ml 290.0 ml medications Current Medications Medications Dose Ordered Sig/Neisha Route Start Time Stop Time Status Last Admin Dose Admin Amino Acids 0 ml @ 0 mls/hr PER PHARMACY IV 10/27/24 08:45 Diagnostic Test (Pha) 1 strip Q6HR 10/27/24 12:00 11/15/24 17:21 1 STRIP Insulin Human Regular FOLLOW SLIDING SCALE Q6HR SC 10/27/24 12:00 11/15/24 11:37 2 UNITS Dextrose 50 ml UD IV 10/27/24 09:45 Sodium Chloride 10 ml QSHIFT@10,22 IV 10/27/24 22:00 11/15/24 10:07 10 ML Pantoprazole Sodium 40 mg BID IV 10/28/24 22:00 11/15/24 10:07 40 MG Levalbuterol HCl 0.625 mg Q6HR NEB 10/30/24 12:00 11/15/24 11:12 0.625 MG Ipratropium [place] 0.5 mg Q6HR NEB 10/30/24 12:00 11/15/24 11:12 0.5 MG Acetylcysteine 100 mg Q6HR NEB 10/30/24 12:00 11/15/24 11:12 100 MG Micafungin Sodium 100 mg/Sodium Chloride 100 ml @ 100 mls/hr DAILY IV 10/31/24 10:00 11/15/24 10:07 100 MLS/HR Labetalol HCl 10 mg Q2HPRN PRN IV 11/11/24 12:15 11/15/24 17:51 10 MG Furosemide 60 mg BIDD IV 11/11/24 18:00 11/15/24 17:22 60 MG Piperacillin Sod/ Tazobactam Sod 100 ml @ 25 mls/hr Q8HR IV 11/11/24 22:00 11/15/24 13:45 25 MLS/HR Potassium Chloride 100 ml @ 50 mls/hr Q2H IV 11/12/24 05:30 11/12/24 09:29 UNV Fentanyl Citrate 250 ml @ 2.5 mls/hr Q24H IV 11/12/24 16:45 11/15/24 13:48 22.5 MLS/HR Propofol 100 ml @ 1.818 mls/ hr Q24H IV 11/12/24 16:45 11/14/24 08:35 3.636 MLS/HR Nicardipine/ Sodium Chloride 200 ml @ 50 mls/hr Q4H IV 11/12/24 16:45 11/15/24 18:58 50 MLS/HR Fat Emulsion Intravenous 50 ml/ Potassium Acetate 40 meq/Potassium Phosphate 10 meq/ Calcium Gluconate 2.3 meq/Magnesium Sulfate 10 meq/ Multivitamins 10 ml/Chromium/ Copper/Manganese/ Zinc 1 ml/Amino Acids/Dextrose/ Purified Water 1,540.7189 ml @ 64 mls/hr Q24H5M IV 11/14/24 22:00 11/15/24 21:59 11/14/24 21:36 64 MLS/HR Fat Emulsion Intravenous 100 ml/Potassium Acetate 60 meq/ Calcium Gluconate 4.65 meq/ Magnesium Sulfate 8 meq/ Multivitamins 10 ml/Chromium/ Copper/Manganese/ Zinc 1 ml/Amino Acids/Dextrose 1,553 ml @ 65 mls/hr [id number] IV 11/15/24 22:00 11/16/24 21:59 Albumin Human 50 ml @ 100 mls/hr Q8H IV 11/15/24 13:30 11/16/24 05:59 11/15/24 15:30 100 MLS/HR Examination Physical examination as below: General: Intubated, off sedation and analgesia, not tracking or following commands. HEENT: Head is normocephalic and atraumatic. Pupils are both dilated Neck: Supple with no cervical lymphadenopathy. Heart: tachycardia without murmur, rub, or gallop. Lungs: bilateral crackles Abdomen:surgical incision site with drainage of green fluid. Bowel sounds are present. Abdomen is distended Extremities: Strong peripheral pulses. There is no clubbing, no cyanosis. Upper and lower extremity pitting edema +3 Skin: No rash. Neurologic: off sedation and analgesia, not tracking or following commands. laboratory and microbiology Laboratory Tests 11/15/24 03:20 Test 11/15/24 03:20 Range/Units Serum Glucose 130 H 74-106 mg/dL Microbiology Date/Time Source Procedure Growth Status 11/14/24 13:10 Blood Blood Culture - Preliminary NO GROWTH AFTER 24 HOURS OF INCUBATION. Resulted 11/11/24 15:48 Abdomen Gram Stain - Final Complete 11/11/24 15:48 Wound Culture - Final Pseudomonas aeruginosa Presumptive Blanca albicans Complete 10/26/24 13:25 Peritoneal Fluid Gram Stain - Final Complete 10/26/24 13:25 Anaerobic Culture - Final Bacteroides fragilis Prevotella melaninogenica Complete 10/26/24 13:25 Aerobic Culture - Final Pseudomonas aeruginosa Klebsiella pneumoniae Streptococcus Group F Complete 10/26/24 04:00 Voided Urine Urine Culture - Final Complete Labs and/or images reviewed: Labs reviewed by me, Image(s) reviewed by me Problem List/Assessment/Plan Problem List/Assessment/Plan ID Problem List: -- Septic shock -- Cardiac arrest, post-resuscitation -- Perforated stomach, post-operative status -- Intra-abdominal abscess -- Fungemia (Blanca albicans) -- Pseudomonas infection -- Acute kidney injury -- Thrombocytopenia -- Anemia (likely secondary to blood loss) -- Pneumonia -- Small bowel obstruction Assessment This is a 44-year-old male with no significant past medical or family history who presented with increased fatigue, upper abdominal pain, nausea, vomiting, generalized weakness, and inability to tolerate oral intake. On admission, the patient was found to have a distended, tender abdomen and palpable cervical and supraclavicular lymphadenopathy. Vital signs revealed hypoxia and relative hypotension. CT abdomen/pelvis without contrast demonstrated pneumoperitoneum, scattered ascites, and dilated small bowel consistent with small bowel obstruction and visceral perforation. Emergent exploratory laparotomy on 10/26 revealed a perforated proximal stomach just proximal to the pylorus, extensive peritoneal contamination, and dense intra-abdominal adhesions. The perforation was repaired; multiple cultures were sent. Microbiology demonstrated bloodstream infection with Blanca albicans and intra- abdominal cultures positive for Bacteroides fragilis, Prevotella melaninogenica, Pseudomonas aeruginosa, Klebsiella species, Streptococcus Group F, Providencia species, and Escherichia coli; respiratory cultures also grew Blanca albicans following a code event with likely aspiration. Post-operatively, the patient has been treated with broad-spectrum antimicrobials. Hospital course has been notable for episodes of hypothermia (as low as 97.3F), initially requiring vasopressor support, and a code event with cardiac arrest and pulselessness for approximately three minutes on 10/30, after which the patient was resuscitated. The patient had an initial AMRIA FERNANDA (peak creatinine 1.88 mg/dL), anemia (hemoglobin sarath 6.6-7.5 g/dL), thrombocytopenia (platelets as low as 113,000), and ongoing fluid overload with 3+ edema in the extremities. Repeat abdominal CT on 11/03 showed interval increase in size of right-sided intra-abdominal abscess (measuring up to 17.9 cm), persistent moderate ascites, and evidence of bowel-abscess communication. There is also evidence of bilateral pleural effusions, right greater than left, and adjacent consolidations concerning for pneumonia; these findings have been improving on serial imaging. The patient is currently on meropenem, micafungin, and daptomycin with most recent blood cultures showing improvement. He remains on minimal ventilatory support, with an abdominal drain in place (noted green fluid output), and no new open wounds. Vancomycin therapy has been discontinued due to elevated troughs and absence of Gram-positive organisms on recent cultures. 5/2: whitecount is 6.4 , hemoglobin is 6.6 and required blood transfusion . tachycardia appears to be improving . clinically appears to be improving however at times get tachycardic and has some ongoing blood loss likely post surgically related 5/3: ALLISON drain is continuing to have significant amount of output in the setting of ongoing abscess appears to be suggestive of clearage of infection source 5/4: Tolerating CPAP , appears to be overall clinically improving. getting diuretic therapy for edema in upper and lower extremities . whitecount is improving after stopping daptomycin , LFTs are mildly elevated 11/11: elevated BUN , concerning for ongoing GI bloodloss , hemoglobin is stable at 7.2 11/14: Concern for anoxic brain injury per brain mri, pending goals of care discussion with family members per primary team and neurologist, sedation and analgesia has been held. Wound culture is growing carbapenemic resistant pseudomonas. WBC trending up with left shift. There is also a concern for possible surgical wound dehiscence from ex-lap. 11/15: Pending goals of care meeting. WBC trending up, Hb trending down again likely GI related. wound culture came back negative for CRE, continue zosyn. Plan: - Continue Zosyn and micafungin - repeat abdominal pelvis Ct shows no wound dehiscence or abscess, significant improvement from previous ct. --Continue micafungin for ongoing intra-abdominal and fungal infection coverage. -- Maintain a two-week course of micafungin from the resolution of intra- abdominal abscess. -- Monitor drain output and clinical signs of intra-abdominal infection. -- Serial CT abdomen/pelvis every 1-2 weeks to monitor abscess resolution. -- Off vasopressors, on nicardipine drip. -- Maintain O? saturation above 94%; defer ventilator weaning to primary/pulmonology as tolerated. -- Monitor for ongoing bowel leak versus fistula development; consider surgical intervention if infection or abscess fails to resolve. -- Pneumonia: Covered by current antibiotics. If there is lack of radiographic improvement, may consider thoracentesis to evaluate pleural effusion for infection. -- Anemia: Monitor hemoglobin. Transfuse if clinically indicated. -- Thrombocytopenia: Monitor counts, transfuse if indicated for bleeding or procedures. -- MARIA FERNANDA: Monitor renal function. Adjust dosing as needed. -- Outpatient ophthalmology follow-up after discharge to assess for potential complications of fungemia. -- Blood cultures: Repeat as clinically indicated. Monitor for further clearance. Repeated on 11/14/24 -- Infectious Disease will continue to follow. -- Plan is subject to change pending new clinical information or diagnostic data. Updates may be added as an addendum. Case was discussed with Dr. Ross Total critical care time: Approximately 76 minutes Due to a high probability of clinically significant, life threatening deterioration, the patient required my highest level of preparedness to intervene emergently and I personally spent this critical care time directly and personally managing the patient. This critical care time included obtaining a history; examining the patient; pulse oximetry; ordering and review of studies; arranging urgent treatment with development of a management plan; evaluation of patient's response to treatment; frequent reassessment; and, discussions with other providers. This critical care time was performed to assess and manage the high probability of imminent, life-threatening deterioration that could result in multi-organ failure. It was exclusive of separately billable procedures and treating other patients and teaching time. Isolation Precautions: Standard Addendum Dr. Ross Patient was seen by Dr. Keita , remains minimally responsive. Agree with Dr. Keita's notes ID Problem List: -- Septic shock -- Cardiac arrest, post-resuscitation -- Perforated stomach, post-operative status -- Intra-abdominal abscess -- Fungemia (Blanca albicans) -- Pseudomonas infection -- Acute kidney injury -- Thrombocytopenia -- Anemia (likely secondary to blood loss) -- Pneumonia -- Small bowel obstruction Assessment This is a 44-year-old male with no significant past medical or family history who presented with increased fatigue, upper abdominal pain, nausea, vomiting, generalized weakness, and inability to tolerate oral intake. On admission, the patient was found to have a distended, tender abdomen and palpable cervical and supraclavicular lymphadenopathy. Vital signs revealed hypoxia and relative hypotension. CT abdomen/pelvis without contrast demonstrated pneumoperitoneum, scattered ascites, and dilated small bowel consistent with small bowel obstruction and visceral perforation. Emergent exploratory laparotomy on 10/26 revealed a perforated proximal stomach just proximal to the pylorus, extensive peritoneal contamination, and dense intra-abdominal adhesions. The perforation was repaired; multiple cultures were sent. Microbiology demonstrated bloodstream infection with Blanca albicans and intra- abdominal cultures positive for Bacteroides fragilis, Prevotella melaninogenica, Pseudomonas aeruginosa, Klebsiella species, Streptococcus Group F, Providencia species, and Escherichia coli; respiratory cultures also grew Blanca albicans following a code event with likely aspiration. Post-operatively, the patient has been treated with broad-spectrum antimicrobials. Hospital course has been notable for episodes of hypothermia (as low as 97.3F), initially requiring vasopressor support, and a code event with cardiac arrest and pulselessness for approximately three minutes on 10/30, after which the patient was resuscitated. The patient had an initial MARIA FERNANDA (peak creatinine 1.88 mg/dL), anemia (hemoglobin sarath 6.6-7.5 g/dL), thrombocytopenia (platelets as low as 113,000), and ongoing fluid overload with 3+ edema in the extremities. Repeat abdominal CT on 11/03 showed interval increase in size of right-sided intra-abdominal abscess (measuring up to 17.9 cm), persistent moderate ascites, and evidence of bowel-abscess communication. There is also evidence of bilateral pleural effusions, right greater than left, and adjacent consolidations concerning for pneumonia; these findings have been improving on serial imaging. The patient is currently on meropenem, micafungin, and daptomycin with most recent blood cultures showing improvement. He remains on minimal ventilatory support, with an abdominal drain in place (noted green fluid output), and no new open wounds. Vancomycin therapy has been discontinued due to elevated troughs and absence of Gram-positive organisms on recent cultures. 5/2: whitecount is 6.4 , hemoglobin is 6.6 and required blood transfusion . tachycardia appears to be improving . clinically appears to be improving however at times get tachycardic and has some ongoing blood loss likely post surgically related 5/3: ALLISON drain is continuing to have significant amount of output in the setting of ongoing abscess appears to be suggestive of clearage of infection source 5/4: Tolerating CPAP , appears to be overall clinically improving. getting diuretic therapy for edema in upper and lower extremities . whitecount is improving after stopping daptomycin , LFTs are mildly elevated 5/5: elevated BUN , concerning for ongoing GI bloodloss , hemoglobin is stable at 7.2 5/8: agree with Dr. Keita's notes and findings . Patient is on minimal vent and not on any pressers and having very few bowel movements and remains NPO . Per Dr. Keita : Concern for anoxic brain injury per brain mri, pending goals of care discussion with family members per primary team and neurologist, sedation and analgesia has been held. Wound culture is growing carbapenemic resistant pseudomonas. WBC trending up with left shift. There is also a concern for possible surgical wound dehiscence from ex-lap. 11/15: Off pressers and a drip for high blood presser . Agree with Dr. Keita's findings . whitecount is trending up and hemoglobin is recurrently dropping and requiring multiple blood transfusions and wound culture came back negative for CRE Plan: - Continue Zosyn - repeat abdominal pelvis Ct in 5 days --Continue micafungin for ongoing intra-abdominal and fungal infection coverage. -- Maintain a two-week course of micafungin from the resolution of intra- abdominal abscess. -- Monitor drain output and clinical signs of intra-abdominal infection. -- Serial CT abdomen/pelvis every 1-2 weeks to monitor abscess resolution. -- Off vasopressors, on nicardipine drip. -- Maintain O? saturation above 94%; defer ventilator weaning to primary/pulmonology as tolerated. -- Monitor for ongoing bowel leak versus fistula development; consider surgical intervention if infection or abscess fails to resolve. -- Pneumonia: Covered by current antibiotics. If there is lack of radiographic improvement, may consider thoracentesis to evaluate pleural effusion for infection. -- Anemia: Monitor hemoglobin. Transfuse if clinically indicated. -- Thrombocytopenia: Monitor counts, transfuse if indicated for bleeding or procedures. -- MARIA FERNANDA: Monitor renal function. Adjust dosing as needed. -- Outpatient ophthalmology follow-up after discharge to assess for potential complications of fungemia. -- Blood cultures: Repeat as clinically indicated. Monitor for further clearance. Repeated on 11/14/24 -- Infectious Disease will continue to follow. -- Plan is subject to change pending new clinical information or diagnostic data. Updates may be added as an addendum. Total critical care time: Approximately 76 minutes Due to a high probability of clinically significant, life threatening deterioration, the patient required my highest level of preparedness to intervene emergently and I personally spent this critical care time directly and personally managing the patient. This critical care time included obtaining a history; examining the patient; pulse oximetry; ordering and review of studies; arranging urgent treatment with development of a management plan; evaluation of patient's response to treatment; frequent reassessment; and, discussions with other providers. This critical care time was performed to assess and manage the high probability of imminent, life-threatening deterioration that could result in multi-organ failure. It was exclusive of separately billable procedures and treating other patients and teaching time. Isolation Precautions: Standard Plan discussed with: Other (RN) My Orders My Orders Orders - ANDREW APPIAH RESIDENT Procedure Category Date Status Time Abg W/ Co-Ox RT 11/15/24 Logged 06:00 Dietary Evaluation Review Comments: 1) Conitnue TPN to provide at least 75% estimated needs 2) Advance diet as medically feasible 3) Continue current plan of care Expected Outcomes/Goals: GI symptoms to improve To meet >75% estimated needs Fu 2-3 days ANDREW APPIAH RESIDENT November 15, 2024 20:23 SAGAR ROSS MD November 18, 2024 13:30
[2024-11-15] MEDS: TPN PER PHARMACY IV NR (21:56)
[2024-11-16] VITALS (117 sets, daily range): BP systolic 131–176; BP diastolic 61–90; PULSE 93–130; RESP 10–30; TEMP 97.2–98; O2SAT 97–100
[2024-11-16 03:53] LABS: Hemoglobin 7.3 g/dL (13.5-17.5); Red Cell Distribution Width 14.5 % (11.8-14.3)
[2024-11-16 03:57] LABS: Hematocrit 21.3 % (41.0-53.0); Mean Corpuscular Hemoglobin 31.7 pg (28.0-32.0); Mean Corpuscular Hgb Conc. 34.4 g/dL (32.0-36.0); Mean Corpuscular Volume 92.2 fL (80.0-100.0); Platelet Count (auto) 303 10^3/uL (140-450); Red Blood Cells 2.31 10^6/uL (4.5-5.90); White Blood Cell 12.4 10^3/uL (4.4-10.8)
[2024-11-16 04:10] LABS: Basophils % (manual) 0 (0.0-2.0); Blast Cells 0; Myelocytes % 0; Promyelocytes % 0; Reactive Lymphocytes 0
[2024-11-16 04:21] LABS: Anion Gap 11 (5-15); Carbon Dioxide 22 mmol/L (20-31); Magnesium 1.8 mg/dL (1.6-2.6); Potassium 3.5 mmol/L (3.5-5.1); Sodium 142 mmol/L (136-145)
[2024-11-16 04:22] LABS: Bilirubin, Total 0.6 mg/dL (0.2-1.0)
[2024-11-16 05:14] LABS: Alanine Aminotransferase 54 U/L (7-40); Albumin 2.5 g/dL (3.2-4.8); Alkaline Phosphatase 155 U/L (46-116); Aspartate Aminotransferase 61 U/L (13-40); Blood Urea Nitrogen 71 mg/dL (9-23); Calcium 7.2 mg/dL (8.7-10.4); Chloride 109 mmol/L (98-107); Glucose 108 mg/dL (74-106); Total Protein 5.1 g/dL (5.7-8.2)
--- NOTE | 2024-11-16 05:31 | DVH ---
CHEST RADIOGRAPH Indication: pna Technique: Single frontal view of the chest was obtained COMPARISON: XY CHEST PORTABLE on DOS: 11/15/24, XY CHEST PORTABLE on DOS: 11/13/24, XY CHEST PORTABLE on DOS: 11/12/24, XY CHEST PORTABLE on DOS: 11/11/24, XY CHEST PORTABLE on DOS: 11/10/24 FINDINGS: Lines and Tubes: Unchanged. Lungs: Small bilateral pleural effusions are stable in appearance. Mild interval progression in left lower lung zone airspace disease with persistent right apical and right base opacification. No pneumothorax. Cardiomediastinal contours: Unremarkable Bones: Unremarkable IMPRESSION: 1. Mild interval progression in left lower lung zone pulmonary airspace disease. Otherwise stable mul tifocal right hemithoracic airspace disease. 2. Lines and tubes unchanged.
[2024-11-16 06:05] LABS: Band Neutrophils % (manual) 2; Eosinophils % (manual) 7 (0-7); Lymphocytes % (manual) 7 (10.0-50.0); Metamyelocytes % 1; Monocytes % (manual) 9 (0-12); Platelet Estimate Adequate
[2024-11-16 06:10] LABS: Base Excess -4.4 mmol/L (-2.0-3.0)
[2024-11-16 08:13] LABS: Basophils # (auto) 0.1 10 ^3/uL (0-0.2); Basophils % (auto) 0.8 % (0.0-2.0); Eosinophils # (auto) 0.6 10 ^3/uL (0-0.8); Eosinophils % (auto) 4.5 % (0.0-7.0); Hematocrit 23.7 % (41.0-53.0); Hemoglobin 7.4 g/dL (13.5-17.5); Lymphocytes # (auto) 0.7 10 ^3/uL (0.4-5.4); Lymphocytes % (auto) 5.7 % (10.0-50.0); Mean Corpuscular Hemoglobin 32.6 pg (28.0-32.0); Mean Corpuscular Hgb Conc. 31.4 g/dL (32.0-36.0); Mean Corpuscular Volume 103.8 fL (80.0-100.0); Monocytes # (auto) 0.8 10 ^3/uL (0-1.3); Neutrophils # (auto) 10.6 10 ^3/uL (1.6-8.6); Platelet Count (auto) 292 10^3/uL (140-450); Red Blood Cells 2.29 10^6/uL (4.5-5.90); White Blood Cell 12.8 10^3/uL (4.4-10.8)
--- NOTE | 2024-11-16 11:29 | DVHPN2 ---
Progress Note Date Seen: November 16, 2024 Has the PT tested + for MRSA If YES, has PT been informed?: No Medical Necessity Reason Pt with a Central, PICC or Fol: Yes The following are medically ne: Persaud Catheter Reason for persaud catheter: Strict I&O Subjective Review of Systems: RESPIRATORY:Abnormal Other Systems: Patient seen and examined by myself today in follow-up, patient remained intubated on ventilator Objective vital signs Vital Sign Date Time Temp Pulse Resp B/P (MAP) Pulse Ox O2 Delivery O2 Flow Rate FiO2 11/16/24 09:32 20 100 Mechanical Ventilator+ 30 30 11/16/24 09:32 125 11/16/24 09:12 176/75 (108) 11/16/24 04:00 97.2 97.2 Total Intake and Output 11/15/24 11/15/24 11/16/24 15:00 23:00 07:00 Intake Total 1346 ml 829.5 ml 740.0 ml Output Total 1450 ml 1225 ml Balance 1346 ml -620.5 ml -485.0 ml medications Current Medications Medications Dose Ordered Sig/Neisha Route Start Time Stop Time Status Last Admin Dose Admin Amino Acids 0 ml @ 0 mls/hr PER PHARMACY IV 10/27/24 08:45 Diagnostic Test (Pha) 1 strip Q6HR 10/27/24 12:00 11/16/24 06:21 1 STRIP Insulin Human Regular FOLLOW SLIDING SCALE Q6HR SC 10/27/24 12:00 11/15/24 11:37 2 UNITS Dextrose 50 ml UD IV 10/27/24 09:45 Sodium Chloride 10 ml QSHIFT@10,22 IV 10/27/24 22:00 11/15/24 22:18 10 ML Pantoprazole Sodium 40 mg BID IV 10/28/24 22:00 11/15/24 21:54 40 MG Levalbuterol HCl 0.625 mg Q6HR NEB 10/30/24 12:00 11/16/24 05:53 0.625 MG Ipratropium [place] 0.5 mg Q6HR NEB 10/30/24 12:00 11/16/24 05:53 0.5 MG Acetylcysteine 100 mg Q6HR NEB 10/30/24 12:00 11/16/24 05:53 100 MG Micafungin Sodium 100 mg/Sodium Chloride 100 ml @ 100 mls/hr DAILY IV 10/31/24 10:00 11/15/24 10:07 100 MLS/HR Labetalol HCl 10 mg Q2HPRN PRN IV 11/11/24 12:15 11/15/24 17:51 10 MG Furosemide 60 mg BIDD IV 11/11/24 18:00 11/16/24 06:34 60 MG Piperacillin Sod/ Tazobactam Sod 100 ml @ 25 mls/hr Q8HR IV 11/11/24 22:00 11/16/24 06:34 25 MLS/HR Potassium Chloride 100 ml @ 50 mls/hr Q2H IV 11/12/24 05:30 11/12/24 09:29 UNV Fentanyl Citrate 250 ml @ 2.5 mls/hr Q24H IV 11/12/24 16:45 11/15/24 23:40 30 MLS/HR Propofol 100 ml @ 1.818 mls/ hr Q24H IV 11/12/24 16:45 11/15/24 23:32 1.818 MLS/HR Nicardipine/ Sodium Chloride 200 ml @ 50 mls/hr Q4H IV 11/12/24 16:45 11/16/24 09:07 75 MLS/HR Fat Emulsion Intravenous 100 ml/Potassium Acetate 60 meq/ Calcium Gluconate 4.65 meq/ Magnesium Sulfate 8 meq/ Multivitamins 10 ml/Chromium/ Copper/Manganese/ Zinc 1 ml/Amino Acids/Dextrose 1,553 ml @ 65 mls/hr [id number] IV 11/15/24 22:00 11/16/24 21:59 11/15/24 21:56 65 MLS/HR Fat Emulsion Intravenous 100 ml/Potassium Acetate 80 meq/ Calcium Gluconate 9.3 meq/Magnesium Sulfate 12 meq/ Multivitamins 10 ml/Chromium/ Copper/Manganese/ Zinc 1 ml/Amino Acids/Dextrose 1,574 ml @ 65 mls/hr [id number] IV 11/16/24 22:00 11/17/24 21:59 Examination: LUNGS:Normal, CVS:Normal, MSK:Normal laboratory and microbiology Laboratory Tests 11/16/24 07:24 11/16/24 03:20 Test 11/16/24 03:20 Range/Units Serum Glucose 108 H 74-106 mg/dL Microbiology Date/Time Source Procedure Growth Status 11/14/24 13:10 Blood Blood Culture - Preliminary NO GROWTH AFTER 24 HOURS OF INCUBATION. Resulted 11/11/24 15:48 Abdomen Gram Stain - Final Complete 11/11/24 15:48 Wound Culture - Final Pseudomonas aeruginosa Presumptive Blanca albicans Complete 10/26/24 13:25 Peritoneal Fluid Gram Stain - Final Complete 10/26/24 13:25 Anaerobic Culture - Final Bacteroides fragilis Prevotella melaninogenica Complete 10/26/24 13:25 Aerobic Culture - Final Pseudomonas aeruginosa Klebsiella pneumoniae Streptococcus Group F Complete 10/26/24 04:00 Voided Urine Urine Culture - Final Complete Problem List/Assessment/Plan Problem List/Assessment/Plan MARIA FERNANDA likely hemodynamic mediated in the setting of septic shock Uremia likely multifactorial due to sepsis/TPN/possible GI bleed/severe anemia status post transfusion Acute blood loss anemia most likely due to intraoperative blood loss/ gastric ulcer perforation Acute hypoxemic respiratory failure, possible bacterial pneumonia Acute metabolic/toxic encephalopathy AFib with RVR Transaminitis likely due to septic shock Candidemia Sepsis Severe malnutrition Recommendations Kidney function slowly improving Increased urine output Persaud catheter Strict I&Os ID on board Surgery follow up We will continue to follow Plan discussed with: Other (Nurse) Dietary Evaluation Review Comments: 1) Conitnue TPN to provide at least 75% estimated needs 2) Advance diet as medically feasible 3) Continue current plan of care Expected Outcomes/Goals: GI symptoms to improve To meet >75% estimated needs Fu 2-3 days CHRISTI AVENDANO MD November 16, 2024 11:29
--- NOTE | 2024-11-16 15:01 | DVHPN2 ---
Assessment/Plan Assessment/Plan ICU note covering family discussion with plan for compassionate extubation. plan for tomorrow 10am. physical exam sedated intubated on mechanical vent PERRLA swlen tongue, bloody secretion from oral cavity imrpoved mechanical breath sounds s1 s2 RRR abdomen soft b/l LE edema UE edema labs ekg imaging reviewed assessment and plan Acute metabolic/toxic encephalopathy Acute hypoxic respiratory failure due to multi-organism pneumonia Septic shock due to multi-organism pneumonia/abdominal infection/abdominal abscesses Status post cardiac arrest; asystolic Pneumoperitoneum status post exploratory laparotomy with closure of perforated antral gastric perforation with concern for possible leak from repair site Acute blood loss anemia most likely due to intraoperative blood loss MARIA FERNANDA; most likely vasomotor nephropathy in the setting of septic shock Elevated LFTs in the setting of septic shock Thrombocytopenia in the setting of septic shock Severe malnutrition candidemia and on TPN c/w mechanical vent c/w sedation, RAAS goal -3 hold CPAP transfuse to Hb >7 bite block c/w TPN trend CBC, plt c/w jay and micafungin add dapto surg rec appreciated plan for palliative extubation tomorrow diet tpn dvt ppx hold iso bleeding gi ppx protonix DNR condition critical prognosis poor critical care time 35 minutes Plan discussed with: Other Date of Service: November 16, 2024 Billing Provider: GARY VIVAS MD Common Visit Codes: 91046-[id number] CARE 30-74 MIN GARY VIVAS MD November 16, 2024 15:01
--- NOTE | 2024-11-16 20:40 | DVHPN2 ---
Progress Note - Dictate Date Seen: November 16, 2024 Has the PT tested + for MRSA If YES, has PT been informed?: No Medical Necessity Reason Pt with a Central, PICC or Fol: Yes The following are medically ne: Persaud Catheter Reason for persaud catheter: Strict I&O Subjective Mr. Martinez is a 44 years old gentleman, he was brought to the [facility] on 10/25/2024 with a chief company of general weakness, fatigue, abdominal pain, in the hospital, the patient was found to have CT confirmed perforated peptic ulcer, he went through exploratory laparoscopy on 10/26/2024 and then was transferred to ICU post surgically. He was downgraded to telemetry on 10/28/2024, unfortunately he coded @ 10/30/2024 0304 with cardiopulmonary arrest, patient was intubated, resuscitated with ROSC @ 10/30/2024 0307. He has been in the ICU since I have seen and examined the patient, I have talked to his nurse, he is intubated, eyes are open, with spontaneous blinking, he is nonresponsive to verbal stimuli, visual threat, or sudden loud noise Blood culture, 10/25/2024: Blanca albicans Respiratory culture, 10/30/2024: Providencia rettgerei, E coli, Blanca albicans Peritoneal fluid culture, 10/26/2024: Bacteroides fragilis, Prevotella melaninogenica, Pseudomonas aeruginosa, Klebsiella pneumoniae, Streptococcus group F Urinalysis, 10/28/2024: WBC: 5, urine leukocyte esterase: Negative ABG 10/30/2024, metabolic acidosis, 10/30/2024: Compensated metabolic acidosis,, 11/16/2024 metabolic acidosis WBC/HGB/PLT/MCV, 11/13/2024: 10.9/10.5/246/91 BUN/CR, 11/13/2024: 85/1.65 TBI/AST/ALT/AP, 11/13/2024: 0.7/52/46/177 Chest x-ray, 11/13/2024: Bibasilar atelectasis or pneumonia CT head, 11/12/2024: Possible hypodensity in the bilateral cerebellum, cerebellar infarct can not be excluded. There is a punctate hypodensity within the right frontal lobe, which could represent age indeterminate infarct. MRI recommended for further evaluation (I suspect an arachnoid cyst in the posterior fossa, instead of cerebellum chronic stroke) CT abdomen, pelvis, 10/30/2024: 1. Development of moderate dependent consolidations in the bilateral lower lobes as well as patchy mixed airspace opacities in the right lower lobe likely a combination of atelectasis and pneumonia, which may be on the basis of aspiration. 2. Interval placement of midline abdominal drain with the tip terminating in the anterior left upper abdomen. 3. Persistent free intraperitoneal air as well as extraluminal oral contrast in the abdomen compatible with perforated viscus. 4. Multiple loculated fluid collections in the abdomen and pelvis which could reflect multifocal abscesses. 5. Mild ascites, body wall edema, and small bilateral pleural effusions. 6. Cholelithiasis. 7. Mildly dilated small bowel loops as well as intervening normal caliber small bowel loops which could be related to ileus or multifocal small-bowel obstr MR brain, 11/13/2024: 1. Diffusely increased diffusion restriction signal within the cerebral cortices, suggestive of anoxic/ hypoxic brain ischemic injury 2. Xvlt-jl-inoxaicu global cerebral volume loss. 3. Bilateral mastoid effusions vital signs Vital Sign Date Time Temp Pulse Resp B/P (MAP) Pulse Ox O2 Delivery O2 Flow Rate FiO2 11/16/24 20:18 107 17 151/78 (102) 99 11/16/24 20:07 30 11/16/24 20:03 97.7 97.7 11/16/24 20:00 Mechanical Ventilator+ Total Intake and Output 11/15/24 11/15/24 11/16/24 15:00 23:00 07:00 Intake Total 1346 ml 829.5 ml 740.0 ml Output Total 1450 ml 1225 ml Balance 1346 ml -620.5 ml -485.0 ml medications Current Medications Medications Dose Ordered Sig/Neisha Route Start Time Stop Time Status Last Admin Dose Admin Amino Acids 0 ml @ 0 mls/hr PER PHARMACY IV 10/27/24 08:45 Diagnostic Test (Pha) 1 strip Q6HR 10/27/24 12:00 11/16/24 17:22 1 STRIP Insulin Human Regular FOLLOW SLIDING SCALE Q6HR SC 10/27/24 12:00 11/16/24 12:11 2 UNITS Dextrose 50 ml UD IV 10/27/24 09:45 Sodium Chloride 10 ml QSHIFT@10,22 IV 10/27/24 22:00 11/16/24 12:08 10 ML Pantoprazole Sodium 40 mg BID IV 10/28/24 22:00 11/16/24 12:08 40 MG Levalbuterol HCl 0.625 mg Q6HR NEB 10/30/24 12:00 11/16/24 18:40 0.625 MG Ipratropium [place] 0.5 mg Q6HR NEB 10/30/24 12:00 11/16/24 18:40 0.5 MG Acetylcysteine 100 mg Q6HR NEB 10/30/24 12:00 11/16/24 18:41 100 MG Micafungin Sodium 100 mg/Sodium Chloride 100 ml @ 100 mls/hr DAILY IV 10/31/24 10:00 11/16/24 10:00 100 MLS/HR Labetalol HCl 10 mg Q2HPRN PRN IV 11/11/24 12:15 11/15/24 17:51 10 MG Furosemide 60 mg BIDD IV 11/11/24 18:00 11/16/24 17:22 60 MG Piperacillin Sod/ Tazobactam Sod 100 ml @ 25 mls/hr Q8HR IV 11/11/24 22:00 11/16/24 13:13 25 MLS/HR Potassium Chloride 100 ml @ 50 mls/hr Q2H IV 11/12/24 05:30 11/12/24 09:29 UNV Fentanyl Citrate 250 ml @ 2.5 mls/hr Q24H IV 11/12/24 16:45 11/16/24 10:00 25 MLS/HR Propofol 100 ml @ 1.818 mls/ hr Q24H IV 11/12/24 16:45 11/16/24 10:00 10.908 MLS/HR Nicardipine/ Sodium Chloride 200 ml @ 50 mls/hr Q4H IV 11/12/24 16:45 11/16/24 19:01 75 MLS/HR Fat Emulsion Intravenous 100 ml/Potassium Acetate 60 meq/ Calcium Gluconate 4.65 meq/ Magnesium Sulfate 8 meq/ Multivitamins 10 ml/Chromium/ Copper/Manganese/ Zinc 1 ml/Amino Acids/Dextrose 1,553 ml @ 65 mls/hr [id number] IV 11/15/24 22:00 11/16/24 21:59 11/15/24 21:56 65 MLS/HR Potassium Acetate 80 meq/Calcium Gluconate 9.3 meq/ Magnesium Sulfate 12 meq/ Multivitamins 10 ml/Chromium/ Copper/Manganese/ Zinc 1 ml/Amino Acids/Dextrose 1,474 ml @ 61 mls/hr [id number] IV 11/16/24 22:00 11/17/24 21:59 objective The patient is well-nourished and well-developed with no distress. The patient is intubated MENTAL STATUS: Subjective CRANIAL NERVES: Pupils are equal, round and reactive.There are corneal reflexes and doll's eyes phenomenon. No signs of facial weakness. There are gagging or coughing reflexes SENSATION: No responses to pain stimuli. MOTOR: Normal tone in the upper and lower extremity. Normal muscle bulk. No fasciculations. No spontaneous movement. REFLEXES: Deep tendon reflexes are symmetrical. No pathological reflexes. 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 Although this document has been carefully reviewed, there may still be some phonetic and typographical errors. These areas are purely typographical due to imperfections of the software programs, and do not reflect any compromise in the patient's medical care. Prognosis guarded Dietary Evaluation Review Comments: 1) Conitnue TPN to provide at least 75% estimated needs 2) Advance diet as medically feasible 3) Continue current plan of care Expected Outcomes/Goals: GI symptoms to improve To meet >75% estimated needs Fu 2-3 days Plan discussed with: Other DOMI LEY MD November 16, 2024 20:40
[2024-11-16] MEDS: TPN PER PHARMACY IV NR (21:54)
[2024-11-17] VITALS (88 sets, daily range): BP systolic 122–189; BP diastolic 66–95; PULSE 79–147; RESP 12–33; TEMP 97.3–99.8; O2SAT 76–100
--- NOTE | 2024-11-17 00:29 | DVHEEG2 ---
Neurology EEG Procedural Note Procedural Note EXAM DATE: 11/16/2024 REFERRING DOCTOR: Dr. Ley TECHNIQUE: Eighteen channels of EEG, 2 channels of EOG, and 1 channel of EKG were recorded using the International 10/20 system. CLINICAL DATA: The patient was referred for an EEG evaluation for the evidence of seizure disorder. MEDICATIONS: The the chart BACKGROUND ACTIVITY: There was significant amount of environmental and electrode artifacts. The EEG appeared to be low amplitude theta activity over both hemispheres ACTIVATION: Hyperventilation: Not done Photic Stimulation: Not done Sleep: Responsiveness IMPRESSION: This is an inadequate and abnormal EEG. If clinically indicated to rule out a seizure disorder, recommend repeat EEG with sleep deprivation. The EKG channel showed a regular heart rate of 96 per minute. [place] [address] DOMI LEY MD November 17, 2024 00:29
[2024-11-17 03:51] LABS: Hematocrit 21.6 % (41.0-53.0); Hemoglobin 7.2 g/dL (13.5-17.5); Mean Corpuscular Hemoglobin 30.6 pg (28.0-32.0); Mean Corpuscular Hgb Conc. 33.4 g/dL (32.0-36.0); Mean Corpuscular Volume 91.6 fL (80.0-100.0); Platelet Count (auto) 321 10^3/uL (140-450); Red Blood Cells 2.36 10^6/uL (4.5-5.90); Red Cell Distribution Width 14.8 % (11.8-14.3); White Blood Cell 13.5 10^3/uL (4.4-10.8)
[2024-11-17 03:55] LABS: Basophils % (manual) 0 (0.0-2.0); Blast Cells 0; Metamyelocytes % 0; Promyelocytes % 0; Reactive Lymphocytes 0
[2024-11-17 04:15] LABS: Anion Gap 11 (5-15); BUN/Creatinine Ratio 50.3 (10.0-20.0); Carbon Dioxide 24 mmol/L (20-31); Chloride 106 mmol/L (98-107); Potassium 3.5 mmol/L (3.5-5.1); Sodium 141 mmol/L (136-145)
[2024-11-17 04:16] LABS: Bilirubin, Total 0.6 mg/dL (0.2-1.0); Phosphorus 3.7 mg/dL (2.4-5.1)
[2024-11-17 04:17] LABS: Alanine Aminotransferase 63 U/L (7-40); Albumin 2.6 g/dL (3.2-4.8); Alkaline Phosphatase 160 U/L (46-116); Aspartate Aminotransferase 76 U/L (13-40); Blood Urea Nitrogen 78 mg/dL (9-23); Calcium 7.6 mg/dL (8.7-10.4); Glucose 128 mg/dL (74-106); Total Protein 5.2 g/dL (5.7-8.2)
[2024-11-17 05:49] LABS: Band Neutrophils % (manual) 9; Eosinophils % (manual) 2 (0-7); Lymphocytes % (manual) 4 (10.0-50.0); Monocytes % (manual) 3 (0-12); Myelocytes % 3
[2024-11-17 05:50] LABS: Anisocytosis Slight; Platelet Estimate Adequate
--- NOTE | 2024-11-17 06:50 | DVH ---
INDICATION: pna TECHNIQUE: Single frontal view of the chest was obtained COMPARISON: XY CHEST PORTABLE on DOS: 11/16/24, XY CHEST PORTABLE on DOS: 11/15/24, XY CHEST PORTABLE on DOS: 11/13/24, XY CHEST PORTABLE on DOS: 11/12/24, XY CHEST PORTABLE on DOS: 11/11/24, XY CHEST PORTABLE o n DOS: 11/16/24 FINDINGS: Lines and Tubes: Unchanged. Lungs: Small bilateral pleural effusions are stable in appearance. Mild interval progression in left lower lung zone airspace disease with persistent right apical and right base opacification. No pneumothorax. Cardiomediastinal contours: Unremarkable Bones: Unremarkable IMPRESSION: 1. Mild interval progression in left lower lung zone pulmonary airspace disease. Otherwise stable mul tifocal right hemithoracic airspace disease. 2. Lines and tubes unchanged.
--- NOTE | 2024-11-17 08:41 | DVHPN2 ---
Progress Note Date Seen: November 17, 2024 Has the PT tested + for MRSA If YES, has PT been informed?: No Medical Necessity Reason Pt with a Central, PICC or Fol: Yes The following are medically ne: Persaud Catheter Reason for persaud catheter: Strict I&O Subjective Review of Systems: RESPIRATORY:Abnormal Other Systems: Patient seen and examined by myself today in follow-up, patient remained intubated on ventilator Objective vital signs Vital Sign Date Time Temp Pulse Resp B/P (MAP) Pulse Ox O2 Delivery O2 Flow Rate FiO2 11/17/24 08:00 96 20 100 Mechanical Ventilator+ 100 100 11/17/24 07:45 145/78 (100) 11/17/24 04:00 97.6 97.6 Total Intake and Output 11/16/24 11/16/24 11/17/24 15:00 23:00 07:00 Intake Total 1235.676 ml 2467.902 ml 1040.668 ml Output Total 1125 ml 1705 ml Balance 1235.676 ml 1342.902 ml -664.332 ml medications Current Medications Medications Dose Ordered Sig/Neisha Route Start Time Stop Time Status Last Admin Dose Admin Amino Acids 0 ml @ 0 mls/hr PER PHARMACY IV 10/27/24 08:45 Diagnostic Test (Pha) 1 strip Q6HR 10/27/24 12:00 11/17/24 06:00 1 STRIP Insulin Human Regular FOLLOW SLIDING SCALE Q6HR SC 10/27/24 12:00 11/16/24 12:11 2 UNITS Dextrose 50 ml UD IV 10/27/24 09:45 Sodium Chloride 10 ml QSHIFT@10,22 IV 10/27/24 22:00 11/16/24 21:40 10 ML Pantoprazole Sodium 40 mg BID IV 10/28/24 22:00 11/16/24 21:40 40 MG Levalbuterol HCl 0.625 mg Q6HR NEB 10/30/24 12:00 11/17/24 05:56 0.625 MG Ipratropium [place] 0.5 mg Q6HR NEB 10/30/24 12:00 11/17/24 05:55 0.5 MG Acetylcysteine 100 mg Q6HR NEB 10/30/24 12:00 11/17/24 05:56 100 MG Micafungin Sodium 100 mg/Sodium Chloride 100 ml @ 100 mls/hr DAILY IV 10/31/24 10:00 11/16/24 10:00 100 MLS/HR Labetalol HCl 10 mg Q2HPRN PRN IV 11/11/24 12:15 11/15/24 17:51 10 MG Furosemide 60 mg BIDD IV 11/11/24 18:00 11/17/24 05:59 60 MG Piperacillin Sod/ Tazobactam Sod 100 ml @ 25 mls/hr Q8HR IV 11/11/24 22:00 11/17/24 05:57 25 MLS/HR Potassium Chloride 100 ml @ 50 mls/hr Q2H IV 11/12/24 05:30 11/12/24 09:29 UNV Fentanyl Citrate 250 ml @ 2.5 mls/hr Q24H IV 11/12/24 16:45 11/17/24 06:01 27.5 MLS/HR Propofol 100 ml @ 1.818 mls/ hr Q24H IV 11/12/24 16:45 11/17/24 07:38 16.362 MLS/HR Nicardipine/ Sodium Chloride 200 ml @ 50 mls/hr Q4H IV 11/12/24 16:45 11/17/24 04:23 50 MLS/HR Potassium Acetate 80 meq/Calcium Gluconate 9.3 meq/ Magnesium Sulfate 12 meq/ Multivitamins 10 ml/Chromium/ Copper/Manganese/ Zinc 1 ml/Amino Acids/Dextrose 1,474 ml @ 61 mls/hr [id number] IV 11/16/24 22:00 11/17/24 21:59 11/16/24 21:54 61 MLS/HR Examination: LUNGS:Normal, CVS:Normal, MSK:Normal laboratory and microbiology Laboratory Tests 11/17/24 03:00 Test 11/17/24 03:00 Range/Units Serum Glucose 128 H 74-106 mg/dL Microbiology Date/Time Source Procedure Growth Status 11/14/24 13:10 Blood Blood Culture - Preliminary NO GROWTH AFTER 48 HOURS OF INCUBATION. Resulted 11/11/24 15:48 Abdomen Gram Stain - Final Complete 11/11/24 15:48 Wound Culture - Final Pseudomonas aeruginosa Presumptive Blanca albicans Complete 10/26/24 13:25 Peritoneal Fluid Gram Stain - Final Complete 10/26/24 13:25 Anaerobic Culture - Final Bacteroides fragilis Prevotella melaninogenica Complete 10/26/24 13:25 Aerobic Culture - Final Pseudomonas aeruginosa Klebsiella pneumoniae Streptococcus Group F Complete 10/26/24 04:00 Voided Urine Urine Culture - Final Complete Problem List/Assessment/Plan Problem List/Assessment/Plan MARIA FERNANDA likely hemodynamic mediated in the setting of septic shock Uremia likely multifactorial due to sepsis/TPN/possible GI bleed/severe anemia status post transfusion Acute blood loss anemia most likely due to intraoperative blood loss/ gastric ulcer perforation Acute hypoxemic respiratory failure, possible bacterial pneumonia Acute metabolic/toxic encephalopathy AFib with RVR Transaminitis likely due to septic shock Candidemia Sepsis Severe malnutrition Recommendations Kidney function continues to improve Increased urine output Persaud catheter Strict I&Os ID on board Surgery follow up We will continue to follow Plan discussed with: Other (Nurse) Dietary Evaluation Review Comments: 1) Conitnue TPN to provide at least 75% estimated needs 2) Advance diet as medically feasible 3) Continue current plan of care Expected Outcomes/Goals: GI symptoms to improve To meet >75% estimated needs Fu 2-3 days CHRISTI AVENDANO MD November 17, 2024 08:41
[2024-11-17] MEDS: POTASSIUM CHL 20MEQ/50ML 50 ML IV ONE (09:45)
[2024-11-17] MEDS ORDERED: GLYCOPYRROLATE 0.2 MG/ML 1ML VIAL IM PRN (10:45)
[2024-11-17] MEDS: LORazepam 2MG/ML-1ML VIAL IV PRN (11:26)
[2024-11-17] MEDS: MORPHINE SULFATE 4 MG/ML SYR/VIAL IV PRN ×2 (12:40→23:47)
[2024-11-17] MEDS: GLYCOPYRROLATE 0.2 MG/ML 1ML VIAL IM PRN (16:33)
--- NOTE | 2024-11-17 17:33 | DVHPN2 ---
Assessment/Plan Assessment/Plan ICU note covering patient for compassionate extubation today. comfort measures only physical exam sedated intubated on mechanical vent PERRLA swlen tongue, bloody secretion from oral cavity imrpoved mechanical breath sounds s1 s2 RRR abdomen soft b/l LE edema UE edema labs ekg imaging reviewed assessment and plan Acute metabolic/toxic encephalopathy Acute hypoxic respiratory failure due to multi-organism pneumonia Septic shock due to multi-organism pneumonia/abdominal infection/abdominal abscesses Status post cardiac arrest; asystolic Pneumoperitoneum status post exploratory laparotomy with closure of perforated antral gastric perforation with concern for possible leak from repair site Acute blood loss anemia most likely due to intraoperative blood loss MARIA FERNANDA; most likely vasomotor nephropathy in the setting of septic shock Elevated LFTs in the setting of septic shock Thrombocytopenia in the setting of septic shock Severe malnutrition candidemia and on TPN comfort care morphine, ativan, robinum NC for comfort diethold dvt ppx hold gi ppx hold COMFORT MEASURE DNR critical care time 31 minutes Plan discussed with: Other My Orders Orders - GARY VIVAS MD Procedure Category Date Status Time Morphine Sulfate PHA 11/17/24 In Process Injection 10:45 Lorazepam 2mg/Ml Inj PHA 11/17/24 In Process (Ativan Inj) 10:45 Code Status CODE 11/17/24 Transmitted 10:31 Rt To Terminal Wean Pt ORDERS 11/17/24 Transmitted 10:31 Glycopyrrolate PHA 11/17/24 In Process Injection (Robinul 11:00 Date of Service: November 17, 2024 Billing Provider: GARY VIVAS MD Common Visit Codes: 42761-[id number] CARE-EACH +30MIN GARY VIVAS MD November 17, 2024 17:33
--- NOTE | 2024-11-17 20:34 | DVHPN2 ---
Consult Progress Note Date Seen: November 12, 2024 Subjective Patient reports: Feels better (tolerating antibiotics no fever or chills) Objective vital signs Vital Sign Date Time Temp Pulse Resp B/P (MAP) Pulse Ox O2 Delivery O2 Flow Rate FiO2 11/17/24 18:45 108 18 98 11/17/24 18:00 Nasal Cannula* 1 24 11/17/24 16:00 99.8 99.8 Total Intake and Output 11/16/24 11/16/24 11/17/24 15:00 23:00 07:00 Intake Total 1235.676 ml 2467.902 ml 1040.668 ml Output Total 1125 ml 1705 ml Balance 1235.676 ml 1342.902 ml -664.332 ml medications Current Medications Medications Dose Ordered Sig/Neisha Route Start Time Stop Time Status Last Admin Dose Admin Potassium Chloride 100 ml @ 50 mls/hr Q2H IV 11/12/24 05:30 11/12/24 09:29 UNV Morphine Sulfate 4 mg Q4HPRN PRN IV 11/17/24 10:45 11/17/24 16:39 4 MG Lorazepam 2 mg Q6HP PRN IV 11/17/24 10:45 11/17/24 17:48 2 MG Glycopyrrolate 0.4 mg Q4HPRN PRN IM 11/17/24 11:00 11/17/24 16:33 0.4 MG laboratory and microbiology Laboratory Tests 11/17/24 03:00 Test 11/17/24 03:00 Range/Units Serum Glucose 128 H 74-106 mg/dL Problem List/Assessment/Plan Problem List/Assessment/Plan ID Problem List: -- Septic shock -- Cardiac arrest, post-resuscitation -- Perforated stomach, post-operative status -- Intra-abdominal abscess -- Fungemia (Blanca albicans) -- Pseudomonas infection -- Acute kidney injury -- Thrombocytopenia -- Anemia (likely secondary to blood loss) -- Pneumonia -- Small bowel obstruction Assessment This is a 44-year-old male with no significant past medical or family history who presented with increased fatigue, upper abdominal pain, nausea, vomiting, generalized weakness, and inability to tolerate oral intake. On admission, the patient was found to have a distended, tender abdomen and palpable cervical and supraclavicular lymphadenopathy. Vital signs revealed hypoxia and relative hypotension. CT abdomen/pelvis without contrast demonstrated pneumoperitoneum, scattered ascites, and dilated small bowel consistent with small bowel obstruction and visceral perforation. Emergent exploratory laparotomy on 10/26 revealed a perforated proximal stomach just proximal to the pylorus, extensive peritoneal contamination, and dense intra-abdominal adhesions. The perforation was repaired; multiple cultures were sent. Microbiology demonstrated bloodstream infection with Blanca albicans and intra- abdominal cultures positive for Bacteroides fragilis, Prevotella melaninogenica, Pseudomonas aeruginosa, Klebsiella species, Streptococcus Group F, Providencia species, and Escherichia coli; respiratory cultures also grew Blanca albicans following a code event with likely aspiration. Post-operatively, the patient has been treated with broad-spectrum antimicrobials. Hospital course has been notable for episodes of hypothermia (as low as 97.3F), initially requiring vasopressor support, and a code event with cardiac arrest and pulselessness for approximately three minutes on 10/30, after which the patient was resuscitated. The patient had an initial MARIA FERNANDA (peak creatinine 1.88 mg/dL), anemia (hemoglobin sarath 6.6-7.5 g/dL), thrombocytopenia (platelets as low as 113,000), and ongoing fluid overload with 3+ edema in the extremities. Repeat abdominal CT on 11/03 showed interval increase in size of right-sided intra-abdominal abscess (measuring up to 17.9 cm), persistent moderate ascites, and evidence of bowel-abscess communication. There is also evidence of bilateral pleural effusions, right greater than left, and adjacent consolidations concerning for pneumonia; these findings have been improving on serial imaging. The patient is currently on meropenem, micafungin, and daptomycin with most recent blood cultures showing improvement. He remains on minimal ventilatory support, with an abdominal drain in place (noted green fluid output), and no new open wounds. Vancomycin therapy has been discontinued due to elevated troughs and absence of Gram-positive organisms on recent cultures. 5/2: whitecount is 6.4 , hemoglobin is 6.6 and required blood transfusion . tachycardia appears to be improving . clinically appears to be improving however at times get tachycardic and has some ongoing blood loss likely post surgically related 5/3: ALLISON drain is continuing to have significant amount of output in the setting of ongoing abscess appears to be suggestive of clearage of infection source 5/4: Tolerating CPAP , appears to be overall clinically improving. getting diuretic therapy for edema in upper and lower extremities . whitecount is improving after stopping daptomycin , LFTs are mildly elevated 5/5: elevated BUN , concerning for ongoing GI bloodloss , hemoglobin is stable at 7.2 Plan: -Stop meropenem and transition to Zosyn - repeat abdominal pelvis Ct in 7 days --Continue micafungin for ongoing intra-abdominal and fungal infection coverage. -- Maintain a two-week course of micafungin from the resolution of intra- abdominal abscess. -- Monitor drain output and clinical signs of intra-abdominal infection. -- Serial CT abdomen/pelvis every 1-2 weeks to monitor abscess resolution. -- Continue pressure support only if mean arterial pressure <65 mmHg; currently minimal vasopressor support required. -- Maintain O? saturation above 94%; defer ventilator weaning to primary/pulmonology as tolerated. -- Monitor for ongoing bowel leak versus fistula development; consider surgical intervention if infection or abscess fails to resolve. -- Pneumonia: Covered by current antibiotics. If there is lack of radiographic improvement, may consider thoracentesis to evaluate pleural effusion for infection. -- Anemia: Monitor hemoglobin. Transfuse if clinically indicated. -- Thrombocytopenia: Monitor counts, transfuse if indicated for bleeding or procedures. -- MARIA FERNANDA: Monitor renal function. Adjust dosing as needed. -- Outpatient ophthalmology follow-up after discharge to assess for potential complications of fungemia. -- Blood cultures: Repeat as clinically indicated. Monitor for further clearance. -- Infectious Disease will continue to follow. -- Plan is subject to change pending new clinical information or diagnostic data. Updates may be added as an addendum. Authorized and Performed by: Sagar Ross MD Total critical care time: Approximately 66 minutes Due to a high probability of clinically significant, life threatening deterioration, the patient required my highest level of preparedness to intervene emergently and I personally spent this critical care time directly and personally managing the patient. This critical care time included obtaining a history; examining the patient; pulse oximetry; ordering and review of studies; arranging urgent treatment with development of a management plan; evaluation of patient's response to treatment; frequent reassessment; and, discussions with other providers. This critical care time was performed to assess and manage the high probability of imminent, life-threatening deterioration that could result in multi-organ failure. It was exclusive of separately billable procedures and treating other patients and teaching time. Isolation Precautions: Standard Plan discussed with: Patient Dietary Evaluation Review Comments: 1) Conitnue TPN to provide at least 75% estimated needs 2) Advance diet as medically feasible 3) Continue current plan of care Expected Outcomes/Goals: GI symptoms to improve To meet >75% estimated needs Fu 2-3 days SAGAR ROSS MD November 17, 2024 20:34
[2024-11-17] MEDS ORDERED: TPN PER PHARMACY IV NR (22:00)
[2024-11-18] VITALS (24 sets, daily range): BP systolic 121–181; BP diastolic 66–98; PULSE 83–150; RESP 21–55; TEMP 98.3–101.4; O2SAT 19–97
[2024-11-18] MEDS: LORazepam 2MG/ML-1ML VIAL IV PRN ×2 (00:10→09:27)
[2024-11-18] MEDS: ACETAMINOPHEN 650 MG RECT SUPP PR ONE (05:13)
[2024-11-18] MEDS: GLYCOPYRROLATE 0.2 MG/ML 1ML VIAL ONE (05:42)
[2024-11-18] MEDS: MORPHINE SULFATE 4 MG/ML SYR/VIAL IV ONE (06:49)
[2024-11-18] MEDS ORDERED: MORPHINE SULFATE 4 MG/ML SYR/VIAL IV PRN (09:00)
--- NOTE | 2024-11-18 09:32 | DVHPN2 ---
Subjective Patient encephalopathic Reviewed: Care Plan, H&P, Labs, Medications, Previous Orders, Radiology, Other (Consultations) Changes from previous H/P or p: Changes General: Per HPI Objective Vitals Vital Signs Date Time Temp Pulse Resp B/P (MAP) Pulse Ox O2 Delivery O2 Flow Rate FiO2 11/18/24 08:25 129 34 121/68 11/18/24 06:25 53 11/18/24 06:00 Nasal Cannula* 1 24 11/18/24 05:25 101.3 101.3 Intake/Output Intake and Output 11/18/24 07:00 Intake Total 519.448 ml Output Total 3400 ml Balance -2880.552 ml Intake Oral 0 ml IV Total 519.448 ml Output Urine Total 3400 ml General Appearance: Other (Nonresponsive) HEENT: Atraumatic Lungs: Other (Tachypneic) Cardiovascular: Normal S1, Normal S2, Other (Sinus tachycardia) Abdomen: Other (ALLISON drain with biliary green fluid; no bowel sounds) Genitourinary: Other (Echavarria's) Neuro: Other (Intubated and sedated) Skin: Dry, Intact, Wounds (See nurse notes and pictures) Psych/Mental Status: Other (Intubated and sedated) Medications Current Medications Medications Dose Ordered Sig/Neisha Route Start Time Stop Time Status Last Admin Dose Admin Potassium Chloride 100 ml @ 50 mls/hr Q2H IV 11/12/24 05:30 11/12/24 09:29 UNV Glycopyrrolate 0.4 mg Q4HPRN PRN IM 11/17/24 11:00 11/18/24 05:42 0.4 MG Lorazepam 2 mg Q2HR PRN IV 11/18/24 09:00 11/18/24 09:27 2 MG Morphine Sulfate 4 mg Q1HR PRN IV 11/18/24 09:00 Laboratory Results Laboratory Tests 11/17/24 03:00 Urinalysis Test 10/28/24 12:30 Urine Color Yellow (Yellow) Urine Clarity Cloudy (Clear) H Urine pH 5.5 (5.0-9.0) Urine Specific [place] 1.023 (1.001-1.035) Urine Protein 1+ (Negative) H Urine Ketones Negative (Negative) Urine Blood 3+ /uL (Negative) H Urine Nitrite Negative (Negative) Urine Bilirubin Negative (Negative) Urine Urobilinogen Normal mg/dL (Negative) Urine Leukocyte Esterase Negative /uL (Negative) Urine RBC 147 /hpf (0 - 3) Urine Microscopic WBC 5 /HPF (0-3) H Urine Squamous Epithelial Cells Few /hpf (<5) Urine Amorphous Crystals Few /hpf (None Seen) Urine Bacteria Few /hpf (None Seen) H Urine Mucus Few (None Seen) Urine Creatinine 32.03 mg/dL (30.0-125.0) Urine Sodium 13 mmol/L (40-220) L Urine Glucose Normal mg/dL (Normal) Microbiology Microbiology Date/Time Source Procedure Growth Status 11/14/24 13:10 Blood Blood Culture - Preliminary NO GROWTH AFTER 72 HOURS OF INCUBATION. Resulted 11/11/24 15:48 Abdomen Gram Stain - Final Complete 11/11/24 15:48 Wound Culture - Final Pseudomonas aeruginosa Presumptive Blanca albicans Complete 10/26/24 13:25 Peritoneal Fluid Gram Stain - Final Complete 10/26/24 13:25 Anaerobic Culture - Final Bacteroides fragilis Prevotella melaninogenica Complete 10/26/24 13:25 Aerobic Culture - Final Pseudomonas aeruginosa Klebsiella pneumoniae Streptococcus Group F Complete 10/26/24 04:00 Voided Urine Urine Culture - Final Complete Labs and/or images reviewed: Labs reviewed by me, Image(s) reviewed by me Assessment/Plan Assessment/Plan Impression: -sepsis , yeast in the blood, repeat blood culture negative for yeast -perforated gastric ulcer, status post exploratory laparotomy with repair of ulcer, lysis of adhesions -pneumoperitoneum with multiple gastric adhesions and abscess -acute kidney injury, vasomotor nephropathy -cachexia -postop anemia -acute hypoxic respiratory failure mechanical ventilation -hypoxic encephalopathy Plan: -patient terminally extubated. -comfort measures Total time spent with patient discussing and formulating plan of care: 35 minutes. This medical document was created using an electronic medical record system with [employer] dictation system. Although this document has been carefully reviewed, there may still be some phonetic and typographical errors. These areas are purely typographical due to imperfections of the software programs, and do not reflect any compromise in the patient's medical care. 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
--- NOTE | 2024-11-18 09:52 | DVHPN2 ---
Progress Note Date Seen: November 18, 2024 Resident Creating Document: LUANN PLUNKETT RESIDENT Has the PT tested + for MRSA If YES, has PT been informed?: No Medical Necessity Reason Pt with a Central, PICC or Fol: Yes The following are medically ne: Persaud Catheter Reason for persaud catheter: Strict I&O Subjective Review of Systems Patient seen and examined at bedside. Primary team and Neurology discussed with the family regarding severe neurologic deficits due to brain anoxia on MRI of the brain. Family aware of results and decided comfort measures only and terminal wean. Patient was extubated and patient is currently on 2 L of nasal cannula receiving morphine and Ativan as needed. At this point, from Nephrology standpoint we will sign off the case. ROS unable to obtain due to patient's current mental status. Objective vital signs Vital Sign Date Time Temp Pulse Resp B/P (MAP) Pulse Ox O2 Delivery O2 Flow Rate FiO2 11/18/24 08:25 129 34 121/68 11/18/24 06:25 53 11/18/24 06:00 Nasal Cannula* 1 24 11/18/24 05:25 101.3 101.3 Total Intake and Output 11/17/24 11/17/24 11/18/24 15:00 23:00 07:00 Intake Total 519.448 ml 0 ml Output Total 1900 ml 1500 ml Balance 519.448 ml -1900 ml -1500 ml medications Current Medications Medications Dose Ordered Sig/Neisha Route Start Time Stop Time Status Last Admin Dose Admin Potassium Chloride 100 ml @ 50 mls/hr Q2H IV 11/12/24 05:30 11/12/24 09:29 UNV Glycopyrrolate 0.4 mg Q4HPRN PRN IM 11/17/24 11:00 11/18/24 05:42 0.4 MG Lorazepam 2 mg Q2HR PRN IV 11/18/24 09:00 11/18/24 09:27 2 MG Morphine Sulfate 4 mg Q1HR PRN IV 11/18/24 09:00 Examination Physical Examination General: Patient currently extubated on NC 2L of O2 but desaturating and having inc resp rate. HEENT: Normocephalic, atraumatic, moist mucous membranes Respiratory/pulmonary: Clear lungs bilaterally, no associated crackles or wheezes. with agonal breathing Cardiovascular: Normal heart sounds S1 and S2 with no associated murmurs Abdomen: Abdomen nondistended, there is no pain to palpation in any of the abdominal quadrants, no palpable masses. ALLISON drain in place draining grenish bile like fluid. Extremities: There is significant 2+ pitting edema on bilateral lower extremities from both foots all the way up to bilateral thighs. Skin: No rashes or pruritus, there is no sacral edema present at this time. Neurological: OFF sedation but not responding, not following commands. laboratory and microbiology Laboratory Tests 11/17/24 03:00 Test 11/17/24 03:00 Range/Units Serum Glucose 128 H 74-106 mg/dL Microbiology Date/Time Source Procedure Growth Status 11/14/24 13:10 Blood Blood Culture - Preliminary NO GROWTH AFTER 72 HOURS OF INCUBATION. Resulted 11/11/24 15:48 Abdomen Gram Stain - Final Complete 11/11/24 15:48 Wound Culture - Final Pseudomonas aeruginosa Presumptive Blanca albicans Complete 10/26/24 13:25 Peritoneal Fluid Gram Stain - Final Complete 10/26/24 13:25 Anaerobic Culture - Final Bacteroides fragilis Prevotella melaninogenica Complete 10/26/24 13:25 Aerobic Culture - Final Pseudomonas aeruginosa Klebsiella pneumoniae Streptococcus Group F Complete 10/26/24 04:00 Voided Urine Urine Culture - Final Complete Problem List/Assessment/Plan Problem List/Assessment/Plan Assessment/plan MARIA FERNANDA likely hemodynamic mediated in the setting of septic shock Uremia likely multifactorial due to sepsis/TPN/possible GI bleed/severe anemia status post transfusion Acute blood loss anemia most likely due to intraoperative blood loss/ gastric ulcer perforation Acute hypoxemic respiratory failure, possible bacterial pneumonia Acute metabolic/toxic encephalopathy Transaminitis likely due to septic shock Candidemia Severe malnutrition Plan -Patient undergoing terminal wean at this time -Ativan and morphine PRN per primary team -Continue comfort care -Nephrology rajiv sign OFF the case 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 Critical time spent 40min Plan discussed with Dr. Kelley Addendum Patient seen and examined, plan discussed with resident. Agree with above, we will sign off s/p terminal wean Plan discussed with: Other Dietary Evaluation Review Comments: 1) Conitnue TPN to provide at least 75% estimated needs 2) Advance diet as medically feasible 3) Continue current plan of care Expected Outcomes/Goals: GI symptoms to improve To meet >75% estimated needs Fu 2-3 days LUANN PLUNKETT RESIDENT November 18, 2024 09:52 ISIDRO KELLEY MD November 18, 2024 15:46
--- NOTE | 2024-11-18 10:26 | DVHDS2 ---
Discharge Summary Date of Admission Oct 25, 2024 at 22:13 Date of Discharge: November 18, 2024 Admitting Diagnosis Perforated abdominal viscus Labs/Diagnostic Data: Laboratory Results Test 11/17/24 05:55 11/17/24 03:00 11/16/24 07:24 11/16/24 06:05 POC Glucose 108 mg/dl (70-106) White Blood Count 13.5 10^3/uL (4.4-10.8) Red Blood Count 2.36 10^6/uL (4.5-5.90) Hemoglobin 7.2 g/dL (13.5-17.5) Hematocrit 21.6 % (41.0-53.0) Mean Corpuscular Volume 91.6 fL (80.0-100.0) Mean Corpuscular Hemoglobin 30.6 pg (28.0-32.0) Mean Corpuscular Hemoglobin Concent 33.4 g/dL (32.0-36.0) Red Cell Distribution Width 14.8 % (11.8-14.3) Platelet Count 321 10^3/uL (140-450) Mean Platelet Volume 8.0 fL (6.9-10.8) Neutrophils (%) (Auto) % (37.0-80.0) Lymphocytes (%) (Auto) % (10.0-50.0) Monocytes (%) (Auto) % (0.0-12.0) Basophils (%) (Auto) % (0.0-2.0) Neutrophils # (Auto) 10 ^3/uL (1.6-8.6) Lymphocytes # (Auto) 10 ^3/uL (0.4-5.4) Monocytes # (Auto) 10 ^3/uL (0-1.3) Differential Total Cells Counted 100.0 (100) Neutrophils % (Manual) 79 (37.0-80.0) Band Neutrophils % (Manual) 9 Lymphocytes % (Manual) 4 (10.0-50.0) Monocytes % (Manual) 3 (0-12) Eosinophils % (Manual) 2 (0-7) Basophils % (Manual) 0 (0.0-2.0) Metamyelocytes % (manual) 0 Myelocytes % (Manual) 3 Promyelocytes % (Manual) 0 Blast Cells % (Manual) 0 Reactive Lymphocytes 0 Platelet Estimate Adequate Anisocytosis (manual) Slight Sodium Level 141 mmol/L (136-145) Potassium Level 3.5 mmol/L (3.5-5.1) Chloride Level 106 mmol/L (98-107) Carbon Dioxide Level 24 mmol/L (20-31) Anion Gap 11 (5-15) Blood Urea Nitrogen 78 mg/dL (9-23) Creatinine 1.55 mg/dL (0.700-1.30) Glomerular Filtration Rate Calc 56 mL/min (>90) BUN/Creatinine Ratio 50.3 (10.0-20.0) Serum Glucose 128 mg/dL (74-106) Calcium Level 7.6 mg/dL (8.7-10.4) Phosphorus Level 3.7 mg/dL (2.4-5.1) Magnesium Level 2.0 mg/dL (1.6-2.6) Total Bilirubin 0.6 mg/dL (0.2-1.0) Aspartate Amino Transferase (AST) 76 U/L (13-40) Alanine Aminotransferase (ALT) 63 U/L (7-40) Alkaline Phosphatase 160 U/L (46-116) Total Protein 5.2 g/dL (5.7-8.2) Albumin 2.6 g/dL (3.2-4.8) Eosinophils (%) (Auto) 4.5 % (0.0-7.0) Eosinophils # (Auto) 0.6 10 ^3/uL (0-0.8) Basophils # (Auto) 0.1 10 ^3/uL (0-0.2) Nucleated Red Blood Cells 0.0 % Blood Gas Specimen Type Arterial Blood Gas Sample Site Right radial Blood Gas Patient Temperature 37.0 Arterial Blood Date Drawn [id number] Arterial Blood pH 7.345 (7.350-7.450) Arterial Blood Partial Pressure CO2 39.1 mmHg (35.0-48.0) Arterial Blood Partial Pressure O2 92.0 mmHg (83.0-108.0) Arterial Blood HCO3 20.9 mmol/L (21.0-28.0) Arterial Blood Oxygen Saturation 96.0 % (94.0-98.0) Arterial Blood Base Excess -4.4 mmol/L (-2.0-3.0) Arterial Blood Oxyhemoglobin 95.4 % (94.0-98.0) Arterial Blood Carboxyhemoglobin 0.3 % (0.5-1.5) Arterial Blood Methemoglobin 0.3 % (0.0-1.5) Yunior Test Modified Blood Gas Total Hemoglobin 8.40 g/dL (13.5-17.5) Blood Gas Set Respiration Rate 20.0 Blood Gas Modality Vent - ac FiO2 % 30.0 Blood Gas Tidal Volume 450.0 Blood Gas PEEP or CPAP 5.0 Test 11/14/24 07:00 11/13/24 03:00 11/12/24 06:30 11/07/24 03:30 Blood Gas Spontaneous Rate 24 Blood Gas Inspiratory Pressure 21.0 Bl Gas Inspiratory/Expiratory Ratio 1:2.6 Specimen Drawn By lewis rt Triglycerides Level 138 mg/dL (< 150) Blood Gas Critical Value Read Back Yes Blood Gas Notified Whom Vero kendrick Blood Gas Notified Time [id number] Blood Gas Notified By Rt rosette russ Lactic Acid Level 0.9 mmol/L (0.4-2.0) Random Vancomycin Level 16.9 ug/mL (5-10) Test 11/06/24 03:14 11/04/24 14:58 11/03/24 03:00 10/30/24 08:27 Prothrombin Time 11.5 sec (9.3-11.8) Prothrombin Time INR 1.09 (0.9-1.15) Activated Partial Thromboplast Time 38.0 SEC (24.5-34.5) Vancomycin Level Trough 29.6 ug/mL (5-10) Smudge Cells 5 /100 WBC Miscellaneous Referred Test ( Tmp Sent to [facility] Test 10/30/24 03:12 10/28/24 12:30 10/26/24 18:40 10/26/24 02:52 Large Platelets Few Urine Color Yellow (Yellow) Urine Clarity Cloudy (Clear) Urine pH 5.5 (5.0-9.0) Urine Specific [place] 1.023 (1.001-1.035) Urine Protein 1+ (Negative) Urine Ketones Negative (Negative) Urine Blood 3+ /uL (Negative) Urine Nitrite Negative (Negative) Urine Bilirubin Negative (Negative) Urine Urobilinogen Normal mg/dL (Negative) Urine Leukocyte Esterase Negative /uL (Negative) Urine RBC 147 /hpf (0 - 3) Urine Microscopic WBC 5 /HPF (0-3) Urine Squamous Epithelial Cells Few /hpf (<5) Urine Amorphous Crystals Few /hpf (None Seen) Urine Bacteria Few /hpf (None Seen) Urine Mucus Few (None Seen) Urine Creatinine 32.03 mg/dL (30.0-125.0) Urine Sodium 13 mmol/L (40-220) Urine Glucose Normal mg/dL (Normal) Polychromasia Slight Microcytosis Slight Macrocytosis Slight Troponin I High Sensitivity 3 ng/L (</=54) Test 10/25/24 19:03 B-Type Natriuretic Peptide 74.53 pg/mL (0-100) Lipase 50 U/L (12-53) Other Laboratory Tests 11/17/24 03:00 Brief Hx & Hospital Course: History of Present Illness 44-year-old male presents for evaluation of generalized weakness. Patient endorses a two week history of increasing fatigue with associated upper abdominal pain, nausea and vomiting. He states being unable to keep any food or liquids down. No fever or chills. No other acute complaints reported. Course of hospitalization: Patient was immediately taken to the operating room with findings of multiple areas abscess, as well as perforated gastric ulcer. Patient was also subsequently underwent cholecystectomy at this time. Postoperatively patient was transitioned from ICU to telemetry floor, at which time of the patient had cardiopulmonary arrest. Patient he was continued on supportive measures in ICU including sedation, empiric antibiotic therapy, TPN, as well as vasopressor therapy which was weaned off. Sedation was discontinued with noted neurological changes. Patient underwent CT scan of the head, subsequent MRI of the brain which revealed diffuse anoxic damage. Long discussion was made with the family regarding findings by myself as well as Neurology. Patient was compassionately extubated yesterday, with the patient was placed on comfort measures. Patient was today at 10:10am. Family was bedside. Consults/Reason for consult General surgery Neurology Pulmonology Infectious disease Nephrology Operations or Procedures 10/26/2024: Findings of exploratory laparotomy: POSTOPERATIVE DIAGNOSES: * Pneumoperitoneum. * Obliteration of abdominal cavity by adhesions and inflammation. * Perforated gastric ulcer. Condition at Discharge: Fair Final Diagnosis/Problems List Sepsis secondary to pneumoperitoneum Secondary diagnose: -sepsis , yeast in the blood, repeat blood culture negative for yeast -perforated gastric ulcer, status post exploratory laparotomy with repair of ulcer, lysis of adhesions -pneumoperitoneum with multiple gastric adhesions and abscess -acute kidney injury, vasomotor nephropathy -cachexia -postop anemia -acute hypoxic respiratory failure mechanical ventilation -hypoxic encephalopathy Discharge Disposition: at Hospital [facility] Discharge Statement: "Patient was advised to return to the ER or call 911 if any headaches, dizziness, shortness of breath, chest pain, abdominal pain, bleeding, fevers, or worsening of medical condition. Patient was counseled about treatment plan, medications, possible side effects, patientverbalized understanding. All questions were answered to the best of my ability. This discharge took greater then 30 minutes in planning, reviewing documentation, counseling the patient, and discussing with other team members." ASSESSMENT ASSESSMENT Assessment Date of Service: November 18, 2024 Billing Provider: IRMA WAITE NP Common Visit Codes: [id number]/[id number] DISCH DAY >30min IRMA WAITE NP November 18, 2024 10:26
--- NOTE | 2024-11-18 13:05 | DVHPN2 ---
Consult Progress Note Date Seen: November 16, 2024 Subjective Patient reports: Other (doing better , no signs of blood loss and no bowel movement . has an NG tube in and is having significant dark green output ) Objective vital signs Vital Sign Date Time Temp Pulse Resp B/P (MAP) Pulse Ox O2 Delivery O2 Flow Rate FiO2 11/18/24 08:25 129 34 121/68 11/18/24 08:00 55 Mechanical Ventilator+ 30 30 11/18/24 08:00 0 11/18/24 05:25 101.3 101.3 Total Intake and Output 11/17/24 11/17/24 11/18/24 15:00 23:00 07:00 Intake Total 519.448 ml 0 ml Output Total 1900 ml 1500 ml Balance 519.448 ml -1900 ml -1500 ml medications Current Medications Medications Dose Ordered Sig/Neisha Route Start Time Stop Time Status Last Admin Dose Admin Potassium Chloride 100 ml @ 50 mls/hr Q2H IV 11/12/24 05:30 11/12/24 09:29 UNV Glycopyrrolate 0.4 mg Q4HPRN PRN IM 11/17/24 11:00 11/18/24 05:42 0.4 MG Lorazepam 2 mg Q2HR PRN IV 11/18/24 09:00 11/18/24 09:27 2 MG Morphine Sulfate 4 mg Q1HR PRN IV 11/18/24 09:00 laboratory and microbiology Laboratory Tests 11/17/24 03:00 Test 11/17/24 03:00 Range/Units Serum Glucose 128 H 74-106 mg/dL Problem List/Assessment/Plan Problems(with codes): (1) Abdominal abscess (2) Septic shock (3) Perforated abdominal viscus (4) Acute kidney injury (5) Dehydration with hyponatremia (6) Bowel obstruction Problem List/Assessment/Plan ID Problem List: -- Septic shock -- Cardiac arrest, post-resuscitation -- Perforated stomach, post-operative status -- Intra-abdominal abscess -- Fungemia (Blanca albicans) -- Pseudomonas infection -- Acute kidney injury -- Thrombocytopenia -- Anemia (likely secondary to blood loss) -- Pneumonia -- Small bowel obstruction Assessment This is a 44-year-old male with no significant past medical or family history who presented with increased fatigue, upper abdominal pain, nausea, vomiting, generalized weakness, and inability to tolerate oral intake. On admission, the patient was found to have a distended, tender abdomen and palpable cervical and supraclavicular lymphadenopathy. Vital signs revealed hypoxia and relative hypotension. CT abdomen/pelvis without contrast demonstrated pneumoperitoneum, scattered ascites, and dilated small bowel consistent with small bowel obstruction and visceral perforation. Emergent exploratory laparotomy on 10/26 revealed a perforated proximal stomach just proximal to the pylorus, extensive peritoneal contamination, and dense intra-abdominal adhesions. The perforation was repaired; multiple cultures were sent. Microbiology demonstrated bloodstream infection with Blanca albicans and intra- abdominal cultures positive for Bacteroides fragilis, Prevotella melaninogenica, Pseudomonas aeruginosa, Klebsiella species, Streptococcus Group F, Providencia species, and Escherichia coli; respiratory cultures also grew Blanca albicans following a code event with likely aspiration. Post-operatively, the patient has been treated with broad-spectrum antimicrobials. Hospital course has been notable for episodes of hypothermia (as low as 97.3F), initially requiring vasopressor support, and a code event with cardiac arrest and pulselessness for approximately three minutes on 10/30, after which the patient was resuscitated. The patient had an initial MARIA FERNANDA (peak creatinine 1.88 mg/dL), anemia (hemoglobin sarath 6.6-7.5 g/dL), thrombocytopenia (platelets as low as 113,000), and ongoing fluid overload with 3+ edema in the extremities. Repeat abdominal CT on 11/03 showed interval increase in size of right-sided intra-abdominal abscess (measuring up to 17.9 cm), persistent moderate ascites, and evidence of bowel-abscess communication. There is also evidence of bilateral pleural effusions, right greater than left, and adjacent consolidations concerning for pneumonia; these findings have been improving on serial imaging. The patient is currently on meropenem, micafungin, and daptomycin with most recent blood cultures showing improvement. He remains on minimal ventilatory support, with an abdominal drain in place (noted green fluid output), and no new open wounds. Vancomycin therapy has been discontinued due to elevated troughs and absence of Gram-positive organisms on recent cultures. 5/2: whitecount is 6.4 , hemoglobin is 6.6 and required blood transfusion . tachycardia appears to be improving . clinically appears to be improving however at times get tachycardic and has some ongoing blood loss likely post surgically related 5/3: ALLISON drain is continuing to have significant amount of output in the setting of ongoing abscess appears to be suggestive of clearage of infection source 11/10: Tolerating CPAP , appears to be overall clinically improving. getting diuretic therapy for edema in upper and lower extremities . whitecount is improving after stopping daptomycin , LFTs are mildly elevated 11/11: elevated BUN , concerning for ongoing GI bloodloss , hemoglobin is stable at 7.2 11/14: agree with Dr. Keita's notes and findings . Patient is on minimal vent and not on any pressers and having very few bowel movements and remains NPO . Per Dr. Keita : Concern for anoxic brain injury per brain mri, pending goals of care discussion with family members per primary team and neurologist, sedation and analgesia has been held. Wound culture is growing carbapenemic resistant pseudomonas. WBC trending up with left shift. There is also a concern for possible surgical wound dehiscence from ex-lap. 11/15: Off pressers and a drip for high blood presser . Agree with Dr. Keita's findings . whitecount is trending up and hemoglobin is recurrently dropping and requiring multiple blood transfusions and wound culture came back negative for CRE 11/16: whitecount is 13.5 and hemoglobin is stable Plan: - Continue Zosyn - repeat abdominal pelvis Ct in 5 days --Continue micafungin for ongoing intra-abdominal and fungal infection coverage. -- Maintain a two-week course of micafungin from the resolution of intra- abdominal abscess. -- Monitor drain output and clinical signs of intra-abdominal infection. -- Serial CT abdomen/pelvis every 1-2 weeks to monitor abscess resolution. -- Off vasopressors, on nicardipine drip. -- Maintain O? saturation above 94%; defer ventilator weaning to primary/pulmonology as tolerated. -- Monitor for ongoing bowel leak versus fistula development; consider surgical intervention if infection or abscess fails to resolve. -- Pneumonia: Covered by current antibiotics. If there is lack of radiographic improvement, may consider thoracentesis to evaluate pleural effusion for infection. -- Anemia: Monitor hemoglobin. Transfuse if clinically indicated. -- Thrombocytopenia: Monitor counts, transfuse if indicated for bleeding or procedures. -- MARIA FERNANDA: Monitor renal function. Adjust dosing as needed. -- Outpatient ophthalmology follow-up after discharge to assess for potential complications of fungemia. -- Blood cultures: Repeat as clinically indicated. Monitor for further clearance. Repeated on 11/14/24 -- Infectious Disease will continue to follow. -- Plan is subject to change pending new clinical information or diagnostic data. Updates may be added as an addendum. Total critical care time: Approximately 76 minutes Due to a high probability of clinically significant, life threatening deterioration, the patient required my highest level of preparedness to intervene emergently and I personally spent this critical care time directly and personally managing the patient. This critical care time included obtaining a history; examining the patient; pulse oximetry; ordering and review of studies; arranging urgent treatment with development of a management plan; evaluation of patient's response to treatment; frequent reassessment; and, discussions with other providers. This critical care time was performed to assess and manage the high probability of imminent, life-threatening deterioration that could result in multi-organ failure. It was exclusive of separately billable procedures and treating other patients and teaching time. Isolation Precautions: Standard Plan discussed with: Other Dietary Evaluation Review Comments: 1) Conitnue TPN to provide at least 75% estimated needs 2) Advance diet as medically feasible 3) Continue current plan of care Expected Outcomes/Goals: GI symptoms to improve To meet >75% estimated needs Fu 2-3 days SAGAR JUAREZ MD November 18, 2024 13:05
--- NOTE | 2024-11-18 13:37 | DVHPN2 ---
Consult Progress Note Date Seen: November 17, 2024 Subjective Patient reports: Other (has been terminally weaned and excavated and on 1 liter nasal canula . all medications have been discontinued and is gettign supportive care ) Objective vital signs Vital Sign Date Time Temp Pulse Resp B/P (MAP) Pulse Ox O2 Delivery O2 Flow Rate FiO2 11/18/24 08:25 129 34 121/68 11/18/24 08:00 55 Mechanical Ventilator+ 30 30 11/18/24 08:00 0 11/18/24 05:25 101.3 101.3 Total Intake and Output 11/17/24 11/17/24 11/18/24 15:00 23:00 07:00 Intake Total 519.448 ml 0 ml Output Total 1900 ml 1500 ml Balance 519.448 ml -1900 ml -1500 ml medications Current Medications Medications Dose Ordered Sig/Neisha Route Start Time Stop Time Status Last Admin Dose Admin Potassium Chloride 100 ml @ 50 mls/hr Q2H IV 11/12/24 05:30 11/12/24 09:29 UNV Glycopyrrolate 0.4 mg Q4HPRN PRN IM 11/17/24 11:00 11/18/24 05:42 0.4 MG Lorazepam 2 mg Q2HR PRN IV 11/18/24 09:00 11/18/24 09:27 2 MG Morphine Sulfate 4 mg Q1HR PRN IV 11/18/24 09:00 laboratory and microbiology Laboratory Tests 11/17/24 03:00 Test 11/17/24 03:00 Range/Units Serum Glucose 128 H 74-106 mg/dL Problem List/Assessment/Plan Problems(with codes): (1) Abdominal abscess (2) Septic shock (3) Perforated abdominal viscus (4) Acute kidney injury (5) Dehydration with hyponatremia Problem List/Assessment/Plan ID Problem List: -- Septic shock -- Cardiac arrest, post-resuscitation -- Perforated stomach, post-operative status -- Intra-abdominal abscess -- Fungemia (Blanca albicans) -- Pseudomonas infection -- Acute kidney injury -- Thrombocytopenia -- Anemia (likely secondary to blood loss) -- Pneumonia -- Small bowel obstruction Assessment This is a 44-year-old male with no significant past medical or family history who presented with increased fatigue, upper abdominal pain, nausea, vomiting, generalized weakness, and inability to tolerate oral intake. On admission, the patient was found to have a distended, tender abdomen and palpable cervical and supraclavicular lymphadenopathy. Vital signs revealed hypoxia and relative hypotension. CT abdomen/pelvis without contrast demonstrated pneumoperitoneum, scattered ascites, and dilated small bowel consistent with small bowel obstruction and visceral perforation. Emergent exploratory laparotomy on 10/26 revealed a perforated proximal stomach just proximal to the pylorus, extensive peritoneal contamination, and dense intra-abdominal adhesions. The perforation was repaired; multiple cultures were sent. Microbiology demonstrated bloodstream infection with Blanca albicans and intra- abdominal cultures positive for Bacteroides fragilis, Prevotella melaninogenica, Pseudomonas aeruginosa, Klebsiella species, Streptococcus Group F, Providencia species, and Escherichia coli; respiratory cultures also grew Blanca albicans following a code event with likely aspiration. Post-operatively, the patient has been treated with broad-spectrum antimicrobials. Hospital course has been notable for episodes of hypothermia (as low as 97.3F), initially requiring vasopressor support, and a code event with cardiac arrest and pulselessness for approximately three minutes on 10/30, after which the patient was resuscitated. The patient had an initial MARIA FERNANDA (peak creatinine 1.88 mg/dL), anemia (hemoglobin sarath 6.6-7.5 g/dL), thrombocytopenia (platelets as low as 113,000), and ongoing fluid overload with 3+ edema in the extremities. Repeat abdominal CT on 11/03 showed interval increase in size of right-sided intra-abdominal abscess (measuring up to 17.9 cm), persistent moderate ascites, and evidence of bowel-abscess communication. There is also evidence of bilateral pleural effusions, right greater than left, and adjacent consolidations concerning for pneumonia; these findings have been improving on serial imaging. The patient is currently on meropenem, micafungin, and daptomycin with most recent blood cultures showing improvement. He remains on minimal ventilatory support, with an abdominal drain in place (noted green fluid output), and no new open wounds. Vancomycin therapy has been discontinued due to elevated troughs and absence of Gram-positive organisms on recent cultures. 5/2: whitecount is 6.4 , hemoglobin is 6.6 and required blood transfusion . tachycardia appears to be improving . clinically appears to be improving however at times get tachycardic and has some ongoing blood loss likely post surgically related 5/3: ALLISON drain is continuing to have significant amount of output in the setting of ongoing abscess appears to be suggestive of clearage of infection source 11/10: Tolerating CPAP , appears to be overall clinically improving. getting diuretic therapy for edema in upper and lower extremities . whitecount is improving after stopping daptomycin , LFTs are mildly elevated 11/11: elevated BUN , concerning for ongoing GI bloodloss , hemoglobin is stable at 7.2 11/14: agree with Dr. Keita's notes and findings . Patient is on minimal vent and not on any pressers and having very few bowel movements and remains NPO . Per Dr. Keita : Concern for anoxic brain injury per brain mri, pending goals of care discussion with family members per primary team and neurologist, sedation and analgesia has been held. Wound culture is growing carbapenemic resistant pseudomonas. WBC trending up with left shift. There is also a concern for possible surgical wound dehiscence from ex-lap. 11/15: Off pressers and a drip for high blood presser . Agree with Dr. Keita's findings . whitecount is trending up and hemoglobin is recurrently dropping and requiring multiple blood transfusions and wound culture came back negative for CRE 11/16: whitecount is 13.5 and hemoglobin is stable 11/17: Patient has been transitioned to comfort care Plan: - will monitor clinically off all antibiotics as no antibiotics are needed in setting of comfort care - repeat abdominal pelvis Ct in 5 days -- Maintain a two-week course of micafungin from the resolution of intra- abdominal abscess. -- Monitor drain output and clinical signs of intra-abdominal infection. -- Serial CT abdomen/pelvis every 1-2 weeks to monitor abscess resolution. -- Off vasopressors, on nicardipine drip. -- Maintain O? saturation above 94%; defer ventilator weaning to primary/pulmonology as tolerated. -- Monitor for ongoing bowel leak versus fistula development; consider surgical intervention if infection or abscess fails to resolve. -- Pneumonia: Covered by current antibiotics. If there is lack of radiographic improvement, may consider thoracentesis to evaluate pleural effusion for infection. -- Anemia: Monitor hemoglobin. Transfuse if clinically indicated. -- Thrombocytopenia: Monitor counts, transfuse if indicated for bleeding or procedures. -- MARIA FERNANDA: Monitor renal function. Adjust dosing as needed. -- Outpatient ophthalmology follow-up after discharge to assess for potential complications of fungemia. -- Blood cultures: Repeat as clinically indicated. Monitor for further clearance. Repeated on 11/14/24 -- Infectious Disease will continue to follow. -- Plan is subject to change pending new clinical information or diagnostic data. Updates may be added as an addendum. solation Precautions: Standard Plan discussed with: Other Dietary Evaluation Review Comments: 1) Conitnue TPN to provide at least 75% estimated needs 2) Advance diet as medically feasible 3) Continue current plan of care Expected Outcomes/Goals: GI symptoms to improve To meet >75% estimated needs Fu 2-3 days SAGAR JUAREZ MD November 18, 2024 13:37
== END 2024-11-18 14:45 | DRG 710 ==
LOC: EDBD 17:46 → ER 17:49 → OVERFLOW 22:13 → TELE-WESTW 23:52 → ICU WEST 10-26 09:47 → TELE-WESTW 10-28 02:16 → ICU WEST 10-30 03:20
PROVIDERS: ADMIT Nurse Practitioner Acute Care; ATTEND Nurse Practitioner Acute Care
PROC: 0DNW0ZZ Release Peritoneum, Open Approach (ICD-10-PCS; 2024-10-26)
PROC: 0DQ60ZZ Repair Stomach, Open Approach (ICD-10-PCS; principal; 2024-10-26 12:56)
PROC: 30233N1 Transfusion of Nonautologous Red Blood Cells into Peripheral Vein, Percutaneous Approach (ICD-10-PCS; 2024-10-27)
PROC: 02HV33Z Insertion of Infusion Device into Superior Vena Cava, Percutaneous Approach (ICD-10-PCS; 2024-10-27)
PROC: B548ZZA Ultrasonography of Superior Vena Cava, Guidance (ICD-10-PCS; 2024-10-27)
PROC: 5A1955Z Respiratory Ventilation, Greater than 96 Consecutive Hours (ICD-10-PCS; 2024-10-30)
PROC: 0BH17EZ Insertion of Endotracheal Airway into Trachea, Via Natural or Artificial Opening (ICD-10-PCS; 2024-10-30)
PROC: 5A12012 Performance of Cardiac Output, Single, Manual (ICD-10-PCS; 2024-10-30)
PROC: 0BH17EZ Insertion of Endotracheal Airway into Trachea, Via Natural or Artificial Opening (ICD-10-PCS; 2024-11-06)
DX: A41.9 Sepsis, unspecified organism (principal); G93.6 Cerebral edema; J96.01 Acute respiratory failure with hypoxia; J69.0 Pneumonitis due to inhalation of food and vomit; N17.0 Acute kidney failure with tubular necrosis; K25.6 Chronic or unspecified gastric ulcer with both hemorrhage and perforation; K65.1 Peritoneal abscess; K63.1 Perforation of intestine (nontraumatic); E43 Unspecified severe protein-calorie malnutrition; K56.50 Intestinal adhesions [bands], unspecified as to partial versus complete obstruction; R65.21 Severe sepsis with septic shock; G92.8 Other toxic encephalopathy; R64 Cachexia; I46.9 Cardiac arrest, cause unspecified; E88.09 Other disorders of plasma-protein metabolism, not elsewhere classified; K66.8 Other specified disorders of peritoneum; J18.9 Pneumonia, unspecified organism; D62 Acute posthemorrhagic anemia; Z66 Do not resuscitate; R74.01 Elevation of levels of liver transaminase levels; D69.59 Other secondary thrombocytopenia; T85.79XA Infection and inflammatory reaction due to other internal prosthetic devices, implants and grafts, initial encounter; E86.0 Dehydration; E87.1 Hypo-osmolality and hyponatremia; E87.20 Acidosis, unspecified; G93.1 Anoxic brain damage, not elsewhere classified; K80.20 Calculus of gallbladder without cholecystitis without obstruction; R18.8 Other ascites; E87.70 Fluid overload, unspecified; Z99.81 Dependence on supplemental oxygen; Z79.899 Other long term (current) drug therapy; Z68.1 Body mass index [BMI] 19.9 or less, adult; Y84.8 Other medical procedures as the cause of abnormal reaction of the patient, or of later complication, without mention of misadventure at the time of the procedure; Y92.238 Other place in hospital as the place of occurrence of the external cause
CPT/HCPCS: 36415; 36430; 36569; 36600; 70450; 70491; 70551; 71045; 73070; 74021; 74176; 74177; 74246; 74250; 76937; 80053; 80202; 81001; 82570; 82805; 82962; 83605; 83690; 83735; 83880; 84100; 84132; 84295; 84300; 84478; 84484; 85007; 85014; 85018; 85025; 85027; 85610; 85730; 86850; 86900; 86901; 86920; 87040; 87070; 87075; 87076; 87077; 87081; 87086; 87186; 87205; 92950; 93005; 94002; 94003; 94640; 95819; 96361; 96374; 96375; 99291; A4618; G0378; J0131; J0171; J1100; J1815; J1885; J2185; J2212; J2248; J2405; J2470; J2543; J2704; J3490; J7060; P9047